=== PATIENT | female | born 1970 | race Hispanic/Latino ===

== ENCOUNTER 2020-11-11 02:00 | Inpatient (IN) | payer OTHER ==
--- OUTSIDE RECORDS SUMMARY | 2020-11-11 02:07 | XMS REPORT | Continuity of Care Document ---
:1970 Author Organization [facility] t Address [address] [place] [address] [address]. [address] [place] [address] Care Team Providers Name Role Phone Jaylen Lomeli Primary Care Physician Unavailable Sarita Wang RN Attending Clinician Unavailable Lu BLANCO, Ata Perla Attending Clinician Monty Lomeli MD Attending Clinician Amber Duff MD Attending Clinician Elena MCFADDEN Attending Clinician Unavailable Mayito MCFADDEN Attending Clinician Unavailable Leena BLANCO, JJerica Attending Clinician Shakeel GOMEZ Attending Clinician MD AMBER DUFF Attending Clinician Unavailable Josh DURAN Attending Clinician Unavailable Bart PITTMAN Attending Clinician Unavailable Britta De Jesus MA Attending Clinician Unavailable Jona PITTMAN Attending Clinician Unavailable Asked, Pcp Attending Clinician Unavailable Garett Gunderson RN Attending Clinician Addi PITTMAN Attending Clinician Unavailable Mimi Attending Clinician Unavailable Brandon Attending Clinician Unavailable Trey Attending Clinician Unavailable Wan OG Attending Clinician Unavailable Rod MCFADDEN Attending Clinician Unavailable DR Annie HEARN Attending Clinician Unavailable Dodie Carson MD Attending Clinician Kelli Myers Attending Clinician Unavailable Rick Wylie MD Attending Clinician WILDA Attending Clinician Unavailable Juan Pablo MCFADDEN Attending Clinician Unavailable Karo Schumacher Attending Clinician Karo Hassan MD Attending Clinician Chuy Wang MD Attending Clinician Monty Wilkes MA Attending Clinician Unavailable OMEGA Admitting Clinician Unavailable MD REGGIE DUFFCatalina Admitting Clinician Unavailable DR Annie HEARN Admitting Clinician Unavailable MD Maira PEDERSEN Admitting Clinician Unavailable Payers Payer Name Policy Type Policy Effective Date Expiration Date Sour ce Number MEDICAREMEDICARE PART [id number] 2019 [facility] AND 00:00:00 Synagogue DslccttrEN520/05[place] [id number] 2019 [facility] 00:00:00 Synagogue [id number]/ 05/2019-PresentIndemni ty Problems Condition Condition Condition Status Onset Resolution Last Treating Co mments Source Name Details Category Date Date Treatment Clinician Date Anemia of Anemia of Disease Active Margareth ston chronic chronic 4-15 Methodi disease disease 00:00: st 00 Bursitis Bursitis Disease Active [place] of hip of hip 4-15 Methodi 00:00: st 00 Bursitis Bursitis Disease Active [place] of knee of knee 4-15 Methodi 00:00: st 00 Coronary Coronary Disease Active [place] arterioscl arterioscl 4-15 Me thodi erosis erosis 00:00: st 00 Hyperlipid Hyperlipid Disease Active 2020- H oral emia emia 4-15 Methodi 00:00: st 00 Hyperparat Hyperparat Disease Active [facility] hyroidism hyroidism 4-15 Meth pam 00:00: st 00 Hypertensi Hypertensi Disease Active [place] on on 4-15 Methodi 00:00: st 00 Hypothyroi Hypothyroi Disease Active H oral dism dism 4-15 Methodi 00:00: st 00 Osteoarthr Osteoarthr Disease Active H orla itis of itis of 4-15 Methodi knee knee 00:00: st 00 Tear of Tear of Disease Active [place] medial medial 4-15 Methodi meniscus meniscus 00:00: st of knee of knee 00 End stage End stage Disease Active Margareth ston renal renal 4-15 Methodi failure on failure on 00:00: st dialysis dialysis 00 Type 2 Type 2 Disease Active [place] diabetes diabetes 4-15 Method i mellitus mellitus 00:00: st 00 Dialysis Dialysis Disease Active Overview: Andi trejo AV fistula AV fistula 4-07 Formattin Methodi malfunctio malfunctio 00:00: g of this n, initial n, initial 00 note encounter encounter might be different from the original. Added automatic ally from request for surgery [id number] COVID-19 COVID-19 Disease Active [facility] on virus virus 9-08 Methodi detected detected 00:00: st 00 ESRD (end ESRD (end Disease Active Overview: [place] stage stage 7-30 Formattin Methodi renal renal 00:00: g of this disease) disease) 00 note might be different from the original. Added automatic ally from request for surgery [id number] Type 2 Type 2 Disease Active [place] diabetes diabetes 5-27 Method i mellitus mellitus 00:00: st with with 00 kidney kidney complicati complicati on, with on, with long-term long-term current current use of use of insulin insulin Allergies, Adverse Reactions, Alerts Allergy Allergy Status Severity Reaction(s) Onset Inactive Treating Comm ents Source Name Type Date Date Clinician No Known DA Active U 2018-05 [facility] Allergie 06-15 Clear s 00:00: Ellis 00 [facility] Family History Family Member Diagnosis Comments Start Date Stop Date Source Natural father Cancer [place] [facility] Natural mother Diabetes [place] [facility] Natural mother Hypertension [place] [facility] Social History Social Habit Start Date Stop Date Quantity Comments [facility] Std Drinks History [facility] Meth odist Alcohol Binge Tobacco use and 2020-09-04 2020-09-04 Never used Ian Callejas ethodist exposure 00:00:00 00:00:00 Alcohol intake 2020-09-04 2020-09-04 Lifetime Ian [facility] thodist 00:00:00 00:00:00 non-drinker (finding) History SDOH 2020-01-30 2020-01-30 1 Ian Meth odist Alcohol Frequency 00:00:00 00:00:00 [birth year] Ian harmonodist 00:00:00 00:00:00 Smoking Status Start Date Stop Date Source Never smoker Ian Methodis t Medications Ordered Filled Start Stop Current Ordering Indication Dosage Frequency Signature Comments Components Source Medication Medication Date Date Medication? Clinician (SIG) Name Name carvediloL Yes 25mg Q.5D Take 25 mg [place] (COREG) 25 5-20 by mouth 2 Met hodi MG tablet 09:17: (two) st 12 times a day with meals. hydrALAZINE Yes 25mg Q.[id number] Take 25 mg Sosa (APRESOLINE 5-20 [id number] by mouth 3 Methodi ) 25 MG 09:17: 3D (three) st tablet 12 times a day. furosemide Yes 20mg QD Take 20 mg [place] (LASIX) 20 5-20 by mouth Metho di mg tablet 09:17: daily. st 12 atorvastati Yes 40mg QD Take 40 mg Sosa n (LIPITOR) 5-20 by mouth Meth pam 40 mg 09:17: nightly. st tablet 12 levothyroxi Yes 25ug QD Take 25 Margareth ston ne 5-20 mcg by Methodi (SYNTHROID) 09:17: mouth st 25 mcg 12 every tablet morning. folic Yes 1{tbl} QD Take 1 Sosa acid/vit B 5-20 tablet by Meth pam complex and 09:17: mouth st C 12 daily. (RENAL-LUBA ORAL) aspirin Yes 81mg QD Take 81 mg [place] (ECOTRIN) 5-20 by mouth Method i 81 MG 09:17: daily. st enteric 12 coated tablet cholecalcif Yes 1{tbl} QD Take 1 [place] diego, 5-20 tablet by Methodi vitamin D3, 09:17: mouth st (Vitamin 12 daily. D3) 125 mcg (5,000 unit) tablet insulin Yes 30U QD Inject 30 [place] GLARGINE 5-20 Units Methodi (Toujeo 09:17: under the st SoloStar 12 skin U-300 daily. Insulin) 300 unit/mL (1.5 mL) insulin pen clopidogreL Yes 75mg QD Take 75 mg Sosa (PLAVIX) 75 5-20 by mouth Meth pam mg tablet 09:17: daily. st 12 losartan Yes 100mg QD Take 100 [place] (COZAAR) 5-20 mg by Methodi 100 MG 09:17: mouth st tablet 12 daily. multivitami Yes 1{tbl} QD Take 1 [place] n tablet 5-20 tablet by Method i 09:17: mouth st 12 daily. TURMERIC Yes Take by [place] ORAL 5-20 mouth. Methodi 09:17: st 12 zinc 50 mg Yes Take by [place] tablet 5-20 mouth. Methodi 09:17: st 12 acetaminoph 2020- No acute pain 1{tbl} Q8H Take 1 Sosa en-codeine 4-15 -18 tablet by Met parker (TYLENOL 00:00: 23:[address] WITH 00 :00 every 8 CODEINE #3) (eight) 300-30 mg hours as per tablet needed for moderate pain for up to 3 days .acute pain. gabapentin 2020- No 100mg Q.5D Take 100 [place] (NEURONTIN) 4-13 04-13 mg by Method i 100 mg 15:22: 00:[address] capsule 59 :00 (two) times a day. amLODIPine 2020- No 10mg QD Take 10 mg Ian (NORVASC) 4-13 04-13 by mouth Metho di 10 mg 15:18: 00:[address] tablet 32 :00 lidocaine-p 2019-05- No Apply [place] rilocaine -09 04-19 topically Meth pam (EMLA) 00:00: 23:[address] 2.5-2.5 % 00 :00 for mild cream pain. Apply to fistula site 30 - 45 minutes prior to dialysis treatment. acetaminoph acute pain 1{tbl} Q4H Take 1 Sosa en-codeine 9-10 24 tablet by Met parker (TYLENOL 00:00: 23:[address] WITH 00 :00 every 4 CODEINE #3) (four) 300-30 mg hours as per tablet needed for mild pain or moderate pain for up to 14 days .acute pain. amoxicillin No 500mg QD Take 500 [place] (AMOXIL) 8-18 08-18 mg by Methodi 500 MG 09:53: 00:[address] capsule 52 :00 daily. benzonatate No 1{capsu Take 1 Sosa (TESSALON) 8-03 04-13 le} capsule by Me saba 100 MG 00:00: 00:[address] capsule 00 :00 needed. Ally-Luba No 1{capsu QD Take 1 [place] 0.8 mg 12-12 le} capsule by Method i tablet 00:00: 00:[address] 00 :00 daily. Vital Signs Vital Name Observation Time Observation Value Comments Source Body height 2020-11-09 11:00:00 152.4 cm Ian Salcedo Body weight 2020-11-09 11:00:00 55.792 kg Ian Salcedo BMI 2020-11-09 11:00:00 24.02 kg/m2 Ian Salcedo Systolic blood 2020-10-08 09:13:00 189 mm[Hg] Beto n [facility] pressure Diastolic blood 2020-10-08 09:13:00 76 mm[Hg] [place] on [facility] pressure Heart rate 2020-10-08 09:13:00 65 /min Ian Salcedo Body temperature 2020-10-08 09:13:00 36.44 [place] [facility] Oxygen saturation in 2020-10-08 09:13:00 94 /min Ian Salcedo Arterial blood by Pulse oximetry Respiratory rate 2020-09-03 14:52:00 15 /min Be Salcedo Procedures Procedure Date / Time Performing Clinician Source Performed HLA SERUM STORAGE 2020-10-23 07:52:00 Ata Pradhan SINGLE ANTIGEN BEADS 2020-09-23 14:11:00 Lu Katiafrank Salcedo OR FL < 1 HOUR 2020-09-03 21:37:15 Hernan Duff odsanjeev Duff-Hsi ANESTHESIA PERIPHERAL 2020-09-03 14:45:36 Severiano Pedersen POC GLUCOSE 2020-09-03 14:29:00 Hernan Duff Duff-Hsi POC GLUCOSE 2020-09-03 14:05:00 Hernan Duff odsanjeev Duff-Hsi FISTULOGRAPHY, DIALYSIS 2020-09-03 11:52:00 Hernan Duff SHUNT, AND DECLOTTING Duff-Hsi ESTIMATED GFR 2020-09-03 09:50:00 Hernan Duff Duff-Hsi POC PANEL 2020-09-03 09:50:00 Hernan Duff odsanjeev Duff-Hsi BASIC METABOLIC PANEL 2020-09-03 09:46:00 Hernan Duff-Hsi ESTIMATED GFR 2020-09-03 09:46:00 Hernan Duff odsanjeev Duff-Hsi COVID-19 QUALITATIVE PCR 2020-09-01 17:30:00 Hernan Duff-Hsi XR CHEST 2 VW 2020-09-01 16:22:30 Hernan Duff Duff-Hsi ECG PRE/POST OP 2020-09-01 15:51:58 Hernan Duff-Hsi PARTIAL THROMBOPLASTIN 2020-09-01 15:07:00 Hernan Duff on Synagogue TIME (PTT) Duff-Hsi PROTHROMBIN TIME WITH INR 2020-09-01 15:07:00 Hernan Duffton Matias Duff-Hsi HC COMPLETE BLD COUNT 2020-09-01 15:07:00 Hernan Duff W/AUTO DIFF Omega-Hsi TYPE AND SCREEN 2020-09-01 15:07:00 Hernan Duff-Hsi HEMOGLOBIN A1C 2020-09-01 15:07:00 LeenaIan mathew HLA SERUM STORAGE 2020-08-24 05:32:00 Lu, Ata Salcedo HLA SERUM STORAGE 2020-07-27 05:39:00 Lu, Ata Sosa [facility] SINGLE ANTIGEN BEADS 2020-06-24 05:31:00 Lu, Ata caballero [facility] SINGLE ANTIGEN BEADS 2020-05-25 05:41:00 Lu, Ata caballero Synagogue CT ANGIOGRAM ABDOMINAL 2020-04-02 10:31:00 Telugu, Michelle Salcedo AORTA AND BILATERAL ILIOFEMORAL RUNOFF W WO CONTRAST LIPID PANEL 2020-04-02 08:22:00 Telugu, Michelle Salcedo FASTING GLUCOSE LEVEL 2020-04-02 08:22:00 Telugu, Michelle Salcedo CREATININE LEVEL 2020-04-02 08:22:00 Telugu, Michelle Salcedo PHOSPHORUS LEVEL 2020-04-02 08:22:00 Telugu, Michelle Salcedo LDH 2020-04-02 08:22:00 Telugu, Michelle Salcedo HEMOGLOBIN A1C 2020-04-02 08:22:00 Telugu, Michelle Salcedo CYTOMEGALOVIRUS AB, IGG 2020-04-02 08:22:00 Telugu, Michelle Salcedo CYTOMEGALOVIRUS AB, IGM 2020-04-02 08:22:00 Telugu, Michelle Salcedo LISA-VILLANUEVA VIRUS 2020-04-02 08:22:00 Telugu, Michelle Salcedo ANTIBODY TEST HERPES SIMPLEX VIRUS BY 2020-04-02 08:22:00 Telugu, Michelle Salcedo PCR HSV 1 & 2 GLYCOPROTEIN G 2020-04-02 08:22:00 Telugu, Michelle Salcedo AB, IGG HSV TYPE 1/2 COMBINED AB, 2020-04-02 08:22:00 Telugu, Michelle Salcedo IGM PARATHYROID HORMONE 2020-04-02 08:22:00 Telugu, Michelle caballero [facility] ABORH - TRANSPLANT 2020-04-02 08:22:00 Telugu, Michelle Allison on Synagogue C-PEPTIDE 2020-04-02 08:22:00 Telugu, Michelle Salcedo SERUM ELECTROPHORESIS 2020-04-02 08:22:00 Telugu, Michelle Salcedo ESTIMATED GFR 2020-04-02 08:22:00 Telugu, Michelle Salcedo LOW RESOLUTION FULL TYPING 2020-04-02 08:22:00 Telugu, Michelle Salcedo BY SSO SINGLE ANTIGEN BEADS 2020-04-02 08:22:00 Telugu, Michelle Zuluaga ston [facility]agogue C1Q CLASS 1 & 2 ANTIBODY 2020-04-02 08:22:00 Telugu, Michelle Salcedo US RENAL 2020-03-19 11:43:00 Telugu, Michelle Salcedo TTE COMPLETE, WO CONTRAST, 2020-03-19 09:00:00 Telugu, Michelle Salcedo W DOPPLER ([id number]) ECG 12-LEAD 2020-03-19 08:45:36 Telugu, Michelle Salcedo OCCULT BLOOD, STOOL 2020-03-18 16:10:00 LuAtat on Synagogue OCCULT BLOOD, STOOL 2020-03-18 16:08:00 Lu, Ata Lrt on Synagogue OCCULT BLOOD, STOOL 2020-03-18 16:05:00 Lu, Ata Lrt on Synagogue URINE CULTURE 2020-02-20 12:39:00 Telugu, Mcihelle Salcedo COMPREHENSIVE METABOLIC 2020-02-20 10:43:00 Telugu, Michelle Salcedo PANEL URINALYSIS SCREEN AND 2020-02-20 10:43:00 Telugu, Michelle Salcedo MICROSCOPY, WITH REFLEX TO CULTURE HIV AG/AB COMBINATION 2020-02-20 10:43:00 Telugu, Michelle Salcedo HEPATITIS A ANTIBODY TOTAL 2020-02-20 10:43:00 Telugu, Michelle Salcedo HEPATITIS B CORE ANTIBODY 2020-02-20 10:43:00 Telugu, Michelle Salcedo TOTAL HEPATITIS B SURFACE 2020-02-20 10:43:00 Telugu, Michelle caballero [facility] ANTIBODY HEPATITIS B SURFACE 2020-02-20 10:43:00 Telugu, Michelle caballero [facility]agogue ANTIGEN HEPATITIS C ANTIBODY 2020-02-20 10:43:00 Telugu, Michelle Salcedo SYPHILIS TREPONEMA SCREEN 2020-02-20 10:43:00 Telugu, Michelle Salcedo WITH RPR CONFIRMATION (REVERSE ALGORITHM) HC COMPLETE BLD COUNT 2020-02-20 10:43:00 Telugu, Michelle Salcedo W/AUTO DIFF PROTHROMBIN TIME WITH INR 2020-02-20 10:43:00 Telugu, Michelle Salcedo PARTIAL THROMBOPLASTIN 2020-02-20 10:43:00 Telugu, Michelle Salcedo TIME (PTT) ABORH - TRANSPLANT 2020-02-20 10:43:00 Telugu, Michelle Allison on [facility]agogue DRUG KEENE 9, SER/CLARIBEL, SCRN 2020-02-20 10:43:00 Telugu, Michelle Salcedo W/RFLX TO CONF NICOTINE AND COTININE, 2020-02-20 10:43:00 Telugu, Michelle Salcedo SERUM TB T-SPOT 2020-02-20 10:43:00 Telugu, Michelle Salcedo ESTIMATED GFR 2020-02-20 10:43:00 Telugu, Michelle Salcedo HEPATITIS A ANTIBODY IGM 2020-02-20 10:43:00 Telugu, Michelle Salcedo ANESTHESIA PERIPHERAL 2020-01-30 10:12:28 Gentry Wang BLOCK POC GLUCOSE 2020-01-30 09:52:00 Hernan Duff CREATION, AV FISTULA 2020-01-30 07:55:00 Hernan Duff POC PANEL 2020-01-30 07:48:00 Hernan Duff BASIC METABOLIC PANEL 2020-01-30 07:38:00 Severiano Pedersen ESTIMATED GFR 2020-01-30 07:38:00 Ian Pedersen HC COMPLETE BLD COUNT 2020-01-29 15:19:00 Hernan Duff W/AUTO DIFF Duff-Hsi PARTIAL THROMBOPLASTIN 2020-01-29 15:19:00 Hernan Duff on Synagogue TIME (PTT) Duff-Hsi PROTHROMBIN TIME WITH INR 2020-01-29 15:19:00 Hernan Duff-Hsi HEMOGLOBIN A1C 2020-01-29 15:05:00 Ian Pedersen Meth odist Paradise Rao TYPE AND SCREEN 2020-01-29 15:05:00 Ian Pedersen Meth odist Paradise Maria. XR CHEST 2 VW 2020-01-09 12:17:37 Ian Pedersen Meth odist Paradise Rao ECG PRE/POST OP 2020-01-09 11:49:53 Ian Pedersen odsanjeev Rao HC COMPLETE BLD COUNT 2020-01-09 11:46:00 Severiano Pedersen W/AUTO DIFF Paradise Rao TYPE AND SCREEN 2020-01-09 11:46:00 Ian Pedersen Meth odist Paradise Maria. HEMOGLOBIN A1C 2020-01-09 11:46:00 Ian Pedersen odist Paradise Rao COVID-19 QUALITATIVE PCR 2020-01-09 10:52:00 Hernan Duff-Hsi US VEIN MAPPING UPPER 2019-12-19 09:35:00 Hernan Duff EXTREMITY BILATERAL Duff-Hscatalina Plan of Care Planned Activity Planned Date Details Comments Source Future Scheduled 2023-02-19 Screening for [facility] thodist Test 00:00:00 malignant neoplasm of cervix (procedure) [code = 495640907] Future Scheduled 2020-12-20 INFLUENZA VACCINE [facility] n [facility] Test 00:00:00 [code = INFLUENZA VACCINE] Future Scheduled 2019-12-26 BREAST CANCER [facility] thodist Test 00:00:00 SCREENING [code = BREAST CANCER SCREENING] Future Scheduled 2019-12-26 COLONOSCOPY SCREENING Andi trejo [facility] Test 00:00:00 [code = COLONOSCOPY SCREENING] Future Scheduled 2019-12-26 SHINGLES VACCINES [facility] Test 00:00:00 (#1) [code = SHINGLES VACCINES (#1)] Future Scheduled 1981 COVID-19 VACCINE (1) Margarethkelley gardner [facility] Test 00:00:00 [code = COVID-19 VACCINE (1)] Future Scheduled 1979-12-26 DIABETES: RETINAL EYE [place] [facility] Test 00:00:00 EXAM [code = DIABETES: RETINAL EYE EXAM] Future Scheduled 1979-12-26 DIABETIC FOOT EXAM [place] [facility] Test 00:00:00 [code = DIABETIC FOOT EXAM] Encounters Start End Encounter Admission Attending Care Care Encounter Source Date/Time Date/Time Type Type Clinicians Facility Department ID 2020-10-27 2020-10-27 Office Yani [facility] [id number] 10:58:31 [id number] Kimberly [id number] Professio [id number] nal 044 Office [address] One 2020-10-23 2020-10-23 [facility] [id number] [place] 00:00:00 00:00:00 AHMED 974 Method i 2020-10-08 2020-10-08 [facility] [id number] [place] 00:00:00 00:00:00 HERNAN 661 Method i 2020-09-23 2020-09-23 [facility] [id number] [place] 00:00:00 00:00:00 AHMED 274 Method i 2020-09-03 2020-09-03 [id number] [place] 00:00:00 00:00:00 HERNAN 419 Method i 2020-09-01 2020-09-01 [facility] [id number] [place] 00:00:00 00:00:00 HERNAN 562 Method i 2020-09-01 2020-09-01 [facility] [id number] [place] 00:00:00 00:00:00 HERNAN 618 Method i 2020-08-24 2020-08-24 [facility] [id number] [place] 00:00:00 00:00:00 AHMED 841 Method i 2020-08-13 2020-08-13 Outpatient DUFF, [facility] [id number] [place] 00:00:00 00:00:00 HERNAN [address] 2020-07-27 2020-07-27 Outpatient LU, [facility] [id number] [place] 00:00:00 00:00:00 AHMED [address] 2020-07-19 2020-07-19 Outpatient UL, [facility] [id number] [place] 00:00:00 00:00:00 AHMED [address] 2020-06-24 2020-06-24 Outpatient LU, [facility] [id number] [place] 00:00:00 00:00:00 AHMED [address] 2020-05-27 2020-05-27 Outpatient ASKED, NO [facility] [id number] [place] 00:00:00 00:00:[address] 2020-05-25 2020-05-25 Outpatient LU, [facility] [id number] [place] 00:00:00 00:00:00 AHMED [address] 2020-04-09 2020-04-09 Outpatient DUFF, [facility] [id number] [place] 00:00:00 00:00:00 HERNAN [address] 2020-04-07 2020-04-07 Outpatient NICA [facility] RAD [id number] [facility] 11:08:00 23:59:00 [facility] 2020-04-02 2020-04-02 Outpatient URDU, [facility] [id number] [place] 00:00:00 00:00:00 MICHELLE [address] 2020-04-02 2020-04-02 Outpatient URDU, [facility] [id number] [place] 00:00:00 00:00:00 MICHELLE [address] 2020-03-19 2020-03-19 Outpatient WYLIE, [facility] [id number] [place] 00:00:00 00:00:00 DELORES [address] 2020-03-19 2020-03-19 Outpatient WYLIE, [facility] [id number] [place] 00:00:00 00:00:00 DELORES [address] 2020-03-19 2020-03-19 Outpatient PODDER, [facility] [id number] [place] 00:00:00 00:00:00 HEMANGSHU [address] 2020-03-19 2020-03-19 Outpatient URDU, [facility] [id number] [place] 00:00:00 00:00:00 MICHELLE [address] 2020-03-19 2020-03-19 Outpatient URDU, [facility] [id number] [place] 00:00:00 00:00:00 MICHELLE [address] 2020-03-18 2020-03-18 Outpatient LU, [facility] [id number] [place] 00:00:00 00:00:00 AHMED [address] 2020-02-27 2020-02-27 Outpatient DUFF, [facility] [id number] [place] 00:00:00 00:00:00 HERNAN [address] 2020-02-20 2020-02-20 Outpatient WYLIE, [facility] [id number] [place] 00:00:00 00:00:00 DELORES [address] 2020-02-20 2020-02-20 Outpatient ASKED, NO [facility] [id number] [place] 00:00:00 00:00:[address] 2020-02-20 2020-02-20 Outpatient WYLIE, [facility] [id number] [place] 00:00:00 00:00:00 DELORES [address] 2020-02-20 2020-02-20 Outpatient LU, [facility] [id number] [place] 00:00:00 00:00:00 AHMED [address] 2020-01-30 2020-01-30 Outpatient DUFF, [facility] [id number] [place] 00:00:00 00:00:00 HERNAN [address] 2020-01-29 2020-01-29 Outpatient DUFF, [facility] [id number] [place] 00:00:00 00:00:00 HERNAN [address] 2020-01-09 2020-01-09 Outpatient DUFF, [facility] [id number] [place] 00:00:00 00:00:00 HERNAN [address] 2020-01-09 2020-01-09 Outpatient WOJCIECHOWS [facility] [id number] [place] 00:00:00 00:00:00 KI, [address] 2019-12-19 2019-12-19 Outpatient [facility] [id number] [place] 00:00:00 00:00:[address] Results Test Description Test Time Test Comments Results Result Comments Source HLA serum storage 2020-10-30 18:05:40 Test Item Value Reference Range Interpretation Comme nts HLA serum storage (test code = 1555) See link below for PDF [employer] ort Case number (test code = 5654470) [id number] [place] MethodistSingle antigen [id number] 20:17:51 Test Item Value Reference Range Interpretation Comments SAB interpretation (test Additional Antibody code = 5950) Information:B51=B*51 :48QF8=USU0*04:02/DQ A1*04:63NH8=JVY7*05: 02/DQA1*01:62VF7=GLF 1*06:04/DQA1*01:02DQ 8=DQB1*03:02/DQA1*03 :01 SAB serum ID (test code = [id number]) SAB serum collection D&T 09/23/2020 02:11 PM (test code = 5867) SAB class I antibody A1,B78,B51 assignment (test code = 5870) SAB cPRA class I (test 32 code = 5868) SAB class II antibody DR18,DR17,DR52,DR13, assignment (test code = DR7,DR14,DR11,DQ2,DQ 5871) 5,DQ4,DQ8,DQ6 SAB cPRA class II (test 98 code = 5869) Case number (test code = [id number]) Single antigen beads See link below for (test code = 4604) PDF Lab Report [facility] [place] < 1 [id number] 22:08:19Hm Interface, Radiology Results - 09/03/2020 10:11 PM CDTFormatting of this note might be di fferent from the original.OR [place] < 1 HOURCLINICAL HISTORY:IMPRESSION:Fluoroscopy was provided. No radiologist present. Please see procedure report for discussion of procedure, findings and fluoroscopic time.RM-WPHYMDLHouston MethodistPeripheral [id number] 14:45:36 Paradise Pedersen MD 09/03/2020 2:46 PMPeripheral Block Performed by: anesthesiologistAnesthesiologist: Paradise Pedersen MDAuthorized by: Paradise Pedersen MD Notes: Procedure was done with MAC and local anesthesia, sedation Regional anesthesia not performed.Ian Salcedo ECG Pre/Post [id number] 12:56:39 Test Item Value Reference Range Interpretation Comments Ventricular rate (test 65 code = 253) Atrial rate (test code 65 = 255) WA interval (test code 160 = 266) QRSD interval (test 86 code = 260) QT interval (test code 470 = 264) QTC interval (test code 488 = 265) P axis 1 (test code = 56 267) QRS axis 1 (test code = 35 268) T wave axis (test code 99 = 270) EKG impression (test Normal sinus code = 273) rhythm-Possible Left atrial enlargement-Nonspecifi c ST and T wave abnormality-Prolonged QT-Abnormal ECG-In automated comparison with ECG of 19-MAR-2020 08:45,-No significant change was found- Ian GrimaldoKmtbecmhhRKRW-ClK-3 (COVID-19) RNA [Presence] in Respiratory specimen by IVÁN with probe [id number] 22:07:02 Test Item Value Reference Range Interpretation Comments SARS-CoV-2 (COVID-19) RNA Not detected Not-Detected [Presence] in Respiratory specimen by IVÁN with probe detection (test code = 56582-9) XR Chest 2 [id number] 16:24:13Hm Interface, Radiology Results - 09/01/2020 4:27 PM CDT EXAMINATION: XR CHEST 2 VWCLINICAL HISTORY: End-stage renal disease, dialysis access malfunctionCOMPARISON: 01/09/2020FINDINGS: There has been median sternotomy. The heart appears possibly mildly enlarged but there is no evidence of acute failure. The lungs are clear. There is no infiltrate, effusion or edema. Lung volumes are normal. There is no bony finding.IMPRESSION: No acute findingR[facility]-[id number] MethodistCTA Abdominal Aorta And Bilateral Iliofemoral Runoff W Wo [id number] 12:04:27Hm Interface, Radiology Results 04/02/2020 12:07 PM CSTFormatting of this note might be di fferent from the original.EXAMINATION: CT ANGIOGRAM ABDOMINAL AORTA AND BILATERAL ILIOFEMORAL RUNOFF W WO CONTRASTCLINICAL HISTORY: N18.6 End stage renal disease, Renal Transplant EvaluationTECHNIQUE: Multiple CT angiographic images of the abdomen, pelvis, and bilateral lower extremities were obtained during intravenous administration of iodinated contrast. Multiple computerized reformatted images as well as 3-D volume rendered images were also obtained. 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 The remainder of the immediate aortic branch vessels to include the celiac, superior mesenteric, bilateral renal, and inferior mesentericarteries are well-opacified.The pelvic vasculature to include the bilateral common iliac, internal iliac, and external iliac arteries are also of normal diameter.The remainder of the visualized aspectsof the lung bases, liver, stomach, pancreas, adrenals, kidneys, spleen, gallbladder, GI tract, bony and soft tissue structures is unremarkable, apart from degenerative changes of the spine.Right lower extremity CTA:The right common femoral and profunda femoris arteries are of normal diameter opacify no rmally with contrast.A high-grade stenosis is noted the origin of the right superficial femoral artery. However, the distal aspect of this vessel is well- opacified.The right popliteal artery appears within normal limits.High-grade stenosis noted along the proximal to mid aspect of the right anterior tibialis artery though this vessel does opacify to the level of the ankle.Tandem high- grade stenoses are also present within the origin of the right peroneal artery though the distal aspect of this vessel opacifies to the level of the ankle.Peroneal collaterals minimally opacify the distal posterior tibialis artery as the more proximal aspect of this vessel appears chronically occluded.Left lower extremity CTA:The left common femoral, profunda femoris, superficial femoral, popliteal, and peroneal arteries are well-opacified throughout their course. A few scattered vascular calcifications are seen.High- grade stenosis is noted the origin of the left posterior tibialis artery though this vessel is opacified to the level of the ankle.Multilevel tandem occlusions are present throughout the course of theleft anterior tibialis artery though the distal aspect of this vessel is opacified via collaterals.IMPRESSION:Probable 11 mm right hepatic hemangioma. This can be better evaluated with liver MRI if desired. High-grade stenosis of the origin of the right superficial femoral artery with additional stenoses/occlusions of the bilateral lower extremity infrageniculate arterial vasculature as described above.[facility]-[id number] MethodistOccult blood, [id number] 17:47:14 Test Item Value Reference Range Interpretation Comments Occult blood, Negative for Specimen stool (test occult blood. [facility] code = Source: [facility]) Site: Nonpreser shefali [place] MethodistUS [id number] 12:35:10Hm Interface, Radiology Results 03/19/2020 12:38 PM CDT EXAMINATION: US RENALCLINICAL HISTORY: N18.6 End stage renal disease, Renal Transplant EvaluationTECHNIQUE: Sonographic evaluation of the kidneys and bladder was performed with grayscale, color-flow, and spectral analysis.COMPARISON: None.FINDINGS: The kidneys are normal in size although of increased echogenicity. There is no evidence of renal mass, calculi, or hydronephrosis.The right kidney measures 9.4 x 5.7 x 5.0 cm.The left kidney measures 9.6 x 5.5 x 5.0 cm.The urinary bladder is unremarkable.IMPRESSION:Findings consistent with medical renal disease.[id number] MethodistTransthoracic Echocardiogram Complete, (w Contrast, Strain and 3D if needed)2020-03-19 10:50:00Interface, Radiology Results In 03/19/2020 10:51 AM CDTFormatting of this note might be different f rom the original. Echocardiography Report [address] [place] [address] Pat.Name: LEODAN HAAS Pat.ID: [id number] .Date: 03/19/2020 Refer.MD: MICHELLE CARSON MD Exam Time: 8:13:00 AM Study Type:Routine Echo Height: 59in Weight: 119lb BSA: 1.48 m2 Age: 8 1970,49Y Sex: FEMALE BP: 130/60 HR: 65 bpm Sonogrphr: Nasra Saenz RDCS Pat. Stat.:Outpatient Room: [facility] Study Status:Final Echo Event ID:[id number] Order ID: [id number] Reason for Study:Renal Transplant EvaluationHistory / Clinical:Diabetes, ESRD Procedures: 2D Echo, Colorflow Doppler, Strain ---------SUMMARY: LV size is moderately enlarged when indexed to BSA. LV EF is normal.Estimated EF is 60-64%.RV size is normal. RV systolic function is normal.Diastolic dysfunction Grade II (Moderate): Impaired relaxation withelevated LV filling pressures. FINDINGS: LV: LV size is moderatelyenlarged when indexed to BSA There is moderate eccentric LV hypertrophy. Reduced average LVglobal longitudinal strain at -15.9%. LV EF is normal. Overall wall motion is normal. Estimated EF is 60-64%.RV: RV size is normal. RV systolic function is normal.LA: LA volume is moderately enlarged.RA: RA size is normal.AO: Aortic root diameter is normal.ELEAZAR: No pericardial effusion.SVn: Normal collapse of IVC during inspiration is consistent with normal RA pressure.AV: No structural AV abnormalities noted.MV: No structural MV abnormalities noted. Mild mitral regurgitation. PV: No structural PV abnormalities noted. A trace of pulmonic regurgitation. TV: No structural TV abnormalities noted.Canseco: Diastolic dysfunction Grade II (Moderate): Impaired relaxation with elevated LV filling pressures.Other: Insufficient TR jet to estimate PA systolic pressure. ---------MEASUREMENTS: 2DParasternal Long [place] Ao An 2 cm LVPWd 1.1 cm Ao Rtd 2.7 cm Index 1.8 cm/m2 LA Ds 4 cm IVSd 0.88 cm RWT 0.45 LVIDd 4.9 cm Index 3.3 cm/m2LV Mass 174 g (87-129)* LVIDs 3.3 cm LVM Index 118 g/m2 LV%fs 33 % LVOT 1.9 cm LA Sng Plane LA Area 20 cm2 (8.8-23.4) LA Vol 61 ml Index 41 ml/m2 LA LngAx 5.3 cm RA Sng Plane RA Vol 46 ml Index 31 ml/m2 RA LngAx 4.6 cm RA Area 16 cm2 (8.3-19.5)LVOT LVOT Area 2.8 cm2 DOPPLERLVOT Stroke Vol & Cardiac Out LVOT TVI 33 cm HR 63 bpm LVOT LVOT SV 94 ml LVOT CO 5.9 l/min SVi 64 ml/m2 LVOT CI 4 l/m/m2MV E/A Ratio MV pkE 121 cm/s (60-130) MV E/A 1.7 MV pkA 72 cm/s Left Ventricle LaLat Em 7.7 cm/s LaSep Em 3.7 cm/s Signed 03/19/2020 10:50 Sandoval Leach M.D.[facility] 2020-02-21 16:18:26 Test Item Value Reference Range Interpretation Comments Urine culture Mixed inder Specimen isolate (test 10-5 col/cc InformationSpe [facility] hospitalen code = 35947-2) Source: Urin eSpecimen Site: Clean cat Sosa MethodistUrinalysis screen and microscopy, with reflex to culture 2020-02-20 14:07:39 Test Item Value Reference Range Interpretation Comments Specimen site (test Clean catch code = 7279941) Color, UA (test code = Yellow 5778-6) Appearance, UA (test Hazy code = 5767-9) Specific gravity, UA 1.013 1.001-1.035 (test code = 5811-5) pH, UA (test code = 8.0 5.0-8.5 5803-2) Protein, UA (test code 3+ Negative A = 13273-0) Glucose, UA (test code 2+ Negative A = 23711-2) Ketones, UA (test code Negative Negative = 2514-8) Bilirubin, UA (test Negative Negative code = 5770-3) Blood, UA (test code = Small Negative A 5794-3) Nitrite, UA (test code Negative Negative = 5802-4) Urobilinogen, UA (test <2.0 <2.0 code = 57357-6) Leukocyte esterase, UA Small Negative A (test code = 5799-2) Epithelial cells, UA 18 See_Comment [Autom ated (test code = 5787-7) message ] The system which generated this result transmitted reference range : /HPF. The refer ence range was not u sed to interpret th is result as normal/abnormal . Round epithelial cells, 1 See_Comment [Au tomated UA (test code = message] The system 93954-5) which generated this result transmitted reference range : 0 - 1 /HPF. The reference range was not used to interpret this result as normal/abnormal . WBC, UA (test code = 16 See_Comment H [Autom ated 5821-4) message] The sy stem which generated this result transmitted reference range : 0 - 4 /HPF. The reference range was not used to interpret this result as normal/abnormal . RBC, UA (test code = 19 See_Comment H [Autom ated 59269-4) message] The sy stem which generated this result transmitted reference range : 0 - 5 /HPF. The reference range was not used to interpret this result as normal/abnormal . Bacteria, UA (test code Few None seen = 72276-5) Yeast, UA (test code = None seen 14964-4) Yeast with None seen pseudohyphae, UA (test code = 56310-6) Lab Interpretation Abnormal (test code = 61808-3) Ian MethodistPeripheral [id number] 10:12:28Gentry Wang MD 01/30/2020 10:12 AMPeripheral BlockPerformed by: Gentry Wang MDAuthorized by: Gentry Wang MD Staff: Anesthesiologist: Gentry Wang MDNotes: No block - entered in error.Ian Salcedo SARS-CoV-2 (COVID-19) RNA [Presence] in Respiratory specimen by IVÁN with probe [id number] 23:10:12 Test Item Value Reference Range Interpretation Comments SARS-CoV-2 (COVID-19) RNA [Presence] Detected Not-Detected in Respiratory specimen by IVÁN with probe detection (test code = 22741-2) GLUCOSE BEDSIDE [id number] 12:51:00 Test Item Value Reference Range Interpretation Comments GLUCOSE BEDSIDE TESTING (test code 143 mg/dL 70-110 H = GLUBED) GLUCOSE BEDSIDE [id number] 08:03:00 Test Item Value Reference Range Interpretation Comments GLUCOSE BEDSIDE TESTING (test code = 85 mg/dL 70-110 N GLUBED) GLUCOSE BEDSIDE [id number] 21:00:00 Test Item Value Reference Range Interpretation Comments GLUCOSE BEDSIDE TESTING (test code 322 mg/dL 70-110 H = GLUBED) GLUCOSE BEDSIDE [id number] 16:37:00 Test Item Value Reference Range Interpretation Comments GLUCOSE BEDSIDE TESTING (test code 132 mg/dL 70-110 H = GLUBED) - XR CHEST 1 [id number] 16:07:00 Name: LEODAN HAAS [facility] : 1970 Age/S: 48 / F [address] [address] [place] [place] Unit #: [id number] Loc: [place] [address] Phys: Reginaldo Fernandez MD Acct: [id number] Dis Date: Status: ADM IN PHONE #: [phone] Exam Date: 10/08/2019 1530 FAX #: Reason: RULE OUTTB EXAMS: CPT: [id number] XR CHEST 1 V 04433 Fluoro Time: DAP (Gy m2): Air Kerma (mGy): LOCATION: T18 EXAM: CHEST 1 VIEW INDICATION: RULE OUT TB COMPARISON: CT of the chest October 04, 2019 TECHNIQUE: AP chest radiograph. FINDINGS: Mild central vascular congestion.No consolidation or pleural effusion is seen. Right IJ dialysis catheter is in stable position. Heart is normal in size. Patient status post median sternotomy. Bones and peripheralsoft tissues are unremarkable. IMPRESSION: No evidence for active TB. Central vascular congestion. at 1607 Reported and signed by: Claudio Majano M.D. CC: Reginaldo Fernandez MD; Nica Hearn MD PAGE 1 Signed Report Name: LEODAN HAAS [facility] : 1970 Age/S: 48 / F [address] [address] [place] Unit #: [id number] Loc: [place] [address] Phys: Reginaldo Fernandez MD Acct: [id number] Dis Date: Status: ADM IN PHONE #: [phone] Exam Date: 10/08/2019 1530 FAX #: Reason: RULE OUT TB EXAMS: CPT: [id number] XR CHEST 1 V 76408 Fluoro Time: DAP (Gy m2): Air Kerma (mGy): <Continued> Technologist: Brady Chaudhary RT(R)(CT) Trnscb Date/Time: 10/08/2019 (1607) t.JESUS MANUELR.JP19 Orig Print D/T: S: 10/08/2019 (4007) PAGE 2 Signed ReportNovel Coronavirus 2019 [id number] 14:02:00 Test Item Value Reference Range Interpretation Comments Novel Coronavirus 2019 Inhouse (test Negative Negative code = COVNONPUI) Novel Coronavirus 2019 [id number] 14:02:00 Test Item Value Reference Range Interpretation Comments Novel Coronavirus 2019 Inhouse (test Negative Negative code = COVNONPUI) GLUCOSE BEDSIDE [id number] 11:39:00 Test Item Value Reference Range Interpretation Comments GLUCOSE BEDSIDE TESTING (test code 215 mg/dL 70-110 H = GLUBED) GLUCOSE BEDSIDE [id number] 07:57:00 Test Item Value Reference Range Interpretation Comments GLUCOSE BEDSIDE TESTING (test code 120 mg/dL 70-110 H = GLUBED) CBC W/AUTO [id number] 07:01:00 Test Item Value Reference Range Interpretation Comments WHITE BLOOD CELL (test 8.6 K/mm3 3.5-11.0 N code = WBC) RED BLOOD CELL (test 2.87 M/mm3 4.70-6.10 L code = RBC) HEMOGLOBIN (test code 8.1 G/DL 10.4-14.9 L = HGB) HEMATOCRIT (test code 27.6 % 31.5-44.1 L = HCT) MEAN CELL VOLUME (test 96.2 Fl 84.5-98.6 N code = MCV) MEAN CELL HGB (test 28.2 pg 27.0-34.2 N code = MCH) MEAN CELL HGB 29.3 G/DL 31.5-34.0 L CONCETRATION (test code = MCHC) RED CELL DISTRIBUTION 16.2 SD 11.5-14.5 H WIDTH (test code = RDW) PLATELET COUNT (test 213.0 K/mm3 150-450 N code = PLT) MEAN PLATELET VOLUME 11.50 fL 7.0-10.5 H (test code = MPV) NEUTROPHIL % (test 61.2 % 40-76 N code = NT%) LYMPHOCYTE % (test 22.1 % 20.5-51.1 N code = LY%) MONOCYTE % (test code 13.1 % 1.7-9.3 H = MO%) EOSINOPHIL % (test 3.4 % 0.0-6.0 N code = EO%) BASOPHIL % (test code 0.2 % 0.0-2.0 N = BA%) NEUTROPHIL # (test 5.25 K/mm3 1.8-7.6 N code = NT#) LYMPHOCYTE # (test 1.9 K/mm3 0.6-3.2 N code = LY#) MONOCYTE # (test code 1.1 K/mm3 0.3-1.1 N = MO#) EOSINOPHIL # (test 0.3 K/mm3 0.0-0.4 N code = EO#) BASOPHIL # (test code 0.0 K/mm3 0.0-0.1 N = BA#) MANUAL DIFF REQUIRED NO DIFF/SCN CRITERIA SLIDE R KRISTOPHERW (test code = MDIFF) CONSISTA NT WITH AUTO DIFFERENTIAL. CBC W/AUTO [id number] 06:35:00 Test Item Value Reference Range Interpretation Comments WHITE BLOOD CELL (test code = 8.6 K/mm3 3.5-11.0 N WBC) RED BLOOD CELL (test code = RBC) 2.87 M/mm3 4.70-6.10 L HEMOGLOBIN (test code = HGB) 8.1 G/DL 10.4-14.9 L HEMATOCRIT (test code = HCT) 27.6 % 31.5-44.1 L MEAN CELL VOLUME (test code = 96.2 Fl 84.5-98.6 N MCV) MEAN CELL HGB (test code = MCH) 28.2 pg 27.0-34.2 N MEAN CELL HGB CONCETRATION (test 29.3 G/DL 31.5-34.0 L code = MCHC) RED CELL DISTRIBUTION WIDTH (test 16.2 SD 11.5-14.5 H code = RDW) PLATELET COUNT (test code = PLT) 213.0 K/mm3 150-450 N MEAN PLATELET VOLUME (test code = 11.50 fL 7.0-10.5 H MPV) NEUTROPHIL % (test code = NT%) % 40-76 N LYMPHOCYTE % (test code = LY%) % 20.5-51.1 N MONOCYTE % (test code = MO%) % 1.7-9.3 H EOSINOPHIL % (test code = EO%) % 0.0-6.0 N BASOPHIL % (test code = BA%) % 0.0-2.0 N NEUTROPHIL # (test code = NT#) K/mm3 1.8-7.6 N LYMPHOCYTE # (test code = LY#) K/mm3 0.6-3.2 N MONOCYTE # (test code = MO#) K/mm3 0.3-1.1 N EOSINOPHIL # (test code = EO#) K/mm3 0.0-0.4 N BASOPHIL # (test code = BA#) K/mm3 0.0-0.1 N MANUAL DIFF REQUIRED (test code = DIFF/SCN CRITERIA MDIFF) BASIC METABOLIC [id number] 06:35:00 Test Item Value Reference Range Interpretation Comments SODIUM (test code = NA) 138 mmol/L 134-147 N POTASSIUM (test code = K) 4.0 mmol/L 3.4-5.0 N CHLORIDE (test code = CL) 105 mmol/L 100-108 N CARBON DIOXIDE (test code = CO2) 28 mmol/L 21-32 N ANION GAP (test code = GAP) 5.0 GAP calc 4.0-15.0 N GLUCOSE (test code = GLU) 116 MG/DL 70-110 H BLOOD UREA NITROGEN (test code = 14 MG/DL 7-18 N BUN) GLOMERULAR FILTRATION RATE (test 13 estGFR >60 L code = GFR) CREATININE (test code = CREAT) 4.0 MG/DL 0.6-1.0 H CALCIUM (test code = CA) 8.3 MG/DL 8.5-10.1 L GLUCOSE BEDSIDE [id number] 20:50:00 Test Item Value Reference Range Interpretation Comments GLUCOSE BEDSIDE TESTING (test code 272 mg/dL 70-110 H = GLUBED) GLUCOSE BEDSIDE [id number] 16:16:00 Test Item Value Reference Range Interpretation Comments GLUCOSE BEDSIDE TESTING (test code 100 mg/dL 70-110 N = GLUBED) GLUCOSE BEDSIDE [id number] 11:43:00 Test Item Value Reference Range Interpretation Comments GLUCOSE BEDSIDE TESTING (test code 138 mg/dL 70-110 H = GLUBED) GLUCOSE BEDSIDE [id number] 07:43:00 Test Item Value Reference Range Interpretation Comments GLUCOSE BEDSIDE TESTING (test code 100 mg/dL 70-110 N = GLUBED) GLUCOSE BEDSIDE [id number] 19:44:00 Test Item Value Reference Range Interpretation Comments GLUCOSE BEDSIDE TESTING (test code 163 mg/dL 70-110 H = GLUBED) GLUCOSE BEDSIDE [id number] 19:17:00 Test Item Value Reference Range Interpretation Comments GLUCOSE BEDSIDE TESTING (test code 173 mg/dL 70-110 H = GLUBED) GLUCOSE BEDSIDE [id number] 12:45:00 Test Item Value Reference Range Interpretation Comments GLUCOSE BEDSIDE TESTING (test code 128 mg/dL 70-110 H = GLUBED) GLUCOSE BEDSIDE [id number] 08:03:00 Test Item Value Reference Range Interpretation Comments GLUCOSE BEDSIDE TESTING (test code = 89 mg/dL 70-110 N GLUBED) GLUCOSE BEDSIDE [id number] 20:27:00 Test Item Value Reference Range Interpretation Comments GLUCOSE BEDSIDE TESTING (test code 144 mg/dL 70-110 H = GLUBED) GLUCOSE BEDSIDE [id number] 16:29:00 Test Item Value Reference Range Interpretation Comments GLUCOSE BEDSIDE TESTING (test code 142 mg/dL 70-110 H = GLUBED) GLUCOSE BEDSIDE [id number] 12:16:00 Test Item Value Reference Range Interpretation Comments GLUCOSE BEDSIDE TESTING (test code 117 mg/dL 70-110 H = GLUBED) GLUCOSE BEDSIDE [id number] 08:08:00 Test Item Value Reference Range Interpretation Comments GLUCOSE BEDSIDE TESTING (test code = 88 mg/dL 70-110 N GLUBED) BASIC METABOLIC [id number] 06:16:00 Test Item Value Reference Range Interpretation Comments SODIUM (test code = NA) 136 mmol/L 134-147 N POTASSIUM (test code = K) 4.4 mmol/L 3.4-5.0 N CHLORIDE (test code = CL) 104 mmol/L 100-108 N CARBON DIOXIDE (test code = CO2) 25 mmol/L 21-32 N ANION GAP (test code = GAP) 7.0 GAP calc 4.0-15.0 N GLUCOSE (test code = GLU) 90 MG/DL 70-110 N BLOOD UREA NITROGEN (test code = 21 MG/DL 7-18 H BUN) GLOMERULAR FILTRATION RATE (test 9 estGFR >60 L code = GFR) CREATININE (test code = CREAT) 5.5 MG/DL 0.6-1.0 H CALCIUM (test code = CA) 7.8 MG/DL 8.5-10.1 L CBC W/AUTO [id number] 06:14:00 Test Item Value Reference Range Interpretation Comments WHITE BLOOD CELL (test code = 9.6 K/mm3 3.5-11.0 N WBC) RED BLOOD CELL (test code = RBC) 2.94 M/mm3 4.70-6.10 L HEMOGLOBIN (test code = HGB) 8.2 G/DL 10.4-14.9 L HEMATOCRIT (test code = HCT) 27.6 % 31.5-44.1 L MEAN CELL VOLUME (test code = 93.9 Fl 84.5-98.6 N MCV) MEAN CELL HGB (test code = MCH) 27.9 pg 27.0-34.2 N MEAN CELL HGB CONCETRATION (test 29.7 G/DL 31.5-34.0 L code = MCHC) RED CELL DISTRIBUTION WIDTH (test 15.6 SD 11.5-14.5 H code = RDW) PLATELET COUNT (test code = PLT) 192.0 K/mm3 150-450 N MEAN PLATELET VOLUME (test code = 11.50 fL 7.0-10.5 H MPV) NEUTROPHIL % (test code = NT%) 64.3 % 40-76 LYMPHOCYTE % (test code = LY%) 23.0 % 20.5-51.1 N MONOCYTE % (test code = MO%) 9.2 % 1.7-9.3 N EOSINOPHIL % (test code = EO%) 3.2 % 0.0-6.0 N BASOPHIL % (test code = BA%) 0.3 % 0.0-2.0 N NEUTROPHIL # (test code = NT#) 6.16 K/mm3 1.8-7.6 N LYMPHOCYTE # (test code = LY#) 2.2 K/mm3 0.6-3.2 N MONOCYTE # (test code = MO#) 0.9 K/mm3 0.3-1.1 N EOSINOPHIL # (test code = EO#) 0.3 K/mm3 0.0-0.4 N BASOPHIL # (test code = BA#) 0.0 K/mm3 0.0-0.1 N MANUAL DIFF REQUIRED (test code = NO DIFF/SCN CRITERIA MDIFF) GLUCOSE BEDSIDE [id number] 20:07:00 Test Item Value Reference Range Interpretation Comments GLUCOSE BEDSIDE TESTING (test code 194 mg/dL 70-110 H = GLUBED) GLUCOSE BEDSIDE [id number] 17:08:00 Test Item Value Reference Range Interpretation Comments GLUCOSE BEDSIDE TESTING (test code 107 mg/dL 70-110 N = GLUBED) - SP FLUORO GUID CTRL ACC [id number] 16:47:00 Name: LEODAN HAAS [facility] : 1970 Age/S: 48 / F [address] [address] [place] Unit #: [id number] Loc: [place] [address] Phys: Reginaldo Fernandez MD Acct: [id number] Dis Date: Status: ADM IN PHONE #: [phone] Exam Date: 10/04/2019 1530 FAX #: Reason: [facility]OER HEMODIALYSIS EXAMS: CPT: [id number] SP FLUORO GUID CTRL ACC DEV [id number] Fluoro Time: 00:38 DAP (Gy m2): 1.11 Air Kerma (mGy): 5 EXAMINATION: TUNNELED CENTRAL VENOUS CATHETERPLACEMENT USING FLUOROSCOPIC GUIDANCE. LOCATION: S17. HISTORY: AKIon CKD, hyperkalemia, request is made for tunneled dialysis catheter by nephrology. COMPARISON: None. SEDATION: Moderate sedation was administered under the attending physician's direction and continuous monitoring by a trained nurse specialist who was independent from those actually performing the procedure. Total monitored intraservice sedation time was 20 minutes. RADIATION DOSE: 5 mGy. TECHNIQUE: The risks, benefitsand alternatives were discussed and informed consent was obtained. Prior to beginning the procedure, [place] Protocol was used to confirm the patient's identity and planned procedure. Maximum sterile barriers including cap, mask, hand hygiene, sterile gloves, sterile gown, large sterile drape and cutaneous antisepsis were used. The skin over the existing right internal jugular vein dialysis catheter was sterilely prepped, draped and infiltrated with 1% lidocaine. A guidewire was then passed centrally using fluoroscopicguidance through the existing catheter. After infiltrating the skin in the subclavicular region with 1% lidocaine, a short transverse incision was made and the 24 cm Duramax dialysis catheter was tunneled to the internal jugular access site and inserted through a peel-away sheath. The catheter was flushed with 100U/ml heparin. The incision in the lower neck was closed using 3-0 Vicryl and Dermabond. A sterile dressing was applied. ESTIMATED BLOOD LOSS: Less than 30 milliliters. DISCHARGED TO: Recovery and then to inpatient unit. CONDITION: Stable. PAGE 1 Signed Report (CONTINUED) Name: LEODAN HAAS [facility] : 1970 Age/S: 48 / F [address] [facility] Unit #: [id number] Loc: [place] [address] Phys: Reginaldo Fernandez MD Acct: [id number] Dis Date: Status: ADM IN PHONE #: [phone] Exam Date: 10/04/2019 1530 FAX #: Reason: SHOER HEMODIALYSIS EXAMS: CPT: [id number] SP FLUORO GUID CTRL ACC DEV [id number] Fluoro Time: 00:38 DAP (Gy m2): 1.11 Air Kerma (mGy): 5 <Continued> FINDINGS: The final fluoroscopic image demonstrates the catheter with its tip in theright atrium. No complications are seen. IMPRESSION: Successful tunneled catheter placement. PLAN: The catheter is ready for immediate use. When treatment iscompleted, removal can be scheduled by calling VIR. at 1647 Reported and signed by: Zaira Woodard M.D. CC: Reginaldo Fernandez MD; Nica Hearn MD PAGE 2 Signed Report [facility] 1970 Age/S: 48 / F [address] [address] [place] Unit #: [id number] Loc: [place] [address] Phys: Reginaldo Fernandez MD Acct: [id number] Dis Date: Status: ADM IN PHONE #: [phone] Exam Date: 10/04/2019 153 FAX #: Reason: [facility] HEMODIALYSIS EXAMS: CPT: [id number] SP FLUORO GUID CTRL ACC DEV [id number] Fluoro Time: 00:38 DAP (Gy m2): 1.11 Air Kerma (mGy): 5 <Continued> Technologist: Moise Lopez RT(R) Trnscb Date/Time: 10/04/2019 (1646) t.JESUS MANUELRJericaANS4 Orig Print D/T: S: 10/04/2019 (165) PAGE 3 Signed Report- CT CHEST W/O [id number] 13:02:00 Name: LEODAN HAAS [facility] : 1970 Age/S: 48 / F [address] [address] [place] Unit #: [id number] Loc: [place] [address] Phys: Reginaldo Fernandez MD Acct: [id number] Dis Date: Status: ADM IN PHONE #: [phone] Exam Date: 10/04/2019 1010 FAX #: Reason: f/u on pleural effusions after dialysis EXAMS: CPT: [id number] CT CHEST W/O CONTRAST 06557 Site ID: [id number] CT of the Chest HISTORY: Follow-up pleural effusions post dialysis TECHNIQUE: Axial images of the chest were obtained from the thoracic inlet to the upper abdomen without intravenous contrast. CT dose lowering technique utilized, with adjustmentof MA/kV according to patient size and automated exposure control. COMPARISON: CT chest 3 days ago FINDINGS: Trace residual bibasilar pleural effusions, considerably diminished in size. Effusions currently measure 1.5 cm in depth bilaterally, previously up to 4 cm in depth. Mild associated dependent basilar atelectasis remains present.No interstitial or alveolar edema or pneumonia. The thyroid gland and thoracic inlet are unremarkable. Heart and great vessels are unchanged. No axillary, mediastinal or hilar adenopathy. Visualized images of the upper abdomen demonstrate no abnormality. No rib fracture or destructive bone lesion appreciated.IMPRESSION: Trace residual bibasilar pleural effusions, considerably diminished in size. at 1302 Reported and signed by: Kam Gonzalez M.D. PAGE 1 Signed Report (CONTINUED) Name: LEODAN HAAS [facility] : 1970 Age/S: 48 / F [address] [address] [place] [place] Unit #: [id number] Loc: [place] [address] Phys: Reginaldo Fernandez MD Acct: [id number] Dis Date: Status: ADM IN PHONE #: [phone] Exam Date: 10/04/2019 1010 FAX #: Reason: f/u on pleural effusions after dialysis EXAMS: CPT: [id number] CT CHEST W/O CONTRAST 10222 <Continued> CC: Reginaldo Fernandez MD; Nica Hearn MD Technologist:Brady Chaudhary RT(R)(CT); Garcia CTDI: DLP: Trnscb Date/Time: 10/04/2019 (1302) AndreAJP6 Orig Print D/T: S: 10/04/2019 (5777) PAGE 2 Signed ReportGLUCOSE BEDSIDE [id number] 12:52:00 Test Item Value Reference Range Interpretation Comments GLUCOSE BEDSIDE TESTING (test code 112 mg/dL 70-110 H = GLUBED) GLUCOSE BEDSIDE [id number] 08:00:00 Test Item Value Reference Range Interpretation Comments GLUCOSE BEDSIDE TESTING (test code = 75 mg/dL 70-110 N GLUBED) GLUCOSE BEDSIDE [id number] 19:56:00 Test Item Value Reference Range Interpretation Comments GLUCOSE BEDSIDE TESTING (test code 134 mg/dL 70-110 H = GLUBED) GLUCOSE BEDSIDE [id number] 17:00:00 Test Item Value Reference Range Interpretation Comments GLUCOSE BEDSIDE TESTING (test code 143 mg/dL 70-110 H = GLUBED) GLUCOSE BEDSIDE [id number] 12:05:00 Test Item Value Reference Range Interpretation Comments GLUCOSE BEDSIDE TESTING (test code 164 mg/dL 70-110 H = GLUBED) AB HEPATITIS B [id number] 08:01:00 Test Item Value Reference Range Interpretation Comments AB HEPATITIS B SURFACE <3.1 mIU/mL Immunity>9.9 A Sta tus of Immunity (test code = HBSAB) Anti-HBs Level --- I ncons istent with Imm unity 0.0 - 9.9Consis tent with Immunity >9.9 AG HEPATITIS B [id number] 08:01:00 Test Item Value Reference Range Interpretation Comments AG HEPATITIS B SURFACE (test code = SCREEN NEGATIVE HBSAG) AB HEPATITIS B [id number] 08:01:00 Test Item Value Reference Range Interpretation Comments AB HEPATITIS B CORE (test code = HBCAB) AB HEPATITIS B [id number] 08:01:00 Test Item Value Reference Range Interpretation Comments AB HEPATITIS B SURFACE <3.1 mIU/mL Immunity>9.9 A Sta tus of Immunity (test code = HBSAB) Anti-HBs Level --- I ncons istent with Imm unity 0.0 - 9.9Consis tent with Immunity >9.9 AG HEPATITIS B [id number] 08:01:00 Test Item Value Reference Range Interpretation Comments AG HEPATITIS B SURFACE (test code = Negative Negative HBSAG) AB HEPATITIS B [id number] 08:01:00 Test Item Value Reference Range Interpretation Comments AB HEPATITIS B CORE (test code = HBCAB) AB HEPATITIS B [id number] 08:01:00 Test Item Value Reference Range Interpretation Comments AB HEPATITIS B SURFACE <3.1 mIU/mL Immunity>9.9 A Sta tus of Immunity (test code = HBSAB) Anti-HBs Level --- I ncons istent with Imm unity 0.0 - 9.9Consis tent with Immunity >9.9 AG HEPATITIS B [id number] 08:01:00 Test Item Value Reference Range Interpretation Comments AG HEPATITIS B SURFACE (test code = Negative Negative HBSAG) AB HEPATITIS B [id number] 08:01:00 Test Item Value Reference Range Interpretation Comments AB HEPATITIS B CORE Negative Negative Performe d At: HD (test code = HBCAB) [facility] [id number] [place], [place] [id number] consuelo Davalos MD Ph:[phone] BASIC METABOLIC [id number] 06:48:00 Test Item Value Reference Range Interpretation Comments SODIUM (test code = NA) 140 mmol/L 134-147 N POTASSIUM (test code = K) 4.2 mmol/L 3.4-5.0 N CHLORIDE (test code = CL) 109 mmol/L 100-108 H CARBON DIOXIDE (test code = CO2) 27 mmol/L 21-32 N ANION GAP (test code = GAP) 4.0 GAP calc 4.0-15.0 N GLUCOSE (test code = GLU) 105 MG/DL 70-110 N BLOOD UREA NITROGEN (test code = 24 MG/DL 7-18 H BUN) GLOMERULAR FILTRATION RATE (test 9 estGFR >60 L code = GFR) CREATININE (test code = CREAT) 5.2 MG/DL 0.6-1.0 H CALCIUM (test code = CA) 6.9 MG/DL 8.5-10.1 L CBC W/AUTO [id number] 06:35:00 Test Item Value Reference Range Interpretation Comments WHITE BLOOD CELL (test code = 7.1 K/mm3 3.5-11.0 N WBC) RED BLOOD CELL (test code = RBC) 2.55 M/mm3 4.70-6.10 L HEMOGLOBIN (test code = HGB) 7.1 G/DL 10.4-14.9 L HEMATOCRIT (test code = HCT) 23.4 % 31.5-44.1 L MEAN CELL VOLUME (test code = 91.8 Fl 84.5-98.6 N MCV) MEAN CELL HGB (test code = MCH) 27.8 pg 27.0-34.2 N MEAN CELL HGB CONCETRATION (test 30.3 G/DL 31.5-34.0 L code = MCHC) RED CELL DISTRIBUTION WIDTH (test 15.9 SD 11.5-14.5 H code = RDW) PLATELET COUNT (test code = PLT) 169.0 K/mm3 150-450 N MEAN PLATELET VOLUME (test code = 11.50 fL 7.0-10.5 H MPV) NEUTROPHIL % (test code = NT%) 54.9 % 40-76 LYMPHOCYTE % (test code = LY%) 27.9 % 20.5-51.1 N MONOCYTE % (test code = MO%) 14.1 % 1.7-9.3 H EOSINOPHIL % (test code = EO%) 2.7 % 0.0-6.0 N BASOPHIL % (test code = BA%) 0.4 % 0.0-2.0 N NEUTROPHIL # (test code = NT#) 3.92 K/mm3 1.8-7.6 N LYMPHOCYTE # (test code = LY#) 2.0 K/mm3 0.6-3.2 N MONOCYTE # (test code = MO#) 1.0 K/mm3 0.3-1.1 N EOSINOPHIL # (test code = EO#) 0.2 K/mm3 0.0-0.4 N BASOPHIL # (test code = BA#) 0.0 K/mm3 0.0-0.1 N MANUAL DIFF REQUIRED (test code = NO DIFF/SCN CRITERIA MDIFF) GLUCOSE BEDSIDE [id number] 21:20:00 Test Item Value Reference Range Interpretation Comments GLUCOSE BEDSIDE TESTING (test code 130 mg/dL 70-110 H = GLUBED) GLUCOSE BEDSIDE [id number] 17:25:00 Test Item Value Reference Range Interpretation Comments GLUCOSE BEDSIDE TESTING (test code 123 mg/dL 70-110 H = GLUBED) GLUCOSE BEDSIDE [id number] 12:06:00 Test Item Value Reference Range Interpretation Comments GLUCOSE BEDSIDE TESTING (test code = 74 mg/dL 70-110 N GLUBED) GLUCOSE BEDSIDE [id number] 07:53:00 Test Item Value Reference Range Interpretation Comments GLUCOSE BEDSIDE TESTING (test code 145 mg/dL 70-110 H = GLUBED) GLUCOSE BEDSIDE [id number] 06:59:00 Test Item Value Reference Range Interpretation Comments GLUCOSE BEDSIDE TESTING (test code 193 mg/dL 70-110 H = GLUBED) BASIC METABOLIC [id number] 06:25:00 Test Item Value Reference Range Interpretation Comments SODIUM (test code = NA) 143 mmol/L 134-147 N POTASSIUM (test code = K) 3.9 mmol/L 3.4-5.0 N CHLORIDE (test code = CL) 112 mmol/L 100-108 H CARBON DIOXIDE (test code = CO2) 24 mmol/L 21-32 N ANION GAP (test code = GAP) 7.0 GAP calc 4.0-15.0 N GLUCOSE (test code = GLU) 42 MG/DL 70-110 LL BLOOD UREA NITROGEN (test code = 44 MG/DL 7-18 H BUN) GLOMERULAR FILTRATION RATE (test 8 estGFR >60 L code = GFR) CREATININE (test code = CREAT) 5.7 MG/DL 0.6-1.0 H CALCIUM (test code = CA) 8.1 MG/DL 8.5-10.1 L CBC W/AUTO [id number] 06:19:00 Test Item Value Reference Range Interpretation Comments WHITE BLOOD CELL (test code = 5.6 K/mm3 3.5-11.0 N WBC) RED BLOOD CELL (test code = RBC) 2.78 M/mm3 4.70-6.10 L HEMOGLOBIN (test code = HGB) 7.5 G/DL 10.4-14.9 L HEMATOCRIT (test code = HCT) 24.4 % 31.5-44.1 L MEAN CELL VOLUME (test code = 87.8 Fl 84.5-98.6 N MCV) MEAN CELL HGB (test code = MCH) 27.0 pg 27.0-34.2 N MEAN CELL HGB CONCETRATION (test 30.7 G/DL 31.5-34.0 L code = MCHC) RED CELL DISTRIBUTION WIDTH (test 15.4 SD 11.5-14.5 H code = RDW) PLATELET COUNT (test code = PLT) 213.0 K/mm3 150-450 N MEAN PLATELET VOLUME (test code = 11.80 fL 7.0-10.5 H MPV) NEUTROPHIL % (test code = NT%) 69.8 % 40-76 N LYMPHOCYTE % (test code = LY%) 17.8 % 20.5-51.1 L MONOCYTE % (test code = MO%) 8.8 % 1.7-9.3 N EOSINOPHIL % (test code = EO%) 3.2 % 0.0-6.0 N BASOPHIL % (test code = BA%) 0.4 % 0.0-2.0 N NEUTROPHIL # (test code = NT#) 3.88 K/mm3 1.8-7.6 N LYMPHOCYTE # (test code = LY#) 1.0 K/mm3 0.6-3.2 N MONOCYTE # (test code = MO#) 0.5 K/mm3 0.3-1.1 N EOSINOPHIL # (test code = EO#) 0.2 K/mm3 0.0-0.4 N BASOPHIL # (test code = BA#) 0.0 K/mm3 0.0-0.1 N MANUAL DIFF REQUIRED (test code = NO DIFF/SCN CRITERIA MDIFF) - CT CHEST W/O [id number] 23:24:00 Name: LEODAN HAAS [facility] : 1970 Age/S: 48 / F [address] [address] [place] Unit #: [id number] Loc: [place] [address] Phys: Reginaldo Fernandez MD Acct: [id number] Dis Date: Status: ADM IN PHONE #: [phone] Exam Date: 10/01/2019 1794 FAX #: Reason: abnormal chest xray EXAMS: CPT: [id number] CT CHEST W/O CONTRAST 68928 Location code: H5 CT Chest Without Contrast Indication: abnormal chest xray Comparison: Chest x- ray 10/01/2019. Technique: Axial images were obtained through the chest without contrast. Coronal and sagittal reconstruction.. This exam was performed according to our departmental dose-optimization program, which includes automated exposure control, adjustment of the mA and/or kV according to patient size and/or use of iterative reconstruction technique. Findings: Right jugular central venous catheter tip projects over the right atrium. Cardiac silhouette is not enlarged. Mild calcification of the coronary arteries. Thoracic aorta is nondistended and tapers in normal fashion, with mild atherosclerotic involvement. No mediastinal or hilar adenopathy. Moderate bilateral pleural effusions. Small bilateral lower lobe atelectasis. Smoothly marginated 15 x 6 x 16 mm soft tissue density along left anterior chest wall has fluid density and mayrepresent small loculated effusion. Sternal retention wires. Bone unremarkable for patient age. Visualized intra-abdominal organs unremarkable. IMPRESSION: 1. Mild congestive changes are better identified on CT scan. Moderate bilateral pleural effusions are present, with small bilateral lower lobe atelectasis. 2. Prior thoracotomy. Right jugular central venous catheter tip projects over the right atrium. 3.Smoothly marginated 15 x 6 x 16 mm soft tissue density along left anterior chest wall has fluid density and may represent small loculated effusion. PAGE 1 Signed Report (CONTINUED) Name: LOEDAN HAAS [facility] : 1970 Age/S: 48 / F [address] [address] [place] Unit #: [id number] Loc: [place] [address] Phys: Reginaldo Fernandez MD Acct: [id number] DisDate: Status: ADM IN PHONE #: [phone] Exam Date: 10/01/2019 0953 FAX #: Reason: abnormal chest xray EXAMS: CPT: [id number] CT CHEST W/O CONTRAST 81041 <Continued> at 3214 Reported and signed by:Kevin West M.D. CC: Reginaldo Fernandez MD; Nica Fritz Techn ologist:Carmen Waldron RT(R)(CT); Teo CTDI: DLP: Trnscb Date/Time: 10/01/2019 (7078)[id number] Orig Print D/T: S: 10/01/2019 (9196) PAGE 2 Signed ReportGLUCOSE BEDSIDE [id number] 21:04:00 Test Item Value Reference Range Interpretation Comments GLUCOSE BEDSIDE TESTING (test code 106 mg/dL 70-110 N = GLUBED) - US GUIDANCE VAS [id number] 17:33:00 Name: LEODAN HAAS [facility] : 1970 Age/S: 48 / F [address] [address] [place] Unit #: [id number] Loc: [place] [address] Phys: Reginaldo Fernandez MD Acct: [id number] Dis Date: Status: ADM IN PHONE #: [phone] Exam Date: 10/01/2019 1724 FAX #: Reason: Dialysis catheter EXAMS: CPT: [id number] US GUIDANCE [facility] ACCESS 52012 EXAMINATION: NONTUNNELED CENTRAL VENOUS CATHETER PLACEMENT USING ULTRASOUND GUIDANCE. LOCATION: S17. HISTORY: MARYBEL on CKD, hyperkalemia, request is made for temporary dialysis catheter by nephrology. COMPARISON: None. SEDATION: The patient did notrequire conscious sedation for the procedure. TECHNIQUE: The risks, benefits andalternatives were discussed and informed consent was obtained. Prior to beginning the procedure, [place] Protocol was used to confirm the patient's identity and planned procedure. Maximum sterile barriers including cap, mask, hand hygiene, sterile gloves, sterile gown, large sterile drape and cutaneous antisepsis were used. SITE: The skin over the right internal jugular vein was sterilely prepped, draped and infiltrated with 1% lidocaine. Prior to the procedure, the target vessel was evaluated by ultrasound. An image of the patent vessel was recorded and saved in PACS. After sterile prep, this vessel was accessed using realtime ultrasound guidance. A guidewire and catheter were then passed centrally. After dilating the tract, a 15 cm Trialysis was inserted over the guidewire. The catheter was flushed with saline and secured in place. A sterile dressing was applied. ESTIMATED BLOOD LOSS: less than 30 milliliters. DISCHARGED TO: Performed at bedside on floor. CONDITION: Stable. FINDINGS: The post procedure chest x- ray image demonstrates the catheter with its tip in the right atrium. No complications are seen. PAGE 1 Signed Report (CONTINUED) Name: LEODAN HAAS [employer] : 1970 Age/S: 48 / F [address] [address] [place] Unit #: [id number] Loc: [place] [address] Phys: Reginaldo Fernandez MD Acct: [id number] Dis Date: Status: ADM IN PHONE #: [phone] Exam Date: 10/01/2019 1720 FAX #: Reason: Dialysis catheter EXAMS: CPT: [id number] US GUIDANCE [facility] ACCESS 82523 <Continued> IMPRESSION: Successful nontunneled Trialysis catheter placement via the right internal jugular vein. PLAN: The catheter is ready for immediateuse. When treatment is completed, this catheter can be removed at the bedside according to standard hospital protocol. at 1733 Reported and signed by: Zaira Woodard M.D. CC: Reginaldo Fernandez MD; Nica Hearn MD Technologist: Ros[facility] Gresham [facility] Date/Time: 10/01/2019 (1733) t.JESUS MANUELR.ANS4 PAGE 2 Signed Report Name: LEODAN HAAS [employer] :1970 Age/S: 48 / F [address] [address] [place] [place] Unit #: [id number] Loc: [place] [address] Phys: Reginaldo Fernandez MD Acct: [id number] Dis Date: Status: ADM IN PHONE #: [phone] Exam Date: 10/01/2019 1720 FAX #: Reason: Dialysis catheter EXAMS: CPT: [id number] US GUIDANCE VASC ACCESS 84025 <Continued> Orig Print D/T: S: 10/01/2019 (1736) Probe: PAGE 3 Signed Report- XR CHEST 1 [id number] 17:31:00 Name: LEODAN HAAS [employer] : 1970 Age/S: 48 / F [address] [address] [place] [place] Unit #: [id number] Loc: [place] [address] Phys: Gabriel Woodard MD Acct: [id number] Dis Date: Status: ADM IN PHONE #: [phone] Exam Date: 10/01/20191727 FAX #: Reason: LINE PLACEMENT EXAMS: CPT: [id number] XR CHEST 1 V 01226 Fluoro Time: DAP (Gy m2): Air Kerma (mGy): EXAMINATION: - XR CHEST 1 V. LOCATION: S17. HISTORY: MARYBEL on CKD, status post catheter placement. COMPARISON: Chest x-ray performed earlier today. FINDINGS: Examination is limited due to portable technique, patient body habitus and low lung volumes. Cardiac silhouette/Mediastinal contour: Enlargement of cardiac silhouette. Atherosclerotic calcification of aortic arch. Median sternotomy with mediastinal clips. Lungs: Pulmonary vascular congestion. Left lower lobe airspace opacity with effusion. Osseous Structures: Mild degenerative changes affect thoracic spine. Right-sided dialysis catheter tip overlies right atrium. IMPRESSION: Right-sided dialysis catheter tip overlies right atrium, okay to use. Left lower lobe airspace opacity with effusion. Pulmonary vascular congestion. at 1738 Reported and signed by: Zaira Woodard M.D. CC: Reginaldo Fernandez MD; Shaun Hearn MD; Gabriel Woodard MD PAGE 1 Signed Report Name: LEODAN HAAS [facility] : 1970 Age/S: 48 / F [address] [address] [place] [place] Unit #: [id number] Loc: [place] [address] Phys: Gabriel Woodard MD Acct: [id number] Dis Date: Status: ADM IN PHONE #: [phone] Exam Date: 10/01/20196 FAX #: Reason: LINE PLACEMENT EXAMS: CPT: [id number] XR CHEST 1 V 98397 Fluoro Time: DAP (Gy m2): Air Kerma (mGy): <Continued> Technologist: Carmen Waldron RT(R)(CT) Trnscb Date/Time: 10/01/2019 (173) AndreANS4 Orig Print D/T: S: 10/01/2019 (6892) PAGE 2 Signed [id number] 17:10:00 Test Item Value Reference Range Interpretation Comments TROPONIN-I (test 0.073 NG/ML 0.000-0.045 HH Negative: < /= 0.045 code = TROPI) Positive: >/= 0.046 Correlation wit h serial results, other cardiac markers, and cl inical findings is nec essary to determine the c linical significance of this result. Quantit ative results using d ifferent methodologies s hould not be compared to one another as nume rical results may karma yby method. Completed by Nursing: NOGLUCOSE BEDSIDE [id number] 16:58:00 Test Item Value Reference Range Interpretation Comments GLUCOSE BEDSIDE TESTING (test code 103 mg/dL 70-110 N = GLUBED) LACTIC [id number] 16:57:00 Test Item Value Reference Range Interpretation Comments LACTIC ACID (test code = LACT) 0.3 mmol/L 0.4-2.0 L HCG SERUM [id number] 16:56:00 Test Item Value Reference Range Interpretation Comments HCG SERUM QUAL (test SERUM NEGATIVE SCREEN NEGATIVE code = HCGQL) PROTHROMBIN [id number] 16:49:00 Test Item Value Reference Range Interpretation Comments PT PATIENT (test code = PTP) 10.7 SECONDS 9.3-12.9 N INTERNATIONAL NORMAL RATIO 0.95 INR Unit 0.8-1.2 N (test code = INR) THROMBOPLASTIN TIME [id number] 16:49:00 Test Item Value Reference Range Interpretation Comments THROMBOPLASTIN TIME PARTIAL 36.0 SECONDS 26-35 H (test code = PTT) FE W/TOTAL IRON BINDING CAP.[id number] 15:18:00 Test Item Value Reference Range Interpretation Comments SERUM IRON (test code = IRON) 46 mcG/DL 50-170 L TOTAL IRON BINDING CAPACITY (test 286 mcG/DL 250-450 N code = TIBC) IRON SATURATION (test code = 16 % calc 12-57 N FESAT) VITAMIN [id number] 15:18:00 Test Item Value Reference Range Interpretation Comments VITAMIN B12 (test code = VITB12) 459 PG/ML 183-986 N FOLIC [id number] 15:18:00 Test Item Value Reference Range Interpretation Comments FOLIC ACID (test code = FOL) 9.30 NG/ML 3.10-17.50 N [id number] 15:18:00 Test Item Value Reference Range Interpretation Comments FERRITIN (test code = PARUL) 86.7 NG/ML 3.0-105.0 N LACTIC [id number] 14:45:00 Test Item Value Reference Range Interpretation Comments LACTIC ACID (test code = LACT) 0.4 mmol/L 0.4-2.0 N BASIC METABOLIC [id number] 13:32:00 Test Item Value Reference Range Interpretation Comments SODIUM (test code = 138 mmol/L 134-147 N NA) POTASSIUM (test code 6.5 mmol/L 3.4-5.0 HH NO HEMO LYSIS PRESENT = K) CHLORIDE (test code = 114 mmol/L 100-108 H CL) CARBON DIOXIDE (test 15 mmol/L 21-32 L code = CO2) ANION GAP (test code 9.0 GAP calc 4.0-15.0 N = GAP) GLUCOSE (test code = 123 MG/DL 70-110 H GLU) BLOOD UREA NITROGEN 100 MG/DL 7-18 H (test code = BUN) GLOMERULAR FILTRATION 4 estGFR >60 L RATE (test code = GFR) CREATININE (test code 9.8 MG/DL 0.6-1.0 H = CREAT) CALCIUM (test code = 7.5 MG/DL 8.5-10.1 L CA) Completed by Nursing: NOHEPATIC FUNCTION [id number] 13:32:00 Test Item Value Reference Range Interpretation Comments TOTAL PROTEIN (test code = PROT) 6.4 G/DL 6.4-8.2 N ALBUMIN (test code = ALB) 2.7 G/DL 3.4-5.0 L BILIRUBIN TOTAL (test code = BILT) 0.30 MG/DL 0.2-1.2 N BILIRUBIN DIRECT (test code = 0.10 MG/DL 0.00-0.30 N BILD) BILIRUBIN INDIRECT (test code = 0.20 MG/DL 0.2-1.2 N BILIND) SGOT/AST (test code = AST) 17 Unit/L 15-37 N SGPT/ALT (test code = ALT) 22 Unit/L 12-78 N ALKALINE PHOSPHATASE TOTAL (test 173 Unit/L 45-117 H code = ALKP) Completed by Nursing: [id number] 13:32:00 Test Item Value Reference Range Interpretation Comments LIPASE (test code = LIP) 138 Unit/L 114-286 N Completed by Nursing: [id number] 13:32:00 Test Item Value Reference Range Interpretation Comments TROPONIN-I (test 0.083 NG/ML 0.000-0.045 HH Negative: < /= 0.045 code = TROPI) Positive: >/= 0.046 Correlation wit h serial results, other cardiac markers, and cl inical findings is nec essary to determine the c linical significance of this result. Quantit ative results using d ifferent methodologies s hould not be compared to one another as nume rical results may karma yby method. Completed by Nursing: NO- XR CHEST 1 [id number] 13:31:00 Name: LEODAN HAAS [facility] : 1970 Age/S: 48 / F [address] [address] [place] Unit #: [id number] Loc: [place] [address] Phys: Tahir Tejada MD Acct: [id number] Dis Date: Status: REG ER PHONE #: [phone] Exam Date: 10/01/2019 1305 FAX #: Reason: abdominal pain EXAMS: CPT: [id number] XR CHEST 1 V 70403 Fluoro Time: DAP (Gy m2): Air Kerma (mGy): EXAMINATION: - XR CHEST 1 V. LOCATION: S17. HISTORY: Abdominal pain, weakness, abnormal labs. COMPARISON: None. FINDINGS: Examination is limited due to portable technique, patient body habitus and low lung volumes. Cardiac silhouette/Mediastinal contour: Enlargement of cardiac silhouette. Atherosclerotic calcification of aortic arch. Median kristel rnotomy with mediastinal clips. Lungs: Pulmonary vascular congestion. Left lower lobe airspace opacity with effusion. Osseous Structures: Mild degenerative changes affect thoracic spine. IMPRESSION: Left lower lobe airspace opacitywith effusion. Pulmonary vascular congestion. at 1331 Reported and signed by: Zaira Woodard M.D. CC: Nica Hearn MD; Tahir Tejada MD PAGE 1 Signed Report Name: LEODAN HAAS [facility] : 1970 Age/S: 48/ F [address] [address] [place] Unit #: [id number] Loc: [place] [address] Phys: Tahir Tejada MD Acct: [id number] Dis Date: Status: REG ER PHONE #: [phone] Exam Date: 10/01/2019 1306 FAX #: Reason: abdominal pain EXAMS: CPT: [id number] XR CHEST 1 V 71360 Fluoro Time:DAP (Gy m2): Air Kerma (mGy): <Continued> Technologist: Brady Chaudhary RT(R)(CT) Trnscb Date/Time: 10/01/2019 (9507) t.JESUS MANUELR.ANS4 Orig Print D/T: S: 10/01/2019 (4376) PAGE 2 Signed ReportCBC W/AUTO [id number] 13:22:00 Test Item Value Reference Range Interpretation Comments WHITE BLOOD CELL (test code = 7.9 K/mm3 3.5-11.0 N WBC) RED BLOOD CELL (test code = RBC) 2.25 M/mm3 4.70-6.10 L HEMOGLOBIN (test code = HGB) 6.3 G/DL 10.4-14.9 LL HEMATOCRIT (test code = HCT) 20.6 % 31.5-44.1 L MEAN CELL VOLUME (test code = 91.6 Fl 84.5-98.6 N MCV) MEAN CELL HGB (test code = MCH) 28.0 pg 27.0-34.2 N MEAN CELL HGB CONCETRATION (test 30.6 G/DL 31.5-34.0 L code = MCHC) RED CELL DISTRIBUTION WIDTH (test 15.0 SD 11.5-14.5 H code = RDW) PLATELET COUNT (test code = PLT) 214.0 K/mm3 150-450 N MEAN PLATELET VOLUME (test code = 11.90 fL 7.0-10.5 H MPV) NEUTROPHIL % (test code = NT%) 73.7 % 40-76 N LYMPHOCYTE % (test code = LY%) 17.5 % 20.5-51.1 L MONOCYTE % (test code = MO%) 6.5 % 1.7-9.3 N EOSINOPHIL % (test code = EO%) 1.7 % 0.0-6.0 N BASOPHIL % (test code = BA%) 0.6 % 0.0-2.0 N NEUTROPHIL # (test code = NT#) 5.80 K/mm3 1.8-7.6 N LYMPHOCYTE # (test code = LY#) 1.4 K/mm3 0.6-3.2 N MONOCYTE # (test code = MO#) 0.5 K/mm3 0.3-1.1 N EOSINOPHIL # (test code = EO#) 0.1 K/mm3 0.0-0.4 N BASOPHIL # (test code = BA#) 0.1 K/mm3 0.0-0.1 N MANUAL DIFF REQUIRED (test code = DIFF/SCN CRITERIA MDIFF) CBC W/AUTO [id number] 13:22:00 Test Item Value Reference Range Interpretation Comments WHITE BLOOD CELL (test code = 7.9 K/mm3 3.5-11.0 N WBC) RED BLOOD CELL (test code = RBC) 2.25 M/mm3 4.70-6.10 L HEMOGLOBIN (test code = HGB) 6.3 G/DL 10.4-14.9 LL HEMATOCRIT (test code = HCT) 20.6 % 31.5-44.1 L MEAN CELL VOLUME (test code = 91.6 Fl 84.5-98.6 N MCV) MEAN CELL HGB (test code = MCH) 28.0 pg 27.0-34.2 N MEAN CELL HGB CONCETRATION (test 30.6 G/DL 31.5-34.0 L code = MCHC) RED CELL DISTRIBUTION WIDTH (test 15.0 SD 11.5-14.5 H code = RDW) PLATELET COUNT (test code = PLT) 214.0 K/mm3 150-450 N MEAN PLATELET VOLUME (test code = 11.90 fL 7.0-10.5 H MPV) NEUTROPHIL % (test code = NT%) 73.7 % 40-76 N LYMPHOCYTE % (test code = LY%) 17.5 % 20.5-51.1 L MONOCYTE % (test code = MO%) 6.5 % 1.7-9.3 N EOSINOPHIL % (test code = EO%) 1.7 % 0.0-6.0 N BASOPHIL % (test code = BA%) 0.6 % 0.0-2.0 N NEUTROPHIL # (test code = NT#) 5.80 K/mm3 1.8-7.6 N LYMPHOCYTE # (test code = LY#) 1.4 K/mm3 0.6-3.2 N MONOCYTE # (test code = MO#) 0.5 K/mm3 0.3-1.1 N EOSINOPHIL # (test code = EO#) 0.1 K/mm3 0.0-0.4 N BASOPHIL # (test code = BA#) 0.1 K/mm3 0.0-0.1 N MANUAL DIFF REQUIRED (test code = NO DIFF/SCN CRITERIA MDIFF) UA RFLX MICR CULT IF [id number] 13:20:00 Test Item Value Reference Range Interpretation Comments UA COLOR (test code = STRAW discript YEL/STRAW COLU) UA APPEARANCE (test code HAZY discript CLEAR A = APPU) UA GLUCOSE DIPSTICK (test 1+ mg/dL NEG code = DGLUU) UA BILIRUBIN DIPSTICK NEGATIVE mg/dL NEG (test code = BILU) UA KETONE DIPSTICK (test NEGATIVE mg/dL NEG code = KETU) UA SPECIFIC GRAVITY (test 1.020 SG 1.005-1.030 code = SGU) UA BLOOD DIPSTICK (test 2+ mg/DL NEG A code = BLADIMIR) UA PH DIPSTICK (test code 5.5 pH UNITS 5.0-7.0 = SHABANA) UA PROTEIN DIPSTICK (test 3+ mg/dL NEG A code = PROU) UA UROBILINIOGEN DIPSTICK 0.2 mg/dL <2.0 (test code = URO) UA NITRITE DIPSTICK (test NEGATIVE SCREEN NEG code = DARREN) UA LEUKOCYTE ESTERASE 1+ Leuk/mcL NEGATIVE A DIPSTICK (test code = LEUU) UA WBC (test code = WBCU) 20-30 #WBC/HPF 0-3 A UA RBC (test code = RBCU) 3-5 #RBC/HPF 0-3 A UA BACTERIA (test code = 2+ /HPF NONE-TRACE A BACU) UA SQUAMOUS CELLS (test TRACE /HPF NONE code = SQU) UA CULTURE NEEDED? (test YES,WBC>10 & EPI<25 Culture CHK code = UACULT) Criteria SOURCE OF URINE: CLEAN CATCHIndication for culture: Dysuria/FrequencyUA RFLX MICR CULT IF [id number] 13:12:00 Test Item Value Reference Range Interpretation Comments UA COLOR (test code = COLU) STRAW discript YEL/STRAW UA APPEARANCE (test code = HAZY discript CLEAR A APPU) UA GLUCOSE DIPSTICK (test 1+ mg/dL NEG code = DGLUU) UA BILIRUBIN DIPSTICK (test NEGATIVE mg/dL NEG code = BILU) UA KETONE DIPSTICK (test code NEGATIVE mg/dL NEG = KETU) UA SPECIFIC GRAVITY (test 1.020 SG 1.005-1.030 code = SGU) UA BLOOD DIPSTICK (test code 2+ mg/DL NEG A = BLADIMIR) UA PH DIPSTICK (test code = 5.5 pH UNITS 5.0-7.0 SHABANA) UA PROTEIN DIPSTICK (test 3+ mg/dL NEG A code = PROU) UA UROBILINIOGEN DIPSTICK 0.2 mg/dL <2.0 (test code = URO) UA NITRITE DIPSTICK (test NEGATIVE SCREEN NEG code = DARREN) UA LEUKOCYTE ESTERASE 1+ Leuk/mcL NEGATIVE A DIPSTICK (test code = LEUU) UA CULTURE NEEDED? (test code Criteria Culture CHK = UACULT) SOURCE OF URINE: CLEAN CATCHIndication for culture: Dysuria/FrequencyGLUCOSE BEDSIDE [id number] 07:27:00 Test Item Value Reference Range Interpretation Comments GLUCOSE BEDSIDE TESTING (test code 225 mg/dL 70-110 H = GLUBED) GLUCOSE BEDSIDE [id number] 11:27:00 Test Item Value Reference Range Interpretation Comments GLUCOSE BEDSIDE TESTING (test code 187 mg/dL 70-110 H = GLUBED) GLUCOSE BEDSIDE [id number] 07:46:00 Test Item Value Reference Range Interpretation Comments GLUCOSE BEDSIDE TESTING (test code = 87 mg/dL 70-110 N GLUBED) BASIC METABOLIC [id number] 06:23:00 Test Item Value Reference Range Interpretation Comments SODIUM (test code = NA) 139 mmol/L 134-147 N POTASSIUM (test code = K) 4.1 mmol/L 3.4-5.0 N CHLORIDE (test code = CL) 114 mmol/L 100-108 H CARBON DIOXIDE (test code = 15 mmol/L 21-32 L CO2) ANION GAP (test code = GAP) 10.0 GAP calc 4.0-15.0 N GLUCOSE (test code = GLU) 125 MG/DL 70-110 H BLOOD UREA NITROGEN (test code 74 MG/DL 7-18 H = BUN) GLOMERULAR FILTRATION RATE 9 estGFR >60 L (test code = GFR) CREATININE (test code = CREAT) 5.6 MG/DL 0.6-1.0 H CALCIUM (test code = CA) 7.3 MG/DL 8.5-10.1 L CBC W/AUTO [id number] 06:16:00 Test Item Value Reference Range Interpretation Comments WHITE BLOOD CELL (test code = 12.1 K/mm3 3.5-11.0 H WBC) RED BLOOD CELL (test code = RBC) 2.69 M/mm3 4.70-6.10 L HEMOGLOBIN (test code = HGB) 8.0 G/DL 10.4-14.9 L HEMATOCRIT (test code = HCT) 24.1 % 31.5-44.1 L MEAN CELL VOLUME (test code = 89.6 Fl 84.5-98.6 N MCV) MEAN CELL HGB (test code = MCH) 29.7 pg 27.0-34.2 N MEAN CELL HGB CONCETRATION (test 33.2 G/DL 31.5-34.0 N code = MCHC) RED CELL DISTRIBUTION WIDTH (test 13.8 SD 11.5-14.5 N code = RDW) PLATELET COUNT (test code = PLT) 174.0 K/mm3 150-450 N MEAN PLATELET VOLUME (test code = 11.70 fL 7.0-10.5 H MPV) NEUTROPHIL % (test code = NT%) 77.9 % 40-76 H LYMPHOCYTE % (test code = LY%) 14.6 % 20.5-51.1 L MONOCYTE % (test code = MO%) 7.1 % 1.7-9.3 N EOSINOPHIL % (test code = EO%) 0.3 % 0.0-6.0 N BASOPHIL % (test code = BA%) 0.1 % 0.0-2.0 N NEUTROPHIL # (test code = NT#) 9.45 K/mm3 1.8-7.6 H LYMPHOCYTE # (test code = LY#) 1.8 K/mm3 0.6-3.2 N MONOCYTE # (test code = MO#) 0.9 K/mm3 0.3-1.1 N EOSINOPHIL # (test code = EO#) 0.0 K/mm3 0.0-0.4 N BASOPHIL # (test code = BA#) 0.0 K/mm3 0.0-0.1 N MANUAL DIFF REQUIRED (test code = NO DIFF/SCN CRITERIA MDIFF) GLUCOSE BEDSIDE [id number] 21:18:00 Test Item Value Reference Range Interpretation Comments GLUCOSE BEDSIDE TESTING (test code 234 mg/dL 70-110 H = GLUBED) GLUCOSE BEDSIDE [id number] 17:50:00 Test Item Value Reference Range Interpretation Comments GLUCOSE BEDSIDE TESTING (test code 240 mg/dL 70-110 H = GLUBED) ANTINUCLEAR ANTIBODIES [id number] 13:09:00 Test Item Value Reference Range Interpretation Comments KIMMY TITER (test code Negative () = ANATITR) Nega tive <1:80 Borderline 1:8 0 Positive >1:80Performed At: HD [facility] [address] [id number] Kyle L MD Ph:[phone] AG HEPATITIS B [id number] 13:09:00 Test Item Value Reference Range Interpretation Comments AG HEPATITIS B SURFACE Negative Negative Perfo rmed At: HD (test code = HBSAG) [facility] [address] [id number] Davalos MD Ph:[phone] AB HEPATITIS [id number] 13:09:00 Test Item Value Reference Range Interpretation Comments AB HEPATITIS C (test <0.1 0.0-0.9 INFCE R esult Units: s/co code = HCVAB) ratio Neg ative: < 0.8 Indeterm inate: 0.8 - 0.9 Pos itive: > 0.9 The CDC r ecommends that a positive HCV antibody result be followed up wit h a HCV Nucleic Acid Am plification test ([id number]). AB DNA DOUBLE [id number] 13:09:00 Test Item Value Reference Range Interpretation Comments AB DNA DOUBLE STRAND <1 IU/mL 0-9 (test code = DNADSAB) Negative <5 Equ ivocal 5 - 9 Po sitive >9Performed A t: HD [facility] [address] [id number] Davalos MD Ph:[phone] COMPLEMENT [id number] 13:09:00 Test Item Value Reference Range Interpretation Comments COMPLEMENT C3 (test 107 mg/dL 82-167 Performe d At: HD code = COMC3) [facility] [address] [place], [place] [id number] Kyle L MD Ph:[phone] COMPLEMENT [id number] 13:09:00 Test Item Value Reference Range Interpretation Comments COMPLEMENT C4 (test code = COMC4) 40 mg/dL 14-44 GLUCOSE BEDSIDE [id number] 11:55:00 Test Item Value Reference Range Interpretation Comments GLUCOSE BEDSIDE TESTING (test code 131 mg/dL 70-110 H = GLUBED) ANTINUCLEAR ANTIBODIES [id number] 10:09:00 Test Item Value Reference Range Interpretation Comments KIMMY TITER (test code = ANATITR) AG HEPATITIS B [id number] 10:09:00 Test Item Value Reference Range Interpretation Comments AG HEPATITIS B SURFACE Negative Negative Perfo rmed At: HD (test code = HBSAG) [facility] [address] [id number] Davalos MD Ph:[phone] AB HEPATITIS [id number] 10:09:00 Test Item Value Reference Range Interpretation Comments AB HEPATITIS C (test <0.1 0.0-0.9 INFCE R esult Units: s/co code = HCVAB) ratio Neg ative: < 0.8 Indeterm inate: 0.8 - 0.9 Pos itive: > 0.9 The CDC r ecommends that a positive HCV antibody result be followed up wit h a HCV Nucleic Acid Am plification test ([id number]). AB DNA DOUBLE [id number] 10:09:00 Test Item Value Reference Range Interpretation Comments AB DNA DOUBLE STRAND <1 IU/mL 0-9 (test code = DNADSAB) Negative <5 Equ ivocal 5 - 9 Po sitive >9Performed A t: HD [facility] [address] [id number] consuelo Davalos MD Ph:[phone] COMPLEMENT [id number] 10:09:00 Test Item Value Reference Range Interpretation Comments COMPLEMENT C3 (test 107 mg/dL 82-167 Performe d At: HD code = COMC3) [facility] [address] [place], [place] [id number] Ronald Davalos MD Ph:[phone] COMPLEMENT [id number] 10:09:00 Test Item Value Reference Range Interpretation Comments COMPLEMENT C4 (test code = COMC4) 40 mg/dL 14-44 GLUCOSE BEDSIDE [id number] 08:47:00 Test Item Value Reference Range Interpretation Comments GLUCOSE BEDSIDE TESTING (test code 176 mg/dL 70-110 H = GLUBED) CBC W/AUTO [id number] 08:10:00 Test Item Value Reference Range Interpretation Comments WHITE BLOOD CELL (test 12.0 K/mm3 3.5-11.0 H code = WBC) RED BLOOD CELL (test 2.67 M/mm3 4.70-6.10 L code = RBC) HEMOGLOBIN (test code 7.8 G/DL 10.4-14.9 L = HGB) HEMATOCRIT (test code 24.2 % 31.5-44.1 L = HCT) MEAN CELL VOLUME (test 90.6 Fl 84.5-98.6 N code = MCV) MEAN CELL HGB (test 29.2 pg 27.0-34.2 N code = MCH) MEAN CELL HGB 32.2 G/DL 31.5-34.0 N CONCETRATION (test code = MCHC) RED CELL DISTRIBUTION 14.2 SD 11.5-14.5 N WIDTH (test code = RDW) PLATELET COUNT (test 126.0 K/mm3 150-450 L code = PLT) MEAN PLATELET VOLUME 12.70 fL 7.0-10.5 H (test code = MPV) NEUTROPHIL % (test 77.5 % 40-76 H code = NT%) LYMPHOCYTE % (test 14.0 % 20.5-51.1 L code = LY%) MONOCYTE % (test code 7.6 % 1.7-9.3 N = MO%) EOSINOPHIL % (test 0.8 % 0.0-6.0 N code = EO%) BASOPHIL % (test code 0.1 % 0.0-2.0 N = BA%) NEUTROPHIL # (test 9.30 K/mm3 1.8-7.6 H code = NT#) LYMPHOCYTE # (test 1.7 K/mm3 0.6-3.2 N code = LY#) MONOCYTE # (test code 0.9 K/mm3 0.3-1.1 N = MO#) EOSINOPHIL # (test 0.1 K/mm3 0.0-0.4 N code = EO#) BASOPHIL # (test code 0.0 K/mm3 0.0-0.1 N = BA#) MANUAL DIFF REQUIRED NO DIFF/SCN CRITERIA SLIDE R AARON (test code = MDIFF) CONSISTA NT WITH AUTO DIFFERENTIAL. CBC W/AUTO [id number] 07:03:00 Test Item Value Reference Range Interpretation Comments WHITE BLOOD CELL (test code = 12.0 K/mm3 3.5-11.0 H WBC) RED BLOOD CELL (test code = RBC) 2.67 M/mm3 4.70-6.10 L HEMOGLOBIN (test code = HGB) 7.8 G/DL 10.4-14.9 L HEMATOCRIT (test code = HCT) 24.2 % 31.5-44.1 L MEAN CELL VOLUME (test code = 90.6 Fl 84.5-98.6 N MCV) MEAN CELL HGB (test code = MCH) 29.2 pg 27.0-34.2 N MEAN CELL HGB CONCETRATION (test 32.2 G/DL 31.5-34.0 N code = MCHC) RED CELL DISTRIBUTION WIDTH (test 14.2 SD 11.5-14.5 N code = RDW) PLATELET COUNT (test code = PLT) 126.0 K/mm3 150-450 L MEAN PLATELET VOLUME (test code = 12.70 fL 7.0-10.5 H MPV) NEUTROPHIL % (test code = NT%) % 40-76 H LYMPHOCYTE % (test code = LY%) % 20.5-51.1 L MONOCYTE % (test code = MO%) % 1.7-9.3 N EOSINOPHIL % (test code = EO%) % 0.0-6.0 N BASOPHIL % (test code = BA%) % 0.0-2.0 N NEUTROPHIL # (test code = NT#) K/mm3 1.8-7.6 H LYMPHOCYTE # (test code = LY#) K/mm3 0.6-3.2 N MONOCYTE # (test code = MO#) K/mm3 0.3-1.1 N EOSINOPHIL # (test code = EO#) K/mm3 0.0-0.4 N BASOPHIL # (test code = BA#) K/mm3 0.0-0.1 N MANUAL DIFF REQUIRED (test code = DIFF/SCN CRITERIA MDIFF) BASIC METABOLIC [id number] 06:35:00 Test Item Value Reference Range Interpretation Comments SODIUM (test code = NA) 136 mmol/L 134-147 N POTASSIUM (test code = K) 4.2 mmol/L 3.4-5.0 N CHLORIDE (test code = CL) 111 mmol/L 100-108 H CARBON DIOXIDE (test code = CO2) 16 mmol/L 21-32 L ANION GAP (test code = GAP) 9.0 GAP calc 4.0-15.0 N GLUCOSE (test code = GLU) 257 MG/DL 70-110 H BLOOD UREA NITROGEN (test code = 72 MG/DL 7-18 H BUN) GLOMERULAR FILTRATION RATE (test 8 estGFR >60 L code = GFR) CREATININE (test code = CREAT) 6.0 MG/DL 0.6-1.0 H CALCIUM (test code = CA) 7.1 MG/DL 8.5-10.1 L GLUCOSE BEDSIDE [id number] 20:32:00 Test Item Value Reference Range Interpretation Comments GLUCOSE BEDSIDE TESTING (test code 365 mg/dL 70-110 H = GLUBED) GLUCOSE BEDSIDE [id number] 17:32:00 Test Item Value Reference Range Interpretation Comments GLUCOSE BEDSIDE TESTING (test code 373 mg/dL 70-110 H = GLUBED) GLUCOSE BEDSIDE [id number] 12:45:00 Test Item Value Reference Range Interpretation Comments GLUCOSE BEDSIDE TESTING (test code 225 mg/dL 70-110 H = GLUBED) UA RFLX MICR CULT IF [id number] 11:09:00 Test Item Value Reference Range Interpretation Comments UA COLOR (test code = STRAW discript YEL/STRAW COLU) UA APPEARANCE (test code CLOUDY discript CLEAR A = APPU) UA GLUCOSE DIPSTICK (test 1+ mg/dL NEG code = DGLUU) UA BILIRUBIN DIPSTICK NEGATIVE mg/dL NEG (test code = BILU) UA KETONE DIPSTICK (test NEGATIVE mg/dL NEG code = KETU) UA SPECIFIC GRAVITY (test 1.020 SG 1.005-1.030 code = SGU) UA BLOOD DIPSTICK (test 1+ mg/DL NEG A code = BLADIMIR) UA PH DIPSTICK (test code 5.5 pH UNITS 5.0-7.0 = SHABANA) UA PROTEIN DIPSTICK (test 3+ mg/dL NEG A code = PROU) UA UROBILINIOGEN DIPSTICK 0.2 mg/dL <2.0 (test code = URO) UA NITRITE DIPSTICK (test NEGATIVE SCREEN NEG code = DARREN) UA LEUKOCYTE ESTERASE 1+ Leuk/mcL NEGATIVE A DIPSTICK (test code = LEUU) UA WBC (test code = WBCU) 40-50 #WBC/HPF 0-3 A UA RBC (test code = RBCU) 0-1 #RBC/HPF 0-3 UA BACTERIA (test code = 4+ /HPF NONE-TRACE A BACU) UA SQUAMOUS CELLS (test NONE SEEN /HPF NONE code = SQU) UA CULTURE NEEDED? (test YES,WBC>10 & EPI<25 Culture CHK code = UACULT) Criteria Indication for culture: Suprapubic PainUR SODIUM [id number] 11:09:00 Test Item Value Reference Range Interpretation Comments UR SODIUM RANDOM 57 MEQ/L () The Referen ce Range and (test code = FÉLIX) Method Per formance specificationsh ave not been established for this fluid. The test result should be correlated into the clinical context forinte rpretation. Indication for culture: Suprapubic PainUR POTASSIUM [id number] 11:09:00 Test Item Value Reference Range Interpretation Comments UR POTASSIUM 23.2 MEQ/L () The Reference R santos and RANDOM (test code Method Per formance = KU) specificationsh ave not been establishe d for this fluid. The test resultshould be correlated into the clinic al context forinterpretati on. Indication for culture: Suprapubic PainUR CHLORIDE [id number] 11:09:00 Test Item Value Reference Range Interpretation Comments UR CHLORIDE RANDOM 43 mmol/L Not Estab. Performed At: (test code = CLU) [facility] [id number] [place], [place] [id number] consuelo Davalos MD Ph:[phone] Indication for culture: Suprapubic PainUR PROTEIN [id number] 11:09:00 Test Item Value Reference Range Interpretation Comments UR PROTEIN TOTAL (test code = 494.1 MG/DL 0.0-12.0 H PROTU) Indication for culture: Suprapubic PainUR CREATININE [id number] 11:09:00 Test Item Value Reference Range Interpretation Comments UR CREATININE RANDOM (test code = 68.7 MG/DL 30-125 N CREATU) Indication for culture: Suprapubic PainUR OSMOLALITY [id number] 11:09:00 Test Item Value Reference Range Interpretation Comments UR OSMOLALITY RANDOM (test code = 349 MOS/KG 390-1090 L OSMOU) Indication for culture: Suprapubic PainANTINUCLEAR ANTIBODIES TITER 2019-04-18 09:09:00 Test Item Value Reference Range Interpretation Comments KIMMY TITER (test code = ANATITR) AG HEPATITIS B [id number] 09:09:00 Test Item Value Reference Range Interpretation Comments AG HEPATITIS B SURFACE Negative Negative Perfo rmed At: HD (test code = HBSAG) [facility] [id number] [place], [place] [id number] consuelo Davalos MD Ph:[phone] AB HEPATITIS [id number] 09:09:00 Test Item Value Reference Range Interpretation Comments AB HEPATITIS C (test <0.1 0.0-0.9 INFCE R esult Units: s/co code = HCVAB) ratio Neg ative: < 0.8 Indeterm inate: 0.8 - 0.9 Pos itive: > 0.9 The CDC r ecommends that a positive HCV antibody result be followed up wit h a HCV Nucleic Acid Am plification test ([id number]). AB DNA DOUBLE [id number] 09:09:00 Test Item Value Reference Range Interpretation Comments AB DNA DOUBLE STRAND (test code = DNADSAB) COMPLEMENT [id number] 09:09:00 Test Item Value Reference Range Interpretation Comments COMPLEMENT C3 (test code = COMC3) COMPLEMENT [id number] 09:09:00 Test Item Value Reference Range Interpretation Comments COMPLEMENT C4 (test code = COMC4) 40 mg/dL 14-44 ANTINUCLEAR ANTIBODIES [id number] 09:09:00 Test Item Value Reference Range Interpretation Comments KIMMY TITER (test code = ANATITR) AG HEPATITIS B [id number] 09:09:00 Test Item Value Reference Range Interpretation Comments AG HEPATITIS B SURFACE Negative Negative Perfo rmed At: HD (test code = HBSAG) [facility] [id number] [place], [place] [id number] consuelo Davalos MD Ph:[phone] AB HEPATITIS [id number] 09:09:00 Test Item Value Reference Range Interpretation Comments AB HEPATITIS C (test <0.1 0.0-0.9 INFCE R esult Units: s/co code = HCVAB) ratio Neg ative: < 0.8 Indeterm inate: 0.8 - 0.9 Pos itive: > 0.9 The CDC r ecommends that a positive HCV antibody result be followed up wit h a HCV Nucleic Acid Am plification test ([id number]). AB DNA DOUBLE [id number] 09:09:00 Test Item Value Reference Range Interpretation Comments AB DNA DOUBLE STRAND (test code = DNADSAB) COMPLEMENT [id number] 09:09:00 Test Item Value Reference Range Interpretation Comments COMPLEMENT C3 (test 107 mg/dL 82-167 Performe d At: HD code = COMC3) [facility] [address] [place], [place] [id number] Kyle L MD Ph:[phone] COMPLEMENT [id number] 09:09:00 Test Item Value Reference Range Interpretation Comments COMPLEMENT C4 (test code = COMC4) 40 mg/dL 14-44 GLUCOSE BEDSIDE [id number] 08:18:00 Test Item Value Reference Range Interpretation Comments GLUCOSE BEDSIDE TESTING (test code = 85 mg/dL 70-110 N GLUBED) BASIC METABOLIC [id number] 07:29:00 Test Item Value Reference Range Interpretation Comments SODIUM (test code = NA) 138 mmol/L 134-147 N POTASSIUM (test code = K) 4.3 mmol/L 3.4-5.0 N CHLORIDE (test code = CL) 111 mmol/L 100-108 H CARBON DIOXIDE (test code = 16 mmol/L 21-32 L CO2) ANION GAP (test code = GAP) 11.0 GAP calc 4.0-15.0 N GLUCOSE (test code = GLU) 91 MG/DL 70-110 N BLOOD UREA NITROGEN (test code 67 MG/DL 7-18 H = BUN) GLOMERULAR FILTRATION RATE 9 estGFR >60 L (test code = GFR) CREATININE (test code = CREAT) 5.5 MG/DL 0.6-1.0 H CALCIUM (test code = CA) 7.6 MG/DL 8.5-10.1 L ANTINUCLEAR ANTIBODIES [id number] 07:12:00 Test Item Value Reference Range Interpretation Comments KIMMY TITER (test code = ANATITR) AG HEPATITIS B [id number] 07:12:00 Test Item Value Reference Range Interpretation Comments AG HEPATITIS B SURFACE (test code = SCREEN NEGATIVE HBSAG) AB HEPATITIS [id number] 07:12:00 Test Item Value Reference Range Interpretation Comments AB HEPATITIS C (test <0.1 0.0-0.9 INFCE R esult Units: s/co code = HCVAB) ratio Neg ative: < 0.8 Indeterm inate: 0.8 - 0.9 Pos itive: > 0.9 The [facility] r ecommends that a positive HCV antibody result be followed up wit h a HCV Nucleic Acid Am plification test ([id number]). AB DNA DOUBLE [id number] 07:12:00 Test Item Value Reference Range Interpretation Comments AB DNA DOUBLE STRAND (test code = DNADSAB) COMPLEMENT [id number] 07:12:00 Test Item Value Reference Range Interpretation Comments COMPLEMENT C3 (test code = COMC3) COMPLEMENT [id number] 07:12:00 Test Item Value Reference Range Interpretation Comments COMPLEMENT C4 (test code = COMC4) ANTINUCLEAR ANTIBODIES [id number] 07:12:00 Test Item Value Reference Range Interpretation Comments KIMMY TITER (test code = ANATITR) AG HEPATITIS B [id number] 07:12:00 Test Item Value Reference Range Interpretation Comments AG HEPATITIS B SURFACE Negative Negative Perfo rmed At: HD (test code = HBSAG) [facility] [address] [place], [place] [id number] consuelo Davalos MD Ph:[phone] AB HEPATITIS [id number] 07:12:00 Test Item Value Reference Range Interpretation Comments AB HEPATITIS C (test <0.1 0.0-0.9 INFCE R esult Units: s/co code = HCVAB) ratio Neg ative: < 0.8 Indeterm inate: 0.8 - 0.9 Pos itive: > 0.9 The [facility] r ecommends that a positive HCV antibody result be followed up wit h a HCV Nucleic Acid Am plification test ([id number]). AB DNA DOUBLE [id number] 07:12:00 Test Item Value Reference Range Interpretation Comments AB DNA DOUBLE STRAND (test code = DNADSAB) COMPLEMENT [id number] 07:12:00 Test Item Value Reference Range Interpretation Comments COMPLEMENT C3 (test code = COMC3) COMPLEMENT [id number] 07:12:00 Test Item Value Reference Range Interpretation Comments COMPLEMENT C4 (test code = COMC4) CBC W/AUTO [id number] 07:10:00 Test Item Value Reference Range Interpretation Comments WHITE BLOOD CELL (test code = 10.7 K/mm3 3.5-11.0 N WBC) RED BLOOD CELL (test code = RBC) 2.75 M/mm3 4.70-6.10 L HEMOGLOBIN (test code = HGB) 8.0 G/DL 10.4-14.9 L HEMATOCRIT (test code = HCT) 24.5 % 31.5-44.1 L MEAN CELL VOLUME (test code = 89.1 Fl 84.5-98.6 N MCV) MEAN CELL HGB (test code = MCH) 29.1 pg 27.0-34.2 N MEAN CELL HGB CONCETRATION (test 32.7 G/DL 31.5-34.0 N code = MCHC) RED CELL DISTRIBUTION WIDTH (test 13.9 SD 11.5-14.5 N code = RDW) PLATELET COUNT (test code = PLT) 203.0 K/mm3 150-450 N MEAN PLATELET VOLUME (test code = 11.40 fL 7.0-10.5 H MPV) NEUTROPHIL % (test code = NT%) 80.2 % 40-76 H LYMPHOCYTE % (test code = LY%) 13.6 % 20.5-51.1 L MONOCYTE % (test code = MO%) 6.0 % 1.7-9.3 N EOSINOPHIL % (test code = EO%) 0.2 % 0.0-6.0 N BASOPHIL % (test code = BA%) 0.0 % 0.0-2.0 N NEUTROPHIL # (test code = NT#) 8.60 K/mm3 1.8-7.6 H LYMPHOCYTE # (test code = LY#) 1.5 K/mm3 0.6-3.2 N MONOCYTE # (test code = MO#) 0.6 K/mm3 0.3-1.1 N EOSINOPHIL # (test code = EO#) 0.0 K/mm3 0.0-0.4 N BASOPHIL # (test code = BA#) 0.0 K/mm3 0.0-0.1 N MANUAL DIFF REQUIRED (test code = NO DIFF/SCN CRITERIA MDIFF) GLUCOSE BEDSIDE [id number] 19:52:00 Test Item Value Reference Range Interpretation Comments GLUCOSE BEDSIDE TESTING (test code 258 mg/dL 70-110 H = GLUBED) GLUCOSE BEDSIDE [id number] 17:02:00 Test Item Value Reference Range Interpretation Comments GLUCOSE BEDSIDE TESTING (test code 233 mg/dL 70-110 H = GLUBED) GLUCOSE BEDSIDE [id number] 08:27:00 Test Item Value Reference Range Interpretation Comments GLUCOSE BEDSIDE TESTING (test code 119 mg/dL 70-110 H = GLUBED) BASIC METABOLIC [id number] 07:28:00 Test Item Value Reference Range Interpretation Comments SODIUM (test code = NA) 143 mmol/L 134-147 N POTASSIUM (test code = K) 4.7 mmol/L 3.4-5.0 N CHLORIDE (test code = CL) 115 mmol/L 100-108 H CARBON DIOXIDE (test code = 16 mmol/L 21-32 L CO2) ANION GAP (test code = GAP) 12.0 GAP calc 4.0-15.0 N GLUCOSE (test code = GLU) 133 MG/DL 70-110 H BLOOD UREA NITROGEN (test code 61 MG/DL 7-18 H = BUN) GLOMERULAR FILTRATION RATE 9 estGFR >60 L (test code = GFR) CREATININE (test code = CREAT) 5.5 MG/DL 0.6-1.0 H CALCIUM (test code = CA) 8.1 MG/DL 8.5-10.1 L URINALYSIS [id number] 03:12:00 Test Item Value Reference Range Interpretation Comments UA GLUCOSE DIPSTICK (test 2+ mg/dL NEG code = DGLUU) UA BILIRUBIN DIPSTICK (test NEGATIVE mg/dL NEG code = BILU) UA KETONE DIPSTICK (test NEGATIVE mg/dL NEG code = KETU) UA SPECIFIC GRAVITY (test 1.025 SG 1.005-1.030 code = SGU) UA BLOOD DIPSTICK (test 1+ mg/DL NEG A code = BLADIMIR) UA PH DIPSTICK (test code = 5.5 pH UNITS 5.0-7.0 SHABANA) UA PROTEIN DIPSTICK (test 2+ mg/dL NEG A code = PROU) UA UROBILINIOGEN DIPSTICK 0.2 mg/dL <2.0 (test code = URO) UA NITRITE DIPSTICK (test NEGATIVE SCREEN NEG code = DARREN) UA LEUKOCYTE ESTERASE NEGATIVE Leuk/mcL NEGATIVE DIPSTICK (test code = LEUU) Urine Specimen Type: Clean CatchUR SODIUM [id number] 03:12:00 Test Item Value Reference Range Interpretation Comments UR SODIUM RANDOM 83 MEQ/L () The Referen ce Range and (test code = FÉLIX) Method Per formance specificationsh ave not been established for this fluid. The test result should be correlated into the clinical context forinte rpretation. Urine Specimen Type: Clean CatchUR PROTEIN [id number] 03:12:00 Test Item Value Reference Range Interpretation Comments UR PROTEIN TOTAL (test code = 384.6 MG/DL 0.0-12.0 H PROTU) Urine Specimen Type: Clean CatchUR CREATININE [id number] 03:12:00 Test Item Value Reference Range Interpretation Comments UR CREATININE RANDOM (test code = 54.0 MG/DL 30-125 N CREATU) Urine Specimen Type: Clean CatchUR OSMOLALITY [id number] 03:12:00 Test Item Value Reference Range Interpretation Comments UR OSMOLALITY RANDOM (test code = 362 MOS/KG 390-1090 L OSMOU) Urine Specimen Type: Clean CatchUR SODIUM [id number] 03:12:00 Test Item Value Reference Range Interpretation Comments UR SODIUM RANDOM 83 MEQ/L The Referen ce Range and (test code = FÉLIX) Method Per formance specificationsh ave not been established for this fluid. The test result should be correlated into the clinical context forinte rpretation. Urine Specimen Type: Clean CatchUR OSMOLALITY [id number] 03:12:00 Test Item Value Reference Range Interpretation Comments UR OSMOLALITY RANDOM (test code = 362 MOS/KG 390-1090 L OSMOU) Urine Specimen Type: Clean CatchUA RFLX MICR CULT IF [id number] 03:11:00 Test Item Value Reference Range Interpretation Comments UA COLOR (test code = STRAW discript YEL/STRAW COLU) UA APPEARANCE (test code CLOUDY discript CLEAR A = APPU) UA GLUCOSE DIPSTICK (test 1+ mg/dL NEG code = DGLUU) UA BILIRUBIN DIPSTICK NEGATIVE mg/dL NEG (test code = BILU) UA KETONE DIPSTICK (test NEGATIVE mg/dL NEG code = KETU) UA SPECIFIC GRAVITY (test 1.020 SG 1.005-1.030 code = SGU) UA BLOOD DIPSTICK (test 1+ mg/DL NEG A code = BLADIMIR) UA PH DIPSTICK (test code 5.5 pH UNITS 5.0-7.0 = SHABANA) UA PROTEIN DIPSTICK (test 3+ mg/dL NEG A code = PROU) UA UROBILINIOGEN DIPSTICK 0.2 mg/dL <2.0 (test code = URO) UA NITRITE DIPSTICK (test NEGATIVE SCREEN NEG code = DARREN) UA LEUKOCYTE ESTERASE 1+ Leuk/mcL NEGATIVE A DIPSTICK (test code = LEUU) UA WBC (test code = WBCU) 40-50 #WBC/HPF 0-3 A UA RBC (test code = RBCU) 0-1 #RBC/HPF 0-3 UA BACTERIA (test code = 4+ /HPF NONE-TRACE A BACU) UA SQUAMOUS CELLS (test NONE SEEN /HPF NONE code = SQU) UA CULTURE NEEDED? (test YES,WBC>10 & EPI<25 Culture CHK code = UACULT) Criteria Indication for culture: Suprapubic PainUR SODIUM [id number] 03:11:00 Test Item Value Reference Range Interpretation Comments UR SODIUM RANDOM 57 MEQ/L () The Referen ce Range and (test code = FÉLIX) Method Per formance specificationsh ave not been established for this fluid. The test result should be correlated into the clinical context forinte rpretation. Indication for culture: Suprapubic PainUR POTASSIUM [id number] 03:11:00 Test Item Value Reference Range Interpretation Comments UR POTASSIUM 23.2 MEQ/L () The Reference R santos and RANDOM (test code Method Per formance = KU) specificationsh ave not been establishe d for this fluid. The test resultshould be correlated into the clinic al context forinterpretati on. Indication for culture: Suprapubic PainUR CHLORIDE [id number] 03:11:00 Test Item Value Reference Range Interpretation Comments UR CHLORIDE RANDOM (test code = CLU) mmol/L >10 Indication for culture: Suprapubic PainUR PROTEIN [id number] 03:11:00 Test Item Value Reference Range Interpretation Comments UR PROTEIN TOTAL (test code = 494.1 MG/DL 0.0-12.0 H PROTU) Indication for culture: Suprapubic PainUR CREATININE [id number] 03:11:00 Test Item Value Reference Range Interpretation Comments UR CREATININE RANDOM (test code = 68.7 MG/DL 30-125 N CREATU) Indication for culture: Suprapubic PainUR OSMOLALITY [id number] 03:11:00 Test Item Value Reference Range Interpretation Comments UR OSMOLALITY RANDOM (test code = 349 MOS/KG 390-1090 L OSMOU) Indication for culture: Suprapubic PainUR SODIUM [id number] 03:11:00 Test Item Value Reference Range Interpretation Comments UR SODIUM RANDOM 57 MEQ/L The Referen ce Range and (test code = FÉLIX) Method Per formance specificationsh ave not been established for this fluid. The test result should be correlated into the clinical context forinte rpretation. Indication for culture: Suprapubic PainUR POTASSIUM [id number] 03:11:00 Test Item Value Reference Range Interpretation Comments UR POTASSIUM 23.2 MEQ/L The Reference R santos and RANDOM (test code Method Per formance = KU) specificationsh ave not been establishe d for this fluid. The test resultshould be correlated into the clinic al context forinterpretati on. Indication for culture: Suprapubic PainUR OSMOLALITY [id number] 03:11:00 Test Item Value Reference Range Interpretation Comments UR OSMOLALITY RANDOM (test code = 349 MOS/KG 390-1090 L OSMOU) Indication for culture: Suprapubic PainUA RFLX MICR CULT IF INDICATED 2019-04-17 02:57:00 Test Item Value Reference Range Interpretation Comments UA COLOR (test code = STRAW discript YEL/STRAW COLU) UA APPEARANCE (test code CLOUDY discript CLEAR A = APPU) UA GLUCOSE DIPSTICK (test 1+ mg/dL NEG code = DGLUU) UA BILIRUBIN DIPSTICK NEGATIVE mg/dL NEG (test code = BILU) UA KETONE DIPSTICK (test NEGATIVE mg/dL NEG code = KETU) UA SPECIFIC GRAVITY (test 1.020 SG 1.005-1.030 code = SGU) UA BLOOD DIPSTICK (test 1+ mg/DL NEG A code = BLADIMIR) UA PH DIPSTICK (test code 5.5 pH UNITS 5.0-7.0 = SHABANA) UA PROTEIN DIPSTICK (test 3+ mg/dL NEG A code = PROU) UA UROBILINIOGEN DIPSTICK 0.2 mg/dL <2.0 (test code = URO) UA NITRITE DIPSTICK (test NEGATIVE SCREEN NEG code = DARREN) UA LEUKOCYTE ESTERASE 1+ Leuk/mcL NEGATIVE A DIPSTICK (test code = LEUU) UA WBC (test code = WBCU) 40-50 #WBC/HPF 0-3 A UA RBC (test code = RBCU) 0-1 #RBC/HPF 0-3 UA BACTERIA (test code = 4+ /HPF NONE-TRACE A BACU) UA SQUAMOUS CELLS (test NONE SEEN /HPF NONE code = SQU) UA CULTURE NEEDED? (test YES,WBC>10 & EPI<25 Culture CHK code = UACULT) Criteria Indication for culture: Suprapubic PainUR SODIUM [id number] 02:57:00 Test Item Value Reference Range Interpretation Comments UR SODIUM RANDOM (test code = FÉLIX) MEQ/L Indication for culture: Suprapubic PainUR POTASSIUM [id number] 02:57:00 Test Item Value Reference Range Interpretation Comments UR POTASSIUM RANDOM (test code = KU) mmol/L >0 Indication for culture: Suprapubic PainUR CHLORIDE [id number] 02:57:00 Test Item Value Reference Range Interpretation Comments UR CHLORIDE RANDOM (test code = CLU) mmol/L >10 Indication for culture: Suprapubic PainUR PROTEIN [id number] 02:57:00 Test Item Value Reference Range Interpretation Comments UR PROTEIN TOTAL (test code = 494.1 MG/DL 0.0-12.0 H PROTU) Indication for culture: Suprapubic PainUR CREATININE [id number] 02:57:00 Test Item Value Reference Range Interpretation Comments UR CREATININE RANDOM (test code = 68.7 MG/DL 30-125 N CREATU) Indication for culture: Suprapubic PainUR OSMOLALITY [id number] 02:57:00 Test Item Value Reference Range Interpretation Comments UR OSMOLALITY RANDOM (test code = 349 MOS/KG 390-1090 L OSMOU) Indication for culture: Suprapubic PainUR SODIUM [id number] 02:57:00 Test Item Value Reference Range Interpretation Comments UR SODIUM RANDOM (test code = FÉLIX) MEQ/L Indication for culture: Suprapubic PainUR POTASSIUM [id number] 02:57:00 Test Item Value Reference Range Interpretation Comments UR POTASSIUM RANDOM (test code = KU) MEQ/L Indication for culture: Suprapubic PainUR OSMOLALITY [id number] 02:57:00 Test Item Value Reference Range Interpretation Comments UR OSMOLALITY RANDOM (test code = 349 MOS/KG 390-1090 L OSMOU) Indication for culture: Suprapubic PainURINALYSIS [id number] 02:56:00 Test Item Value Reference Range Interpretation Comments UA GLUCOSE DIPSTICK (test 2+ mg/dL NEG code = DGLUU) UA BILIRUBIN DIPSTICK (test NEGATIVE mg/dL NEG code = BILU) UA KETONE DIPSTICK (test NEGATIVE mg/dL NEG code = KETU) UA SPECIFIC GRAVITY (test 1.025 SG 1.005-1.030 code = SGU) UA BLOOD DIPSTICK (test 1+ mg/DL NEG A code = BLADIMIR) UA PH DIPSTICK (test code = 5.5 pH UNITS 5.0-7.0 SHABANA) UA PROTEIN DIPSTICK (test 2+ mg/dL NEG A code = PROU) UA UROBILINIOGEN DIPSTICK 0.2 mg/dL <2.0 (test code = URO) UA NITRITE DIPSTICK (test NEGATIVE SCREEN NEG code = DARREN) UA LEUKOCYTE ESTERASE NEGATIVE Leuk/mcL NEGATIVE DIPSTICK (test code = LEUU) Urine Specimen Type: Clean CatchUR SODIUM [id number] 02:56:00 Test Item Value Reference Range Interpretation Comments UR SODIUM RANDOM (test code = FÉLIX) MEQ/L Urine Specimen Type: Clean CatchUR PROTEIN [id number] 02:56:00 Test Item Value Reference Range Interpretation Comments UR PROTEIN TOTAL (test code = 384.6 MG/DL 0.0-12.0 H PROTU) Urine Specimen Type: Clean CatchUR CREATININE [id number] 02:56:00 Test Item Value Reference Range Interpretation Comments UR CREATININE RANDOM (test code = 54.0 MG/DL 30-125 N CREATU) Urine Specimen Type: Clean CatchUR OSMOLALITY [id number] 02:56:00 Test Item Value Reference Range Interpretation Comments UR OSMOLALITY RANDOM (test code = 362 MOS/KG 390-1090 L OSMOU) Urine Specimen Type: Clean CatchUR SODIUM [id number] 02:56:00 Test Item Value Reference Range Interpretation Comments UR SODIUM RANDOM (test code = FÉLIX) MEQ/L Urine Specimen Type: Clean CatchUR OSMOLALITY [id number] 02:56:00 Test Item Value Reference Range Interpretation Comments UR OSMOLALITY RANDOM (test code = 362 MOS/KG 390-1090 L OSMOU) Urine Specimen Type: Clean CatchGLUCOSE BEDSIDE [id number] 22:36:00 Test Item Value Reference Range Interpretation Comments GLUCOSE BEDSIDE TESTING (test code 204 mg/dL 70-110 H = GLUBED) UA RFLX MICR CULT IF [id number] 22:05:00 Test Item Value Reference Range Interpretation Comments UA COLOR (test code = STRAW discript YEL/STRAW COLU) UA APPEARANCE (test code CLOUDY discript CLEAR A = APPU) UA GLUCOSE DIPSTICK (test 1+ mg/dL NEG code = DGLUU) UA BILIRUBIN DIPSTICK NEGATIVE mg/dL NEG (test code = BILU) UA KETONE DIPSTICK (test NEGATIVE mg/dL NEG code = KETU) UA SPECIFIC GRAVITY (test 1.020 SG 1.005-1.030 code = SGU) UA BLOOD DIPSTICK (test 1+ mg/DL NEG A code = BLADIMIR) UA PH DIPSTICK (test code 5.5 pH UNITS 5.0-7.0 = SHABANA) UA PROTEIN DIPSTICK (test 3+ mg/dL NEG A code = PROU) UA UROBILINIOGEN DIPSTICK 0.2 mg/dL <2.0 (test code = URO) UA NITRITE DIPSTICK (test NEGATIVE SCREEN NEG code = DARREN) UA LEUKOCYTE ESTERASE 1+ Leuk/mcL NEGATIVE A DIPSTICK (test code = LEUU) UA WBC (test code = WBCU) 40-50 #WBC/HPF 0-3 A UA RBC (test code = RBCU) 0-1 #RBC/HPF 0-3 UA BACTERIA (test code = 4+ /HPF NONE-TRACE A BACU) UA SQUAMOUS CELLS (test NONE SEEN /HPF NONE code = SQU) UA CULTURE NEEDED? (test YES,WBC>10 & EPI<25 Culture CHK code = UACULT) Criteria Indication for culture: Suprapubic PainUR SODIUM [id number] 22:05:00 Test Item Value Reference Range Interpretation Comments UR SODIUM RANDOM (test code = FÉLIX) MEQ/L Indication for culture: Suprapubic PainUR POTASSIUM [id number] 22:05:00 Test Item Value Reference Range Interpretation Comments UR POTASSIUM RANDOM (test code = KU) mmol/L >0 Indication for culture: Suprapubic PainUR CHLORIDE [id number] 22:05:00 Test Item Value Reference Range Interpretation Comments UR CHLORIDE RANDOM (test code = CLU) mmol/L >10 Indication for culture: Suprapubic PainUR PROTEIN [id number] 22:05:00 Test Item Value Reference Range Interpretation Comments UR PROTEIN TOTAL (test code = 494.1 MG/DL 0.0-12.0 H PROTU) Indication for culture: Suprapubic PainUR CREATININE [id number] 22:05:00 Test Item Value Reference Range Interpretation Comments UR CREATININE RANDOM (test code = 68.7 MG/DL 30-125 N CREATU) Indication for culture: Suprapubic PainUR OSMOLALITY [id number] 22:05:00 Test Item Value Reference Range Interpretation Comments UR OSMOLALITY RANDOM (test code = MMO/KG 500-800 OSMOU) Indication for culture: Suprapubic PainUA RFLX MICR CULT IF INDICATED 2019-04-16 21:57:00 Test Item Value Reference Range Interpretation Comments UA COLOR (test code = STRAW discript YEL/STRAW COLU) UA APPEARANCE (test code CLOUDY discript CLEAR A = APPU) UA GLUCOSE DIPSTICK (test 1+ mg/dL NEG code = DGLUU) UA BILIRUBIN DIPSTICK NEGATIVE mg/dL NEG (test code = BILU) UA KETONE DIPSTICK (test NEGATIVE mg/dL NEG code = KETU) UA SPECIFIC GRAVITY (test 1.020 SG 1.005-1.030 code = SGU) UA BLOOD DIPSTICK (test 1+ mg/DL NEG A code = BLADIMIR) UA PH DIPSTICK (test code 5.5 pH UNITS 5.0-7.0 = SHABANA) UA PROTEIN DIPSTICK (test 3+ mg/dL NEG A code = PROU) UA UROBILINIOGEN DIPSTICK 0.2 mg/dL <2.0 (test code = URO) UA NITRITE DIPSTICK (test NEGATIVE SCREEN NEG code = DARREN) UA LEUKOCYTE ESTERASE 1+ Leuk/mcL NEGATIVE A DIPSTICK (test code = LEUU) UA WBC (test code = WBCU) 40-50 #WBC/HPF 0-3 A UA RBC (test code = RBCU) 0-1 #RBC/HPF 0-3 UA BACTERIA (test code = 4+ /HPF NONE-TRACE A BACU) UA SQUAMOUS CELLS (test NONE SEEN /HPF NONE code = SQU) UA CULTURE NEEDED? (test YES,WBC>10 & EPI<25 Culture CHK code = UACULT) Criteria Indication for culture: Suprapubic PainUR SODIUM [id number] 21:57:00 Test Item Value Reference Range Interpretation Comments UR SODIUM RANDOM (test code = FÉLIX) MEQ/L Indication for culture: Suprapubic PainUR POTASSIUM [id number] 21:57:00 Test Item Value Reference Range Interpretation Comments UR POTASSIUM RANDOM (test code = KU) mmol/L >0 Indication for culture: Suprapubic PainUR CHLORIDE [id number] 21:57:00 Test Item Value Reference Range Interpretation Comments UR CHLORIDE RANDOM (test code = CLU) mmol/L >10 Indication for culture: Suprapubic PainUR PROTEIN [id number] 21:57:00 Test Item Value Reference Range Interpretation Comments UR PROTEIN TOTAL (test code = PROTU) MG/DL 0.0-12.0 Indication for culture: Suprapubic PainUR CREATININE [id number] 21:57:00 Test Item Value Reference Range Interpretation Comments UR CREATININE RANDOM (test code = MG/DL 30-125 CREATU) Indication for culture: Suprapubic PainUR OSMOLALITY [id number] 21:57:00 Test Item Value Reference Range Interpretation Comments UR OSMOLALITY RANDOM (test code = MMO/KG 500-800 OSMOU) Indication for culture: Suprapubic PainUA RFLX MICR CULT IF INDICATED 2019-04-16 21:47:00 Test Item Value Reference Range Interpretation Comments UA COLOR (test code = COLU) STRAW discript YEL/STRAW UA APPEARANCE (test code = CLOUDY discript CLEAR A APPU) UA GLUCOSE DIPSTICK (test 1+ mg/dL NEG code = DGLUU) UA BILIRUBIN DIPSTICK (test NEGATIVE mg/dL NEG code = BILU) UA KETONE DIPSTICK (test code NEGATIVE mg/dL NEG = KETU) UA SPECIFIC GRAVITY (test 1.020 SG 1.005-1.030 code = SGU) UA BLOOD DIPSTICK (test code 1+ mg/DL NEG A = BLADIMIR) UA PH DIPSTICK (test code = 5.5 pH UNITS 5.0-7.0 SHABANA) UA PROTEIN DIPSTICK (test 3+ mg/dL NEG A code = PROU) UA UROBILINIOGEN DIPSTICK 0.2 mg/dL <2.0 (test code = URO) UA NITRITE DIPSTICK (test NEGATIVE SCREEN NEG code = DARREN) UA LEUKOCYTE ESTERASE 1+ Leuk/mcL NEGATIVE A DIPSTICK (test code = LEUU) UA CULTURE NEEDED? (test code Criteria Culture CHK = UACULT) Indication for culture: Suprapubic PainUR SODIUM [id number] 21:47:00 Test Item Value Reference Range Interpretation Comments UR SODIUM RANDOM (test code = FÉLIX) MEQ/L Indication for culture: Suprapubic PainUR POTASSIUM [id number] 21:47:00 Test Item Value Reference Range Interpretation Comments UR POTASSIUM RANDOM (test code = KU) mmol/L >0 Indication for culture: Suprapubic PainUR CHLORIDE [id number] 21:47:00 Test Item Value Reference Range Interpretation Comments UR CHLORIDE RANDOM (test code = CLU) mmol/L >10 Indication for culture: Suprapubic PainUR PROTEIN [id number] 21:47:00 Test Item Value Reference Range Interpretation Comments UR PROTEIN TOTAL (test code = PROTU) MG/DL 0.0-12.0 Indication for culture: Suprapubic PainUR CREATININE [id number] 21:47:00 Test Item Value Reference Range Interpretation Comments UR CREATININE RANDOM (test code = MG/DL 30-125 CREATU) Indication for culture: Suprapubic PainUR OSMOLALITY [id number] 21:47:00 Test Item Value Reference Range Interpretation Comments UR OSMOLALITY RANDOM (test code = MMO/KG 500-800 OSMOU) Indication for culture: Suprapubic PainCOMPREHENSIVE METABOLIC PANEL 2019-04-16 19:57:00 Test Item Value Reference Range Interpretation Comments SODIUM (test code = NA) 137 mmol/L 134-147 N POTASSIUM (test code = K) 4.9 mmol/L 3.4-5.0 N CHLORIDE (test code = CL) 113 mmol/L 100-108 H CARBON DIOXIDE (test code = 13 mmol/L 21-32 L CO2) ANION GAP (test code = GAP) 11.0 GAP calc 4.0-15.0 N GLUCOSE (test code = GLU) 186 MG/DL 70-110 H BLOOD UREA NITROGEN (test code 60 MG/DL 7-18 H = BUN) GLOMERULAR FILTRATION RATE 9 estGFR >60 L (test code = GFR) CREATININE (test code = CREAT) 5.3 MG/DL 0.6-1.0 H TOTAL PROTEIN (test code = 6.6 G/DL 6.4-8.2 N PROT) ALBUMIN (test code = ALB) 2.5 G/DL 3.4-5.0 L GLOBULIN (test code = GLOB) 4.1 GM/dL ALBUMIN/GLOBULIN RATIO (test 0.6 RATIO 1.2-2.2 L code = A/G) CALCIUM (test code = CA) 8.1 MG/DL 8.5-10.1 L BILIRUBIN TOTAL (test code = 0.30 MG/DL 0.2-1.2 N BILT) SGOT/AST (test code = AST) 23 Unit/L 15-37 N SGPT/ALT (test code = ALT) 13 Unit/L 12-78 N ALKALINE PHOSPHATASE TOTAL 127 Unit/L 45-117 H (test code = ALKP) Comment: monitor kidney functionCREATINE KINASE (CK)2019-04-16 19:57:00 Test Item Value Reference Range Interpretation Comments CREATINE KINASE (CK) (test code = 175 Unit/L 26-192 N CK) Comment: monitor kidney functionGLUCOSE BEDSIDE [id number] 17:01:00 Test Item Value Reference Range Interpretation Comments GLUCOSE BEDSIDE TESTING (test code 143 mg/dL 70-110 H = GLUBED) - US RETROPERITONEAL [id number] 15:28:00 [facility] 1970 Age/S: 48 / F [address] [facility] Unit #: [id number] Loc: [place] [address] Phys: Zaid Allen MD Acct: [id number] Dis Date: Status: ADM IN PHONE #: [phone] Exam Date: 04/16/2019 1500 FAX #: Reason: Acute ki dney injury EXAMS: CPT: [id number] US RETROPERITONEAL COM [id number] Site ID: [id number] EXAMINATION: - US RETROPERITONEAL COM. HISTORY: Acute kidney injury COMPARISON: None. TECHNIQUE: Routine renal ultrasound was performed. FINDINGS: The right kidney measures 10 cm, and the left kidney measures 10.1 cmin length. Cortical echogenicity is increased suggestive of parenchymal renal disease.. No hydronephrosis. Incidental note of gallbladder stones with borderline gallbladder wall thickness seen. This could relate to mild chronic cholecystitis. The urinary bladder appears unremarkable. IMPRESSION: 1. No hydronephrosis. 2.Gallbladder stones with suggestion of mild chronic cholecystitis. at 1528 Reported and signed by: Christopher Durham MD CC: Zaid Veronica MD; Nacho Brennan MD; Nica Hearn MD Technologist: Gracie Gaspar, RT(R),RDMS(AB) PAGE 1 Signed Report Name: LEODAN HAAS Force : 1970 Age/S:48 / F [address] [place] [address] Unit #: [id number] Loc: [place] [address] Phys: Zaid Allen MD Acct: [id number] Dis Date: Status: ADM IN PHONE #: [phone] Exam Date: 04/16/2019 1509 FAX #: Reason: Acute kidney injury EXAMS: CPT: [id number] US RETROPERITONEAL COM 10015 <Continued> Trnscb Date/Time: 04/16/2019 (0538) Natalio PAGE 2 Signed ReportGLUCOSE BEDSIDE [id number] 12:53:00 Test Item Value Reference Range Interpretation Comments GLUCOSE BEDSIDE TESTING (test code 140 mg/dL 70-110 H = GLUBED) UR PROTEIN [id number] 10:24:00 Test Item Value Reference Range Interpretation Comments UR PROTEIN TOTAL (test code = 384.6 MG/DL 0.0-12.0 H PROTU) Urine Specimen Type: Clean CatchUR CREATININE [id number] 10:24:00 Test Item Value Reference Range Interpretation Comments UR CREATININE RANDOM (test code = 54.0 MG/DL 30-125 N CREATU) Urine Specimen Type: Clean CatchUR OSMOLALITY [id number] 10:24:00 Test Item Value Reference Range Interpretation Comments UR OSMOLALITY RANDOM (test code = MMO/KG 500-800 OSMOU) Urine Specimen Type: Clean CatchURINALYSIS [id number] 10:24:00 Test Item Value Reference Range Interpretation Comments UA GLUCOSE DIPSTICK (test 2+ mg/dL NEG code = DGLUU) UA BILIRUBIN DIPSTICK (test NEGATIVE mg/dL NEG code = BILU) UA KETONE DIPSTICK (test NEGATIVE mg/dL NEG code = KETU) UA SPECIFIC GRAVITY (test 1.025 SG 1.005-1.030 code = SGU) UA BLOOD DIPSTICK (test 1+ mg/DL NEG A code = BLADIMIR) UA PH DIPSTICK (test code = 5.5 pH UNITS 5.0-7.0 SHABANA) UA PROTEIN DIPSTICK (test 2+ mg/dL NEG A code = PROU) UA UROBILINIOGEN DIPSTICK 0.2 mg/dL <2.0 (test code = URO) UA NITRITE DIPSTICK (test NEGATIVE SCREEN NEG code = DARREN) UA LEUKOCYTE ESTERASE NEGATIVE Leuk/mcL NEGATIVE DIPSTICK (test code = LEUU) Urine Specimen Type: Clean CatchUR SODIUM [id number] 10:24:00 Test Item Value Reference Range Interpretation Comments UR SODIUM RANDOM (test code = FÉLIX) MEQ/L Urine Specimen Type: Clean CatchURINALYSIS [id number] 10:05:00 Test Item Value Reference Range Interpretation Comments UA GLUCOSE DIPSTICK (test 2+ mg/dL NEG code = DGLUU) UA BILIRUBIN DIPSTICK (test NEGATIVE mg/dL NEG code = BILU) UA KETONE DIPSTICK (test NEGATIVE mg/dL NEG code = KETU) UA SPECIFIC GRAVITY (test 1.025 SG 1.005-1.030 code = SGU) UA BLOOD DIPSTICK (test 1+ mg/DL NEG A code = BLADIMIR) UA PH DIPSTICK (test code = 5.5 pH UNITS 5.0-7.0 SHABANA) UA PROTEIN DIPSTICK (test 2+ mg/dL NEG A code = PROU) UA UROBILINIOGEN DIPSTICK 0.2 mg/dL <2.0 (test code = URO) UA NITRITE DIPSTICK (test NEGATIVE SCREEN NEG code = DARREN) UA LEUKOCYTE ESTERASE NEGATIVE Leuk/mcL NEGATIVE DIPSTICK (test code = LEUU) Urine Specimen Type: Clean CatchUR SODIUM [id number] 10:05:00 Test Item Value Reference Range Interpretation Comments UR SODIUM RANDOM (test code = FÉLIX) MEQ/L Urine Specimen Type: Clean CatchUR PROTEIN [id number] 10:05:00 Test Item Value Reference Range Interpretation Comments UR PROTEIN TOTAL (test code = PROTU) MG/DL 0.0-12.0 Urine Specimen Type: Clean CatchUR CREATININE [id number] 10:05:00 Test Item Value Reference Range Interpretation Comments UR CREATININE RANDOM (test code = MG/DL 30-125 CREATU) Urine Specimen Type: Clean CatchUR OSMOLALITY [id number] 10:05:00 Test Item Value Reference Range Interpretation Comments UR OSMOLALITY RANDOM (test code = MMO/KG 500-800 OSMOU) Urine Specimen Type: Clean CatchGLUCOSE BEDSIDE [id number] 10:02:00 Test Item Value Reference Range Interpretation Comments GLUCOSE BEDSIDE TESTING (test code 138 mg/dL 70-110 H = GLUBED) [id number] 09:40:00 Test Item Value Reference Range Interpretation Comments TROPONIN-I (test < 0.015 NG/ML 0.000-0.045 N Negative: </= 0.045 code = TROPI) Positive: >/= 0.046 Correlation wit h serial results, other cardiac markers, and cl inical findings is nec essary to determine the c linical significance of this result. Quantit ative results using d ifferent methodologies s hould not be compared to one another as nume rical results may karma yby method. Completed by Nursing: NOBASIC METABOLIC [id number] 07:19:00 Test Item Value Reference Range Interpretation Comments SODIUM (test code = NA) 142 mmol/L 134-147 N POTASSIUM (test code = K) 5.5 mmol/L 3.4-5.0 H CHLORIDE (test code = CL) 118 mmol/L 100-108 H CARBON DIOXIDE (test code = CO2) 16 mmol/L 21-32 L ANION GAP (test code = GAP) 8.0 GAP calc 4.0-15.0 N GLUCOSE (test code = GLU) 139 MG/DL 70-110 H BLOOD UREA NITROGEN (test code = 57 MG/DL 7-18 H BUN) GLOMERULAR FILTRATION RATE (test 9 estGFR >60 L code = GFR) CREATININE (test code = CREAT) 5.3 MG/DL 0.6-1.0 H CALCIUM (test code = CA) 7.9 MG/DL 8.5-10.1 L Completed by Nursing: [id number] 07:19:00 Test Item Value Reference Range Interpretation Comments TROPONIN-I (test < 0.015 NG/ML 0.000-0.045 N Negative: </= 0.045 code = TROPI) Positive: >/= 0.046 Correlation wit h serial results, other cardiac markers, and cl inical findings is nec essary to determine the c linical significance of this result. Quantit ative results using d ifferent methodologies s hould not be compared to one another as nume rical results may karma yby method. Completed by Nursing: NOCBC W/AUTO [id number] 06:57:00 Test Item Value Reference Range Interpretation Comments WHITE BLOOD CELL (test code = 8.2 K/mm3 3.5-11.0 N WBC) RED BLOOD CELL (test code = RBC) 2.86 M/mm3 4.70-6.10 L HEMOGLOBIN (test code = HGB) 8.5 G/DL 10.4-14.9 L HEMATOCRIT (test code = HCT) 25.6 % 31.5-44.1 L MEAN CELL VOLUME (test code = 89.5 Fl 84.5-98.6 N MCV) MEAN CELL HGB (test code = MCH) 29.7 pg 27.0-34.2 N MEAN CELL HGB CONCETRATION (test 33.2 G/DL 31.5-34.0 N code = MCHC) RED CELL DISTRIBUTION WIDTH (test 14.4 SD 11.5-14.5 N code = RDW) PLATELET COUNT (test code = PLT) 202.0 K/mm3 150-450 N MEAN PLATELET VOLUME (test code = 11.90 fL 7.0-10.5 H MPV) NEUTROPHIL % (test code = NT%) 60.9 % 40-76 N LYMPHOCYTE % (test code = LY%) 26.3 % 20.5-51.1 N MONOCYTE % (test code = MO%) 9.3 % 1.7-9.3 N EOSINOPHIL % (test code = EO%) 2.9 % 0.0-6.0 N BASOPHIL % (test code = BA%) 0.6 % 0.0-2.0 N NEUTROPHIL # (test code = NT#) 4.96 K/mm3 1.8-7.6 N LYMPHOCYTE # (test code = LY#) 2.1 K/mm3 0.6-3.2 N MONOCYTE # (test code = MO#) 0.8 K/mm3 0.3-1.1 N EOSINOPHIL # (test code = EO#) 0.2 K/mm3 0.0-0.4 N BASOPHIL # (test code = BA#) 0.1 K/mm3 0.0-0.1 N MANUAL DIFF REQUIRED (test code = NO DIFF/SCN CRITERIA MDIFF) GLUCOSE BEDSIDE [id number] 00:50:00 Test Item Value Reference Range Interpretation Comments GLUCOSE BEDSIDE TESTING (test code 154 mg/dL 70-110 H = GLUBED)
[2020-11-11] MEDS ORDERED: ONDANSETRON 4 MG/2 ML VIAL IV PRN (04:14)
[2020-11-11] MEDS ORDERED: MORPHINE 2 MG/ML SYR IV PRN (04:14)
[2020-11-11 04:24] VITALS: BMI 23.4
--- NOTE | 2020-11-11 04:28 | P.HP ---
Certification for Inpatient Patient admitted to: Inpatient With expected LOS: >2 Midnights Patient will require the following post-hospital care: None Practitioner: I am a practitioner with admitting privileges, knowledge of patient current condition, hospital course, and medical plan of care. Services: Services provided to patient in accordance with Admission requirements found in Title 42 Section 412.3 of the Code of Federal Regulations Patient History Date of Service: 11/11/20 Primary Care Provider: Cardiology: , nephrologyDr. Harvey, PCP Dr. shah Reason for admission: Hypoxia, dyspnea, pneumonia History of Present Illness: 49-year-old female with history of ESRD on HD, diabetes mellitus type 2, hypertension, CAD, hyperlipidemia, hypothyroidism presented to stand-alone emergency department last night for chest pain and shortness of breath. Patient was found to be mildly hypoxic with saturations in the mid to high 80s on room air upon arrival. Patient was evaluated in the emergency department, labs were significant for white blood cell count 9.6, hemoglobin 9.0 hematocrit 25.2 D- dimer 2968 BNP 3130 creatinine 7 BUN 37 sodium 141 potassium 4.4 amylase [address] chest abdomen pelvis without contrast demonstrates moderate bilateral dependent pleural effusions with some adjacent parenchymal opacity consistent with combination of atelectasis or infiltrate, smooth reticular interstitial coarsening suggesting pulmonary edema, pleural base 15 mm nodule in the left upper lobe with consideration for PET CT or three-month followup CT chest, cholelithiasis. I was consulted for transfer for hypoxia, chest pain, pneumonia. When I saw the patient in the exam room she is awake, alert, oriented x3, in no distress. Does not appear septic. Will admit for further evaluation and management. Allergies No Known Allergies Allergy (Unverified 11/11/20 04:22) - Past Medical/Surgical History Has patient received pneumonia vaccine in the past: Yes Diabetic: Yes -: DM -: HTN -: CAD s/p CABG 2019 -: hiperlipidemia -: ESRD on HD -: Hypothyroidism -: AV fistula placement -: triple bypass 2019 Psychosocial/ Personal History: Unemployed, lives with family - Family History Family History: Reviewed- Non-Contributory - Social History Smoking Status: Never smoker Alcohol use: No CD- Drugs: No Caffeine use: Yes Place of Residence: Home Review of Systems 10-point ROS is otherwise unremarkable Respiratory: Shortness of Breath Cardiovascular: Chest Pain, As per HPI Gastrointestinal: Abdominal Pain Physical Examination - Physical Exam General: Alert, In no apparent distress HEENT: Atraumatic, PERRLA, Mucous membr. moist/pink Neck: Supple, 2+ carotid pulse no bruit, No LAD Respiratory: Diminished, Crackles/rales (Bibasilar) Cardiovascular: Regular rate/rhythm, Normal S1 S2 Capillary refill: <2 Seconds Gastrointestinal: Normal bowel sounds, Tenderness (Mild generalized abdominal tenderness, mildly worse in the right upper quadrant) Musculoskeletal: No tenderness Integumentary: No rashes Neurological: Normal gait, Normal speech, Normal strength at 5/5 x4 extr, Normal tone, Normal affect Assessment and Plan - Plan Assessment Acute hypoxic respiratory failure secondary to ESRD on HD with volume overload complicated with suspected pneumonia Chest pain with history of CAD status post CABG 2019 rule out ACS Hypertension Diabetes mellitus type 2 Hyperlipidemia Hypothyroidism Plan Acute hypoxic respiratory failure secondary to ESRD on HD with volume overload complicated with suspected pneumonia: CT demonstrates pulmonary edema with questionable infiltrate, will continue with IV antibiotics Rocephin/Zithromax at this time, D-dimer also noted to be elevated at stand-alone emergency d epartment, will order V/Q scan for further evaluation to rule out pulmonary embolism. Patient also with some epigastric pain and tenderness to right upper quadrant, CT demonstrated cholelithiasis, will order ultrasound for further evaluation. Nephrology consulted for assistance with hemodialysis. DVT prophylaxis heparin 5000 units subcutaneous twice daily. Daily room air saturations, incentive spirometry. Chest pain with history of CAD status post CABG 2019 rule out ACS: Trend troponins, monitor on telemetry, cardiology consulted. Patient status post CABG 2019, scheduled for stress test at her melting operator's office on the . Continue home medications Hypertension: Continue home medications, adjust as necessary Diabetes mellitus type 2: A.c. HS Accu-Cheks, sliding scale insulin therapy. A1c with morning labs Hyperlipidemia: Continue home medications, adjust as necessary, lipid panel with morning labs Hypothyroidism: Continue home medications, thyroid panel with morning labs Discharge Plan: Home Plan to discharge in: Greater than 2 days - Advance Directives Does patient have a Living Will: No Does patient have a Durable POA for Healthcare: No - Code Status/Comfort Care Code Status Assessed: Yes (Full code) Critical Care: No Time Spent Managing Pts Care (In Minutes): 55
[2020-11-11] MEDS ORDERED: HYDRALAZINE HCL 20 MG/ML VIAL IV PRN (05:05)
[2020-11-11 05:23] LABS: Absolute Lymphocytes (CBC) 2.2 K/uL (0.7-4.9); Lymphocytes % 24.1 % (15.3-44.8); MPV 9.1 fL (7.6-11.3); RBC Red Blood Cell Count 2.59 M/uL (3.86-4.86)
--- NOTE | 2020-11-11 05:49 | P.PN ---
Subjective Date of Service: 11/11/20 Primary Care Provider: Dr. Madera; Cardiology , Nephrology Dr. Harvey Chief Complaint: Hypoxia, dyspnea, pneumonia Subjective: Other (Patient was a transfer from [facility]. Patient reports improvement. Currently on 2 L per nasal cannula.) Physical Examination - Vital Signs Temperature: 97.6 F Blood Pressure: 192/79 Pulse: 68 Respirations: 18 Pulse Ox (%): 90 Assessment & Plan Discharge Plan: Home Plan to discharge in: 48 Hours Physician Review Additional Text: Physical exam: General: Alert, In no apparent distress. Currently on 2 L per nasal cannula. HEENT: Atraumatic, PERRLA, Mucous membr. moist/pink Neck: Supple, 2+ carotid pulse no bruit, No LAD Respiratory: Diminished, Crackles/rales (Bibasilar) Cardiovascular: Regular rate/rhythm, Normal S1 S2 Capillary refill: <2 Seconds Gastrointestinal: Normal bowel sounds. Mild tenderness to the epigastric region. No distention noted Musculoskeletal: No tenderness Integumentary: No rashes Neurological: Normal gait, Normal speech, Normal strength at 5/5 x4 extr, Normal tone, Normal affect. Mild edema to the lower extremity nonpitting Impression: Acute hypoxic respiratory failure secondary to pulmonary edema suspect acute on chronic diastolic CHF complicated with end-stage renal disease on hemodialysis with possible pneumonia End-stage renal disease on hemodialysis with noted pulmonary edema Chest pain with history of CAD status post CABG 2019 Hypertension Diabetes mellitus type 2 insulin-dependent Hyperlipidemia Hypothyroidism Anemia of chronic disease Plan Acute hypoxic respiratory failure secondary to pulmonary edema suspect acute on chronic diastolic CHF complicated with end-stage renal disease on hemodialysis with possible pneumonia: CT scan from [facility] showed pulmonary edema with questionable infiltrate. Patient remains on IV antibiotic therapyRocephin and Zithromax. D-dimer was also elevated. VQ scan pending to rule out pulmonary embolism. Pulmonology consulted to further evaluate. Patient with pulmonary edema likely related to her end-stage renal disease and likely underlying CHF. Will obtain echocardiogram. Recheck chest x-ray. Wean off oxygen. Cardiology consulted to further evaluate. Patient will receive dialysis today. Nephrology consulted to further evaluate. Await further recommendations. Patient also getting abdominal ultrasound to evaluate for cholelithiasis. Continue to wean off oxygen. DVT prophylaxis in placeheparin. Encourage incentive spirometer. Anticipate improvement over the next 48 hours. End-stage renal disease on hemodialysis with noted pulmonary edema: Continue with above plan of care. Case discussed with nephrology. Patient will receive dialysis today. Recheck chest x-ray. Chest pain with history of CAD status post CABG 2019: Continue to monitor troponin. Patient on telemetry. Patient with prior CABG in 2019. She was scheduled for cardiac stress test with her machine tender this month. Continue with current medicationsaspirin Plavix. Will monitor closely. Cardiology consulted. Await recommendation. Anticipate outpatient work-up. Hypertension: Continue with current medications for blood pressure. Currently on carvedilol 25 mg 1 pill twice daily, hydralazine 100 mg 1 pill twice daily, losartan 100 mg daily and Procardia 60 mg daily. Will monitor and adjust appropriately. Diabetes mellitus type 2 insulin-dependent: Accu-Cheks in place. Continue sliding scale. Hemoglobin A1c 6.5. We will make adjustments to her medications. Hold off on basal insulin at this time. Hyperlipidemia: Continue with statin medicationLipitor 40 mg daily. Hypothyroidism: Continue with thyroid medicationlevothyroxine 25 mcg daily. Anemia of chronic disease: Will monitor hemoglobin. Maintain hemoglobin above 7.5. Will check iron and B12 studies. DVT prophylaxis: Heparin CODE STATUS: Full code Advanced care [id number] minutes: Patient desires to go home at discharge. Patient may require oxygen if not able to be weaned off. Time Spent Managing Pts Care (In Minutes): 55
[2020-11-11 06:01] LABS: Albumin 3.3 g/dL (3.4-5.0); Bilirubin Total 0.6 mg/dL (0.2-1.0); Magnesium 2.3 mg/dL (1.8-2.4); Potassium 4.2 mmol/L (3.5-5.1); Protein, Total 6.6 g/dL (6.4-8.2); Troponin I 0.04 ng/mL (0.0-0.045)
[2020-11-11] MEDS: LEVOTHYROXINE SOD 0.025 MG TAB PO SCH (06:07)
[2020-11-11 06:08] LABS: Thyroid Stimulating Hormone 8.15 uIU/mL (0.360-3.740)
[2020-11-11] MEDS ORDERED: BENZONATATE 100 MG CAP PO PRN (06:43)
[2020-11-11] MEDS: INSULIN -REGULAR HUMAN 50 UNIT/0.5 ML ML SQ SCH ×4 (07:30→21:00)
[2020-11-11] MEDS: ASPIRIN EC 81 MG TAB PO SCH (08:22)
[2020-11-11] MEDS: carvediloL 25 MG TAB PO SCH ×2 (08:22→21:09)
[2020-11-11] MEDS: NIFEDIPINE XL 60 MG TABLET PO SCH (08:23)
[2020-11-11] MEDS: SEVELAMER CARBONATE 800 MG TABLET PO SCH ×3 (08:23→17:14)
[2020-11-11] MEDS: FUROSEMIDE 20 MG TABLET PO SCH (08:23)
[2020-11-11] MEDS: HYDRALAZINE HCL 25 MG TABLET PO SCH ×2 (08:23→21:09)
[2020-11-11] MEDS: HEPARIN 5000 UNIT/ML 1 ML VIAL SQ SCH ×2 (08:24→21:09)
[2020-11-11] MEDS: CLOPIDOGREL 75 MG TABLET PO SCH (08:24)
[2020-11-11] MEDS: MONTELUKAST 10 MG TAB PO SCH (08:24)
--- NOTE | 2020-11-11 08:32 | RAD REPORT ---
EXAM DESCRIPTION: US - Abdomen Exam Limited - 11/11/2020 7:47 am CLINICAL HISTORY: abd pain/tenderness COMPARISON: No comparisons FINDINGS: The gallbladder demonstrates multiple small shadowing gallstones. No pericholecystic fluid or gallbladder wall thickening. The common bile duct is normal measuring 3 mm. The liver demonstrates no findings of intrahepatic biliary dilatation. IMPRESSION: Cholelithiasis.
--- NOTE | 2020-11-11 08:47 | RAD REPORT ---
EXAM DESCRIPTION: NM - Vent Perfusion VQ Scan - 11/11/2020 7:37 am CLINICAL HISTORY: eval for PE, elev. DD, SOB, CP Chest pain, shortness of breath COMPARISON: No comparisons TECHNIQUE: 19.9mCi Xe-133 gas inhaled and 7.6mCi Tc-MAA IV. Planar ventilation scan was performed in posterior projection after Xe-133 gas inhalation (wash-in, e quilibrium, and wash-out phases) followed by perfusion scan with Tc-MAA IV in multiple projections. Examination is correlated with recent chest radiograph. FINDINGS: Normal ventilation with appropriate wash-out and no significant air-trapping. A single subsegmental mismatched peripheral defect is seen in the right lung perfusion image. No gloria tional evidence of mismatched perfusion defects. IMPRESSION: Low to intermediate probability of acute pulmonary embolism.
[2020-11-11] MEDS ORDERED: CEFTRIAXONE 1 GM/NS 50 ML 1 GM/50 ML BAG IV SCH (09:00)
[2020-11-11] MEDS ORDERED: AZITHROMYCIN IV 500 MG in NA CHLORIDE 0.9% 250 ML IVPB SCH (09:00)
[2020-11-11] MEDS ORDERED: CEFTRIAXONE/SWI 1gm 1 GM/10 ML SYR IV SCH (09:00)
[2020-11-11 09:02] LABS: Ferritin 3638.4 ng/mL (8-388)
--- NOTE | 2020-11-11 10:46 | RAD REPORT ---
EXAM DESCRIPTION: RAD - Chest Single View - 11/11/2020 10:02 am CLINICAL HISTORY: COPD Chest pain. COMPARISON: No comparisons FINDINGS: Portable technique limits examination quality. Moderate bilateral pulmonary opacities are present with small bilateral pleural effusions. The heart is mildly enlarged. Sternotomy wires present. IMPRESSION: Moderate CHF versus volume overload pattern.
--- NOTE | 2020-11-11 11:44 | P.CNS ---
Date of Consult: 11/11/20 Reason for Consult: Possible pneumonia Primary Care Provider: Dr. Madera; Cardiology , Nephrology Dr. Harvey Chief Complaint: Hypoxia, dyspnea, pneumonia History of Present Illness: Patient is 49 years of age and stage renal disease metabolic syndrome he is on dialysis was admitted from the emergency room chest pain shortness of breath mildly hypoxic he has some postnasal drainage this morning denied any pulmonary complaint no fever chills cough sputum hemoptysis Allergies No Known Allergies Allergy (Verified 11/11/20 04:23) Home Medications: Aspirin [Aspirin EC 81 MG] 81 mg PO DAILY 11/11/20 Atorvastatin Calcium [Lipitor] 40 mg PO BEDTIME 11/11/20 Carvedilol [Coreg] 25 mg PO BID 11/11/20 Clopidogrel Bisulfate [Plavix*] 75 mg PO DAILY 11/11/20 Folic Acid/Vit B Complex and C [Renal-Luba Tablet] 1 tab PO DAILY AT SUPPER 11/11/20 Furosemide [Lasix*] 20 mg PO DAILY 11/11/20 Hydralazine [Apresoline*] 100 mg PO BID 11/11/20 Insulin Glargine,Hum.rec.anlog [Toujeo Solostar] 24 units SQ 1200 11/11/20 Levothyroxine Sodium [Levothyroxine] 25 mcg PO DAILY 11/11/20 Losartan Potassium 100 mg PO BEDTIME 11/11/20 Montelukast [Singulair*] 10 mg PO DAILY 11/11/20 NIFEdipine [Nifedipine ER] 60 mg PO DAILY 11/11/20 Sevelamer Carbonate [Renvela*] 800 mg PO TIDWM 11/11/20 - Past Medical/Surgical History Diabetic: Yes -: DM -: HTN -: CAD s/p CABG 2019 -: hiperlipidemia -: ESRD on HD -: Hypothyroidism -: AV fistula placement -: triple bypass 2019 Psychosocial/ Personal History: Unemployed, lives with family - Family History Mother Medical History: Hypertension - Social History Alcohol use: No CD- Drugs: No Caffeine use: Yes Place of Residence: Home Review of Systems 10-point ROS is otherwise unremarkable Respiratory: Cough Physical Examination Temp Pulse Resp BP Pulse Ox 97.6 F 69 18 221/93 H 90 L 11/11/20 08:12 11/11/20 08:23 11/11/20 08:12 11/11/20 08:23 11/11/20 08:12 General: Alert, In no apparent distress, Oriented x3 HEENT: Atraumatic Neck: Supple Respiratory: Clear to auscultation bilaterally Cardiovascular: No edema, Regular rate/rhythm Gastrointestinal: Normal bowel sounds, Soft and benign - Problems (1) Shortness of breath Current Visit: Yes Status: Acute Plan: Patient is 49 years of age on dialysis and metabolic syndrome admitted with mild hypoxemia shortness of breath patient has done very well chest x-ray shows cardiomegaly interstitial changes patient has chronic renal failure denies any symptoms of sepsis or pneumonia ultrasound of the gallbladder cholelithiasis labs reviewed possibly volume overload blood pressure is significantly elevated anemia of chronic renal disease patient does not smoke Dc antibiotics plan for discharge V/Q scan low probability for PE also order an echocardiogram S she has cardiomegaly on the x-ray
[2020-11-11] MEDS: MULTIVITAMINS,THERAPEUT 1 TAB PO SCH (17:14)
[2020-11-11] MEDS: LOSARTAN POTASSIUM 50 MG TABLET PO SCH (21:09)
[2020-11-11] MEDS: ATORVASTATIN 40 MG TAB PO SCH (21:14)
[2020-11-12 04:32] LABS: Basophils % 1.3 % (0-1.3); Hematocrit 24.1 % (36.0-45.0); Lymphocytes % 24.4 % (15.3-44.8); MPV 9.4 fL (7.6-11.3); RBC Red Blood Cell Count 2.69 M/uL (3.86-4.86)
[2020-11-12 05:16] LABS: Albumin 3.1 g/dL (3.4-5.0); Bilirubin Total 0.5 mg/dL (0.2-1.0); Magnesium 2.3 mg/dL (1.8-2.4); Protein, Total 6.6 g/dL (6.4-8.2)
--- NOTE | 2020-11-12 05:52 | P.PN ---
Subjective Date of Service: 11/12/20 Primary Care Provider: Dr. Madera; Cardiology , Nephrology Dr. Harvey Chief Complaint: Hypoxia, dyspnea, pneumonia Subjective: Improving, Other (Currently on off oxygen.) Physical Examination - Vital Signs Temperature: 98.1 F Blood Pressure: 125/55 Pulse: 65 Respirations: 16 Pulse Ox (%): 94 Assessment & Plan Discharge Plan: Home Plan to discharge in: 24 Hours Physician Review Additional Text: Physical exam: General: Alert, In no apparent distress. Able to ambulate without oxygen. HEENT: Atraumatic, PERRLA, Mucous membr. moist/pink Neck: Supple, 2+ carotid pulse no bruit, No LAD Respiratory: Better air movement bilateral. Cardiovascular: Regular rate/rhythm, Normal S1 S2 Capillary refill: <2 Seconds Gastrointestinal: Normal bowel sounds. Mild tenderness to the epigastric region. No distention noted Musculoskeletal: No tenderness Integumentary: No rashes Neurological: Normal gait, Normal speech, Normal strength at 5/5 x4 extr, Normal tone, Normal affect. Mild edema to the lower extremity nonpitting Impression: Acute hypoxic respiratory failure secondary to pulmonary edema suspect acute on chronic diastolic CHF complicated with end-stage renal disease on hemodialysis End-stage renal disease on hemodialysis with noted pulmonary edema Chest pain with history of CAD status post CABG 2019 Hypertension Diabetes mellitus type 2 insulin-dependent Hyperlipidemia Hypothyroidism Anemia of chronic disease Plan Acute hypoxic respiratory failure secondary to pulmonary edema suspect acute on chronic diastolic CHF complicated with end-stage renal disease on hemodialysis: Patient has significantly improved. Case discussed with nephrology. Will plan to discharge. Will verify and make sure patient is not require any oxygen at discharge. Patient was able to ambulate without oxygen with respiratory. Nephrology recommends to continue 1500 cc per day fluid restriction. Will increase Lasix at discharge. End-stage renal disease on hemodialysis with noted pulmonary edema: Continue with above plan of care. Continue with dialysis as directed. Chest pain with history of CAD status post CABG 2019: Continue to monitor troponin. Patient on telemetry. Patient with prior CABG in 2019. She was scheduled for cardiac stress test with her account administrator this month. Continue with current medicationsaspirin Plavix. Will monitor closely. Cardiology consulted. Await recommendation. Anticipate outpatient work-up. Hypertension: Continue with current medications for blood pressure. Currently on carvedilol 25 mg 1 pill twice daily, hydralazine 100 mg 1 pill twice daily, losartan 100 mg daily and Procardia 60 mg daily. Will monitor and adjust appropriately. Diabetes mellitus type 2 insulin-dependent: Accu-Cheks in place. Continue sliding scale. Hemoglobin A1c 6.5. We will make adjustments to her medications. Hold off on basal insulin at this time. Hyperlipidemia: Continue with statin medicationLipitor 40 mg daily. Hypothyroidism: Continue with thyroid medicationlevothyroxine 25 mcg daily. Anemia of chronic disease: Will monitor hemoglobin. Maintain hemoglobin above 7.5. DVT prophylaxis: Heparin CODE STATUS: Full code Advanced care [id number] minutes: Patient desires to go home at discharge. Patient may require oxygen if not able to be weaned off. Time Spent Managing Pts Care (In Minutes): 55
--- NOTE | 2020-11-12 06:06 | CON ---
Date of Consultation: 11/11/2020 Additional Admitting Physician: Juan J Hawthorne DO. Reason For Consultation: Hypoxic, pneumonia, chest pain, and shortness of breath. History Of Present Illness: Ms. Hidalgo 49-year-old woman, who has history of end-stage renal diseas e, had some mid mid-epigastric chest pain that radiated to the back. She has some shortness of breat h consistent with pneumonia. She was hypoxic and had an elevated D-dimer. Dr. Virgen and Dr. Monika torres had been consulted with the chest pain. She denied any nausea, vomiting, diaphoresis, PND, orthop veronica, pedal edema, palpitations, or syncope. Past Medical History: Include hypertension, diabetes. She is status post CABG in 2019, dyslipidemia , hypothyroidism, en-stage renal disease. She had a CABG in 2019. She is a patient of Dr. Amanda palomino nd Dr. Harvey. She has a stress test actually scheduled on the of this month by Dr. Patel. Review of Systems: Negative. Social History: Negative. Family History: Noncontributory. Medication: At home include aspirin, Lipitor, 25 b.i.d., Plavix, Lasix 20 mg daily, hydra lazine 100 b.i.d., insulin, levothyroxine, losartan, nifedipine as well as Renvela. Physical Examination: Vital Signs: Her blood pressure initially was in sinus rhythm, afebrile. HEENT: Negative. Neck: Supple without any bruit, lymphadenopathy, JVD, or thyromegaly. CHEST: Clear to auscultation and percussion. Cardiac: Revealed a regular rhythm and rate with an S4 gallops. No murmurs or rubs. Abdomen: Benign. Extremities: Revealed no clubbing, cyanosis, or edema. Diagnostic Data: Her creatinine was . Her troponin was 0.04. Her ferritin level was 3638 . TSH was 8.150. Chest x-ray shows moderate congestive heart failure. Lung scan V/Q show a low pro bability of acute pulmonary embolism. Abdominal ultrasound showed cholelithiasis. Dr. Virgen has s een the patient. Echocardiogram is pending. Impression And Plan: 1.Possible acute on chronic congestive heart failure. 2.Atypical chest pain, history of coronary artery bypass graft. Has a stress test pending with Dr. Patel in the next week or 2 and I will leave that up to him. Echocardiogram is pending. 3.End-stage renal disease. 4.Hypertension, poorly controlled. 5.Diabetes. 6.Dyslipidemia. 7.Hypothyroidism. I am comfortable that her chest pain is noncardiac. It is probably related to cholelithiasis and I d o not think we need to do much in the way of cardiac workup. The volume overload combinat ion of renal failure and chronic diastolic congestive heart failure. I agree with her present regime n. We will see what the echo shows before making further decisions. LOGAN/AHSAN Voice ID: [id number] Report ID: [id number]
[2020-11-12] MEDS: LEVOTHYROXINE SOD 0.025 MG TAB PO SCH (07:24)
[2020-11-12] MEDS: INSULIN -REGULAR HUMAN 50 UNIT/0.5 ML ML SQ SCH ×4 (07:30→22:52)
--- NOTE | 2020-11-12 08:26 | ECHO ---
HEIGHT: 5 ft 0 in WEIGHT: 120 lb 0 oz DATE OF STUDY: 11/11/[address]: Arturo Darden MD 2-DIMENSIONAL: YES M.MODE: YES DOPPLER: YES COLOR FLOW: YES TDS: NO PORTABLE: NO DEFINITY: NO BUBBLE STUDY: NO DIAGNOSIS: SHORTNESS OF BREATH CARDIAC HISTORY: CATHERIZATION: YES SURGERY: YES PROSTHETIC VALVE: NO PACEMAKER: NO MEASUREMENTS (cm) DIASTOLIC (NORMALS) SYSTOLIC (NORMALS) IVSd 0.9 (0.6-1.2) LA Diam 3.7 (1.9-4.0) LVEF 46% LVIDd 5.3 (3.5-5.7) LVIDs 4.0 (2.0-3.5) %FS 23% LVPWd 1.1 (0.6-1.2) Ao Diam 2.5 (2.0-3.7) 2 DIMENSIONAL ASSESSMENT: RIGHT ATRIUM: NORMAL LEFT ATRIUM: NORMAL RIGHT VENTRICLE: NORMAL LEFT VENTRICLE: NORMAL TRICUSPID VALVE: NORMAL MITRAL VALVE: NORMAL PULMONIC VALVE: NORMAL AORTIC VALVE: NORMAL PERICARDIAL EFFUSION: NONE AORTIC ROOT: NORMAL LEFT VENTRICULAR WALL MOTION: MILD GLOBAL HYPOKINESIS. DOPPLER/COLOR FLOW: NORMAL. COMMENTS: MILD GLOBAL HYPOKINESIS. EJECTION FRACTION 40-45%. NO EFFUSION. TECHNOLOGIST: DARREN NAVARRO
[2020-11-12 08:33] LABS: Urine Appearance CLEAR (Clear); Urine Bilirubin NEGATIVE (Negative); Urine Blood NEGATIVE (Negative); Urine Color YELLOW (Yellow); Urine Glucose TRACE (Negative); Urine Protein 3+ (Negative); Urine Urobilinogen 0.2 mg/dL (0.2-1.0)
[2020-11-12 08:42] LABS: Urine Microscopic Reflex ORDER UMIC
--- NOTE | 2020-11-12 08:53 | RAD REPORT ---
EXAM DESCRIPTION: RAD - Chest Single View - 11/12/2020 6:03 am CLINICAL HISTORY: follow up pulmonary edema/pneumonia Chest pain. COMPARISON: Chest Single View dated 11/11/2020 FINDINGS: Portable technique limits examination quality. Small left and a moderate right pleural effusion have developed, progressive since comparative examin ation. The heart is mildly prominent in size. Sternotomy wires present.
[2020-11-12 09:15] LABS: Urine Bacteria <20 /HPF (<20)
[2020-11-12] MEDS: ASPIRIN EC 81 MG TAB PO SCH (09:29)
[2020-11-12] MEDS: FUROSEMIDE 20 MG TABLET PO SCH (09:29)
[2020-11-12] MEDS: carvediloL 25 MG TAB PO SCH ×2 (09:29→21:38)
[2020-11-12] MEDS: CLOPIDOGREL 75 MG TABLET PO SCH (09:30)
[2020-11-12] MEDS: HYDRALAZINE HCL 25 MG TABLET PO SCH ×2 (09:30→21:37)
[2020-11-12] MEDS: MONTELUKAST 10 MG TAB PO SCH (09:31)
[2020-11-12] MEDS: NIFEDIPINE XL 60 MG TABLET PO SCH (09:31)
[2020-11-12] MEDS: SEVELAMER CARBONATE 800 MG TABLET PO SCH ×3 (09:32→19:31)
[2020-11-12] MEDS: HEPARIN 5000 UNIT/ML 1 ML VIAL SQ SCH ×2 (09:33→21:38)
--- NOTE | 2020-11-12 09:41 | P.DS ---
Admission Date: 11/11/20 Discharge Date: 11/13/20 Primary Care Provider: Dr. Madera; Cardiology , Nephrology Dr. Harvey Disposition: ROUTINE DISCHARGE Discharge Condition: GOOD Reason for Admission: Hypoxia, dyspnea, pneumonia Consultations: Nephrology-Dr. Sy Cardiology-Dr. Parham Pulmonary-Dr. Darden Procedures: CXR: FINDINGS: Portable technique limits examination quality. Moderate bilateral pulmonary opacities are present with small bilateral pleural effusions. The heart is mildly enlarged. Sternotomy wires present. IMPRESSION: Moderate CHF versus volume overload pattern. V/Q Scan: COMPARISON: No comparisons TECHNIQUE: 19.9mCi Xe-133 gas inhaled and 7.6mCi Tc-MAA IV. Planar ventilation scan was performed in posterior projection after Xe-133 gas inhalation (wash-in, equilibrium, and wash-out phases) followed by perfusion scan with Tc-MAA IV in multiple projections. Examination is correlated with recent chest radiograph. FINDINGS: Normal ventilation with appropriate wash-out and no significant air- trapping. A single subsegmental mismatched peripheral defect is seen in the right lung perfusion image. No additional evidence of mismatched perfusion defects. IMPRESSION: Low to intermediate probability of acute pulmonary embolism. CT Scan: FINDINGS: The evaluation of mediastinum, sulma and vessels is limited secondary to lack of IV contrast administration. Minimal left and small right pleural effusions are present. Opacity seen within the lateral right lung base on the recent chest x-ray probably atelectasis, less likely pneumonia. The heart remains enlarged. Coronary arterial calcifications are present. Small pericardial effusion. Small mediastinal lymph nodes likely reactive in nature IMPRESSION: Opacity within the lateral right lung base probably atelectasis, less likely pneumonia Small right minimal left pleural effusions Small pericardial effusion ECHO: MEASUREMENTS (cm) DIASTOLIC (NORMALS) SYSTOLIC (NORMALS) IVSd 0.9 (0.6-1.2) LA Diam 3.7 (1.9-4.0) LVEF 46% LVIDd 5.3 (3.5-5.7) LVIDs 4.0 (2.0-3.5) %FS 23% LVPWd 1.1 (0.6-1.2) Ao Diam 2.5 (2.0-3.7) 2 DIMENSIONAL ASSESSMENT: RIGHT ATRIUM: NORMAL LEFT ATRIUM: NORMAL RIGHT VENTRICLE: NORMAL LEFT VENTRICLE: NORMAL TRICUSPID VALVE: NORMAL MITRAL VALVE: NORMAL PULMONIC VALVE: NORMAL AORTIC VALVE: NORMAL PERICARDIAL EFFUSION: NONE AORTIC ROOT: NORMAL LEFT VENTRICULAR WALL MOTION: MILD GLOBAL HYPOKINESIS. DOPPLER/COLOR FLOW: NORMAL. COMMENTS: MILD GLOBAL HYPOKINESIS. EJECTION FRACTION 40-45%. NO EFFUSION. ABUS: FINDINGS: The gallbladder demonstrates multiple small shadowing gallstones. No pericholecystic fluid or gallbladder wall thickening. The common bile duct is normal measuring 3 mm. The liver demonstrates no findings of intrahepatic biliary dilatation. IMPRESSION: Cholelithiasis. Follow up CXR: COMPARISON: Chest Single View dated 11/12/2020; Chest Single View dated 11/11/2020 FINDINGS: Portable technique limits examination quality. The lungs are grossly clear. The heart is normal in size. No displaced fractures.Sternotomy wires present. IMPRESSION: No acute intrathoracic process suspected. Medical Problem List: Acute hypoxic respiratory failure secondary to pulmonary edema suspect acute on chronic diastolic CHF complicated with end-stage renal disease on hemodialysis End-stage renal disease on hemodialysis with noted pulmonary edema Chest pain with history of CAD status post CABG 2018 Hypertension Diabetes mellitus type 2 insulin-dependent Hyperlipidemia Hypothyroidism Anemia of chronic disease Brief History of Present Illness: 49-year-old female with history of ESRD on HD, diabetes mellitus type 2, hypertension, CAD, hyperlipidemia, hypothyroidism presented to stand-alone emergency department last night for chest pain and shortness of breath. Patient was found to be mildly hypoxic with saturations in the mid to high 80s on room air upon arrival. Patient was evaluated in the emergency department, labs were significant for white blood cell count 9.6, hemoglobin 9.0 hematocrit 25.2 D- dimer 2968 BNP 3130 creatinine 7 BUN 37 sodium 141 potassium 4.4 amylase [address] chest abdomen pelvis without contrast demonstrates moderate bilateral dependent pleural effusions with some adjacent parenchymal opacity consistent with combination of atelectasis or infiltrate, smooth reticular interstitial coarsening suggesting pulmonary edema, pleural base 15 mm nodule in the left upper lobe with consideration for PET CT or three-month followup CT chest, cholelithiasis. Patient was direct admitted for further evaluation and treatment. Hospital Course: Patient presented with shortness of breath secondary to acute hypoxic respiratory failure secondary to pulmonary edema likely related to acute on chronic diastolic CHF complicated with end-stage renal disease on hemodialysis. The patient received multiple treatments for dialysis with improvement. VQ scan unremarkable for PE. CT scan showed mild pleural effusions. Repeat chest x-ray showed improvement. At discharge patient will continue with the 1500 cc/day fluid restriction and low-salt diet. At discharge will increase Lasix to 40 mg daily. Recommend to monitor her weight daily. If her weight increases by more than 5 pounds she is to contact nephrology for further recommendation. Patient will continue with dialysis as directed. CHF education provided. Prior to discharge room air saturations within normal range. Home oxygen arrange prior to discharge for CHF if the patient is hypoxic. Patient was seen and evaluated by pulmonology. No further recommendations recommended. Recommend follow-up with PCP in 1 week to follow-up hospitalization. Patient with hypertension, diabetes, hyperlipidemia, hypothyroidism and anemia of chronic disease. At discharge she will continue with her current medications including aspirin 81 mg daily, Plavix 85 mg daily, carvedilol 25 mg 1 pill twice daily, hydralazine 100 mg 1 pill twice daily, losartan 100 mg daily, nifedipine XL 60 mg daily, levothyroxine 25 mcg daily, and Lipitor 40 mg daily. Patient also takes insulin Toujeo 24 units daily. Patient will follow up with her PCP to further monitor and adjust her medications for hypertension, diabetes, and hypothyroidism. Follow-up with nephrology to further monitor and adjust her CHF medication. Vital Signs/Physical Exam: Temp Pulse Resp BP Pulse Ox 98.1 F 65 16 125/55 L 94 11/12/20 09:36 11/12/20 09:36 11/12/20 09:36 11/12/20 09:36 11/12/20 09:36 General: Alert, In no apparent distress, Oriented x3, Cooperative HEENT: Atraumatic Neck: Supple Respiratory: Clear to auscultation bilaterally, Normal air movement Cardiovascular: Normal pulses, Regular rate/rhythm Gastrointestinal: Normal bowel sounds, No tenderness, No masses, No rebound, No guarding Musculoskeletal: No erythema, No tenderness, No warmth Integumentary: No tenderness/swelling Neurological: Normal speech, Normal strength at 5/5 x4 extr, Normal tone, Normal affect Laboratory Data at Discharge: WBC 8.10 K/uL (4.3-10.9) 11/12/20 04:13 Hgb 7.6 g/dL (12.0-15.0) L 11/12/20 04:13 Hct 24.1 % (36.0-45.0) L 11/12/20 04:13 Plt Count 154 K/uL (152-406) 11/12/20 04:13 Sodium 141 mmol/L (136-145) 11/12/20 04:13 Potassium 4.0 mmol/L (3.5-5.1) 11/12/20 04:13 BUN 22 mg/dL (7-18) H D 11/12/20 04:13 Creatinine 4.69 mg/dL (0.55-1.3) H D 11/12/20 04:13 Glucose 85 mg/dL (74-106) 11/12/20 04:13 Magnesium 2.3 mg/dL (1.8-2.4) 11/12/20 04:13 Total Bilirubin 0.5 mg/dL (0.2-1.0) 11/12/20 04:13 AST 21 U/L (15-37) 11/12/20 04:13 ALT 22 U/L (12-78) 11/12/20 04:13 Alkaline Phosphatase 124 U/L (45-117) H 11/12/20 04:13 Troponin I 0.04 ng/mL (0.0-0.045) 11/11/20 18:05 Triglycerides 96 mg/dL (<150) 11/11/20 05:03 Cholesterol 101 mg/dL (<200) 11/11/20 05:03 HDL Cholesterol 40 mg/dL (40-60) 11/11/20 05:03 Cholesterol/HDL Ratio 2.53 11/11/20 05:03 Lipase 55 U/L (73-393) L 11/12/20 04:13 Home Medications: Aspirin [Aspirin EC 81 MG] 81 mg PO DAILY 11/11/20 Atorvastatin Calcium [Lipitor] 40 mg PO BEDTIME 11/11/20 Carvedilol [Coreg] 25 mg PO BID 11/11/20 Clopidogrel Bisulfate [Plavix*] 75 mg PO DAILY 11/11/20 Folic Acid/Vit B Complex and C [Renal-Luba Tablet] 1 tab PO DAILY AT SUPPER 11/11/20 Hydralazine [Apresoline*] 100 mg PO BID 11/11/20 Insulin Glargine,Hum.rec.anlog [Toughazalao Solostar] 24 units SQ 1200 11/11/20 Levothyroxine Sodium [Levothyroxine] 25 mcg PO DAILY 11/11/20 Losartan Potassium 100 mg PO BEDTIME 11/11/20 Montelukast [Singulair*] 10 mg PO DAILY 11/11/20 NIFEdipine [Nifedipine ER] 60 mg PO DAILY 11/11/20 Sevelamer Carbonate [Renvela*] 800 mg PO TIDWM 11/11/20 Furosemide [Lasix*] 40 mg PO DAILY #30 tab 11/13/20 New Medications: Furosemide [Lasix*] 40 mg PO DAILY #30 tab Physician Discharge Instructions: Patient presented with shortness of breath secondary to acute hypoxic respiratory failure secondary to pulmonary edema likely related to acute on chronic diastolic CHF complicated with end-stage renal disease on hemodialysis. The patient received multiple treatments for dialysis with improvement. VQ scan unremarkable for PE. CT scan showed mild pleural effusions. Repeat chest x-ray showed improvement. At discharge patient will continue with the 1500 cc/day fluid restriction and low-salt diet. At discharge will increase Lasix to 40 mg daily. Recommend to monitor her weight daily. If her weight increases by more than 5 pounds she is to contact nephrology for further recommendation. Patient will continue with dialysis as directed. CHF education provided. Prior to discharge room air saturations within normal range. Home oxygen arrange prior to discharge for CHF if the patient is hypoxic. Patient was seen and evaluated by pulmonology. No further recommendations recommended. Recommend follow-up with PCP in 1 week to follow-up hospitalization. Patient with hypertension, diabetes, hyperlipidemia, hypothyroidism and anemia of chronic disease. At discharge she will continue with her current medications including aspirin 81 mg daily, Plavix 85 mg daily, carvedilol 25 mg 1 pill twice daily, hydralazine 100 mg 1 pill twice daily, losartan 100 mg daily, nifedipine XL 60 mg daily, levothyroxine 25 mcg daily, and Lipitor 40 mg daily. Patient also takes insulin Toujeo 24 units daily. Patient will follow up with her PCP to further monitor and adjust her medications for hypertension, diabetes, and hypothyroidism. Follow-up with nephrology to further monitor and adjust her CHF medication. Diet: ADA Activity: Ad jose Followup: Tulio Abdi [Primary Care Provider] - Time spent managing pt's care (in minutes): 55
[2020-11-12] MEDS ORDERED: EPOETIN ALFA 10,000 UNIT/ML VIAL SQ ONE (09:44)
--- NOTE | 2020-11-12 10:00 | P.CNS ---
Date of Consult: 11/12/20 Reason for Consult: ESRD Requesting Physician: Juan J Hawthorne Primary Care Provider: Dr. Madera; Cardiology , Nephrology Dr. Harvey Chief Complaint: Hypoxia, dyspnea, pneumonia History of Present Illness: 49 yo HF presented to the ER with moderate, progressive dyspnea in the setting of CHF. Allergies No Known Allergies Allergy (Verified 11/11/20 04:23) Home medications list reviewed: Yes Home Medications: Aspirin [Aspirin EC 81 MG] 81 mg PO DAILY 11/11/20 Atorvastatin Calcium [Lipitor] 40 mg PO BEDTIME 11/11/20 Carvedilol [Coreg] 25 mg PO BID 11/11/20 Clopidogrel Bisulfate [Plavix*] 75 mg PO DAILY 11/11/20 Folic Acid/Vit B Complex and C [Renal-Luba Tablet] 1 tab PO DAILY AT SUPPER 11/11/20 Furosemide [Lasix*] 20 mg PO DAILY 11/11/20 Hydralazine [Apresoline*] 100 mg PO BID 11/11/20 Insulin Glargine,Hum.rec.anlog [Toujeo Solostar] 24 units SQ 1200 11/11/20 Levothyroxine Sodium [Levothyroxine] 25 mcg PO DAILY 11/11/20 Losartan Potassium 100 mg PO BEDTIME 11/11/20 Montelukast [Singulair*] 10 mg PO DAILY 11/11/20 NIFEdipine [Nifedipine ER] 60 mg PO DAILY 11/11/20 Sevelamer Carbonate [Renvela*] 800 mg PO TIDWM 11/11/20 - Past Medical/Surgical History Diabetic: Yes -: DM -: HTN -: CAD s/p CABG 2019 -: hiperlipidemia -: ESRD on HD -: Hypothyroidism -: AV fistula placement -: triple bypass 2018 Psychosocial/ Personal History: Unemployed, lives with family - Family History Mother Medical History: Hypertension - Social History Alcohol use: No CD- Drugs: No Caffeine use: Yes Place of Residence: Home Review of Systems 10-point ROS is otherwise unremarkable Respiratory: SOB with Excertion Physical Examination Temp Pulse Resp BP Pulse Ox 98.1 F 65 16 125/55 L 94 11/12/20 09:36 11/12/20 09:36 11/12/20 09:36 11/12/20 09:36 11/12/20 09:36 General: Alert, Cooperative HEENT: Atraumatic Neck: Supple Respiratory: Crackles/rales (Minimal basilar coarse rales) Cardiovascular: No edema, Regular rate/rhythm Gastrointestinal: Soft and benign, Non-distended Musculoskeletal: No clubbing, No contractures Integumentary: No rashes, No cyanosis Neurological: Normal speech Blood work reviewed in the chart. Imagings Data: EXAM DESCRIPTION: RAD - Chest Single View - 11/12/2020 6:03 am CLINICAL HISTORY: follow up pulmonary edema/pneumonia Chest pain. COMPARISON: Chest Single View dated 11/11/2020 FINDINGS: Portable technique limits examination quality. Small left and a moderate right pleural effusion have developed, progressive since comparative examination. The heart is mildly prominent in size. Sternotomy wires present. Conclusions/Impression: ESRD -Acute HD today HTN -Continue Nifedipine and Losartan Systolic CHF, A/C Acute hypoxic respiratory failure -Acute HD with UF -Low sodium diet -Continue Coreg and Losartan -Start CoQ10 DM II with CKD -RISS Anemia in CKD Iron deficiency -Give Retacrit ILYA/ Secondary HyperPTH with hypocalcemia -Continue Renvela -Start Vitamin D Hypothyroidism -Increase Levothyroxine Case reviewed with Dr. Hawthorne
[2020-11-12] MEDS: VITAMIN D 5,000 UNIT CAP PO SCH (11:03)
[2020-11-12] MEDS: CALCITROL 0.25 MCG CAP PO SCH (11:04)
[2020-11-12] MEDS: COENZYME Q10- 200 MG CAP PO SCH (11:04)
[2020-11-12] MEDS: MULTIVITAMINS,THERAPEUT 1 TAB PO SCH (19:31)
[2020-11-12] MEDS: LOSARTAN POTASSIUM 50 MG TABLET PO SCH (21:37)
[2020-11-12] MEDS: ATORVASTATIN 40 MG TAB PO SCH (21:38)
[2020-11-13] MEDS ORDERED: LEVOTHYROXINE SOD 0.025 MG TAB PO SCH (06:30)
[2020-11-13] MEDS: INSULIN -REGULAR HUMAN 50 UNIT/0.5 ML ML SQ SCH ×3 (07:30→16:30)
[2020-11-13 07:49] LABS: Absolute Lymphocytes (CBC) 2.1 K/uL (0.7-4.9); Basophils % 1.1 % (0-1.3); Hematocrit 23.3 % (36.0-45.0); Lymphocytes % 24.9 % (15.3-44.8); MPV 9.4 fL (7.6-11.3); RBC Red Blood Cell Count 2.62 M/uL (3.86-4.86)
[2020-11-13 08:18] LABS: ALT/SGPT 20 U/L (12-78); AST/SGOT 15 U/L (15-37); Albumin 3.4 g/dL (3.4-5.0); Alkaline Phosphatase 128 U/L (45-117); BUN Blood Urea Nitrogen 22 mg/dL (7-18); Bicarbonate 32 mmol/L (21-32); Bilirubin Total 0.5 mg/dL (0.2-1.0); C-Reactive Protein 7.24 mg/L (<3.00); Glucose Level 112 mg/dL (74-106); Magnesium 2.2 mg/dL (1.8-2.4); Phosphorus 3.5 mg/dL (2.5-4.9); Potassium 3.9 mmol/L (3.5-5.1); Sodium Level 139 mmol/L (136-145); Uric Acid 2.8 mg/dL (2.6-6.0)
[2020-11-13] MEDS: SEVELAMER CARBONATE 800 MG TABLET PO SCH ×3 (08:59→20:23)
[2020-11-13] MEDS: CALCITROL 0.25 MCG CAP PO SCH (08:59)
[2020-11-13] MEDS: ASPIRIN EC 81 MG TAB PO SCH (09:00)
[2020-11-13] MEDS: VITAMIN D 5,000 UNIT CAP PO SCH (09:00)
[2020-11-13] MEDS: CLOPIDOGREL 75 MG TABLET PO SCH (09:00)
[2020-11-13] MEDS: NIFEDIPINE XL 60 MG TABLET PO SCH (09:00)
[2020-11-13] MEDS ORDERED: FUROSEMIDE 40 MG TABLET PO SCH (09:00)
[2020-11-13] MEDS: MONTELUKAST 10 MG TAB PO SCH (09:01)
[2020-11-13] MEDS: carvediloL 25 MG TAB PO SCH ×2 (09:01→20:24)
[2020-11-13] MEDS: HYDRALAZINE HCL 25 MG TABLET PO SCH ×2 (09:02→20:24)
[2020-11-13] MEDS: HEPARIN 5000 UNIT/ML 1 ML VIAL SQ SCH ×2 (09:02→20:25)
[2020-11-13] MEDS: COENZYME Q10- 200 MG CAP PO SCH (09:03)
[2020-11-13 09:09] LABS: NT PRO-BNP < 125 pg/mL (<125)
--- NOTE | 2020-11-13 09:09 | RAD REPORT ---
EXAM DESCRIPTION: CT - Thorax Wo Con - 11/13/2020 7:43 am CLINICAL HISTORY: sob/hypoxia COMPARISON: November 12, 2020 TECHNIQUE: Computed axial tomography of the chest was obtained. Contrast was not requested. All CT scans are performed using dose optimization technique as appropriate and may include automated exposure control or mA/KV adjustment according to patient size. FINDINGS: The evaluation of mediastinum, sulma and vessels is limited secondary to lack of IV contras t administration. Minimal left and small right pleural effusions are present. Opacity seen within the lateral right lung base on the recent chest x-ray probably atelectasis, less likely pneumonia. The heart remains enlarged. Coronary arterial calcifications are present. Small pericardial effusion. Small mediastinal lymph nodes likely reactive in nature IMPRESSION: Opacity within the lateral right lung base probably atelectasis, less likely pneumonia Small right minimal left pleural effusions Small pericardial effusion
--- NOTE | 2020-11-13 11:51 | P.PN ---
Date of Service: 11/13/20 Vital Signs Temp Pulse Resp BP Pulse Ox 98.1 F 79 18 138/64 97 11/13/20 08:00 11/13/20 09:00 11/13/20 08:00 11/13/20 09:00 11/13/20 08:00 Medications Aspirin (Aspirin Ec 81 Mg Tab) 81 mg PO DAILY [facility] Last Admin: 11/13/20 09:00 Dose: 81 mg Documented by: Atorvastatin Calcium (Atorvastatin 40 Mg Tab) 40 mg PO BEDTIME [facility] Last Admin: 11/12/20 21:38 Dose: 40 mg Documented by: Benzonatate (Benzonatate 100 Mg Cap) 100 mg PO TID PRN PRN Reason: COUGH Last Admin: 11/11/20 08:22 Dose: 100 mg Documented by: Calcitriol (Calcitrol 0.25 Mcg Cap) 0.5 mcg PO DAILY [facility] Last Admin: 11/13/20 08:59 Dose: 0.5 mcg Documented by: Carvedilol (Carvedilol 25 Mg Tab) 25 mg PO BID [facility] Last Admin: 11/13/20 09:01 Dose: 25 mg Documented by: Cholecalciferol (Vitamin D 5,000 Unit Cap) 5,000 unit PO DAILY [facility] Last Admin: 11/13/20 09:00 Dose: 5,000 unit Documented by: Clopidogrel Bisulfate (Clopidogrel 75 Mg Tablet) 75 mg PO DAILY [facility] Last Admin: 11/13/20 09:00 Dose: 75 mg Documented by: Coenzyme Q10 (Coenzyme Q10- 200 Mg Cap) 200 mg PO DAILY [facility] Last Admin: 11/13/20 09:03 Dose: 200 mg Documented by: Furosemide (Furosemide 40 Mg Tablet) 40 mg PO DAILY [facility] Last Admin: 11/13/20 09:01 Dose: 40 mg Documented by: Heparin Sodium (Porcine) (Heparin 5000 Unit/Ml 1 Ml Vial) 5,000 unit SQ Q12HR [facility] Last Admin: 11/13/20 09:02 Dose: 5,000 unit Documented by: Heparin Sodium (Porcine) (Heparin 1,000 Unit/Ml Vial) 2,000 unit IV EVERY HD [facility] Hydralazine HCl (Hydralazine Hcl 20 Mg/Ml Vial) 10 mg IV Q6HP PRN PRN Reason: Titrate to SBP (MUST DEFINE) Hydralazine HCl (Hydralazine Hcl 25 Mg Tablet) 100 mg PO BID [facility] Last Admin: 11/13/20 09:02 Dose: 100 mg Documented by: Insulin Human Regular (Insulin -Regular Human 50 Unit/0.5 Ml Ml) 0 unit SQ [facility]; Protocol Last Admin: 11/13/20 07:30 Dose: Not Given Documented by: Levothyroxine Sodium (Levothyroxine Sod 0.025 Mg Tab) 0.05 mg PO DAILYAC [facility] Last Admin: 11/13/20 06:29 Dose: 0.05 mg Documented by: Losartan Potassium (Losartan Potassium 50 Mg Tablet) 100 mg PO BEDTIME [facility] Last Admin: 11/12/20 21:37 Dose: 100 mg Documented by: Montelukast Sodium (Montelukast 10 Mg Tab) 10 mg PO DAILY [facility] Last Admin: 11/13/20 09:01 Dose: 10 mg Documented by: Morphine Sulfate (Morphine 2 Mg/Ml Syr) 2 mg IV Q4H PRN PRN Reason: Pain scale 5-7 (Moderate) Nifedipine (Nifedipine Xl 60 Mg Tablet) 60 mg PO DAILY [facility] Last Admin: 11/13/20 09:00 Dose: 60 mg Documented by: Ondansetron HCl (Ondansetron 4 Mg/2 Ml Vial) 4 mg IV Q6HP PRN PRN Reason: NAUSEA / VOMITING Sevelamer Carbonate (Sevelamer Carbonate 800 Mg Tablet) 800 mg PO TIDWM [facility] Last Admin: 11/13/20 08:59 Dose: 800 mg Documented by: Sodium Chloride (Flush Normal Saline 10 Ml) 10 ml IV BID [facility] Last Admin: 11/13/20 09:04 Dose: 10 ml Documented by: Vitamin B Complex/Vit C/Folic Acid (Multivitamins,Therapeut 1 Tab) 1 tab PO DAILY AT SUPPER [facility] Last Admin: 11/12/20 19:31 Dose: 1 tab Documented by: Assessment/ Plan: Nephrology Feeling better today. CPS status improving. No acute events overnight. Vitals, medications, blood work and imaging reviewed. General: Alert, Cooperative HEENT: Atraumatic Neck: Supple Respiratory: Crackles/rales (Minimal basilar coarse rales) Cardiovascular: No edema, Regular rate/rhythm Gastrointestinal: Soft and benign, Non-distended Musculoskeletal: No clubbing, No contractures Integumentary: No rashes, No cyanosis Neurological: Normal speech Blood work reviewed in the chart. Imagings Data: EXAM DESCRIPTION: RAD - Chest Single View - 11/12/2020 6:03 am CLINICAL HISTORY: follow up pulmonary edema/pneumonia Chest pain. COMPARISON: Chest Single View dated 11/11/2020 FINDINGS: Portable technique limits examination quality. Small left and a moderate right pleural effusion have developed, progressive since comparative examination. The heart is mildly prominent in size. Sternotomy wires present. EXAM DESCRIPTION: CT - Thorax Wo Con - 11/13/2020 7:43 am CLINICAL HISTORY: sob/hypoxia COMPARISON: November 12, 2020 TECHNIQUE: Computed axial tomography of the chest was obtained. Contrast was not requested. All CT scans are performed using dose optimization technique as appropriate and may include automated exposure control or mA/KV adjustment according to patient size. FINDINGS: The evaluation of mediastinum, sulma and vessels is limited secondary to lack of IV contrast administration. Minimal left and small right pleural effusions are present. Opacity seen within the lateral right lung base on the recent chest x-ray probably atelectasis, less likely pneumonia. The heart remains enlarged. Coronary arterial calcifications are present. Small pericardial effusion. Small mediastinal lymph nodes likely reactive in nature IMPRESSION: Opacity within the lateral right lung base probably atelectasis, less likely pneumonia Small right minimal left pleural effusions Small pericardial effusion Conclusions/Impression: ESRD -Acute HD today HTN -Continue Nifedipine and Losartan Systolic CHF, A/C Acute hypoxic respiratory failure -Acute HD with UF -Low sodium diet -Continue Coreg and Losartan -Continue CoQ10 -CT chest results reviewed DM II with CKD -RISS Anemia in CKD Iron deficiency -Give Retacrit ILYA/ Secondary HyperPTH with hypocalcemia -Continue Renvela -Continue Vitamin D Hypothyroidism -Continue Levothyroxine Case reviewed with Dr. Hawthorne
[2020-11-13] MEDS ORDERED: EPOETIN ALFA-EPBX 10,000 UNIT/ML VIAL SQ ONE (12:00)
--- NOTE | 2020-11-13 12:39 | RAD REPORT ---
EXAM DESCRIPTION: RAD - Chest Single View - 11/13/2020 12:21 pm CLINICAL HISTORY: folllow up CHF, pleural effusion Chest pain. COMPARISON: Chest Single View dated 11/12/2020; Chest Single View dated 11/11/2020 FINDINGS: Portable technique limits examination quality. The lungs are grossly clear. The heart is normal in size. No displaced fractures.Sternotomy wires pre sent. IMPRESSION: No acute intrathoracic process suspected.
[2020-11-13] MEDS: MULTIVITAMINS,THERAPEUT 1 TAB PO SCH (20:23)
[2020-11-13] MEDS: LOSARTAN POTASSIUM 50 MG TABLET PO SCH (20:24)
[2020-11-13] MEDS: ATORVASTATIN 40 MG TAB PO SCH (20:24)
[2020-11-13 20:26] VITALS: BP 151/61
[2020-11-13 20:39] VITALS: TEMP 98.1
[2020-11-13 21:41] VITALS: O2SAT 92
--- NOTE | 2020-11-15 10:51 | PN ---
Date of Progress Note: 11/12/2020 Ms. Hidalgo is a hemodialysis patient who had come in with atypical chest pain. Has had a history of congestive heart failure, coronary artery disease and has an appointment with Dr. Patel coming up soon. She also has hypertension, diabetes, dyslipidemia, and hypothyroidism. I did not think her ch est pain was cardiac, probably related to cholelithiasis. She does have some volume overload seconda ry to renal dysfunction and chronic diastolic congestive heart failure. Echocardiogram showed an eje ction fraction of 40% to 45%. She is clinically improved and can go home from my standpoint and foll ow up with Dr. Patel in the near future. I agree with her present regimen. LOGAN/AHSAN Voice ID: [id number] Report ID: [id number]
== END 2020-11-13 21:42 | disposition home or self-care (01) | DRG 291 ==
LOC: ER 02:00 → 2ND 02:13
PROVIDERS: ADMIT Registered Nurse Emergency; ATTEND Family Medicine
PROC: 5A1D70Z Performance of Urinary Filtration, Intermittent, Less than 6 Hours Per Day (ICD-10-PCS; principal; 2020-11-11)
PROC: 5A1D70Z Performance of Urinary Filtration, Intermittent, Less than 6 Hours Per Day (ICD-10-PCS; 2020-11-11)
PROC: 5A1D70Z Performance of Urinary Filtration, Intermittent, Less than 6 Hours Per Day (ICD-10-PCS; 2020-11-11)
DX: I13.2 Hypertensive heart and chronic kidney disease with heart failure and with stage 5 chronic kidney disease, or end stage renal disease (principal); N18.6 End stage renal disease; J96.01 Acute respiratory failure with hypoxia; I50.43 Acute on chronic combined systolic (congestive) and diastolic (congestive) heart failure; E11.22 Type 2 diabetes mellitus with diabetic chronic kidney disease; I25.10 Atherosclerotic heart disease of native coronary artery without angina pectoris; E78.5 Hyperlipidemia, unspecified; E03.9 Hypothyroidism, unspecified; K80.20 Calculus of gallbladder without cholecystitis without obstruction; D63.1 Anemia in chronic kidney disease; E83.51 Hypocalcemia; Z95.1 Presence of aortocoronary bypass graft; Z99.2 Dependence on renal dialysis
CPT/HCPCS: 36415; 71045; 71250; 76705; 78582; 80053; 80061; 81003; 81015; 82607; 82728; 82947; 83036; 83540; 83690; 83735; 83880; 84100; 84145; 84439; 84443; 84466; 84484; 84550; 85025; 85652; 86140; 90935; 93306; 94010; A9540; A9558; J0456; J0696; J1644; J7050; Q5105; Q5106

== ENCOUNTER 2022-03-04 21:07 | Emergency (ER) | payer OTHER ==
--- OUTSIDE RECORDS SUMMARY | 2022-03-04 21:25 | XMS REPORT | Continuity of Care Document ---
:1970 Author Organization [facility] t Address [address] [place] [address] Care Team Providers Name Role Phone Mack Man Primary Care Physician SUNIL RASCON Attending Clinician Unavailable Sissy Gresham LVN Attending Clinician Unavailable Lu BLANCO, Ata Perla Attending Clinician Dania Wilson MD Attending Clinician Rick Machado MD Attending Clinician Elisabet Le Attending Clinician Unavailable Lucero Epstein MA Attending Clinician Unavailable Chyna Oconnell Attending Clinician Unavailable Wojciech MCFADDEN, Yolanda Attending Clinician Unavailable Clarissa Rodarte LMSW Attending Clinician Unavailable Delores Wylie MD Attending Clinician Iza Schumacher Attending Clinician AVNI DANGELO Attending Clinician Unavailable Antolin BARRONC, Avni Attending Clinician Lea MCFADDEN, Arti Attending Clinician Unavailable Garcia Taylor Attending Clinician Unavailable Haleigh MCFADDEN, Nieves Attending Clinician Unavailable Stacey Tenorio MA Attending Clinician Unavailable Albaro MCFADDEN, Norma Attending Clinician Unavailable Jeison Linder Attending Clinician Neptali PRYORCArti Attending Clinician [phone] HERNAN DUFF Attending Clinician Unavailable Carla Fontana MA Attending Clinician Unavailable Carmen Chavez Attending Clinician Unavailable YVONNE BAUTISTA Attending Clinician Unavailable Doctor Unassigned, [place] Attending Clinician Unavailable JEISON MONTOYA Attending Clinician Unavailable MACK MAN Attending Clinician Unavailable RAMBO FRANKEL Attending Clinician Unavailable NICANOR BAKER Attending Clinician Unavailable Mack Man MD Attending Clinician Yvonne Bautista MD Attending Clinician Fatou Asher Attending Clinician FATOU COPELAND Attending Clinician Unavailable Lab, Ang - Db Attending Clinician Unavailable Earnest Desouza RN Attending Clinician Unavailable SUNIL PÉREZ Attending Clinician Unavailable Sarita Wang RN Attending Clinician Unavailable DESIRAE Attending Clinician Unavailable Elena MCFADDEN, Carlito Attending Clinician Unavailable Amy Edmond RN Attending Clinician Unavailable ISABEL CRAIG JR Attending Clinician Unavailable Paradise Stern MD Attending Clinician [phone] Daksha Montero Attending Clinician MD HERNAN DUFF Attending Clinician Unavailable Jeremy Moreno LCSW Attending Clinician Unavailable Kika Arriaga MA Attending Clinician Unavailable KNOW, DOES_NOT Attending Clinician Unavailable Angy De Jesus MA Attending Clinician Unavailable ASKED, NO Attending Clinician Unavailable DR NICA HEARN Attending Clinician Unavailable MELISSA CARSON Attending Clinician Unavailable JACQUELYN ASTUDILLO Attending Clinician Unavailable Reginaldo Fernandez Attending Clinician Unavailable ATA LEIGH Admitting Clinician Unavailable Carmen Chavez Admitting Clinician Unavailable Carline Huang Admitting Clinician Unavailable DESIRAE Admitting Clinician Unavailable HERNAN DUFF Admitting Clinician Unavailable MD HERNAN DUFF Admitting Clinician Unavailable Nica Hearn Admitting Clinician Unavailable DR NICA HEARN Admitting Clinician Unavailable MD PARADISE STERN Admitting Clinician Unavailabl e Payers Payer Name Policy Type Policy Number Effective Date Expiration Date Kalia GUSMAN [id number] 2020 00:00:00 YAZDANISM 9720 HEALTHCARE MINISTRY BREAST CERVICAL 9720 CANCER SCREENING Problems Condition Condition Condition Status Onset Resolution Last Treating Co mments Source Name Details Category Date Date Treatment Clinician Date CKD CKD Disease Active Methodi (chronic (chronic 8-10 st kidney kidney 00:00: Hospita disease) disease) 00 l stage 5, stage 5, GFR less GFR less than 15 than 15 ml/min ml/min DM type 2 DM type 2 Disease Active Met hodi causing causing 8-10 st CKD stage CKD stage 00:00: Hosp dede 5 5 00 l Pre-transp Pre-transp Disease Active M ethodi lant lant 8-10 st evaluation evaluation 00:00: Ho spita for kidney for kidney 00 l transplant transplant Essential Essential Disease Active Met hodi hypertensi hypertensi 8-10 st on on 00:00: Hospita 00 l Mixed Mixed Disease Active Methodi hyperlipid hyperlipid 8-10 st emia emia 00:00: Hospita 00 l Dependence Dependence Disease Active M ethodi on on 8-10 st hemodialys hemodialys 00:00: Ho spita is is 00 l Coronary Coronary Disease Active Metho di artery artery 8-10 st disease disease 00:00: Hospita involving involving [place] coronary coronary artery of artery of [place] heart heart without without angina angina pectoris pectoris PAD PAD Disease Active Methodi (periphera (periphera 8-10 st l artery l artery 00:00: Hospit a disease) disease) 00 l Medicare Medicare Disease Active Unive rs annual annual 3-11 ity of wellness wellness 00:00: [place] visit, visit, 00 Medical initial initial Branch Elevated Elevated Disease Active Unive rs alkaline alkaline 9-10 ity of phosphatas phosphatas [place] e level 00 Medical Branch Low serum Low serum Disease Active Uni vers HDL HDL 9-10 ity of 00:00: [place] [facility] Chronic Chronic Disease Active Univers allergic allergic 5-04 ity of rhinitis rhinitis 00:00: [place] 00 Medical Branch Arthritis, Arthritis, Disease Active U nivers lumbar lumbar 4-28 ity of spine spine 00:00: [place] [address] Medical Branch PAD PAD Disease Active Univers (periphera (periphera 4-28 it y of l artery l artery 00:00: [place] disease) disease) 00 Medica l Branch Anemia of Anemia of Disease Active Met hodi chronic chronic 4-15 st disease disease 00:00: Hospita 00 l Bursitis Bursitis Disease Active Metho di of hip of hip 15 st 00:00: Hospita 00 l Bursitis Bursitis Disease Active Metho di of knee of knee 15 st 00:00: Hospita 00 l Coronary Coronary Disease Active Metho di arterioscl arterioscl 4-15 st erosis erosis 00:00: Hospita 00 l Hyperlipid Hyperlipid Disease Active M ethodi emia emia 15 st 00:00: Hospita 00 l Hyperparat Hyperparat Disease Active M ethodi hyroidism hyroidism 15 st 00:00: Hospita 00 l Hypertensi Hypertensi Disease Active M ethodi on on 15 st 00:00: Hospita 00 l Hypothyroi Hypothyroi Disease Active M ethodi dism dism 15 st 00:00: Hospita 00 l Osteoarthr Osteoarthr Disease Active M ethodi itis of itis of 4-15 st knee knee 00:00: Hospita 00 l Tear of Tear of Disease Active Methodi medial medial [address] st meniscus meniscus 00:00: Hospit a of knee of knee 00 l End stage End stage Disease Active Met hodi renal renal 4-15 st failure on failure on 00:00: Ho spita dialysis dialysis 00 l Type 2 Type 2 Disease Active Methodi diabetes diabetes 4-15 st mellitus mellitus 00:00: Hospit a 00 l Dialysis Dialysis Disease Active Overview: Me thodi AV fistula AV fistula 4-[address] malfunctio malfunctio 00:00: g of this Hospita n, initial n, initial 00 note l encounter encounter might be different from the original. Added automatic ally from request for surgery [id number] COVID-19 COVID-19 Disease Active Metho di virus virus 9-08 st detected detected 00:00: Hospit a 00 l ESRD (end ESRD (end Disease Active Overview: Methodi stage stage 7-[address] renal renal 00:00: g of this Hospita disease) disease) 00 note l might be different from the original. Added automatic ally from request for surgery [id number] Type 2 Type 2 Disease Active Methodi diabetes diabetes 5-27 st mellitus mellitus 00:00: Hospit a with with 00 l kidney kidney complicati complicati on, with on, with long-term long-term current current use of use of insulin insulin Allergies, Adverse Reactions, Alerts Allergy Allergy Status Severity Reaction(s) Onset Inactive Treating Comm ents Source Name Type Date Date Clinician Losartan Propensi Active Swelling 2020-05 Univ ers ty to 06-01 ity of adverse 00:00: [place] reaction [address] [place] [address] s Branch LOSARTAN DRUG Active Swelling 2020-05 Univer s INGREDI 06-01 ity of 00:00: [address] No Known DA Active U 2018-05 [facility] Allergie -25 Clear s 00:00: [place] 00 [facility] No Known DA Active U 2018-05 [facility] Allergie -25 Clear s 00:00: [place] [facility] NSAIDS DA Active SV SWELLING [facility] (Non-Epi 12-28 Clear roidal 00:00: [place] Anti-Inf 00 [facility] aspirin DA Active FL ITCHY HANDS [facility] AND 12-28 Clear FEET,SWELLIN 00:00: [place] G-IN HIGH 00 [facility] shellfis FA Active SV SWELLING [facility] h 809 Clear derived 00:00: [place] 00 [facility] penicill DA Active [place] SWELLING [facility] in G 4-01 Clear 00:00: [place] 00 [facility] Family History Family Member Diagnosis Comments Start Date Stop Date Source Natural brother [facility] Natural father Cancer [facility] Natural mother Diabetes [facility] Natural mother [facility] Natural sister [facility] Social History Social Habit Start Date Stop Date Quantity Comments Source History SDOH [facility] Drinks History SDOH [facility] History SDND [facility] Comment [facility] Exposure to 2021-12-27 2022-01-06 Not sure [facility]-CoV-2 00:00:00 15:07:00 [facility] (event) [place] Tobacco use and 2022-01-06 2022-01-06 Smokeless tobacco Un iversity of exposure 00:00:00 00:00:00 non-user [facility] Alcohol intake 2020-09-04 2020-09-04 Lifetime [facility] 00:00:00 00:00:00 non-drinker Hospital (finding) History SDOH 2020-01-30 2020-01-30 1 [facility] Alcohol Frequency 00:00:00 00:00:00 Hospita l Sex [birth year] At [birth year] [facility] 00:00:00 00:00:00 Hospital Smoking Status Start Date Stop Date Source Never smoked tobacco [facility] Medications Ordered Filled Start Stop Current Ordering Indication Dosage Frequency Signature Comments Components Source Medication Medication Date Date Medication? Clinician (SIG) Name Name LIDOCAINE-P 2021-05 Yes [id number] APPLY Univers RILOCAINE 0-03 CREAM ity of 2.5-2.5 % 00:00: TOPICALLY [place] as cream 00 TO Medical AFFECTED Branch AREA(S) FOR 1 DOSE. USE PRIOR TO DIALYSIS Zinc 50 mg Yes Take by Univ ers Tab 8-18 mouth ity of 15:38: daily. [place] [address] Medical Branch traMADoL 50 2021- Yes tramadol Un willis mg tablet 8-18 50 mg ity of 15:38: tablet [place] [address] Take 1 Medical tablet Branch every 6 hours by oral route. loratadine Yes 10mg Take 10 mg U nivers 10 mg 8-18 by mouth. ity of tablet 15:38: [place] [address] Medical Branch lidocaine Yes lidocaine Uni vers 1% 10 mg/mL 8-18 HCl 10 ity of (1 %) 15:38: mg/mL (1 [place] injection 49 %) Medical injection Branch solution diclofenac Yes diclofenac U nivers 75 mg EC 8-18 sodium 75 ity of tablet 15:38: mg 49 tablet,del Medical ayed Branch release Take 1 tablet twice a day by oral route. Bupivacaine Yes bupivacain Univers HCl 0.5 % 8-18 e HCl 0.5 ity o f (5 mg/mL) 15:38: % (5 [place] Soln 49 mg/mL) Medical injection Branch solution betamethaso Yes Celestone U nivers ne acet,sod 8-18 Soluspan 6 it y of phos 6 15:38: mg/mL [place] mg/mL 49 suspension Medical injection for Branch injection insulin Yes 24U inject 24 Unive rs glargine 8-18 Units ity of U-300 conc 15:38: [place] the [place] (TOUJEO 49 skin. Medical SOLOSTAR Branch U-300 INSULIN) 300 unit/mL (1.5 mL) InPn Zinc 50 mg Yes Take by Univ ers Tab 8-18 mouth ity of 15:38: daily. [place] [address] Medical Branch traMADoL 50 Yes tramadol Un willis mg tablet 8-18 50 mg ity of 15:38: tablet [place] 49 Take 1 Medical tablet Branch every 6 hours by oral route. loratadine Yes 10mg Take 10 mg U nivers 10 mg 8-18 by mouth. ity of tablet 15:38: [place] 49 Medical Branch lidocaine Yes lidocaine Uni vers 1% 10 mg/mL 8-18 HCl 10 ity of (1 %) 15:38: mg/mL (1 [place] injection 49 %) Medical injection Branch solution diclofenac Yes diclofenac U nivers 75 mg EC 8-18 sodium 75 ity of tablet 15:38: mg [place] 49 tablet,del Medical ayed Branch release Take 1 tablet twice a day by oral route. Bupivacaine Yes bupivacain Univers HCl 0.5 % 8-18 e HCl 0.5 ity o f (5 mg/mL) 15:38: % (5 [place] Soln 49 mg/mL) Medical injection Branch solution betamethaso Yes Celestone U nivers ne acet,sod 8-18 Soluspan 6 it y of phos 6 15:38: mg/mL [place] mg/mL 49 suspension Medical injection for Branch injection insulin Yes 24U inject 24 Unive rs glargine 8-18 Units ity of U-300 conc 15:38: [place] ([place]OUJEO 49 skin. Medical SOLOSTAR Branch U-300 INSULIN) 300 unit/mL (1.5 mL) InPn Zinc 50 mg Yes Take by Univ ers Tab 8- mouth ity of 15:38: daily. [place] [address] Medical Branch traMADoL 50 Yes tramadol Un willis mg tablet 01-06 50 mg ity of 15:38: tablet [place] [address] Take 1 Medical tablet Branch every 6 hours by oral route. loratadine Yes 10mg Take 10 mg U nivers 10 mg 18 by mouth. ity of tablet 15:38: [place] [address] Medical Branch lidocaine Yes lidocaine Uni vers 1% 10 mg/mL 01-06 HCl 10 ity of (1 %) 15:38: mg/mL (1 [place] injection 49 %) Medical injection Branch solution diclofenac Yes diclofenac U nivers 75 mg EC 01-06 sodium 75 ity of tablet 15:38: mg [place] [address] tablet,del Medical ayed Branch release Take 1 tablet twice a day by oral route. Bupivacaine Yes bupivacain Univers HCl 0.5 % 01-06 e HCl 0.5 ity o f (5 mg/mL) 15:38: % (5 [place] Soln 49 mg/mL) Medical injection Branch solution betamethaso Yes Celestone U nivers ne acet,sod 8-18 Soluspan 6 it y of phos 6 15:38: mg/mL [place] mg/mL 49 suspension Medical injection for Branch injection insulin Yes 24U inject 24 Unive rs glargine 8-18 Units ity of U-300 conc 15:38: [place] the [place] (TOUJEO 49 skin. Medical SOLOSTAR Branch U-300 INSULIN) 300 unit/mL (1.5 mL) InPn aspirin 2021- No 81mg QD Take 81 mg Met hodi (ECOTRIN) 11-[address] 81 MG 00:15: 00:00 daily. Hospita enteric 06 :00 l coated tablet atorvastati 2021- No 40mg QD Take 40 mg Methodi n (LIPITOR) 11-[address] 40 mg 00:14: 00:00 nightly. Hospita tablet 51 :00 l carvediloL Yes 25mg Q.5D Take 25 mg M ethodi (COREG) 25 6-[address] MG tablet 13:31: (two) Hospita 40 times a l day with meals. hydrALAZINE Yes 25mg Q.[id number] Take 25 mg Methodi (APRESOLINE 6-16 [id number] mouth 3 st ) 25 MG 13:31: 3D (three) Hospita tablet 40 times a l day. furosemide Yes 20mg QD Take 20 mg M ethodi (LASIX) 20 6-[address] mg tablet 13:31: daily. Hospit a 40 l levothyroxi Yes 25ug QD Take 25 Met hodi ne 6-[address] (SYNTHROID) 13:31: mouth Hospi ta 25 mcg 40 every l tablet morning. folic Yes 1{tbl} QD Take 1 Methodi acid/vit B 6-[address] complex and 13:31: mouth Hospi ta C 40 daily. l (RENAL-EMILIA ORAL) cholecalcif Yes 1{tbl} QD Take 1 Me thodi diego, 6-[address] vitamin D3, 13:31: mouth Hospi ta 125 mcg 40 daily. l (5,000 unit) tablet insulin Yes 30U QD Inject 30 Metho di GLARGINE 6-[address] (Toujeo 13:31: under the Hospi ta SoloStar 40 skin l U-300 daily. Insulin) 300 unit/mL (1.5 mL) insulin pen clopidogreL Yes 75mg QD Take 75 mg Methodi (PLAVIX) 75 6-[address] mg tablet 13:31: daily. Hospit a 40 l losartan Yes 100mg QD Take 100 Meth pam (COZAAR) 6-[address] 100 MG 13:31: mouth Hospita tablet 40 daily. l multivitami Yes 1{tbl} QD Take 1 Me thodi n tablet 6-[address] 13:31: mouth Hospita 40 daily. l zinc 50 mg Yes Take by Meth pam tablet 6-[address] 13:31: Hospita 40 l LIDOCAINE-P Yes [id number] APPLY Univers RILOCAINE 6-10 CREAM ity of 2.5-2.5 % 00:00: TOPICALLY [place] as cream 00 TO Medical AFFECTED Branch AREA(S) FOR 1 DOSE. USE PRIOR TO DIALYSIS LIDOCAINE-P Yes [id number] APPLY Univers RILOCAINE 6-10 CREAM ity of 2.5-2.5 % 00:00: TOPICALLY [place] as cream 00 TO Medical AFFECTED Branch AREA(S) FOR 1 DOSE. USE PRIOR TO DIALYSIS LIDOCAINE-P 2021- No [id number] APPLY Univers RILOCAINE 6-10 10-03 CREAM ity of 2.5-2.5 % 00:00: 00:00 TOPICALLY [place] cream 00 :00 TO Medical AFFECTED Branch AREA(S) FOR 1 DOSE. USE PRIOR TO DIALYSIS hydrALAZINE Yes TAKE 1 Univ ers 25 mg 5-09 TABLET BY ity of tablet 00:00: MOUTH [place] 00 TWICE Medical DAILY FOR Branch 45 DAYS, DO NOT TAKE IF SYSTOLIC BP IS LESS THAN 120 AND DO NOT TAKE THE MORNING OF DIALYSIS hydrALAZINE Yes TAKE 1 Univ ers 25 mg 5-09 TABLET BY ity of tablet 00:00: MOUTH [place] 00 TWICE Medical DAILY FOR Branch 45 DAYS, DO NOT TAKE IF SYSTOLIC BP IS LESS THAN 120 AND DO NOT TAKE THE MORNING OF DIALYSIS hydrALAZINE Yes TAKE 1 Univ ers 25 mg 5-09 TABLET BY ity of tablet 00:00: MOUTH [place] 00 TWICE Medical DAILY FOR Branch 45 DAYS, DO NOT TAKE IF SYSTOLIC BP IS LESS THAN 120 AND DO NOT TAKE THE MORNING OF DIALYSIS fluticasone Yes USE 1 Unive rs propionate 5-03 SPRAY(S) ity o f 50 00:00: IN EACH [place] [facility] NO[facility] Medic al on nasal ONCE Branch spray DAILY, SHAKE BEFORE USE cetirizine 2021-0 Yes 10mg Take 10 mg U nivers 10 mg 5-03 by mouth ity of tablet 00:00: daily. [place] Medical Branch amoxicillin 0 Yes 500mg Take 500 U nivers 500 mg 5-03 mg by ity of capsule 00:00: mouth 3 [place] (three) Medical times [place] daily. fluticasone 0 Yes USE 1 Unive rs propionate 5-03 SPRAY(S) ity o f 50 00:00: IN EACH [place] [facility]cg[facility] NOSTRIL Medic al on nasal ONCE Branch spray DAILY, SHAKE BEFORE USE cetirizine 0 Yes 10mg Take 10 mg U nivers 10 mg 5-03 by mouth ity of tablet 00:00: daily. [place] [facility] amoxicillin Yes 500mg Take 500 U nivers 500 mg 5-03 mg by ity of capsule 00:00: mouth 3 [place] ([facility]) Medical times [place] daily. fluticasone 0 Yes USE 1 Unive rs propionate 5-03 SPRAY(S) ity o f 50 00:00: IN EACH [facility] NOSTRIL Medic al on nasal ONCE Branch spray DAILY, SHAKE BEFORE USE cetirizine 0 Yes 10mg Take 10 mg U nivers 10 mg 5-03 by mouth ity of tablet 00:00: daily. [place] [facility] amoxicillin Yes 500mg Take 500 U nivers 500 mg 5-03 mg by ity of capsule 00:00: mouth 3 [place] (three) Medical times [place] daily. furosemide Yes TAKE 1 Unive rs 40 mg 4-27 TABLET BY ity of tablet 00:00: MOUTH TWICE Medical DAILY ON Branch MONDAY, MONDAY, MONDAY AND MONDAY, THEN TAKE 1 TABLET ONCE DAILY ON MONDAY, MONDAY AND MONDAY AFTER DIALYSIS furosemide 0 Yes TAKE 1 Unive rs 40 mg 4-27 TABLET BY ity of tablet 00:00: MOUTH [place] TWICE Medical DAILY ON Branch MONDAY, MONDAY, MONDAY AND MONDAY, THEN TAKE 1 TABLET ONCE DAILY ON MONDAY, MONDAY AND MONDAY AFTER DIALYSIS furosemide Yes TAKE 1 Unive rs 40 mg 4-27 TABLET BY ity of tablet 00:00: MOUTH 00 TWICE Medical DAILY ON Branch MONDAY, MONDAY, MONDAY AND MONDAY, THEN TAKE 1 TABLET ONCE DAILY ON MONDAY, MONDAY AND MONDAY AFTER DIALYSIS vit Yes TAKE 1 Univers Bcomp,C/fol 4-26 TABLET BY ity of ic 00:00: MOUTH ONCE [place] acid/zinc 00 DAILY WITH Medi jeny (B THE Branch COMPLEX-C-Z LARGEST N-FOLIC MEAL OF ACID ORAL) THE DAY vit Yes TAKE 1 Univers Bcomp,C/fol 4-26 TABLET BY ity of ic 00:00: MOUTH ONCE [place] acid/zinc 00 DAILY WITH Medi jeny (B THE Branch COMPLEX-C-Z LARGEST N-FOLIC MEAL OF ACID ORAL) THE DAY vit Yes TAKE 1 Univers Bcomp,C/fol 4-26 TABLET BY ity of ic 00:00: MOUTH ONCE [place] acid/zinc 00 DAILY WITH Medi jeny (B THE Branch COMPLEX-C-Z LARGEST N-FOLIC MEAL OF ACID ORAL) THE DAY sevelamer Yes TAKE 2 Univer s 800 mg 4-23 TABLETS BY ity of tablet 00:00: MOUTH [facility] Medical TIMES [place] DAILY WITH MEALS sevelamer Yes TAKE 2 Univer s 800 mg 4-23 TABLETS BY ity of tablet 00:00: M[facility]TH [facility] Medical TIMES [place] DAILY WITH MEALS sevelamer Yes TAKE 2 Univer s 800 mg 4-23 TABLETS BY ity of tablet 00:00: M[facility]TH [facility] Medical TIMES [place] DAILY WITH MEALS pantoprazol Yes 40mg Take 40 mg Univers e 40 mg EC 4-19 by mouth ity o f tablet 00:00: daily. [facility] pantoprazol Yes 40mg Take 40 mg Univers e 40 mg EC 4-19 by mouth ity o f tablet 00:00: daily. [facility] pantoprazol Yes 40mg Take 40 mg Univers e 40 mg EC 4-19 by mouth ity o f tablet 00:00: daily. [place] [facility] EUTHYROX 50 Yes 50ug Take 50 Uni vers mcg tablet 4-06 mcg by ity of 00:00: mouth. [facility] EUTHYROX 50 Yes 50ug Take 50 Uni vers mcg tablet 4-06 mcg by ity of 00:00: mouth. [place] [facility] EUTHYROX 50 Yes 50ug Take 50 Uni vers mcg tablet 4-06 mcg by ity of 00:00: mouth. [address] TURMERIC Yes Take by Method i ORAL 3-[address] 13:28: Hospita 44 l dapaglifloz Yes Xigduo XR U nivers in-metformi 3-11 5 mg-500 ity of n (XIGDUO 14:06: mg [place] XR) 5-500 40 tablet,ext Medi jeny mg TBph ended Branch release Take 1 tablet twice a day by oral route. dapaglifloz Yes Xigduo XR U nivers in-metformi 3-11 5 mg-500 ity of n (XIGDUO 14:06: mg [place] XR) 5-500 40 tablet,ext Medi jeny mg TBph ended Branch release Take 1 tablet twice a day by oral route. dapaglifloz Yes Xigduo XR U nivers in-metformi 3-11 5 mg-500 ity of n (XIGDUO 14:06: mg [place] XR) 5-500 40 tablet,ext Medi jeny mg TBph ended Branch release Take 1 tablet twice a day by oral route. amLODIPine Yes 10mg Take 10 mg U nivers 10 mg 3-11 by mouth. ity of tablet 14:04: [address] aspirin 81 Yes 81mg Take 81 mg U nivers mg EC 3-11 by mouth. ity of tablet 14:04: [address] levothyroxi Yes 25ug Take 25 Uni vers ne 25 mcg 3-11 mcg by ity of tablet 14:04: mouth. [address] Cholecalcif Yes 1{tbl} Take 1 Un willis [place], 3-11 tablet by ity of Vitamin D3, 14:04: [place]. [place] 125 mcg Medical (5,000 Branch unit) tablet multivitami Yes 1{tbl} Take 1 Un willis n tablet 3-11 tablet by ity of 14:04: mouth [place] [id number] daily. Medical Branch TURMERIC Yes Take by Univer s ORAL 3-11 mouth ity of 14:04: daily. [address] Branch amLODIPine Yes 10mg Take 10 mg U nivers 10 mg 3-11 by mouth. ity of tablet 14:04: [address] aspirin 81 Yes 81mg Take 81 mg U nivers mg EC 3-11 by mouth. ity of tablet 14:04: [address] Branch levothyroxi Yes 25ug Take 25 Uni vers ne 25 mcg 3-11 mcg by ity of tablet 14:04: mouth. [address] Cholecalcif Yes 1{tbl} Take 1 Un willis [place], 3-11 tablet by ity of Vitamin D3, 14:04: mouth. [place] 125 [place]cg 31 Medical (5,000 Branch unit) tablet multivitami Yes 1{tbl} Take 1 Un willis n tablet 3-11 tablet by ity of 14:04: mouth [place] 31 daily. [facility] Branch TURMERIC Yes Take by Univer s ORAL 3-11 mouth ity of 14:04: daily. [address] amLODIPine Yes 10mg Take 10 mg U nivers 10 mg 3-11 by mouth. ity of tablet 14:04: [address] aspirin 81 Yes 81mg Take 81 mg U nivers mg EC 3-11 by mouth. ity of tablet 14:04: [address] levothyroxi Yes 25ug Take 25 Uni vers ne 25 mcg 3-11 mcg by ity of tablet 14:04: mouth. [address] Cholecalcif Yes 1{tbl} Take 1 Un willis [place], 3-11 tablet by ity of Vitamin D3, 14:04: mouth. [place] 125 mcg 31 Medical (5,000 Branch unit) tablet multivitami 0 Yes 1{tbl} Take 1 Un willis n tablet 3-11 tablet by ity of 14:04: mouth [place] 31 daily. [facility] Branch TURMERIC Yes Take by Univer s ORAL 3-11 mouth ity of 14:04: daily. [place] 31 Medical Branch BD RADHA 2ND 0 Yes 10mg Take 10 mg Univers GEN PEN 3-08 by mouth. ity of NEEDLE 32 00:00: [place] gauge x 00 Medical 5/32" N[place] Branch docusate 0 Yes TAKE 1 Univers 100 mg 3-08 CAPSULE BY ity of capsule 00:00: MOUTH [place] 00 TWICE Medical DAILY IF Branch NEEDED FOR CONSTIPATI ON FOR UP TO 10 DAYS BD RADHA 2ND 0 Yes 10mg Take 10 mg Univers GEN PEN 3-08 by mouth. ity of NEEDLE 32 00:00: [place] gauge x 00 Medical 5/32" N[place] Branch docusate 0 Yes TAKE 1 Univers 100 mg 3-08 CAPSULE BY ity of capsule 00:00: MOUTH [place] 00 TWICE Medical DAILY IF Branch NEEDED FOR CONSTIPATI ON FOR UP TO 10 DAYS BD RADHA 2ND 0 Yes 10mg Take 10 mg Univers GEN PEN 3-08 by mouth. ity of NEEDLE 32 00:00: [place] gauge x 00 Medical 5/32" N[place] Branch docusate Yes TAKE 1 Univers 100 mg 3-08 CAPSULE BY ity of capsule 00:00: MOUTH [place] 00 TWICE Medical DAILY IF Branch NEEDED FOR CONSTIPATI ON FOR UP TO 10 DAYS NIFEdipine 0 Yes TAKE 1 [facility] di [facility] (ADALAT 2-[address] CC) 90 MG 00:00: MOUTH Hospita 24 hr 00 TWICE l tablet DAILY BEFORE DIALYSIS ON MONDAYS, WEDNESDAYS , AND FRIDAYS NIFEdipine 2021-0 Yes 90mg Take 90 mg U nivers ER 90 mg 2-04 by mouth 2 ity o f tablet 00:00: (two) [place] 00 times Medical daily. Branch NIFEdipine 2021-0 Yes 90mg Take 90 mg U nivers ER 90 mg 2-04 by mouth 2 ity o f tablet 00:00: (two) [place] 00 times Medical daily. Branch NIFEdipine 2021-0 Yes 90mg Take 90 mg U nivers ER 90 mg 2-04 by mouth 2 ity o f tablet 00:00: (two) [place] 00 times Medical daily. Branch ATORVASTATI 0 Yes [id number] 40mg TAKE 1 Univers N 40 mg 1-18 TABLET BY ity of tablet 00:00: MOUTH AT [place] 00 BEDTIME Medical Branch ATORVASTATI 2021-0 Yes [id number] 40mg TAKE 1 Univers N 40 mg 1-18 TABLET BY ity of tablet 00:00: MOUTH AT [address] ATORVASTATI 0 Yes [id number] 40mg TAKE 1 Univers N 40 mg 1-18 TABLET BY ity of tablet 00:00: MOUTH AT [address] carvediloL 2020-05 Yes 25mg Q.5D Take 25 mg M ethodi (COREG) 25 1-[address] MG tablet 08:51: (two) Hospita 55 times a l day with meals. hydrALAZINE 2020-05 Yes 25mg Q.[id number] Take 25 mg Methodi (APRESOLINE 1- [id number] by mouth 3 st ) 25 MG 08:51: 3D (three) Hospita tablet 55 times a l day. furosemide 2020-05 Yes 20mg QD Take 20 mg M ethodi (LASIX) 20 1-[address] mg tablet 08:51: daily. Hospit a 55 l atorvastati 2020-05 Yes 40mg QD Take 40 mg Methodi n (LIPITOR) 1-[address] 40 mg 08:51: nightly. Hospita tablet 55 l levothyroxi 2020-05 Yes 25ug QD Take 25 Met hodi ne 1-[address] (SYNTHROID) 08:51: mouth Hospi ta 25 mcg 55 every l tablet morning. folic 2020-05 Yes 1{tbl} QD Take 1 Methodi acid/vit B 1-[address] complex and 08:51: mouth Hospi ta C 55 daily. l (RENAL-EMILIA ORAL) aspirin 2020-05 Yes 81mg QD Take 81 mg Meth pam (ECOTRIN) 1-[address] 81 MG 08:51: daily. Hospita enteric 55 l coated tablet cholecalcif 2020-05 Yes 1{tbl} QD Take 1 Me thodi diego, 1-[address] vitamin D3, 08:51: mouth Hospi ta (Vitamin 55 daily. l D3) 125 mcg (5,000 unit) tablet insulin 2020-05 Yes 30U QD Inject 30 Metho di GLARGINE 1-[address] ([place] 08:51: under the Hospi ta [facility]Star 55 skin l U-300 daily. Insulin) 300 unit/mL (1.5 mL) insulin pen clopidogreL 2020-05 Yes 75mg QD Take 75 mg Methodi (PLAVIX) [address] mg tablet 08:51: daily. Hospit a 55 l losartan 2020-05 Yes 100mg QD Take 100 Meth pam (COZAAR) 1-[address] 100 MG 08:51: mouth Hospita tablet 55 daily. l multivitami 2020-05 Yes 1{tbl} QD Take 1 Me thodi n tablet 1-[address] 08:51: mouth Hospita 55 daily. l TURMERIC 2020-05 Yes Take by Method i ORAL 1-[address] 08:51: Hospita 55 l zinc 50 mg 2020-05 Yes Take by Meth pam tablet 1-[address] 08:51: Hospita 55 l carvediloL 2020-05 Yes 25mg Q.5D Take 25 mg M ethodi (COREG) [address] MG tablet 08:51: (two) Hospita 55 times a l day with meals. hydrALAZINE 2020-05 Yes 25mg Q.[id number] Take 25 mg [facility] (APRESOLINE - [id number] by mouth 3 st ) 25 MG 08:51: 3D (three) Hospita tablet 55 times a l day. furosemide 2020-05 Yes 20mg QD Take 20 mg M ethodi (LASIX) [address] mg tablet 08:51: daily. Hospit a 55 l atorvastati 2020-05 Yes 40mg QD Take 40 mg Methodi n (LIPITOR) [address] 40 mg 08:51: nightly. Hospita tablet 55 l levothyroxi 2020-05 Yes 25ug QD Take 25 Met hodi ne 1-[address] (SYNTHROID) 08:51: mouth Hospi ta 25 mcg 55 every l tablet morning. folic 2020-05 Yes 1{tbl} QD Take 1 Methodi acid/vit B 1-[address] complex and 08:51: mouth Hospi ta C 55 daily. l (RENAL-EMILIA ORAL) aspirin 2020-05 Yes 81mg QD Take 81 mg Meth pam (ECOTRIN) 1-[address] 81 MG 08:51: daily. Hospita enteric 55 l coated tablet cholecalcif 2020-05 Yes 1{tbl} QD Take 1 Me thodi [place], 1-[address] vitamin D3, 08:51: mouth Hospi ta (Vitamin 55 daily. l D3) 125 mcg (5,000 unit) tablet insulin 2020-05 Yes 30U QD Inject 30 Metho di GLARGINE 1-[address] ([place] 08:51: under the Hospi ta [facility] 55 skin l U-300 daily. Insulin) 300 unit/mL (1.5 mL) insulin pen clopidogreL 2020-05 Yes 75mg QD Take 75 mg Methodi (PLAVIX) 75 1-[address] mg tablet 08:51: daily. Hospit a 55 l losartan 2020-05 Yes 100mg QD Take 100 Meth pam (COZAAR) 1-[address] 100 MG 08:51: mouth Hospita tablet 55 daily. l multivitami 2020-05 Yes 1{tbl} QD Take 1 Me thodi n tablet 1-[address] 08:51: mouth Hospita 55 daily. l TURMERIC 2020-05 Yes Take by Method i ORAL 1-[address] 08:51: Hospita 55 l zinc 50 mg 2020-05 Yes Take by Meth pam tablet 1-[address] 08:51: Hospita 55 l azelastine 2020-05 Yes [id number] 1{spray Use 1 Univers 137 mcg 1-01 } [place] in ity of (0.1 %) 00:00: each [place] nasal spray 00 nostril 2 Med ical (two) Branch times daily. Use in each nostril as directed nystatin 2020-05 Yes [id number] 5mL swish Univers 100,000 1-01 and ity of unit/mL 00:00: swallow [place] suspension 00 QID; Use Medic al for an Branch additional 48 hours after your symptoms have resolved. azelastine 2020-05 Yes [id number] 1{spray Use 1 Univers 137 mcg 1-01 } [place] in ity of (0.1 %) 00:00: each [place] nasal spray 00 nostril 2 Med ical (two) Branch times daily. Use in each nostril as directed nystatin 2020-05 Yes [id number] 5mL swish Univers 100,000 1-01 and ity of unit/mL 00:00: swallow [place] suspension 00 QID; Use Medic al for an Branch additional 48 hours after your symptoms have resolved. azelastine 2020-05 Yes [id number] 1{spray Use 1 Univers 137 mcg 05-22 } [place] in ity of (0.1 %) 00:00: each [place] nasal spray 00 nostril 2 Med ical (two) Branch times daily. Use in each nostril as directed nystatin 2020-05 Yes [id number] 5mL swish Univers 100,000 05-22 and ity of unit/mL 00:00: swallow [place] suspension 00 QID; Use Medic al for an Branch additional 48 hours after your symptoms have resolved. losartan 50 Yes 50mg Take 50 mg Univers mg tablet 908 by mouth. ity o f 00:00: [facility] Branch losartan 50 0 Yes 50mg Take 50 mg Univers mg tablet 08 by mouth. ity o f 00:00: Medical Branch losartan 50 0 Yes 50mg Take 50 mg Univers mg tablet 08 by mouth. ity o f 00:00: Medical Branch isosorbide 2020-0 Yes 1{tbl} Take 1 Uni vers mononitrate 6-02 tablet by ity of 30 mg 24 hr 00:00: [place] [facility] isosorbide Yes 1{tbl} Take 1 Uni vers mononitrate 6-02 tablet by ity of 30 mg 24 hr 00:00: [place] tablet 00 [place] [facility] isosorbide Yes 1{tbl} Take 1 Uni vers mononitrate 6-02 tablet by ity of 30 mg 24 hr 00:00: [place] tablet 00 [facility] furosemide 2020-0 Yes [id number] 20mg Take 1 U nivers 20 mg 5-25 tablet by ity of tablet 00:00: mouth [place] 00 every Medical morning. Branch furosemide 2020-0 Yes [id number] 20mg Take 1 U nivers 20 mg 5-25 tablet by ity of tablet 00:00: mouth [place] 00 every Medical morning. Branch furosemide 2020-0 Yes [id number] 20mg Take 1 U nivers 20 mg 5-25 tablet by ity of tablet 00:00: mouth [place] every Medical morning. Branch montelukast 2021- No [id number] 10mg Take 1 Univers 10 mg 5-04 08-18 tablet by ity of tablet 00:00: 00:00 mouth [place] 00 :00 every Medical evening. Branch montelukast 2021- No [id number] 10mg Take 1 Univers 10 mg 5-04 08-18 tablet by ity of tablet 00:00: 00:00 mouth [place] 00 :00 every Medical evening. Branch hydrALAZINE Yes 100mg Take 100 U nivers 100 mg 4-23 mg by ity of tablet 00:00: mouth 2 [place] 00 (two) Medical times Branch daily. hydrALAZINE Yes 100mg Take 100 U nivers 100 mg 4-23 mg by ity of tablet 00:00: mouth 2 [place] (two) Medical times Branch daily. hydrALAZINE Yes 100mg Take 100 U nivers 100 mg 4-23 mg by ity of tablet 00:00: mouth 2 [place] (two) Medical times Branch daily. acetaminoph 2020- No [id number] 1{tbl} Q8H Take 1 Methodi en-codeine 4-15 04-[address] (TYLENOL 00:00: 04:59 mouth Hospita WITH 00 :00 every 8 l CODEINE #3) (eight) 300-30 mg hours as per tablet needed for moderate pain for up to 3 days .acute pain. acetaminoph 2020- No [id number] 1{tbl} Q8H Take 1 Methodi en-codeine 4-15 04-[address] (TYLENOL 00:00: 04:59 mouth Hospita WITH 00 :00 every 8 l CODEINE #3) (eight) 300-30 mg hours as per tablet needed for moderate pain for up to 3 days .acute pain. gabapentin 2020- No 100mg Q.5D Take 100 M ethodi (NEURONTIN) 4-13 04-[address] 100 mg 15:22: 00:00 mouth 2 Hospita capsule 59 :00 (two) l times a day. gabapentin 2020- No 100mg Q.5D Take 100 M ethodi (NEURONTIN) 4-13 04-[address] 100 mg 15:22: 00:00 mouth 2 Hospita capsule 59 :00 (two) l times a day. amLODIPine 2020- No 10mg QD Take 10 mg Methodi (NORVASC) 4-13 -[address] 10 mg 15:18: 00:00 daily. Hospita tablet 32 :00 l amLODIPine 0 2020- No 10mg QD Take 10 mg Methodi (NORVASC) -13 -[address] 10 mg 15:18: 00:00 daily. Hospita tablet 32 :00 l insulin 0 Yes [id number] INJECT 24 U nivers glargine 4-13 UNITS ity of U-300 conc 00:00: [place] ([place] 00 USLY ONCE Medical SOLOSTAR DAILY Branch U-300 INSULIN) 300 unit/mL (1.5 mL) InPn insulin Yes [id number] INJECT 24 U nivers glargine 4-13 UNITS ity of U-300 conc 00:00: [place] ([place] 00 USLY ONCE Medical SOLOSTAR DAILY Branch U-300 INSULIN) 300 unit/mL (1.5 mL) InPn insulin Yes [id number] INJECT 24 U nivers glargine 4-13 UNITS ity of U-300 conc 00:00: [place] ([place] 00 USLY ONCE Medical SOLOSTAR DAILY Branch U-300 INSULIN) 300 unit/mL (1.5 mL) InPn KATHERIN-EMILIA Yes TAKE 1 Univer s 0.8 mg 4-06 TABLET BY ity of tablet 00:00: MOUTH ONCE DAILY WITH Medical THE Branch LARGEST MEAL OF THE DAY KATHERIN-EMILIA Yes TAKE 1 Univer s 0.8 mg 4-06 TABLET BY ity of tablet 00:00: MOUTH ONCE DAILY WITH Medical THE Branch LARGEST MEAL OF THE DAY KATHERIN-EMILIA Yes TAKE 1 Univer s 0.8 mg 4-06 TABLET BY ity of tablet 00:00: MOUTH ONCE DAILY WITH Medical THE Branch LARGEST MEAL OF THE DAY clopidogreL Yes 75mg Take 75 mg Univers 75 mg 3-11 by mouth ity of tablet 00:00: daily. Medical Branch clopidogreL 2020-0 Yes 75mg Take 75 mg Univers 75 mg 3-11 by mouth ity of tablet 00:00: daily. [place] Medical Branch clopidogreL 2020-0 Yes 75mg Take 75 mg Univers 75 mg 3-11 by mouth ity of tablet 00:00: daily. [place] Medical Branch carvediloL 2020-0 Yes 25mg Take 25 mg U nivers 25 mg 2-10 by mouth 2 ity of tablet 00:00: (two) [place] 00 times Medical daily. Branch carvediloL 2020-0 Yes 25mg Take 25 mg U nivers 25 mg 2-10 by mouth 2 ity of tablet 00:00: (two) [place] 00 times Medical daily. Branch carvediloL 2020-0 Yes 25mg Take 25 mg U nivers 25 mg 2-10 by mouth 2 ity of tablet 00:00: (two) [place] times Medical daily. Branch lidocaine-p 2019-05- No Apply Meth pam rilocaine 06-09-[address] (EMLA) 00:00: 05:59 as needed Hospi ta 2.5-2.5 % 00 :00 for mild l cream pain. Apply to fistula site 30 - 45 minutes prior to dialysis treatment. lidocaine-p 2019-05- No Apply Meth pam rilocaine -09 04-[address] (EMLA) 00:00: 05:59 as needed Hospi ta 2.5-2.5 % 00 :00 for mild l cream pain. Apply to fistula site 30 - 45 minutes prior to dialysis treatment. lidocaine-p 2019-05- No Apply Meth pam rilocaine 06-09-[address] (EMLA) 00:00: 05:59 as needed Hospi ta 2.5-2.5 % 00 :00 for mild l cream pain. Apply to fistula site 30 - 45 minutes prior to dialysis treatment. benzonatate 2020- No 1{capsu Take 1 Methodi (TESSALON) 12-22 le} capsule by st 100 MG 00:00: 00:00 mouth as Hospit a capsule 00 :00 needed. l benzonatate 2020- No 1{capsu Take 1 Methodi (TESSALON) 8-03 04-13 le} capsule by st 100 MG 00:00: 00:00 mouth as Hospit a capsule 00 :00 needed. l Immunizations Ordered Filled Immunization Date Status Comments Sour e Immunization Name Name Influenza Virus 2021-03-31 Completed Universit y of Vaccine Quad IM 3+ 00:00:00 [facility] Influenza Virus 2021-03-31 Completed Universit y of Vaccine Quad IM 3+ 00:00:00 [facility] Influenza Virus 2021-03-31 Completed Universit y of Vaccine Quad IM 3+ 00:00:00 [facility] Pneumococcal 2018-10-27 Completed [place] o f Polysaccharide, 00:00:00 [facility] ical PPSV23 (PNEUMOVAX) Branch [facility] 2018-10-27 Completed [facility] 00:00:00 [facility] Pneumococcal 2018-10-27 Completed [place] o f Polysaccharide, 00:00:00 [facility] ical PPSV23 (PNEUMOVAX) Branch [facility] 2018-10-27 Completed University 00:00:00 [facility] Pneumococcal 2018-10-27 Completed [place] o f Polysaccharide, 00:00:00 [facility] ical PPSV23 (PNEUMOVAX) Branch AP 2018-10-27 Completed University 00:00:00 [facility] TDAP (ADACEL) 2017-05-22 Completed University of VACCINE 00:00:00 [facility] TDAP (ADACEL) 2017-05-22 Completed University of VACCINE 00:00:00 [facility] TDAP (ADACEL) 2017-05-22 Completed University of VACCINE 00:00:00 [facility] Vital Signs Vital Name Observation Time Observation Value Comments Source Systolic blood 2022-02-22 165 mm[Hg] per pt she took [facility] pressure 14:58:00 her bp med this Hospital morning. Diastolic blood 2022-02-22 70 mm[Hg] per pt she took [facility] pressure 14:58:00 her bp med this Hospital morning. Heart rate 2022-02-22 57 /min [facility] 14:58:00 Hospital Body temperature 2022-02-22 36.44 [place] [facility] 14:33:00 Hospital Respiratory rate 2022-02-22 16 /min [facility] 14:33:00 Hospital Body height 2022-02-22 152.4 cm [facility] 14:33:00 Hospital Body weight 2022-02-22 52.572 kg [facility] 14:33:00 Hospital BMI 2022-02-22 22.64 kg/m2 [facility] 14:33:00 Hospital Oxygen saturation 2022-02-22 94 /min [facility] in Arterial blood 14:33:00 Hospital by Pulse oximetry Systolic blood 2021-03-25 132 mm[Hg] [facility] pressure 13:51:00 [facility] Diastolic blood 2021-03-25 63 mm[Hg] [facility] pressure 13:51:00 Hospital Heart rate 2021-03-25 60 /min [facility] 13:51:00 Hospital Body temperature 2021-03-25 36.44 [place] [facility] 13:51:00 [facility] Body height 2021-03-25 152.4 cm [facility] 13:51:00 [facility] Body weight 2021-03-25 55.339 kg [facility] 13:51:00 [facility] BMI 2021-03-25 23.83 kg/m2 [facility] 13:51:00 [facility] Oxygen saturation 2021-03-25 98 /min [facility] in Arterial blood 13:51:00 Hospital by Pulse oximetry Respiratory rate 2020-09-03 15 /min [facility] 19:52:00 Hospital Procedures Procedure Date / Time Performing Clinician Source Performed HC COMPLETE BLD COUNT 2022-03-03 14:50:00 [facility] W/AUTO DIFF [place] COMPREHENSIVE METABOLIC 2022-03-03 14:50:00 [facility] PANEL [place] PROTHROMBIN TIME WITH INR 2022-03-03 14:50:00 [facility] PARTIAL THROMBOPLASTIN 2022-03-03 14:50:00 [facility] TIME (PTT) [place] ESTIMATED GFR 2022-03-03 14:50:00 [facility] ospital [facility] HLA SERUM STORAGE 2022-02-23 22:18:00 Ata Leigh [facility] US ABDOMINAL WITH LIVER 2022-02-22 14:34:53 [facility] ELASTOGRAPHY [facility] US ABDOMINAL DOPPLER 2022-02-22 14:34:20 [facility] HLA SERUM STORAGE 2022-01-26 21:16:00 Ata Leigh [facility] US BREAST COMPLETE 2022-01-18 18:35:37 Lu [facility] BILATERAL MAMMO BREAST DIAGNOSTIC 2022-01-18 18:23:31 Lu [facility] TOMOSYNTHESIS BILATERAL XR CHEST 2 VW 2022-01-11 15:38:12 [facility] ECG 12-LEAD 2022-01-11 14:08:27 Lu [facility] TTE COMPLETE, WO CONTRAST, 2022-01-11 13:00:00 Lu [facility] W DOPPLER ([id number]) COMPREHENSIVE METABOLIC 2022-01-11 11:24:00 Lu [facility] PANEL SERUM ELECTROPHORESIS 2022-01-11 11:24:00 Lu [facility] HIV 1/2 ANTIGEN/ANTIBODY, 2022-01-11 11:24:00 Lu [facility] FOURTH GENERATION, WITH REFLEXES HEPATITIS B CORE ANTIBODY 2022-01-11 11:24:00 Lu [facility] TOTAL HEPATITIS B SURFACE 2022-01-11 11:24:00 Lu [facility] ANTIBODY HEPATITIS B SURFACE 2022-01-11 11:24:00 Lu [facility] ANTIGEN HEPATITIS B SURFACE AB, 2022-01-11 11:24:00 Lu [facility] QUANTITATIVE HEPATITIS C ANTIBODY 2022-01-11 11:24:00 Lu [facility] HC COMPLETE BLD COUNT 2022-01-11 11:24:00 Lu [facility] W/AUTO DIFF PROTHROMBIN TIME WITH INR 2022-01-11 11:24:00 Lu [facility] PARTIAL THROMBOPLASTIN 2022-01-11 11:24:00 Lu [facility] TIME (PTT) LIPID PANEL 2022-01-11 11:24:00 Lu [facility] PHOSPHORUS LEVEL 2022-01-11 11:24:00 Lu [facility] HEMOGLOBIN A1C 2022-01-11 11:24:00 Lu [facility] DRUG KEENE 9, SER/CLARIBEL, SCRN 2022-01-11 11:24:00 Lu [facility] W/RFLX TO CONF ESTIMATED GFR 2022-01-11 11:24:00 Lu [facility] OCCULT BLOOD, STOOL 2022-01-10 23:00:00 Lu [facility] OCCULT BLOOD, STOOL 2022-01-10 17:00:00 Lu [facility] OCCULT BLOOD, STOOL 2022-01-10 11:00:00 Lu [facility] SINGLE ANTIGEN BEADS 2021-12-20 13:41:00 Lu [facility] ANKLE BRACHIAL INDEX 2021-11-04 19:38:47 [facility] [id number] 2021-10-11 00:00:00 [facility] SINGLE ANTIGEN BEADS 2021-09-22 19:18:00 Lu [facility] SINGLE ANTIGEN BEADS 2021-06-23 20:47:00 Lu [facility] HLA SERUM STORAGE 2021-05-29 00:51:00 Lu [facility] HLA SERUM STORAGE 2021-04-21 19:36:00 Lu [facility] CAROTID DUPLEX 2021-03-25 13:52:56 [facility]IL[facility] [place] SINGLE ANTIGEN BEADS 2021-03-24 19:08:00 Lu [facility] HLA SERUM STORAGE 2021-02-22 16:19:00 Lu [facility] HLA SERUM STORAGE 2021-01-27 10:24:00 Lu [facility] SINGLE ANTIGEN BEADS 2021-01-01 10:32:00 Lu [facility] HLA SERUM STORAGE 2020-11-26 02:47:00 Lu [facility] HLA SERUM STORAGE 2020-10-23 12:52:00 Lu [facility] SINGLE ANTIGEN BEADS 2020-09-23 19:11:00 Ata Leigh [facility] OR [place] < 1 HOUR 2020-09-04 02:37:15 Hernan Duff spital [facility] ANESTHESIA PERIPHERAL 2020-09-03 19:45:36 Leena [facility] BLOCK [place] POC GLUCOSE 2020-09-03 19:29:00 Hernan Duff spital [facility] POC GLUCOSE 2020-09-03 19:05:00 [facility] FISTULOGRAP[facility], DIALYSIS 2020-09-03 16:52:00 [facility] ESTIMATED GFR 2020-09-03 14:50:00 [facility] POC PANEL 2020-09-03 14:50:00 [facility] BASIC METABOLIC PANEL 2020-09-03 14:46:00 Hernan Duff [facility] ESTIMATED GFR 2020-09-03 14:46:00 Hernan Duff [facility]uff[facility]si COVID-19 QUALITATIVE 2020-09-01 22:30:00 Hernan Duff [facility] RT-PCR [facility] XR CHEST 2 VW 2020-09-01 21:22:30 Hernan Duff [facility] ECG PRE/POST OP 2020-09-01 20:51:58 [facility] PARTIAL THROMBOPLASTIN 2020-09-01 20:07:00 Hernan Duff [facility] TIME (PTT) [facility]uff[facility]si PROTHROMBIN TIME WITH INR 2020-09-01 20:07:00 Hernan Duff [facility] HC COMPLETE BLD COUNT 2020-09-01 20:07:00 Hernan Duff [facility] W/AUTO DIFF [facility] TYPE AND SCREEN 2020-09-01 20:07:00 [facility] HEMOGLOBIN A1C 2020-09-01 20:07:00 Matias Stern HLA SERUM STORAGE 2020-08-24 10:32:00 [facility] 2020-07-27 11:39:00 Ata Leigh [facility] SINGLE ANTIGEN BEADS 2020-06-24 11:31:00 Ata Leigh [facility] [id number] 2019-10-04 00:00:00 JEET.08 [facility] [id number] 2019-10-01 00:00:00 JEET.08 [facility] Plan of Care Planned Activity Planned Date Details Comments Source Future Scheduled 2022-03-04 HEPATITIS B VACCINES [facility] Test 20:13:56 (1 of 3 - 3-dose series) [code = HEPATITIS B VACCINES (1 of 3 - 3-dose series)] Future Scheduled 2022-03-04 COVID-19 VACCINE (#1) [facility] Test 20:13:56 [code = COVID-19 VACCINE (#1)] Future Scheduled 2022-03-04 Pneumococcal Vaccine: [facility] Test 20:13:56 Pediatrics (0 to 5 Years) and At-Risk Patients (6 to 64 Years) (1 - PCV) [code = Pneumococcal Vaccine: Pediatrics (0 to 5 Years) and At-Risk Patients (6 to 64 Years) (1 - PCV)] Future Scheduled 2022-03-04 DIABETES: RETINAL EYE [facility] Test 20:13:56 EXAM [code = DIABETES: RETINAL EYE EXAM] Future Scheduled 2022-03-04 DIABETIC FOOT EXAM [facility] Test 20:13:56 [code = DIABETIC FOOT EXAM] Future Scheduled 2022-03-04 SHINGLES VACCINES (1 [facility] Test 20:13:56 of 2) [code = SHINGLES VACCINES (1 of 2)] Future Scheduled 2022-03-04 Screening for [facility] Test 20:13:56 malignant neoplasm of cervix (procedure) [code = 214835837] Future Scheduled 2022-03-04 COLONOSCOPY SCREENING [facility] Test 20:13:56 [code = COLONOSCOPY SCREENING] Future Scheduled 2022-03-04 BREAST CANCER [facility] Test 20:13:56 SCREENING [code = BREAST CANCER SCREENING] Future Scheduled 2021-06-04 COVID-19 VACCINE (1) [facility] Test 10:51:27 [code = COVID-19 VACCINE (1)] Future Scheduled 2021-06-04 DIABETES: RETINAL EYE [facility] Test 10:51:27 EXAM [code = DIABETES: RETINAL EYE EXAM] Future Scheduled 2021-06-04 DIABETIC FOOT EXAM [facility] Test 10:51:27 [code = DIABETIC FOOT EXAM] Future Scheduled 2021-06-04 BREAST CANCER [facility] Test 10:51:27 SCREENING [code = BREAST CANCER SCREENING] Future Scheduled 2021-06-04 COLONOSCOPY SCREENING [facility] Test 10:51:27 [code = COLONOSCOPY SCREENING] Future Scheduled 2021-06-04 SHINGLES VACCINES (#1) [facility] Test 10:51:27 [code = SHINGLES VACCINES (#1)] Future Scheduled 2021-06-04 Screening for [facility] Test 10:51:27 malignant neoplasm of cervix (procedure) [code = 845637486] Future Scheduled 2021-06-04 COVID-19 VACCINE (1) [facility] Test 10:51:27 [code = COVID-19 VACCINE (1)] Future Scheduled 2021-06-04 DIABETES: RETINAL EYE [facility] Test 10:51:27 EXAM [code = DIABETES: RETINAL EYE EXAM] Future Scheduled 2021-06-04 DIABETIC FOOT EXAM [facility] Test 10:51:27 [code = DIABETIC FOOT EXAM] Future Scheduled 2021-06-04 BREAST CANCER [facility] Test 10:51:27 SCREENING [code = BREAST CANCER SCREENING] Future Scheduled 2021-06-04 COLONOSCOPY SCREENING [facility] Test 10:51:27 [code = COLONOSCOPY SCREENING] Future Scheduled 2021-06-04 SHINGLES VACCINES (#1) [facility] Test 10:51:27 [code = SHINGLES VACCINES (#1)] Future Scheduled 2021-06-04 Screening for [facility] Test 10:51:27 malignant neoplasm of cervix (procedure) [code = 326077983] Encounters Start End Encounter Admission Attending Care Care Encounter Source Date/Time Date/Time Type Type Clinicians Facility Department ID 2022-03-03 2022-03-03 Outpatient ISREAL RASCONH [facility] [id number] [place] 00:00:00 00:00:[address] [facility] [address] 2022-03-03 2022-03-03 Travel [id number] 1.2.209.054 8841 [id number] Methodi 00:00:00 00:00:[address] 3.430.2.7 0.2.7.3.698 Ho spita .3.124664 084.8 l .8 2022-02-24 2022-02-24 Mari Gresham, 1.2.840.1 [id number] 578389 1030 Methodi 00:00:00 00:00:00 Only Sissy 43896.1.[address] 3.430.2.7 Hospit a .3.126339 l .8 2022-02-24 2022-02-24 Black Gresham, 1.2.840.1 [id number] 2099 932053 Methodi 00:00:00 00:00:[address] 3.430.2.7 Hospit a .3.153036 l .8 2022-02-24 2022-02-24 Mari Gresham, 1.2.840.1 [id number] 359318 3934 Methodi 00:00:00 00:00:00 Only Sissy 96046.1.[address] 3.430.2.7 Hospit a .3.483046 l .8 2022-02-23 2022-02-23 Destiney Leigh, 1.2.840.1 [id number] 771858 2124 Methodi 00:15:00 00:20:[address].1.[address] 3.430.2.7 Hospit a .3.116477 l .8 2022-02-23 2022-02-23 Outpatient [facility] [id number] 090 [place] 00:00:00 00:00:00 ATA [address] 2022-02-22 2022-02-22 [facility].840[facility]1 [id number] 854 [id number] Methodi 08:20:45 23:59:00 Encounter Sunil 80552.1.[address] Sergo 3.430.2.7 Hospit a .3.765095 l .8 2022-02-22 2022-02-22 [facility] Do 1.2.840.1 [id number] 066 8668685 Methodi 08:20:33 23:59:00 Encounter Sunil 46582.1.[address] Sergo 3.430.2.7 Hospit a .3.396702 l .8 2022-02-22 2022-02-22 Office Luke Wilsonha 1.2.840.1 [id number] Methodi 10:45:00 11:00:00 Visit Sunil Rascon 25293.1.[address] 3.430.2.7 Hospit a .3.468587 l .8 2022-02-22 2022-02-22 Outpatient [facility] [id number] 330 [place] 00:00:00 00:00:00 493 Method i 2022-02-22 2022-02-22 [facility] 30302 48861 [place] 00:00:00 00:00:00 SUNIL 442 Method i 2022-02-22 2022-02-22 [facility] 31302 35375 [place] 00:00:00 00:00:00 SUNIL [address] 2022-02-22 2022-02-22 Outpatient MICHAEL [facility] [id number] 330 [place] 00:00:00 00:00:00 DANIA [address] 2022-02-22 2022-02-22 Travel 1.2.840.1 1.2.040.760 4892 846235 Methodi 00:00:00 00:00:[address] 3.430.2.7 0.2.7.3.698 spita .3.070340 084.8 l .8 2022-02-19 2022-02-19 Rachel Machado [facility] 1.2.840.114 06805 461 Univers 00:00:00 00:00:00 [facility] 350.1.13.10 y of Jerrod [place] 4.2.7.2.686 Kris as SALVATORE?BLEA [phone] [facility] [address] OFFICE BUILDING 2022-02-09 2022-02-09 Travel 1.2.840.1 1.2.065.022 5407 560765 Methodi 00:00:00 00:00:[address] 3.430.2.7 0.2.7.3.698 Ho spita .3.563455 084.8 l .8 2022-02-03 2022-02-03 Documentat Mimi, 1.2.840.1 [id number] 2 [id number] Methodi 00:00:00 00:00:[address]et 55256.1.[address] 3.430.2.7 Hospit a .3.731714 l .8 2022-02-03 2022-02-03 Documentat Mimi, 1.2.840.1 [id number] 2 [id number] Methodi 00:00:00 00:00:00 [address]isabet 04752.1.[address] 3.430.2.7 Hospit a .3.112797 l .8 2022-02-03 2022-02-03 Telephone Lucian, 1.2.840.1 [id number] 042 [id number] Methodi 00:00:00 00:00:[address] 3.430.2.7 Hospit a .3.142163 l .8 2022-01-26 2022-01-26 Lab Lu 1.2.840.1 [id number] 989361 5054 Methodi 00:25:00 00:30:[address] 3.430.2.7 Hospit a .3.338629 l .8 2022-01-26 2022-01-26 Nicole LEIGH [facility] [id number] 074 [place] 00:00:00 00:00:00 ATA [address] 2022-01-25 2022-01-25 Documentat Mimi, 1.2.840.1 [id number] 2 [id number] Methodi 00:00:00 00:00:00 ion [address]isabet 89880.1.[address] 3.430.2.7 Hospit a .3.750009 l .8 2022-01-25 2022-01-25 [facility] 1.2.840.1 [id number] 2 [id number] Methodi 00:00:00 00:00:[address]et 17392.1.[address] 3.430.2.7 Hospit a .3.684078 l .8 2022-01-18 2022-01-18 [facility] 1.2.840.1 [id number] 66068 26051 Methodi 13:23:00 23:59:00 Encounter Ata Perla 08249.1.[address] 3.430.2.7 Hospit a .3.877480 l .8 2022-01-18 2022-01-18 [facility] 1.2.840.1 [id number] 75254 30227 Methodi 12:35:53 13:22:00 Encounter Ata Perla 83527.1.[address] 3.430.2.7 Hospit a .3.308765 l .8 2022-01-18 2022-01-18 Outpatient [facility] [id number] 332 [place] 00:00:00 00:00:00 ATA [address] 2022-01-18 2022-01-18 Outpatient [facility] [id number] 369 [place] 00:00:00 00:00:00 ATA [address] 2022-01-18 2022-01-18 [facility] 1.2.840.1 [id number] 658 9659946 Methodi 00:00:00 00:00:[address] 3.430.2.7 Hospit a .3.182128 l .8 2022-01-18 2022-01-18 Travel 1.2.840.1 1.2.013.016 6535 414354 Methodi 00:00:00 00:00:[address] 3.430.2.7 0.2.7.3.698 Ho spita .3.345535 084.8 l .8 2022-01-17 2022-01-17 Orders Mp, 1.2.840.1 [id number] 266946 3763 Methodi 00:00:00 00:00:00 Only Sissy 82827.1.[address] 3.430.2.7 Hospit a .3.453212 l .8 2022-01-17 2022-01-17 Orders Mp, 1.2.840.1 080106291 594102 5098 Methodi 00:00:00 00:00:00 Only Sissy 92891.1.[address] 3.430.2.7 Hospit a .3.512762 l .8 2022-01-14 2022-01-14 Telephone Wojciech, 1.2.840.1 [id number] 261 [id number] Methodi 00:00:00 00:00:[address] 3.430.2.7 Hospit a .3.690041 l .8 2022-01-13 2022-01-13 Orders Mp, 1.2.840.1 [id number] 699408 1412 Methodi 00:00:00 00:00:00 Only Sissy 96131.1.[address] 3.430.2.7 Hospit a .3.585308 l .8 2022-01-13 2022-01-13 Telephone Mp, 1.2.840.1 [id number] 2099 648354 Methodi 00:00:00 00:00:[address] 3.430.2.7 Hospit a .3.869788 l .8 2022-01-12 2022-01-12 Documentat Aster, 1.2.840.1 941606136 [id number] Methodi 00:00:00 00:00:00 ion Clarissa 57531.1.[address] 3.430.2.7 Hospit a .3.264382 l .8 2022-01-11 2022-01-11 [facility] Lu, 1.2.840.1 [id number] 19804 21419 Methodi 10:18:23 23:59:00 Encounter Ata Perla 23290.1.[address] 3.430.2.7 Hospit a .3.030325 l .8 2022-01-11 2022-01-11 Social Delores Wylie 1.2.840.1 10 0393082 [id number] Methodi 12:00:00 13:00:00 Work Clarissa Rodarte 67728.1.[address] 3.430.2.7 Hospit a .3.825818 l .8 2022-01-11 2022-01-11 [facility] 1.2.840.1 [id number] 89893 11199 Methodi 06:42:54 10:17:00 Encounter Ata Perla 34828.1.[address] 3.430.2.7 Hospit a .3.502200 l .8 2022-01-11 2022-01-11 Office Delores Wylie 1.2.840.1 10 [id number] Methodi 08:15:00 08:30:00 Visit Iza Bolaños 60581.1.[address] 3.430.2.7 Hospit a .3.404529 l .8 2022-01-11 2022-01-11 Outpatient WYLIE, [facility] [id number] 339 [place] 00:00:00 00:00:00 DELORES 068 Method i 2022-01-11 2022-01-11 Outpatient LU, [facility] [id number] 332 [place] 00:00:00 00:00:00 ATA 399 Method i 2022-01-11 2022-01-11 Outpatient WYLIE, [facility] [id number] 338 [place] 00:00:00 00:00:00 DELORES 486 Method i 2022-01-11 2022-01-11 Outpatient WYLIE, [facility] [id number] 336 [place] 00:00:00 00:00:00 DELORES 772 Method i 2022-01-11 2022-01-11 Outpatient WYLIE, [facility] [id number] 338 [place] 00:00:00 00:00:00 DELORES 849 Method i 2022-01-11 2022-01-11 Outpatient WYLIE, [facility] [id number] 337 [place] 00:00:00 00:00:00 DELORES [address] 2022-01-11 2022-01-11 Outpatient LU, [facility] [id number] 337 [place] 00:00:00 00:00:00 AHMED [address] 2022-01-11 2022-01-11 Travel 1.2.840.1 1.2.791.676 2566 544386 Methodi 00:00:00 00:00:[address] 3.430.2.7 0.2.7.3.698 Ho spita .3.438726 084.8 l .8 2022-01-10 2022-01-10 Lab Lu, 1.2.840.1 [id number] 677971 8824 Methodi 00:00:00 00:05:00 Ahmed Osama 09624.1.[address] 3.430.2.7 Hospit a .3.276368 l .8 2022-01-10 2022-01-10 Outpatient LU, [facility] [id number] 823 [place] 00:00:00 00:00:00 AHMED [address] 2022-01-06 2022-01-06 [facility] 53596 33180 Univers 15:00:00 16:16:09 AVNI parra [facility] 2022-01-06 2022-01-06 Office [facility] 1.2.647.927 5801 7108 Univers 15:00:00 16:16:09 Visit Avni [place]AP[place]O 350.1.13.10 [facility] 4.[place].2.[place] [phone] [address] 2022-01-03 2022-01-03 Orders Lea, 1.2.840.1 [id number] 17733 29154 Methodi 00:00:00 00:00:00 Only Arti 03406.1.[address] 3.430.2.7 Hospit a .3.317592 l .8 2021-12-29 2021-12-29 Extended Miky, 1.2.840.1 213824899 06943 87065 Methodi 00:00:00 00:00:00 Delon Huddleston 59431.1.[address] Review 3.430.2.7 Hospit a .3.065692 l .8 2021-12-24 2021-12-24 Documentat Brandon, 1.2.840.1 [id number] 21 [id number] Methodi 00:00:00 00:00:00 sh[address] Zelaya 80552.1.[address] 3.430.2.7 Hospit a .3.070251 l .8 2021-12-20 2021-12-20 Lab Lu, 1.2.840.1 [id number] 656540 0730 Methodi 00:00:00 00:05:[address].1.[address] 3.430.2.7 Hospit a .3.839198 l .8 2021-12-20 2021-12-20 [facility] [id number] [address] [place] [address] 00:00:00 00:00:00 ATA [address] 2021-12-20 2021-12-20 Documentat Mimi, 1.2.840.1 [id number] 2 [id number] Methodi 00:00:00 00:00:00 ion Elisabet 40392.1.[address] 3.430.2.7 Hospit a .3.394466 l .8 2021-12-16 2021-12-16 Orders Haleigh, 1.2.840.1 [id number] 701650 1197 Methodi 00:00:00 00:00:00 Only Nieves 94204.1.[address] 3.430.2.7 Hospit a .3.667648 l .8 2021-12-16 2021-12-16 Telephone Jona, 1.2.840.1 [id number] 203 3426499 Methodi 00:00:00 00:00:[address] 3.430.2.7 Hospit a .3.177359 l .8 2021-11-25 2021-11-25 Telephone Albaro, 1.2.840.1 129764176 2100 582131 Methodi 00:00:00 00:00:[address] 3.430.2.7 Hospit a .3.131194 l .8 2021-11-19 2021-11-19 Lab Lu, 1.2.840.1 [id number] 292809 7392 Methodi 10:05:00 10:10:00 Ata [address]757.1.[address] 3.430.2.7 Hospit a .3.979765 l .8 2021-11-19 2021-11-19 Outpatient [facility] [id number] 695 [place] 00:00:00 00:00:00 ATA [address] 2021-11-18 2021-11-18 Documentat Brandon, 1.2.840.1 [id number] 21 [id number] Methodi 00:00:00 00:00:[address] Zel[address]6315.1.[address] 3.430.2.7 Hospit a .3.494033 l .8 2021-11-11 2021-11-11 Telephone [facility] 1.2.644.764 3939 7673 [facility] 00:00:00 00:00:00 [facility] 350.1.13.10 it y [facility] 4.2.7.2.686 Kris as SALVATORE?BLEA [phone] [address] MEDICAL OFFICE [facility] 2021-11-09 2021-11-09 Outpatient [facility] [id number] 15176 [facility] 13:00:00 13:00:00 AVNI parra [facility] 2021-11-04 2021-11-04 Office Neptali, 1.2.840.1 [id number] [id number] 6648 Methodi 13:30:00 14:41:27 Visit Arti 40179.1.[address] [place] 3.430.2.7 Hosp dede .3.089434 l .8 2021-11-04 2021-11-04 Outpatient [facility] [id number] 201 [place] 00:00:00 00:00:[address] 2021-11-04 2021-11-04 Outpatient OMEGA [facility] [id number] 285 [place] 00:00:00 00:00:00 HERNAN [address] 2021-11-04 2021-11-04 Travel 1.2.840.1 1.2.962.099 2513 325163 Methodi 00:00:00 00:00:[address] 3.430.2.7 0.2.7.3.698 Ho spita .3.127626 084.8 l .8 2021-11-01 2021-11-01 Telephone Addi, 1.2.840.1 [id number] 197 [id number] Methodi 00:00:00 00:00:00 Crysandria 15051.1.1 927 s t 3.430.2.7 Hospit a .3.712306 l .8 2021-11-01 2021-11-01 Orders Fontana, 1.2.840.1 [id number] 28258 63518 Methodi 00:00:00 00:00:00 Only Crysandria 91633.1.1 935 s t 3.430.2.7 Hospit a .3.174034 l .8 2021-11-01 2021-11-01 Telephone [facility] 1.2.840.114 942 76177 Univers 00:00:00 00:00:00 [facility] 350.1.13.10 it y of [place] 4.2.7.2.686 Kris as SALVATORE?BLEA [phone] [address] OFFICE [facility] 2021-10-29 2021-10-29 [facility] 1.2.840.114 63121 357 Univers 00:00:00 00:00:00 [facility] 350.1.13.10 it y of [place] 4.2.7.2.686 Kris as SALVATORE?BLEA [phone] [address] MEDICAL OFFICE BUILDING 2021-10-20 2021-10-20 Lab Lu, 1.2.840.1 [id number] [id number] 4907 Methodi 00:15:00 00:20:[address]00[address] 3.430.2.7 Hospit a .3.347169 l .8 2021-10-20 2021-10-20 Outpatient LU [facility] [id number] [address] [place] [address] 00:00:00 00:00:00 ATA [address] 2021-10-09 2021-10-11 Inpatient RADHA Chavez, [facility] ADMI [id number] [facility] 02:24:00 23:26:00 Carmen [id number] [facility] 2021-10-09 2021-10-11 Inpatient RADHA Chavez, [facility] ADMI [id number] [facility] 02:24:00 23:26:00 Carmen 10 [facility] 2021-10-11 2021-10-11 Outpatient Kathy, [facility] LABO [id number] [facility] 16:48:00 16:48:00 Carmen 45 [facility] 2021-10-06 2021-10-06 Outpatient R AD, [facility] [id number] 813 Univers 09:00:00 09:00:00 [facility] 2021-10-06 2021-10-06 Outpatient [facility], [facility] [id number] 813 Univers 09:00:00 09:00:00 [facility] 2021-10-06 2021-10-06 Outpatient R AD, [facility] [id number] 813 Univers 09:00:00 09:00:00 [facility] 2021-10-06 2021-10-06 Outpatient R AD, [facility] [id number] 813 Univers 09:00:00 09:00:00 [facility] 2021-10-01 2021-10-01 Telephone Jeannette WIFRANK 1.2.840.114 [id number] Univers 00:00:00 00:00:00 [facility] 350.1.13.10 it y of [place] 4.2.7.2.686 Kris as SALVATORE?BLEA [phone] [address] MEDICAL OFFICE BUILDING 2021-09-29 2021-09-29 Refill Jeannette [facility] 1.2.840.114 [id number] Univers 00:00:00 00:00:00 [facility] 350.1.13.10 it y of [place] 4.2.7.2.686 Kris as SALVATORE?BLEA [phone] [address] MEDICAL OFFICE [facility] 2021-09-23 2021-09-23 Orders Doctor ADRIANNE 1.2.840.114 [id number] Univers 00:00:00 00:00:00 Only Unassigned, MARISELA 350.1.13.10 ity of [facility] 4.2.7.2.686 Kris as [phone] [address] 2021-09-22 2021-09-22 Lab Lu 1.2.840.1 [id number] 8776 Methodi 00:00:00 00:05:[address].1.[address] 3.430.2.7 Hospit a .3.838020 l .8 2021-09-22 2021-09-22 Outpatient [facility] [id number] 950 [place] 00:00:00 00:00:[address] AHMED [address] 2021-08-23 2021-08-23 Lab Lu 1.2.840.1 [id number] 733245 4847 Methodi 00:15:00 00:20:00 Ahmed Osama 63982.1.[address] 3.430.2.7 Hospit a .3.079525 l .8 2021-08-23 2021-08-23 Outpatient [facility] [id number] 575 [place] 00:00:00 00:00:[address] AHMED [address] 2021-08-22 2021-08-22 [facility] 1.2.840.114 60096 105 Univers 00:00:00 00:00:00 [facility] 350.1.13.10 it y of [place] 4.2.7.2.686 Kris as SALVATORE?BLEA [phone] [address] MEDICAL OFFICE [facility] 2021-08-20 2021-08-20 Destiney Leigh 1.2.840.1 [id number] 4196 Methodi 00:00:00 00:05:[address] Osama [address]45.1.[address] 3.430.2.7 Hospit a .3.247022 l .8 2021-08-20 2021-08-20 Outpatient LU, [facility] [id number] 594 [place] 00:00:00 00:00:00 AHMED [address] 2021-08-04 2021-08-04 Office Gunderson, 1.2.840.1 [id number] 934101 8292 Methodi 13:30:00 15:14:38 Visit Arti 06710.1.[address] [place] 3.430.2.7 Hosp dede .3.290400 l .8 2021-08-04 2021-08-04 Outpatient [facility] [id number] [address] [place] [address] 00:00:00 00:00:[address] 2021-08-04 2021-08-04 Travel 1.2.840.1 1.2.064.844 1634 027351 Methodi 00:00:00 00:00:[address] 3.430.2.7 0.2.7.3.698 Ho spita .3.053963 084.8 l .8 2021-07-30 2021-07-30 Outpatient Huma MONTOYA, [facility] [id number] Univers 14:00:00 15:33:10 JEISON parra of [facility] 2021-07-29 2021-07-29 Outpatient Huma MAN [facility] [id number] Univers 08:30:00 08:30:00 WONGERARDO parra o f [facility] 2021-07-26 2021-07-26 Telephone Omega, 1.2.840.1 [id number] 2100 878769 Methodi 00:00:00 00:00:[address] [facility] 3.430.2.7 Hosp dede .3.980278 l .8 2021-07-21 2021-07-21 Lab Lu, 1.2.840.1 [id number] 222339 6983 Methodi 00:00:00 00:05:[address] Osama 75455.1.[address] 3.430.2.7 Hospit a .3.380008 l .8 2021-07-21 2021-07-21 Outpatient LU, [facility] [id number] [address] [place] [address] 00:00:00 00:00:00 ATA [address] 2021-06-25 2021-06-25 Lab Lu, 1.2.840.1 [id number] [id number] 2033 Methodi 13:53:47 13:58:47 [address] 38364.1.[address] 3.430.2.7 Hospit a .3.931075 l .8 2021-06-23 2021-06-23 Lab Lu, 1.2.840.1 [id number] 986743 9159 Methodi 00:45:00 00:50:[address] 3.430.2.7 Hospit a .3.448612 l .8 2021-06-17 2021-06-17 [facility] [id number] [id number] Univers 09:30:00 09:30:[address] [facility] 2021-06-17 2021-06-17 [facility] [id number] Univers 09:00:00 09:00:[address] [facility] 2021-06-08 2021-06-08 [facility] 1.2.840.114 [id number] Univers 00:00:00 00:00:00 [facility] 350.1.13.10 [facility] 4.2.7.2.686 Kris as PROFESSIO [phone] [address] OFFICE [facility] ONE 2021-06-02 2021-06-02 Lab Lu, 1.2.840.1 [id number] 1613 Methodi 14:48:33 14:53:[address] 21971.1.[address] 3.430.2.7 Hospit a .3.120930 l .8 2021-05-28 2021-05-28 Lab Lu, 1.2.840.1 [id number] 796816 2044 Methodi 00:00:00 00:05:[address] 3.430.2.7 Hospit a .3.146992 l .8 2021-05-19 2021-05-19 Telephone [facility] 1.2.840.114 [id number] Univers 00:00:00 00:00:00 Wondiful A HEALTH 350.1.13.10 ity of [place] 4.2.7.2.686 Kris as SALVATORE?BLEA [phone] [address] OFFICE [facility] 2021-05-18 2021-05-18 Telephone [facility] 1.2.840.114 [id number] Univers 00:00:00 00:00:00 Wondiful A HEALTH 350.1.13.10 ity of [place] 4.2.7.2.686 Kris as SALVATORE?BLEA [phone] [address] OFFICE [facility] 2021-05-11 2021-05-11 Outpatient R JOSTIN [facility] [id number] Univers 13:15:00 13:15:00 RAMBO parra [facility] 2021-04-29 2021-04-29 [facility] [id number] 0746 Univers 11:15:00 11:15:00 WONDIFUL ity o f [facility] 2021-04-26 2021-04-26 Lab Lu, 1.2.840.1 [id number] 2099 Methodi 16:31:45 16:36:[address] 3.430.2.7 Hospit a .3.700287 l .8 2021-04-21 2021-04-21 Lab Lu, 1.2.840.1 [id number] 105543 9874 Methodi 00:05:00 00:10:00 Ata Osama 33377.1.[address] 3.430.2.7 Hospit a .3.560724 l .8 2021-04-07 2021-04-07 [facility] 1.2.840.114 [id number] [id number] Univers 00:00:00 00:00:00 Wondiful A HEALTH 350.1.13.10 ity of [place] 4.2.7.2.686 Kris as SALVATORE?BLEA [phone] [address] OFFICE [facility] 2021-04-01 2021-04-01 Outpatient R MAGDA, [facility] [id number] Univers 11:00:00 11:52:02 WONDIFUL ity o f [facility] 2021-04-01 2021-04-01 Outpatient R MAGDA, [facility] [id number] Univers 11:00:00 11:52:02 WONDIFUL ity o f [facility] 2021-04-01 2021-04-01 Office [facility] 1.2.840.114 [id number] [facility] 10:44:25 11:52:02 Visit Wondiful A HEALTH 350.1.13.10 ity of [place] 4.2.7.2.686 Kris as SALVATORE?BLEA [phone] [address] OFFICE [facility] 2021-03-31 2021-03-31 Lab Lu, 1.2.840.1 [id number] Methodi 10:49:38 10:54:38 Ata Perla 04265.1.[address] 3.430.2.7 Hospit a .3.715799 l .8 2021-03-25 2021-03-25 Office Hernan Duff 1.2.840.1 [id number] Methodi 09:28:58 10:38:51 Visit Arti Gunderson 30613.1.[address] 3.430.2.7 Hospit a .3.201522 l .8 2021-03-25 2021-03-25 Office Hernan Duff 1.2.840.1 [id number] Methodi 09:00:00 10:38:51 Visit Arti Gunderson 07678.1.[address] 3.430.2.7 Hospit a .3.134197 l .8 2021-03-25 2021-03-25 Outpatient [facility] [id number] 00:00:00 00:00:[address] 2021-03-25 2021-03-25 Travel 1.2.840.1 1.2.009.219 [id number] [id number] Methodi 00:00:00 00:00:[address] 3.430.2.7 0.2.7.3.698 Ho spita .3.528547 084.8 l .8 2021-03-25 2021-03-25 Travel 1.2.840.1 1.2.830.739 [id number] [id number] Methodi 00:00:00 00:00:[address] 3.430.2.7 0.2.7.3.698 Ho spita .3.724606 084.8 l .8 2021-03-24 2021-03-24 Lab Lu, 1.2.840.1 [id number] 1280 Methodi 00:05:00 00:10:00 Ata Osama [address]15.1.[address] 3.430.2.7 Hospit a .3.989778 l .8 2021-03-22 2021-03-22 Outpatient Huma MAN [facility] [id number] [facility] 10:15:00 11:26:11 WONDIFUL ity o f [facility] 2021-03-22 2021-03-22 Office Magda [facility] 1.2.840.114 [id number] [facility] 10:09:24 11:26:11 Visit Wondiful A HEALTH 350.1.13.10 ity of [place] 4.2.7.2.686 Kris as SALVATORE?BLEA [phone] [address] MEDICAL OFFICE BUILDING 2021-03-22 2021-03-22 Outpatient Huma MAN [facility] [id number] Univers 10:15:00 10:15:00 WONDIFUL ity o f [facility] 2021-03-16 2021-03-16 Telephone Magda [facility] 1.2.840.114 [id number] Univers 00:00:00 00:00:00 Wondiful A Health 350.1.13.10 ity of [place] 4.2.7.2.686 Kris as Salvatore?Blea [phone] Hi lex [address] Medical Office Building 2021-03-10 2021-03-10 [facility] 1.2.572.981 [id number] Univers 11:53:33 23:59:00 Encounter Wondiful A [place] 350.1.13.10 ity of [place] 4.2.7.2.[place] [phone] [facility] [address] 2021-03-10 2021-03-10 [facility] 1.2.840.114 [id number] Univers 11:53:05 23:59:00 Encounter Yvonne L [place] 350.1.13.10 ity of [place] 4.2.7.2.686 [facility] [phone] [facility] [address] 2021-03-10 2021-03-10 Outpatient R [facility] [id number] Univers 00:00:00 00:00:00 YVONNE ity of [facility] 2021-03-04 2021-03-04 Outpatient R [facility] [id number] Univers 10:00:00 10:00:00 ity of [facility] 2021-02-25 2021-02-25 Lab Lu, 1.2.840.1 [id number] 2370 Methodi 15:17:22 15:22:22 Ata Perla 75174.1.[address] 3.430.2.7 Hospit a .3.412633 l .8 2021-02-25 2021-02-25 Outpatient R [facility] [id number] Univers 09:00:00 09:00:00 ity of [facility] 2021-02-19 2021-02-[facility] 1.2.840.114 [id number] Univers 00:00:00 00:00:00 Wondiful A Health 350.1.13.10 ity of [place] 4.2.7.2.686 Kris as Professio [phone] Hi lex [address] Office [facility] 2021-02-16 2021-02-16 Outpatient R [facility] [id number] Univers 08:30:00 08:30:00 ity of [facility] 2021-02-12 2021-02-12 Office Melina [facility] 1.2.840.114 [id number] Univers 11:32:41 12:00:11 Visit Fatou Health 350.1.13.10 it y of [place] 4.2.7.2.686 Kris as Salvatore?Blea [phone] [address] Office Building 2021-02-12 2021-02-12 [facility] [id number] Univers 11:30:00 11:30:00 FATOU ity [facility] 2021-02-04 2021-02-04 Lab Lu 1.2.840.1 [id number] Methodi 11:26:39 11:31:39 med Osama [address]216.1.[address] 3.430.2.7 Hospit a .3.236806 l .8 2021-01-29 2021-01-29 [facility] 1.2.840.114 [id number] Univers 00:00:00 00:00:00 Management Yeceniaful A Health 350.1.13.10 ity of [place] 4.2.7.2.686 Kris as Salvatore?Blea [phone] [address] Office [facility] 2021-01-28 2021-01-28 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 Lab, Charan - Francesco [facility] [facility] 1.2.840.1 14 [id number] Univers 12:48:32 13:03:32 Visit Mack [facility] 350.1.13.1 0 ity of [place] 4.2.7.2.686 Kris as Salvatore?Blea [phone] [facility] 353 [facility] Office Building 2021-01-28 2021-01-28 Office Magda [facility] 1.2.840.114 [id number] Univers 11:20:13 13:02:19 Visit [facility] 350.1.13.10 ity christopher [place] 4.2.7.2.686 Kris as Salvatore?Blea [phone] Hi lex [address] Medical Office Building 2021-01-28 2021-01-28 Outpatient Huma MAN [facility] [id number] Univers 11:45:00 11:45:00 WONDIFUL ity o f [facility] 2021-01-19 2021-01-19 Outpatient [facility] [id number] 0724 Univers 08:00:00 08:00:00 WONDIFUL ity o f [facility] 2021-01-07 2021-01-07 Office Omega, 1.2.840.1 [id number] 3360 Methodi 10:57:30 12:53:17 Visit Hernan 51537.1.[address] [facility] 3.430.2.7 Hosp dede .3.495114 l .8 2021-01-07 2021-01-07 Travel 1.2.840.1 1.2.089.250 6051 [id number] Methodi 00:00:00 00:00:[address] 3.430.2.7 0.2.7.3.698 Ho spita .3.869275 084.8 l .8 2021-01-05 2021-01-05 Lab Lu, 1.2.840.1 [id number] 8650 Methodi 14:11:26 14:16:[address] 3.430.2.7 Hospit a .3.502209 l .8 2020-12-18 2020-12-18 Telephone Lyly, 1.2.840.1 [id number] Methodi 00:00:00 00:00:[address] Ethelle 3.430.2.7 Hospit a .3.509888 l .8 2020-12-07 2020-12-07 [facility] 1.2.840.114 858 [id number] Univers 00:00:00 00:00:00 [facility] 350.1.13.10 it[place] of [place] 4.2.7.2.686 Kris as Professio [phone] [address] One 2020-12-01 2020-12-01 [place] [facility] 1.2.840.114 857 [id number] Univers 00:00:00 00:00:00 [facility] 350.1.13.10 ity of [place] 4.2.7.2.686 Kris as Professio [phone] [address] One 2020-11-30 2020-11-30 Destiney Leigh 1.2.840.1 [id number] 1758 Methodi 10:23:20 10:28:20 [address]ama 54022.1.[address] 3.430.2.7 Hospit a .3.600863 l .8 2020-11-10 2020-11-10 [facility] 1.2.840.114 [id number] 687 [facility] 00:00:00 00:00:00 [facility] 350.1.13.10 it[place] of [place] 4.2.7.2.686 Kris as Professio [phone] [address] One 2020-11-09 2020-11-09 Outpatient [facility] [id number] 0493 Univers 14:45:00 14:45:00 SUNIL parra [facility] 2020-11-09 2020-11-09 Documentat Kathleen 1.2.840.1 [id number] 078 [id number] Methodi 00:00:00 00:00:00 ion Sarita 92852.1.[address] 3.430.2.7 Hospit a .3.304922 l .8 2020-11-03 2020-11-03 Outpatient JASONTERRI GREENE [facility] [address] [place] 01:55:00 01:55:00 HN 0615 [facility] 2020-10-28 2020-10-28 Destiney Leigh 1.2.840.1 [id number] 0891 Methodi 13:38:48 13:43:[address] 3.430.2.7 Hospit a .3.650351 l .8 2020-10-27 2020-10-27 Office [facility] 1.2.840.114 [id number] 553 10:58:31 11:50:53 Visit [facility] 350.1.13.10 [place] 4.2.7.2.686 Professio [phone] [address] One 2020-10-27 2020-10-27 [facility] 1.2.840.114 [id number] 553 Univers 10:58:31 11:50:53 Visit [facility] 350.1.13.10 ity of [place] 4.2.7.2.686 Kris as Professio [phone] [address] One 2020-10-27 2020-10-27 Outpatient [facility] [id number] 0186 Univers 11:00:00 11:00:00 WONDIFUL ity o f [facility] 2020-10-26 2020-10-26 Orders Doctor ADRIANNE 1.2.840.114 [id number] Univers 00:00:00 00:00:00 Only Unassigned, MARISELA 350.1.13.10 ity of [place] [facility] 4.2.7.2.686 Kris as [phone] [address] 2020-10-15 2020-10-15 Outpatient JENELLE GREENE [facility] [address] [place] 10:50:00 10:50:00 HN 0527 [facility] 2020-10-13 2020-10-13 Refill [facility] 1.2.840.114 [id number] Univers 00:00:00 00:00:00 [facility] 350.1.13.10 [place] 4.2.7.2.686 Kris as Professio [phone] [address] Office [facility] One 2020-10-09 2020-10-09 Orders Doctor ADRIANNE 1.2.840.114 [id number] Univers 00:00:00 00:00:00 Only Unassigned, MARISELA 350.1.13.10 it[place] [facility] 4.2.7.2.686 Kris as [phone] [address] 2020-10-08 2020-10-08 Office Omega, 1.2.840.1 [id number] 6087 Methodi 09:00:36 10:16:27 Visit Hernan 47730.1.[address] [facility] 3.430.2.7 Hosp dede .3.872130 l .8 2020-10-08 2020-10-08 Travel 1.2.840.1 1.2.047.527 8883 [id number] Methodi 00:00:00 00:00:[address] 3.430.2.7 0.2.7.3.698 Ho spita .3.473844 084.8 l .8 2020-10-08 2020-10-08 Telephone [facility] 1.2.840.114 [id number] [id number] Univers 00:00:00 00:00:00 [facility] 350.1.13.10 it[place] of [place] 4.2.7.2.686 Kris as Professio [phone] Hi dical nal [address] [place] Office Building One 2020-10-07 2020-10-07 Telephone [facility] 1.2.843.399 6403 7046 Univers 00:00:00 00:00:00 Yvonne Susannah Chaparro 350.1.13.10 it[place] of [place].7.2.[place] Profess[place] [phone] Hi dical nal 134 [facility] 2020-10-06 2020-10-06 Office Ad, [facility] 1.2.840.114 [id number] Univers 15:32:53 16:55:29 Visit Yvonne Susannah Chaparro 350.1.13.10 [place].7.2.[place] Profess[place] [phone] Hi dical nal 134 [facility] 2020-10-06 2020-10-06 Outpatient R AD, [facility] [id number] Univers 15:30:00 15:30:00 YVONNE autumn [facility] 2020-09-30 2020-09-30 Outpatient R AD, [facility] [id number] Univers 09:00:00 09:00:00 YVONNE parra [facility] 2020-09-30 2020-09-30 Telephone Magda [facility] 1.2.840.114 [id number] [id number] Univers 00:00:00 00:00:00 [facility] 350.1.13.10 ity of [place] 4.2.7.2.686 Kris as Professio [phone] [facility] nal 044 [facility] One 2020-09-29 2020-09-29 Orders Doctor ADRIANNE 1.2.840.114 [id number] Univers 00:00:00 00:00:00 Only Unassigned, MARISELA 350.1.13.10 it[place] [facility] 4.2.7.2.686 Kris as [phone] [address] 2020-09-25 2020-09-25 Lab Lu, 1.2.840.1 [id number] 8585 Methodi 09:49:24 09:54:24 Ahmed Osama 59069.1.[address] 3.430.2.7 Hospit a .3.237668 l .8 2020-09-25 2020-09-25 Documentat Elena 1.2.840.1 [id number] 21 [id number] Methodi 00:00:00 00:00:00 ion Carlito 35095.1.[address] 3.430.2.7 Hospit a .3.161826 l .8 2020-09-22 2020-09-22 Telemedici [facility] 1.2.840.114 [id number] Univers 14:29:37 16:37:47 ne Visit [facility] 350.1.13.10 it[place] of [place] 4.2.7.2.686 Kris as Professio [phone] [facility] 044 [facility] One 2020-09-22 2020-09-22 Outpatient [facility] [id number] 6347 Univers 16:15:00 16:15:00 WONDIFUL ity o f [facility] 2020-09-17 2020-09-17 Telephone Mayito 1.2.840.1 [id number] Methodi 00:00:00 00:00:[address] 3.430.2.7 Hospit a .3.256897 l .8 2020-09-16 2020-09-16 Case [facility] 1.2.840.114 [id number] 892 Univers 00:00:00 00:00:00 Management [facility] 350.1.13.10 it[place] 4.2.7.2.686 Kris as Professio [phone] [address] Office Building One 2020-09-15 2020-09-15 Telephone [facility] 1.2.840.114 838 [id number] Univers 00:00:00 00:00:00 [facility] 350.1.13.10 ity [place] 4.2.7.2.686 Kris as Professio [phone] [address] Office [facility] One 2020-09-10 2020-09-10 Hospital [facility] 1.2.422.846 8411 9011 Univers 10:22:02 23:59:00 Encounter Wondiful A [place] 350.1.13.10 ity of [place] 4.2.7.2.686 [place] [facility] [phone] [facility] [address] [place] 2020-09-10 2020-09-10 Outpatient R [facility] 77412 84331 Univers 00:00:00 00:00:00 ISABEL parra of [facility] 2020-09-10 2020-09-10 Outpatient [facility] [id number] 9415 Univers 00:00:00 00:00:00 WONDIFUL ity o f [facility] 2020-09-10 2020-09-10 Orders Doctor SILVER 1.2.840.114 [id number] Univers 00:00:00 00:00:00 Only Unassigned, MARISELA 350.1.13.10 it[place] [facility] 4.2.7.2.686 Kris as [phone] [facility] [address] 2020-09-10 2020-09-10 Telephone Magda WIFRANK 1.2.840.114 837 [id number] Univers 00:00:00 00:00:00 [facility] 350.1.13.10 ity of [place] 4.2.7.2.686 Kris as Professio [phone] Hi dical nal [address] Office Building One 2020-09-09 2020-09-09 Travel 1.2.840.1 1.2.686.655 9749 260515 Methodi 00:00:00 00:00:[address] 3.430.2.7 0.2.7.3.698 Ho spita .3.761679 084.8 l .8 2020-09-03 2020-09-03 Hospital [facility] 1.2.840.1 [id number] 88077 Methodi 09:08:00 15:41:00 Encounter Hernan 29718.1.1 419 [facility] 3.430.2.7 Hosp dede .3.120124 l .8 2020-09-03 2020-09-03 Anesthesia [place] Stern. 1.2.840.1 [id number] Methodi 11:52:00 14:02:00 Event Daksha Beckford 22862.1.[address] 3.430.2.7 Hospit a .3.424462 l .8 2020-09-03 2020-09-03 Surgery [facility] 1.2.840.1 [id number] 099452 4204 Methodi 12:00:00 13:40:00 Hernan 61431.1.1 417 [facility] 3.430.2.7 Hosp dede .3.594410 l .8 2020-09-02 2020-09-02 Outpatient R MAGDA [facility] [id number] 4195 Univers 00:00:00 00:00:00 WONDIFUL ity o f [facility] 2020-09-01 2020-09-01 Hospital Omega, 1.2.840.1 [id number] 73074 Methodi 16:08:50 23:59:00 Encounter Hernan 71169.1.[address] [facility] 3.430.2.7 Hosp dede .3.603020 l .8 2020-09-01 2020-09-01 Pre-Admiss Omega, 1.2.840.1 [id number] 645 [id number] Methodi 14:58:52 15:58:52 ion Hernan 07603.1.[address] [facility] 3.430.2.7 Hosp dede .3.685901 l .8 2020-09-01 2020-09-01 Office Magda [facility] 1.2.840.114 [id number] 056 [facility] 08:58:26 10:28:05 Visit [facility] 350.1.13.10 ity of [place] 4.2.7.2.686 Kris as Professio [phone] [address] Office Building One 2020-09-01 2020-09-01 Outpatient R MAGDA [facility] [id number] 1411 Univers 09:00:00 09:00:00 WONDIFUL ity o f [facility] 2020-09-01 2020-09-01 Orders Doctor ADRIANNE 1.2.840.114 [id number] Univers 00:00:00 00:00:00 Only Unassigned, MARISELA 350.1.13.10 it[place] [facility] 4.2.7.2.686 Kris as [phone] [address] 2020-08-31 2020-08-31 Pre-Admiss Omega, 1.2.840.1 [id number] 315 [id number] Methodi 13:00:00 14:00:00 ion Hernan 01829.1.[address] [facility] Hosp dede .3.753606 l .8 2020-08-31 2020-08-31 Travel 1.2.840.1 1.2.684.628 1799 155313 Methodi 00:00:00 00:00:[address] 3.430.2.7 0.2.7.3.698 Ho spita .3.926307 084.8 l .8 2020-08-28 2020-08-28 Documentat Josh, 1.2.840.1 [id number] 066 [id number] Methodi 00:00:00 00:00:00 ion Jeremy 80697.1.[address] 3.430.2.7 Hospit a .3.544863 l .8 2020-08-27 2020-08-27 Lab Lu, 1.2.840.1 [id number] [id number] 5978 Methodi 11:16:00 11:21:00 Ata Perla 67191.1.[address] 3.430.2.7 Hospit a .3.869971 l .8 2020-08-26 2020-08-26 Prep for Mayito 1.2.840.1 [id number] 268 [id number] Methodi 00:00:00 00:00:00 Surgery Amy 83822.1.[address] 3.430.2.7 Hospit a .3.298496 l .8 2020-08-26 2020-08-26 Telephone Bart 1.2.840.1 [id number] 21 [id number] Methodi 00:00:00 00:00:[address] 3.430.2.7 Hospit a .3.732345 l .8 2020-08-19 2020-08-19 Outpatient JENELLE GREENE MAPANFILO [address] [place] 11:50:00 11:50:00 HN 0331 da [facility] Program 2020-08-13 2020-08-13 Office Omega, 1.2.840.1 [id number] 3170 Methodi 09:28:49 11:22:52 Visit Hernan 63857.1.[address] [facility] 3.430.2.7 Hosp dede .3.598433 l .8 2020-08-13 2020-08-13 Travel 1.2.840.1 1.2.062.905 8229 996283 Methodi 00:00:00 00:00:[address] 3.430.2.7 0.2.7.3.698 Ho spita .3.112862 084.8 l .8 2020-08-10 2020-08-10 Inpatient KNOW, HCAPM PEAR [id number] [facility] 14:28:00 14:29:04 DOES_NOT 77 [facility] 2020-07-30 2020-07-30 Lab Lu, 1.2.840.1 [id number] 1400 Methodi 16:47:04 16:52:[address] 3.430.2.7 Hospit a .3.789483 l .8 2020-07-29 2020-07-29 Telephone Neal, 1.2.840.1 [id number] 2099 406010 Methodi 00:00:00 00:00:00 Angy Callejas 87988.1.[address] 3.430.2.7 Hospit a .3.886410 l .8 2020-07-29 2020-07-29 Telephone Mayito, 1.2.840.1 [id number] Methodi 00:00:00 00:00:[address] 3.430.2.7 Hospit a .3.132144 l .8 2020-07-19 2020-07-19 Outpatient LU, [facility] [id number] [address] [place] [address] 00:00:00 00:00:[address] ATA [address] 2020-07-15 2020-07-15 Telephone Jona, 1.2.840.1 [id number] 072 [id number] Methodi 00:00:00 00:00:[address] 3.430.2.7 Hospit a .3.100048 l .8 2020-06-30 2020-06-30 Lab Lu, 1.2.840.1 [id number] 6365 Methodi 17:00:48 17:05:48 [address]3683.1.[address] 3.430.2.7 Hospit a .3.173159 l .8 2020-06-17 2020-06-17 [facility] [address] [place] 01:02:00 01:02:00 HN 0127 [facility] 2020-05-27 2020-05-27 Outpatient ASKED, NO [facility] [id number] [place] 00:00:00 00:00:[address] 2020-05-25 2020-05-25 Outpatient LU, [facility] [id number] 400 [place] 00:00:00 00:00:00 KATIAMED [address] 2020-04-09 2020-04-09 Outpatient DUFF, [facility] [id number] 640 [place] 00:00:00 00:00:[address] HERNAN [address] 2020-04-07 2020-04-07 Outpatient NICA SPRAGUE [facility] 988 [id number] [facility] 11:08:00 23:59:00 Medica l Center 2020-04-02 2020-04-02 Outpatient SLOVAK, [facility] [id number] 571 [place] 00:00:00 00:00:00 MELISSA [address] 2020-04-02 2020-04-02 Outpatient SLOVAK, [facility] [id number] 571 [place] 00:00:00 00:00:00 MELISSA [address] 2020-03-19 2020-03-19 Outpatient WYLIE, [facility] [id number] 898 [place] 00:00:00 00:00:00 DELORES [address] 2020-03-19 2020-03-19 Outpatient WYLIE, [facility] [id number] 898 [place] 00:00:00 00:00:00 DELORES [address] 2020-03-19 2020-03-19 Outpatient PODDER, [facility] [id number] 571 [place] 00:00:00 00:00:00 HEMANGSHU [address] 2020-03-19 2020-03-19 Outpatient SLOVAK, [facility] [id number] 898 [place] 00:00:00 00:00:00 MELISSA [address] 2020-03-19 2020-03-19 Outpatient SLOVAK, [facility] [id number] 898 [place] 00:00:00 00:00:00 MELISSA [address] 2020-03-18 2020-03-18 Outpatient LU, [facility] [id number] 674 [place] 00:00:00 00:00:00 AHMED [address] 2020-02-27 2020-02-27 Outpatient OMEGA, [facility] [id number] 087 [place] 00:00:00 00:00:00 HERNAN [address] 2020-02-20 2020-02-20 Outpatient JOHNY, [facility] [id number] 179 [place] 00:00:00 00:00:00 DELORES [address] 2020-02-20 2020-02-20 Outpatient ASKED, NO [facility] [id number] 67023 [place] 00:00:00 00:00:[address] 2020-02-20 2020-02-20 Outpatient JOHNY, [facility] [id number] 179 [place] 00:00:00 00:00:00 DELORES [address] 2020-02-20 2020-02-20 Outpatient LU, [facility] [id number] 897 [place] 00:00:00 00:00:00 KATIAMED [address] 2020-02-18 2020-02-18 Outpatient FERCHEYON_ROMA GREENE [facility] [address] [place] 11:12:00 11:12:00 HN 0929 [facility] Program 2020-01-30 2020-01-30 Outpatient OMEGA, [facility] 011 [id number] 107 [place] 00:00:00 00:00:00 HERNAN [address] 2020-01-29 2020-01-29 Outpatient OMEGA, [facility] [id number] 521 [place] 00:00:00 00:00:00 HERNAN [address] 2020-01-09 2020-01-09 Outpatient OMEGA, [facility] [id number] 480 [place] 00:00:00 00:00:00 HERNAN [address] 2020-01-09 2020-01-09 Outpatient WOJCIECHOWS [facility] [id number] [place] 00:00:00 00:00:00 KI, 736 Method i [place] 2019-10-01 2020-01-02 Inpatient HCAPM GUILHERME [id number] [facility] 12:33:00 10:55:51 50 Theodora navarro [facility] 2019-12-24 2019-12-24 [facility] [address] [place] 09:33:00 09:33:00 HN 0804 [facility] 2019-12-23 2019-12-23 Outpatient KNOW, HCAPM PEAR [id number] [facility] 20:45:00 20:45:00 DOES_NOT 44 Alison navarro [facility] 2019-12-19 2019-12-19 Outpatient [facility] [id number] 257 [place] 00:00:00 00:00:00 006 Method i 2019-10-01 2019-10-01 Outpatient MONICA Fernandez [id number] [facility] 23:56:00 23:56:00 Reginaldo 69 [facility] Results Test Description Test Time Test Comments Results Result Comments Source HLA serum storage 2022-02-28 14:53:20 Test Item Value Reference Range Interpretation Comme nts HLA serum storage (test code = 1555) See link below for PDF 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 InformationSpe cimen code = Source: StoolSp ecimen [id number]) Site: Nonpreser shefali [facility] antigen [id number] 00:18:38 Test Item Value Reference Range Interpretation Comments Interpretation (test code Additional Antibody = [id number]) Information:DR9=DRB1 *09:89YX0=PIU6*04:02 /DQA1*04:24BD3=PGJ3* 05:02/DQA1*01:02DQ6= DQB1*06:02/DQA1*01:0 2, DQB1*06:04/DQA1*01:0 7DJ4=GTG8*03:02/DQA1 *03:01 SAB serum ID (test code = [id number] 5866) [facility] serum collection D&T 12/20/2021 08:41 AM (test code = 5867) SAB class I antibody A1, A26, A36, A43, assignment (test code = A80, B51, B52, B76, 5870) B78 SAB cPRA class I (test code = 5868) SAB class II antibody DQ2, DQ4, DQ5, DQ6, assignment (test code = DQ8, DR7, DR9, DR11, 5871) DR13, DR14, DR17, DR18, DR52 SAB cPRA class II (test code = 5869) Case number (test code = [id number]) Single antigen beads See link below for (test code = 4604) PDF Lab Report [facility] HEPATITIS B [id number] 04:31:00 Test Item Value Reference Range Interpretation Comments AG HEPATITIS B SURFACE NON REACTIVE INDEX NonReactive (test code = HBSAG) AG HEPATITIS B [id number] 04:31:00 Test Item Value Reference Range Interpretation Comments AG HEPATITIS B NON REACTIVE NonReactive Testing done at SURFACE (test code INDEX [facility] = HBSAG) [facility] [address] [place] [address] 69[address] [id number] 22:06:00 Test Item Value Reference Range Interpretation Comments GLUBED (test code = GLUBED) 128 mg/dL 70-110 H [id number] 15:17:00 Test Item Value Reference Range Interpretation Comments GLUBED (test code = GLUBED) 91 mg/dL 70-110 N [id number] 15:17:00 Test Item Value Reference Range Interpretation Comments GLUBED (test code = GLUBED) 86 mg/dL 70-110 N [id number] 10:55:00 Test Item Value Reference Range Interpretation Comments GLUBED (test code = GLUBED) 73 mg/dL 70-110 N [id number] 21:53:00 Test Item Value Reference Range Interpretation Comments GLUBED (test code = GLUBED) 140 mg/dL 70-110 H [id number] 16:29:00 Test Item Value Reference Range Interpretation Comments GLUBED (test code = GLUBED) 92 mg/dL 70-110 N [id number] 12:21:00 Test Item Value Reference Range Interpretation Comments GLUBED (test code = GLUBED) 134 mg/dL 70-110 H [id number] 11:35:00 Test Item Value Reference Range Interpretation Comments GLUCOSE (test code = GLU) 148 mg/dl 70.0-110.0 H [id number] 09:43:00 Test Item Value Reference Range Interpretation Comments HGBA1C% (test code = HGBA1C%) 5.6 %A1C 4.8-6.0 N ESTIMATED AVERAGE GLUCOSE (test 114 MG/DL code = EAG) [id number] 08:54:00 Test Item Value Reference Range Interpretation Comments GLUBED (test code = GLUBED) 74 mg/dL 70-110 N [id number] 08:54:00 Test Item Value Reference Range Interpretation Comments GLUBED (test code = GLUBED) 42 mg/dL 70-110 LL CBC W/AUTO [id number] 08:47:00 Test Item Value Reference Range Interpretation Comments WHITE BLOOD CELL (test code = 5.5 K/mm3 4.5-11.0 N WBC) RED BLOOD CELL (test code = 3.28 M/mm3 3.80-5.20 L RBC) HEMOGLOBIN (test code = HGB) 10.2 gm/dL 12.0-16.0 L HEMATOCRIT (test code = HCT) 31.7 % 36.0-48.0 L MEAN CELL VOLUME (test code = 96.6 UM3 82.0-99.0 N MCV) MEAN CELL HGB (test code = MCH) 31.1 UUG 25.5-32.5 N MEAN CELL HGB CONCETRATION 32.2 gm/dL 29.0-35.5 N (test code = MCHC) RED CELL DISTRIBUTION WIDTH 16.7 % 11.5-15.0 H (test code = RDW) RED CELL DISTRIBUTION WIDTH SD 59.6 fL 34.8-50.2 H (test code = RDW-SD) PLATELET COUNT (test code = 103 K/mm3 150-400 L PLT) MEAN PLATELET VOLUME (test code 12.6 fl 7.4-10.4 H = MPV) NEUTROPHIL % (test code = NT%) 62.5 % 49.0-76.0 N IMMATURE GRANULOCYTE % (test 0.4 % 0.0-0.4 N code = IG%) LYMPHOCYTE % (test code = LY%) 18.0 % 23.0-38.0 L MONOCYTE % (test code = MO%) 16.4 % 1.0-10.0 H EOSINOPHIL % (test code = EO%) 1.6 % 1.0-5.0 N BASOPHIL % (test code = BA%) 1.1 % 0.0-1.0 H NUCLEATED RBC % (test code = 0.0 % 0.0-0.1 N NRBC%) NEUTROPHIL # (test code = NT#) 3.4 K/mm3 2.4-6.3 N IMMATURE GRANULOCYTE # (test 0.02 x10 3/uL 0.00-0.07 N code = IG#) LYMPHOCYTE # (test code = LY#) 1.0 K/mm3 1.2-4.0 L MONOCYTE # (test code = MO#) 0.9 K/mm3 0.0-0.6 H EOSINOPHIL # (test code = EO#) 0.1 K/MM3 0.0-0.7 N BASOPHIL # (test code = BA#) 0.1 K/mm3 0.0-0.2 N NUCLEATED RBC # (test code = 0.00 X10 3uL 0.00-0.01 N NRBC#) BASIC METABOLIC [id number] 08:45:00 Test Item Value Reference Range Interpretation Comments SODIUM (test code = NA) 132 mmol/l 134.0-147.0 L POTASSIUM (test code = K) 3.7 mmol/L 3.6-5.2 N CHLORIDE (test code = CL) 94 mmol/l 98.0-107.0 L CARBON DIOXIDE (test code = CO2) 26.3 mmol/l 21.0-33.0 N ANION GAP (test code = GAP) 15.4 0-20 N GLUCOSE (test code = GLU) 96 mg/dl 70.0-110.0 N BLOOD UREA NITROGEN (test code = 43 mg/dl 7.0-18.0 H BUN) CREATININE (test code = CREAT) 7.58 mg/dL 0.60-1.30 HH GFR NON BLACK (test code = 6 mL/min 90-95 L GFRNONBLACK) GFR BLACK (test code = GFRBLACK) 7 mL/min 109-115 L CALCIUM (test code = CA) 9.5 mg/dl 8.0-10.5 N COVID 19 INHOUSE [id number] 22:30:00 Test Item Value Reference Range Interpretation Comments COVID 19 INHOUSE NEGATIVE NEGATIVE Negative re sults should be AG (test code = treated as p resumptive and [id number]) ifinconsistent with clinical signs and sympt oms, or necessaryfor pa tient management, zina uld be tested with an alterna tivemolecular assay. Negative results do not preclude [id number] tion and should not be u sed as the sole basis forp atient management deci sions. Negative result s should beconsidered in the context of a patient's recent exposures,histo ry, presence of clinical sig ns and symptoms consis tentwith COVID-19. [id number] 20:54:00 Test Item Value Reference Range Interpretation Comments GLUBED (test code = GLUBED) 93 mg/dL 70-110 N [id number] 18:11:00 Test Item Value Reference Range Interpretation Comments TROPONIN-I (test 0.07 NG/ML 0.00-0.06 H REFERENCE R SANTOS TROPONIN code = TROPI) I HEALTHY MIO VIDUALS: <0.06 ng/mL R/O ISCHEMIA: 0.07 - 0.60 ng/mL CUT-OFF R SANTOS FOR AMI: 0.60 - 1.5 ng/mL [id number] 15:15:00 Test Item Value Reference Range Interpretation Comments GLUBED (test code = GLUBED) 80 mg/dL 70-110 N [id number] 12:13:00 Test Item Value Reference Range Interpretation Comments TROPONIN-I (test 0.04 NG/ML 0.00-0.06 N REFERENCE R SANTOS TROPONIN code = TROPI) I HEALTHY MIO VIDUALS: <0.06 ng/mL R/O ISCHEMIA: 0.07 - 0.60 ng/mL CUT-OFF R SANTOS FOR AMI: 0.60 - 1.5 ng/mL [id number] 11:36:00 Test Item Value Reference Range Interpretation Comments GLUBED (test code = GLUBED) 72 mg/dL 70-110 N CBC W/AUTO [id number] 11:36:00 Test Item Value Reference Range Interpretation Comments WHITE BLOOD CELL (test code = 5.7 K/mm3 4.5-11.0 N WBC) RED BLOOD CELL (test code = 3.21 M/mm3 3.80-5.20 L RBC) HEMOGLOBIN (test code = HGB) 10.0 gm/dL 12.0-16.0 L HEMATOCRIT (test code = HCT) 31.1 % 36.0-48.0 L MEAN CELL VOLUME (test code = 96.9 UM3 82.0-99.0 N MCV) MEAN CELL HGB (test code = MCH) 31.2 UUG 25.5-32.5 N MEAN CELL HGB CONCETRATION 32.2 gm/dL 29.0-35.5 N (test code = MCHC) RED CELL DISTRIBUTION WIDTH 16.6 % 11.5-15.0 H (test code = RDW) RED CELL DISTRIBUTION WIDTH SD 59.3 fL 34.8-50.2 H (test code = RDW-SD) PLATELET COUNT (test code = 109 K/mm3 150-400 L PLT) MEAN PLATELET VOLUME (test code 13.0 fl 7.4-10.4 H = MPV) NEUTROPHIL % (test code = NT%) 64.2 % 49.0-76.0 N IMMATURE GRANULOCYTE % (test 0.2 % 0.0-0.4 N code = IG%) LYMPHOCYTE % (test code = LY%) 17.3 % 23.0-38.0 L MONOCYTE % (test code = MO%) 14.0 % 1.0-10.0 H EOSINOPHIL % (test code = EO%) 3.3 % 1.0-5.0 N BASOPHIL % (test code = BA%) 1.0 % 0.0-1.0 N NUCLEATED RBC % (test code = 0.0 % 0.0-0.1 N NRBC%) NEUTROPHIL # (test code = NT#) 3.7 K/mm3 2.4-6.3 N IMMATURE GRANULOCYTE # (test 0.01 x10 3/uL 0.00-0.07 N code = IG#) LYMPHOCYTE # (test code = LY#) 1.0 K/mm3 1.2-4.0 L MONOCYTE # (test code = MO#) 0.8 K/mm3 0.0-0.6 H EOSINOPHIL # (test code = EO#) 0.2 K/MM3 0.0-0.7 N BASOPHIL # (test code = BA#) 0.1 K/mm3 0.0-0.2 N NUCLEATED RBC # (test code = 0.00 X10 3uL 0.00-0.01 N NRBC#) BASIC METABOLIC [id number] 11:28:00 Test Item Value Reference Range Interpretation Comments SODIUM (test code = NA) 135 mmol/l 134.0-147.0 N POTASSIUM (test code = K) 3.8 mmol/L 3.6-5.2 N CHLORIDE (test code = CL) 97 mmol/l 98.0-107.0 L CARBON DIOXIDE (test code = CO2) 29.1 mmol/l 21.0-33.0 N ANION GAP (test code = GAP) 12.7 0-20 N GLUCOSE (test code = GLU) 68 mg/dl 70.0-110.0 L BLOOD UREA NITROGEN (test code = 30 mg/dl 7.0-18.0 H BUN) CREATININE (test code = CREAT) 5.34 mg/dL 0.60-1.30 HH GFR NON BLACK (test code = 9 mL/min 90-95 L GFRNONBLACK) GFR BLACK (test code = GFRBLACK) 11 mL/min 109-115 L CALCIUM (test code = CA) 9.3 mg/dl 8.0-10.5 N [id number] 07:33:00 Test Item Value Reference Range Interpretation Comments GLUBED (test code = GLUBED) 82 mg/dL 70-110 N HLA serum [id number] 17:17:03 Test Item Value Reference Range Interpretation Comments HLA serum storage (test See link below for PDF code = 2563) Lab Report Case number (test code [id number] = [id number]) [facility] serum [id number] 17:17:03 Test Item Value Reference Range Interpretation Comments HLA serum storage (test See link below for PDF code = 2899) Lab Report Case number (test code [id number] = [id number]) [facility] antigen [id number] 16:24:42 Test Item Value Reference Range Interpretation Comments SAB serum ID (test code = [id number] 5866) SAB serum collection D&T 03/24/2021 01:08 PM (test code = 5867) SAB class I antibody B49,B57,A2,A1,B58,B5 assignment (test code = 1,B50,B52,B53,B63,B5 5870) 6,B78,B38,A69,A36,B5 9,B76,A24,A23,A32,B6 2,A80,B72,A43,A26,B3 5,B71,B77 SAB cPRA class I (test code = 5868) SAB class II antibody DR18,DR17,DR52,DR7,D assignment (test code = R13,DR14,DR11,DQ2,DQ 5871) 5,DQ4,DQ6,DQ8,DR9 SAB cPRA class II (test code = 5869) Case number (test code = [id number]) Single antigen beads See link below for (test code = 4604) PDF Lab Report [facility] antigen [id number] 16:24:42 Test Item Value Reference Range Interpretation Comments SAB serum ID (test code = [id number] 5866) [facility] serum collection D&T 03/24/2021 01:08 PM (test code = 5867) SAB class I antibody B49,B57,A2,A1,B58,B5 assignment (test code = 1,B50,B52,B53,B63,B5 5870) 6,B78,B38,A69,A36,B5 9,B76,A24,A23,A32,B6 2,A80,B72,A43,A26,B3 5,B71,B77 SAB cPRA class I (test code = 5868) SAB class II antibody DR18,DR17,DR52,DR7,D assignment (test code = R13,DR14,DR11,DQ2,DQ 5871) 5,DQ4,DQ6,DQ8,DR9 SAB cPRA class II (test code = 5869) Case number (test code = [id number]) Single antigen beads See link below for (test code = 4604) PDF [facility] Report [facility] [id number] 17:56:39 Test Item Value Reference Range Interpretation Comments Ventricular rate (test code = 253) Atrial rate (test code = 255) TX interval (test code = 266) QRSD interval (test code = 260) QT interval (test code = 264) QTC interval (test code = 265) P axis 1 (test code = 267) QRS axis 1 (test code = 268) T wave axis (test code = 270) EKG impression (test Normal sinus code = 273) rhythm-Possible Left atrial enlargement-Nonspecifi c ST and T wave abnormality-Prolonged QT-Abnormal ECG-In automated comparison with ECG of 19-MAR-2020 08:45,-No significant change was found- [facility] Pre/Post [id number] 17:56:39 Test Item Value Reference Range Interpretation Comments Ventricular rate (test code = 253) Atrial rate (test code = 255) TX interval (test code = 266) QRSD interval (test code = 260) QT interval (test code = 264) QTC interval (test code = 265) P axis 1 (test code = 267) QRS axis 1 (test code = 268) T wave axis (test code = 270) EKG impression (test Normal sinus code = 273) rhythm-Possible Left atrial enlargement-Nonspecifi c ST and T wave abnormality-Prolonged QT-Abnormal ECG-In automated comparison with ECG of 19-MAR-2020 08:45,-No significant change was found- [facility] [Presence] in Respiratory specimen by IVÁN with probe [id number] 22:07:02 Test Item Value Reference Range Interpretation Comments SARS-CoV-2 (COVID-19) RNA Not detected Not-Detected [Presence] in Respiratory specimen by IVÁN with probe detection (test code = 60352-4) SARS-CoV-2 (COVID-19) RNA [Presence] in Respiratory specimen by IVÁN with probe [id number] 23:10:12 Test Item Value Reference Range Interpretation Comments SARS-CoV-2 (COVID-19) RNA [Presence] Detected Not-Detected in Respiratory specimen by IVÁN with probe detection (test code = 04772-6) GLUCOSE BEDSIDE [id number] 12:51:00 Test Item Value Reference Range Interpretation Comments GLUCOSE BEDSIDE TESTING (test code 143 mg/dL 70-110 H = GLUBED) GLUCOSE BEDSIDE [id number] 08:03:00 Test Item Value Reference Range Interpretation Comments GLUCOSE BEDSIDE TESTING (test code = 85 mg/dL 70-110 N GLUBED) GLUCOSE BEDSIDE [id number] 21:00:00 Test Item Value Reference Range Interpretation Comments GLUCOSE BEDSIDE TESTING (test code 322 mg/dL 70-110 H = GLUBED) GLUCOSE BEDSIDE [id number] 16:37:00 Test Item Value Reference Range Interpretation Comments GLUCOSE BEDSIDE TESTING (test code 132 mg/dL 70-110 H = GLUBED) - XR CHEST 1 [id number] 16:07:00 Name: LEODAN HIDALGO [facility] : 1970 Age/S: 48 / F [address] Unit #: [id number] Loc: [place] [address] Phys: Reginaldo Fernandez MD Acct: [id number] Dis Date: Status: ADM IN [facility] #: [phone] Exam Date: 10/08/2019 1530 FAX #: Reason: RULE OUT TB EXAMS: CPT: [id number] XR CHEST 1 V 10163 Fluoro Time: DAP (Gy m2): Air Kerma (mGy): LOCATION: T18 EXAM: CHEST 1 VIEW INDICATION: RULE OUT TB COMPARISON: CT of the chest October 04, 2019 TECHNIQUE: AP chest radiograph. FINDINGS: Mild central vascular congestion. No consolidation or pleural effusion is seen. Right IJ dialysis catheter is in stable position. Heart is normal in size. Patient status post median sternotomy. Bones and peripheral soft tissues are unremarkable. IMPRESSION: No evidence for active TB. Central vascular congestion. at 1607 Reported and signed by: Claudio Majano M.D. CC: Reginaldo Fernandez MD; Nica Hearn MD PAGE 1 Signed Report Name: LEODAN HIDALGO [facility] : 1970 Age/S: 48 / F [address] Unit #: [id number] Loc: [place] [address] Phys: Reginaldo Fernandez MD Acct: [id number] Dis Date: Status: ADM IN PHONE #: Exam Date: 10/08/2019 1530 FAX #: Reason: RULE OUT TB EXAMS: CPT: [id number] XR CHEST 1 V 92903 Fluoro Time: DAP (Gy m2): Air Kerma (mGy): (Continued) Technologist: Brady Chaudhary RT(R)(CT) Trnscb Date/Time: 10/08/2019 (1607) t.SDR.JP19 Orig Print D/T: S: 10/08/2019 (2643) PAGE 2 Signed Report Novel Coronavirus 2018 [id number] 14:02:00 Test Item Value Reference Range Interpretation Comments Novel Coronavirus 2018 Inhouse (test Negative Negative code = COVNONPUI) Novel Coronavirus 2019 [id number] 14:02:00 Test Item Value Reference Range Interpretation Comments Novel Coronavirus 2018 Inhouse (test Negative Negative code = COVNONPUI) GLUCOSE BEDSIDE [id number] 11:39:00 Test Item Value Reference Range Interpretation Comments GLUCOSE BEDSIDE TESTING (test code 215 mg/dL 70-110 H = GLUBED) GLUCOSE BEDSIDE [id number] 07:57:00 Test Item Value Reference Range Interpretation Comments GLUCOSE BEDSIDE TESTING (test code 120 mg/dL 70-110 H = GLUBED) CBC W/AUTO [id number] 07:01:00 Test Item Value Reference Range Interpretation [...] DIFF REQUIRED NO DIFF/SCN CRITERIA SLIDE R EVIEW (test code = MDIFF) CONSISTA NT WITH AUTO DIFFERENTIAL. CBC W/AUTO [id number] 06:35:00 Test Item Value Reference Range Interpretation [...] code = DIFF/SCN CRITERIA MDIFF) BASIC METABOLIC [id number] 06:35:00 Test Item Value Reference Range Interpretation [...] CA) 8.3 MG/DL 8.5-10.1 L GLUCOSE BEDSIDE [id number] 20:50:00 Test Item Value Reference Range Interpretation Comments GLUCOSE BEDSIDE TESTING (test code 272 mg/dL 70-110 H = GLUBED) GLUCOSE BEDSIDE [id number] 16:16:00 Test Item Value Reference Range Interpretation Comments GLUCOSE BEDSIDE TESTING (test code 100 mg/dL 70-110 N = GLUBED) GLUCOSE BEDSIDE [id number] 11:43:00 Test Item Value Reference Range Interpretation Comments GLUCOSE BEDSIDE TESTING (test code 138 mg/dL 70-110 H = GLUBED) GLUCOSE BEDSIDE [id number] 07:43:00 Test Item Value Reference Range Interpretation Comments GLUCOSE BEDSIDE TESTING (test code 100 mg/dL 70-110 N = GLUBED) GLUCOSE BEDSIDE [id number] 19:44:00 Test Item Value Reference Range Interpretation Comments GLUCOSE BEDSIDE TESTING (test code 163 mg/dL 70-110 H = GLUBED) GLUCOSE BEDSIDE [id number] 19:17:00 Test Item Value Reference Range Interpretation Comments GLUCOSE BEDSIDE TESTING (test code 173 mg/dL 70-110 H = GLUBED) GLUCOSE BEDSIDE [id number] 12:45:00 Test Item Value Reference Range Interpretation Comments GLUCOSE BEDSIDE TESTING (test code 128 mg/dL 70-110 H = GLUBED) GLUCOSE BEDSIDE [id number] 08:03:00 Test Item Value Reference Range Interpretation Comments GLUCOSE BEDSIDE TESTING (test code = 89 mg/dL 70-110 N GLUBED) GLUCOSE BEDSIDE [id number] 20:27:00 Test Item Value Reference Range Interpretation Comments GLUCOSE BEDSIDE TESTING (test code 144 mg/dL 70-110 H = GLUBED) GLUCOSE BEDSIDE [id number] 16:29:00 Test Item Value Reference Range Interpretation Comments GLUCOSE BEDSIDE TESTING (test code 142 mg/dL 70-110 H = GLUBED) GLUCOSE BEDSIDE [id number] 12:16:00 Test Item Value Reference Range Interpretation Comments GLUCOSE BEDSIDE TESTING (test code 117 mg/dL 70-110 H = GLUBED) GLUCOSE BEDSIDE [id number] 08:08:00 Test Item Value Reference Range Interpretation Comments GLUCOSE BEDSIDE TESTING (test code = 88 mg/dL 70-110 N GLUBED) BASIC METABOLIC [id number] 06:16:00 Test Item Value Reference Range Interpretation [...] CA) 7.8 MG/DL 8.5-10.1 L CBC W/AUTO [id number] 06:14:00 Test Item Value Reference Range Interpretation [...] = NO DIFF/SCN CRITERIA MDIFF) GLUCOSE BEDSIDE [id number] 20:07:00 Test Item Value Reference Range Interpretation Comments GLUCOSE BEDSIDE TESTING (test code 194 mg/dL 70-110 H = GLUBED) GLUCOSE BEDSIDE [id number] 17:08:00 Test Item Value Reference Range Interpretation Comments GLUCOSE BEDSIDE TESTING (test code 107 mg/dL 70-110 N = GLUBED) - SP FLUORO GUID CTRL ACC [id number] 16:47:00 Name: LEODAN HIDALGO [facility] : 1970 Age/S: 48 / F [id number] Unit #: [id number] Loc: [place] [address] Phys: Reginaldo Fernandez MD Acct: [id number] Dis Date: Status: ADM IN PHONE #: [phone] Exam Date: 10/04/2019 4344 FAX #: 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 LOCATION: S17. HISTORY: MARYBEL on CKD, hyperkalemia, request is made for tunneled dialysis catheter by nephrology. COMPARISON: None. SEDATION: Moderate sedation was administered under the attending physician's direction andcontinuous monitoring by a trained nurse specialist who was independent from those actually performing the procedure. Total monitored intraservice sedation time was 20 minutes. RADIATION DOSE: 5 mGy. TECHNIQUE: The risks, benefits and alternatives were discussed and informed consent was obtained. Prior to beginning the procedure, [place] Protocol was used to confirm the patient's identity and planned procedure. Maximum sterile barriers including cap, mask, hand hygiene, sterile gloves, sterile gown, large sterile drape and cutaneous antisepsis were used. The skin over the existing right internaljugular vein dialysis catheter was sterilely prepped, draped and infiltrated with 1% lidocaine. A guidewire was then passed centrally using fluoroscopic guidance through the existing catheter. After infiltrating the [...] PAGE 1 Signed Report (CONTINUED) Name: LEODAN HIDALGO [facility] : 1970 Age/S: 48 / F [address] [facility] Unit #: [id number] Loc: [place] [address] Phys: Reginaldo Fernandez MD Acct: [id number] Dis Date: Status: ADM IN PHONE #: [phone] Exam Date: 10/04/2019 0613 FAX #: Reason: INTERMEDIATE HEMODIALYSIS EXAMS: CPT: [id number] SP FLUORO GUID CTRL ACC DEV 33033 Fluoro Time: 00:38 DAP (Gy m2): 1.11 Air Kerma (mGy): 5 (Continued) FINDINGS: The final fluoroscopic image demonstrates the catheter with its tip in the right atrium. No complications are seen. IMPRESSION: Successful tunneled catheter placement. PLAN: The catheter is ready for immediate use. When treatment is completed, removal can be scheduled by calling VIR. at 1647 Reported and signed by: Zaira Woodard M.D. CC: Reginaldo Fernandez MD; Nica Hearn MD PAGE 2 Signed Report Name: LEODAN HIDALGO [facility] : 1970 Age/S: 48 / F [address] [facility] Unit #: [id number] Loc: [place] [address] Phys: Reginaldo Fernadnez MD Acct: [id number] Dis Date: Status: ADM IN PHONE #: [phone] Exam Date: 10/04/2019 1530 FAX #: Reason: INTERMEDIATE HEMODIALYSIS EXAMS: CPT: [id number] SP FLUORO GUID CTRL ACC DEV 71962 Fluoro Time: 00:38 DAP (Gy m2):1.11 Air Kerma (mGy): 5 (Continued) Technologist: Moise Lopez RT(R) Trnscb Date/Time: 10/04/2019 (1646) t.JESUS MANUELR.ANS4 Orig Print D/T: S: 10/04/2019 (0941) PAGE 3 Signed Report- CT CHEST W/O [id number] 13:02:00 [facility] 1970 Age/S: 48 / F [address] Unit #: [id number] Loc: [place] [address] Phys: Reginaldo Fernandez MD Acct: [id number] Dis Date: Status: ADM IN PHONE #: [phone] Exam Date: 10/04/2019 1010 FAX #: Reason: f/u on pleural effusions after dialysis EXAMS: CPT: [id number] CT CHEST W/O CONTRAST 98042 Site ID: T18 CT of the Chest HISTORY: Follow-up pleural effusions post dialysis TECHNIQUE: Axial images of the chest were obtained from the thoracic inlet to the upper abdomen without intravenous contrast. CT dose lowering technique utilized, with adjustment of MA/kV according to patient size and automated exposure control. COMPARISON: CT chest 3 days ago FINDINGS: Trace residual bibasilar pleural effusions, considerably diminished in size. Effusions currently measure 1.5 cm in depth bilaterally, previously up to 4 cm in depth. Mild associated dependent basilar atelectasis remains present. No interstitial or alveolar edema or pneumonia. The thyroid gland and thoracic inlet are unremarkable. Heart and great vessels are unchanged. No axillary, mediastinal or hilar adenopathy. Visualized images of the upper abdomen demonstrate no abnormality. No rib fracture or destructive bone lesion appreciated. IMPRESSION: Trace residual bibasilar pleural effusions, considerably diminished in size. at 1302 Reported and signed by: Kam Gonzalez M.D. PAGE 1 Signed Report (CONTINUED) Name: LEODAN HIDALGO [place] : 1970 Age/S: 48 / F [address] Unit #: [id number] Loc: [place] [address] Phys: Reginaldo Fernandez MD Acct: [id number] Dis Date: Status: ADM IN PHONE #: [phone] Exam Date: 10/04/2019 1010 FAX #: Reason: f/u on pleural effusions after dialysis EXAMS: CPT: [id number] CT CHEST W/O CONTRAST 22046 (Continued) CC: Reginaldo Fernandez MD; Nica Hearn MD Technologist:Brady Chaudhary, RT(R)(CT); Radha CTDI: DLP: Trnscb Date/Time: 10/04/2019 (1302) [id number] Orig Print D/T: S: 10/04/2019 (1305) PAGE 2 Signed ReportGLUCOSE BEDSIDE [id number] 12:52:00 Test Item Value Reference Range Interpretation Comments GLUCOSE BEDSIDE TESTING (test code 112 mg/dL 70-110 H = GLUBED) GLUCOSE BEDSIDE [id number] 08:00:00 Test Item Value Reference Range Interpretation Comments GLUCOSE BEDSIDE TESTING (test code = 75 mg/dL 70-110 N GLUBED) GLUCOSE BEDSIDE [id number] 19:56:00 Test Item Value Reference Range Interpretation Comments GLUCOSE BEDSIDE TESTING (test code 134 mg/dL 70-110 H = GLUBED) GLUCOSE BEDSIDE [id number] 17:00:00 Test Item Value Reference Range Interpretation Comments GLUCOSE BEDSIDE TESTING (test code 143 mg/dL 70-110 H = GLUBED) GLUCOSE BEDSIDE [id number] 12:05:00 Test Item Value Reference Range Interpretation Comments GLUCOSE BEDSIDE TESTING (test code 164 mg/dL 70-110 H = GLUBED) AB HEPATITIS B [id number] 08:01:00 Test Item Value Reference Range Interpretation Comments AB HEPATITIS B SURFACE <3.1 mIU/mL Immunity>9.9 A Stat us of Immunity (test code = HBSAB) Anti-HBs Level --- I ncons istent with Imm unity 0.0 - 9.9Consis tent with Immunity > 9.9 AG HEPATITIS B [id number] 08:01:00 Test Item Value Reference Range Interpretation Comments AG HEPATITIS B SURFACE (test code = SCREEN NEGATIVE HBSAG) AB HEPATITIS B [id number] 08:01:00 Test Item Value Reference Range Interpretation Comments AB HEPATITIS B CORE (test code = HBCAB) AB HEPATITIS B [id number] 08:01:00 Test Item Value Reference Range Interpretation Comments AB HEPATITIS B SURFACE <3.1 mIU/mL Immunity>9.9 A Stat us of Immunity (test code = HBSAB) Anti-HBs Level --- I ncons istent with Imm unity 0.0 - 9.9Consis tent with Immunity > 9.9 AG HEPATITIS B [id number] 08:01:00 Test Item Value Reference Range Interpretation Comments AG HEPATITIS B SURFACE (test code = Negative Negative HBSAG) AB HEPATITIS B [id number] 08:01:00 Test Item Value Reference Range Interpretation Comments AB HEPATITIS B CORE (test code = HBCAB) AB HEPATITIS B [id number] 08:01:00 Test Item Value Reference Range Interpretation Comments AB HEPATITIS B SURFACE <3.1 mIU/mL Immunity>9.9 A Stat us of Immunity (test code = HBSAB) Anti-HBs Level --- I ncons istent with Imm unity 0.0 - 9.9Consis tent with Immunity > 9.9 AG HEPATITIS B [id number] 08:01:00 Test Item Value Reference Range Interpretation Comments AG HEPATITIS B SURFACE (test code = Negative Negative HBSAG) AB HEPATITIS B [id number] 08:01:00 Test Item Value Reference Range Interpretation Comments AB HEPATITIS B CORE Negative Negative Performe d At: HD (test code = HBCAB) [facility] Nrbrfew[address] [place], [place] [id number] consuelo Davalos MD Ph:[phone] BASIC METABOLIC [id number] 06:48:00 Test Item Value Reference Range Interpretation [...] CA) 6.9 MG/DL 8.5-10.1 L CBC W/AUTO [id number] 06:35:00 Test Item Value Reference Range Interpretation [...] = NO DIFF/SCN CRITERIA MDIFF) GLUCOSE BEDSIDE [id number] 21:20:00 Test Item Value Reference Range Interpretation Comments GLUCOSE BEDSIDE TESTING (test code 130 mg/dL 70-110 H = GLUBED) GLUCOSE BEDSIDE [id number] 17:25:00 Test Item Value Reference Range Interpretation Comments GLUCOSE BEDSIDE TESTING (test code 123 mg/dL 70-110 H = GLUBED) GLUCOSE BEDSIDE [id number] 12:06:00 Test Item Value Reference Range Interpretation Comments GLUCOSE BEDSIDE TESTING (test code = 74 mg/dL 70-110 N GLUBED) GLUCOSE BEDSIDE [id number] 07:53:00 Test Item Value Reference Range Interpretation Comments GLUCOSE BEDSIDE TESTING (test code 145 mg/dL 70-110 H = GLUBED) GLUCOSE BEDSIDE [id number] 06:59:00 Test Item Value Reference Range Interpretation Comments GLUCOSE BEDSIDE TESTING (test code 193 mg/dL 70-110 H = GLUBED) BASIC METABOLIC [id number] 06:25:00 Test Item Value Reference Range Interpretation [...] CA) 8.1 MG/DL 8.5-10.1 L CBC W/AUTO [id number] 06:19:00 Test Item Value Reference Range Interpretation [...] DIFF/SCN CRITERIA MDIFF) - CT CHEST W/O [id number] 23:24:00 Name: LEODAN HIDALGO [facility] : 1970 Age/S: 48 / F [address] Unit #: [id number] Loc: [place] [address] Phys: Reginaldo Fernandez MD Acct: [id number] Dis Date: Status: ADM IN PHONE #: [phone] Exam Date: 10/01/2019 6416 FAX #: Reason: abnormal chest xray EXAMS: CPT: [id number] CT CHEST W/O CONTRAST 49681 Location code: H5 CT Chest Without Contrast Indication: abnormal chest xray Comparison: Chest x-ray 10/01/2019. Technique: Axial images were obtained through [...] density and may represent small loculated effusion. Sternal retention wires. Bone unremarkable for patient age. Visualized intra-abdominal organs unremarkable. IMPRESSION: 1. Mild congestive changes are better identified on CT scan. Moderate bilateralpleural effusions are present, with small bilateral lower lobe atelectasis. 2. Prior thoracotomy. Right jugular central venous catheter tip projects over the right atrium. 3.Smoothly marginated 15 x 6 x 16 mm soft tissue density along left anterior chest wall has fluid density and may represent small loculated effusion. PAGE 1 Signed Report (CONTINUED) Name: LEODAN HIDALGO [facility] : 1970 Age/S: 48 / F [address] [address] Unit #: [id number] Loc: [place] [address] Phys: Reginaldo Fernandez Acct: [id number] Dis Date: Status: ADM IN PHONE #: [phone] Exam Date: 10/01/2019 2305 FAX #: Reason: abnormal chest xray EXAMS: CPT: [id number] CT CHEST W/O CONTRAST 79825 (Continued) at 2324 Reported and signed by: Kevin West M.D. CC: Reginaldo Fernandez MD; Nica Hearn MD Technologist:RT Delon(R)(CT); Teo CTDI: DLP: Trnscb Date/Time: 10/01/2019 (2323) t.JESUS MANUELR.DRB1 Orig Print D/T: S: 10/01/2019(1111) PAGE 2 Signed ReportGLUCOSE BEDSIDE [id number] 21:04:00 Test Item Value Reference Range Interpretation Comments GLUCOSE BEDSIDE TESTING (test code 106 mg/dL 70-110 N = GLUBED) - US GUIDANCE VASC [id number] 17:33:00 [facility] [place] [facility] 1970 Age/S: 48 / F [address] [facility] Unit #: [id number] Loc: [place] [address] Phys: Reginaldo Fernandez MD Acct: [id number] Dis Date: Status: ADM IN PHONE #: [phone] Exam Date: 10/01/2019 1720 FAX #: Reason: Dialysis catheter EXAMS: CPT: [id number] GUIDANCE VASC ACCESS 76898 EXAMINATION: NONTUNNELED CENTRAL VENOUS CATHETER PLACEMENT USING ULTRASOUND GUIDANCE. LOCATION: S17. HISTORY: MARYBEL on CKD, hyperkalemia, request is made for temporary dialysis catheter by nephrology. COMPARISON: None. SEDATION: The patient did not require conscious sedation for the procedure. TECHNIQUE: The risks, benefits and alternatives were discussed and informed consent was obtained. Prior to beginning the procedure, [place] Protocol was used to confirm the patient's [...] ultrasound. An image of the patent vessel wasrecorded and saved in PACS. After sterile prep, [...] CONDITION: Stable. FINDINGS: The post procedure chest x-ray image demonstratesthe catheter with its tip in the right atrium. No complications are seen. PAGE 1 Signed Report (TAHMINA NUZAYNAB) Name: FAYE HIDALGOA [facility] : 1970 Age/S: 48 / F [id number] [facility] Unit #: [id number] Loc: [place] [address] Phys: Reginaldo Fernandez MD Acct: [id number] Dis Date: Status: ADM IN PHONE #: [phone] Exam Date: 10/01/2019 1720 FAX #: Reason: Dialysis catheter EXAMS: CPT: [id number] US GUIDANCE VASC ACCESS [id number] (Continued) IMPRESSION: Successful nontunneled Trialysis catheter placement via the right internal jugular vein. PLAN: The catheter is ready for immediate use. Whentreatment is completed, this catheter can be removed at the bedside according to standard hospital protocol. at 1733 Reported and signed by: Zaira Woodard M.D. CC: Reginaldo Fernandez MD; Nica Hearn MD Technologist: Rosy Gresham Trnscb Date/Time: 10/01/2019 (0025) Nathan.ANS4 PAGE 2 Signed Report Name: FAYE HIDALGOA [facility] : 1970 Age/S: 48 / F [address] [address] Unit #: [id number] Loc: [place] [address] Phys: Reginaldo Fernandez MD Acct: [id number] Dis Date: Status: ADM IN PHONE #: [phone] Exam Date: 10/01/2019 1720 FAX #: Reason: Dialysis catheter EXAMS: CPT: [id number] US GUIDANCE VASCACCESS [id number] (Continued) Orig Print D/T: S: 10/01/2019 (1736) Probe: PAGE 3 Signed Report- XR CHEST 1 V 2019-10-01 17:31:00 Name: LEODAN HIDALGO [facility] : 1970 Age/S: 48 / F [id number] [address] Unit #: [id number] Loc: [place] [address] Phys: Gabriel Woodard MD Acct: [id number] Dis Date: Status: ADM IN PHONE #: [phone] Exam Date: 10/01/2019 1728 FAX #: Reason: LINE PLACEMENT EXAMS: CPT: [id number] XR CHEST 1 V 56251 Fluoro Time: DAP (Gy m2): Air Kerma [...] opacity with effusion. Pulmonary vascular congestion. at 1735 Reported and signed by: Zaira Woodard M.D. CC: Reginaldo Fernandez MD; Nica Hearn MD; Gabriel Woodard MD PAGE 1 Signed Report Name: LEODAN HIDALGO :1970 Age/S: 48 / F [id number] [address] Unit #: [id number] Loc: [place] [address] Phys: Gabriel Woodard MD Acct: [id number] Dis Date: Status: ADM IN PHONE #: [phone] Exam Date: 10/01/2019 1729 FAX #: Reason: LINE PLACEMENT EXAMS: CPT: [id number] XR CHEST 1 V 58447 Fluoro Time: DAP (Gy m2): Air Kerma (mGy): (Continued) Technologist: Carmen Waldron RT(R)(CT) Trnscb Date/Time: 10/01/2019 (173) t.JESUS MANUELR.ANS4 Orig Print D/T: S: 10/01/2019 (4171) PAGE 2 Signed [id number] 17:10:00 Test Item Value Reference Range Interpretation [...] yby method. Completed by Nursing: NOGLUCOSE BEDSIDE [id number] 16:58:00 Test Item Value Reference Range Interpretation Comments GLUCOSE BEDSIDE TESTING (test code 103 mg/dL 70-110 N = GLUBED) LACTIC [id number] 16:57:00 Test Item Value Reference Range Interpretation Comments LACTIC ACID (test code = LACT) 0.3 mmol/L 0.4-2.0 L HCG SERUM [id number] 16:56:00 Test Item Value Reference Range Interpretation Comments HCG SERUM QUAL (test SERUM NEGATIVE SCREEN NEGATIVE code = HCGQL) PROTHROMBIN [id number] 16:49:00 Test Item Value Reference Range Interpretation Comments PT PATIENT (test code = PTP) 10.7 SECONDS 9.3-12.9 N INTERNATIONAL NORMAL RATIO 0.95 INR Unit 0.8-1.2 N (test code = INR) THROMBOPLASTIN TIME [id number] 16:49:00 Test Item Value Reference Range Interpretation [...] 16 % calc 12-57 N FESAT) VITAMIN [id number] 15:18:00 Test Item Value Reference Range Interpretation Comments VITAMIN B12 (test code = VITB12) 459 PG/ML 183-986 N FOLIC [id number] 15:18:00 Test Item Value Reference Range Interpretation Comments FOLIC ACID (test code = FOL) 9.30 NG/ML 3.10-17.50 N [id number] 15:18:00 Test Item Value Reference Range Interpretation Comments FERRITIN (test code = PARUL) 86.7 NG/ML 3.0-105.0 N LACTIC [id number] 14:45:00 Test Item Value Reference Range Interpretation Comments LACTIC ACID (test code = LACT) 0.4 mmol/L 0.4-2.0 N BASIC METABOLIC [id number] 13:32:00 Test Item Value Reference Range Interpretation [...] L CA) Completed by Nursing: NOHEPATIC FUNCTION [id number] 13:32:00 Test Item Value Reference Range Interpretation [...] H code = ALKP) Completed by Nursing: [id number] 13:32:00 Test Item Value Reference Range Interpretation Comments LIPASE (test code = LIP) 138 Unit/L 114-286 N Completed by Nursing: [id number] 13:32:00 Test Item Value Reference Range Interpretation [...] Completed by Nursing: NO- XR CHEST 1 [id number] 13:31:00 Name: LEODAN HIDALGO [facility] : 1970 Age/S: 48 / F [id number] [address] Unit #: [id number] Loc: [place] [address] Phys: Tahir Tejada MD Acct: [id number] Dis Date: Status: REG ER PHONE #: [phone] Exam Date: 10/01/2019 9138 FAX #: Reason: abdominal pain EXAMS: CPT: [id number] CHEST 1 V 31382 Fluoro Time: DAP (Gy m2): Air Kerma (mGy): EXAMINATION: - XR CHEST 1 V. LOCATION:S17. HISTORY: Abdominal pain, weakness, abnormal labs. COMPARISON: [...] thoracic spine. IMPRESSION: Left lower lobe airspace opacity with effusion. Pulmonary vascular congestion. at 1331 Reported and signed by: AntkitkumarN. Vance M.D. CC: Nica Hearn MD; Tahir Tejada MD PAGE 1 Signed Report Name: LEODAN HIDALGO [facility] : 1970 Age/S: 48 / F [id number] [address] Unit #: [id number] Loc: [place] [address] Phys: Tahir Tejada MD Acct: [id number] Dis Date: Status: REG ER PHONE #: [phone] Exam Date: 10/01/2019 1305 FAX #: Reason: abdominal pain EXAMS: CPT: [id number] XR CHEST 1 V 75740 Fluoro Time: DAP (Gy m2): Air Kerma (mGy): (Continued) Technologist: Brady Chaudhary RT(R)(CT) Trnscb Date/Time: 10/01/2019 (2271) t.JESUS MANUELR.ANS4 Orig Print D/T: S: 10/01/2019 (5630) PAGE 2 Signed ReportCBC W/AUTO [id number] 13:22:00 Test Item Value Reference Range Interpretation [...] code = DIFF/SCN CRITERIA MDIFF) CBC W/AUTO [id number] 13:22:00 Test Item Value Reference Range Interpretation [...] CRITERIA MDIFF) UA RFLX MICR CULT IF [id number] 13:20:00 Test Item Value Reference Range Interpretation [...] for culture: Dysuria/FrequencyUA RFLX MICR CULT IF [id number] 13:12:00 Test Item Value Reference Range Interpretation [...] URINE: CLEAN CATCHIndication for culture: Dysuria/FrequencyGLUCOSE BEDSIDE [id number] 07:27:00 Test Item Value Reference Range Interpretation Comments GLUCOSE BEDSIDE TESTING (test code 225 mg/dL 70-110 H = GLUBED) GLUCOSE BEDSIDE [id number] 11:27:00 Test Item Value Reference Range Interpretation Comments GLUCOSE BEDSIDE TESTING (test code 187 mg/dL 70-110 H = GLUBED) GLUCOSE BEDSIDE [id number] 07:46:00 Test Item Value Reference Range Interpretation Comments GLUCOSE BEDSIDE TESTING (test code = 87 mg/dL 70-110 N GLUBED) BASIC METABOLIC [id number] 06:23:00 Test Item Value Reference Range Interpretation [...] CA) 7.3 MG/DL 8.5-10.1 L CBC W/AUTO [id number] 06:16:00 Test Item Value Reference Range Interpretation [...] = NO DIFF/SCN CRITERIA MDIFF) GLUCOSE BEDSIDE [id number] 21:18:00 Test Item Value Reference Range Interpretation Comments GLUCOSE BEDSIDE TESTING (test code 234 mg/dL 70-110 H = GLUBED) GLUCOSE BEDSIDE [id number] 17:50:00 Test Item Value Reference Range Interpretation Comments GLUCOSE BEDSIDE TESTING (test code 240 mg/dL 70-110 H = GLUBED) ANTINUCLEAR ANTIBODIES [id number] 13:09:00 Test Item Value Reference Range Interpretation Comments KIMMY TITER (test code Negative () Negati ve <1:80 = ANATITR) Borderline 1:80 Positive >1:80Performed At: [facility] [address] [id number] Davalos MD Ph:[phone] AG HEPATITIS B [id number] 13:09:00 Test Item Value Reference Range Interpretation Comments AG HEPATITIS B SURFACE Negative Negative Perfo rmed At: HD (test code = HBSAG) [facility] [address] [id number] consuelo Davalos MD Ph:[phone] AB HEPATITIS [id number] 13:09:00 Test Item Value Reference Range Interpretation Comments AB HEPATITIS C (test <0.1 0.0-0.9 INFCE R esult Units: s/co code = HCVAB) ratio Negative : < 0.8 Indeterminate: 0.8 - 0.9 Positive: > 0.9 The CDC recommends that a positive HCV antibody re sult be followed up wit h a HCV Nucleic Acid Am plification test (019691). AB DNA DOUBLE [id number] 13:09:00 Test Item Value Reference Range Interpretation Comments AB DNA DOUBLE STRAND <1 IU/mL 0-9 Negati ve <5 Equivocal 5 (test code = DNADSAB) - 9 Po sitive >9Performed At: [facility] [address] [id number] Davalos MD Ph:[phone] COMPLEMENT [id number] 13:09:00 Test Item Value Reference Range Interpretation Comments COMPLEMENT C3 (test 107 mg/dL 82-167 Performe d At: HD code = COMC3) [facility] [address] [place] [id number] Davalos MD Ph:[phone] COMPLEMENT [id number] 13:09:00 Test Item Value Reference Range Interpretation Comments COMPLEMENT C4 (test code = COMC4) 40 mg/dL 14-44 GLUCOSE BEDSIDE [id number] 11:55:00 Test Item Value Reference Range Interpretation Comments GLUCOSE BEDSIDE TESTING (test code 131 mg/dL 70-110 H = GLUBED) ANTINUCLEAR ANTIBODIES [id number] 10:09:00 Test Item Value Reference Range Interpretation Comments KIMMY TITER (test code = ANATITR) AG HEPATITIS B [id number] 10:09:00 Test Item Value Reference Range Interpretation Comments AG HEPATITIS B SURFACE Negative Negative Perfo rmed At: (test code = HBSAG) [facility] [address] [id number] consuelo Davalos MD Ph:[phone] AB HEPATITIS [id number] 10:09:00 Test Item Value Reference Range Interpretation Comments AB HEPATITIS C (test <0.1 0.0-0.9 INFCE R esult Units: s/co code = HCVAB) ratio Negative : < 0.8 Indeterminate: 0.8 - 0.9 Positive: > 0.9 The CDC recommends that a positive HCV antibody re sult be followed up wit h a HCV Nucleic Acid Am plification test (603348). AB DNA DOUBLE [id number] 10:09:00 Test Item Value Reference Range Interpretation Comments AB DNA DOUBLE STRAND <1 IU/mL 0-9 Negati ve <5 Equivocal 5 (test code = DNADSAB) - 9 Po sitive >9Performed At: [facility] [address] [id number] Davalos MD Ph:[phone] COMPLEMENT [id number] 10:09:00 Test Item Value Reference Range Interpretation Comments COMPLEMENT C3 (test 107 mg/dL 82-167 Performe d At: HD code = COMC3) [facility] [address] [place], [place] [id number] Davalos MD Ph:[phone] COMPLEMENT [id number] 10:09:00 Test Item Value Reference Range Interpretation Comments COMPLEMENT C4 (test code = COMC4) 40 mg/dL 14-44 GLUCOSE BEDSIDE [id number] 08:47:00 Test Item Value Reference Range Interpretation Comments GLUCOSE BEDSIDE TESTING (test code 176 mg/dL 70-110 H = GLUBED) CBC W/AUTO [id number] 08:10:00 Test Item Value Reference Range Interpretation [...] DIFF REQUIRED NO DIFF/SCN CRITERIA SLIDE R EVIEW (test code = MDIFF) CONSISTA NT WITH AUTO DIFFERENTIAL. CBC W/AUTO [id number] 07:03:00 Test Item Value Reference Range Interpretation [...] code = DIFF/SCN CRITERIA MDIFF) BASIC METABOLIC [id number] 06:35:00 Test Item Value Reference Range Interpretation [...] CA) 7.1 MG/DL 8.5-10.1 L GLUCOSE BEDSIDE [id number] 20:32:00 Test Item Value Reference Range Interpretation Comments GLUCOSE BEDSIDE TESTING (test code 365 mg/dL 70-110 H = GLUBED) GLUCOSE BEDSIDE [id number] 17:32:00 Test Item Value Reference Range Interpretation Comments GLUCOSE BEDSIDE TESTING (test code 373 mg/dL 70-110 H = GLUBED) GLUCOSE BEDSIDE [id number] 12:45:00 Test Item Value Reference Range Interpretation Comments GLUCOSE BEDSIDE TESTING (test code 225 mg/dL 70-110 H = GLUBED) UA RFLX MICR CULT IF [id number] 11:09:00 Test Item Value Reference Range Interpretation [...] Criteria Indication for culture: Suprapubic PainUR SODIUM [id number] 11:09:00 Test Item Value Reference Range Interpretation Comments UR SODIUM RANDOM 57 MEQ/L () The Referen ce Range and (test code = FÉLIX) Method Per formance specificationsh ave not been established for this fluid. The test result should be correlated into the clinical context forinte rpretation. Indication for culture: Suprapubic PainUR POTASSIUM [id number] 11:09:00 Test Item Value Reference Range Interpretation Comments UR POTASSIUM 23.2 MEQ/L () The Reference R santos and RANDOM (test code Method Per formance = KU) specificationsh ave not been establishe d for this fluid. The test resultshould be correlated into the clinic al context forinterpretati on. Indication for culture: Suprapubic PainUR CHLORIDE [id number] 11:09:00 Test Item Value Reference Range Interpretation Comments UR CHLORIDE RANDOM 43 mmol/L Not Estab. Performed At: HD (test code = CLU) [facility] [address] [place], [place] [id number] consuelo Davalos MD Ph:[phone] Indication for culture: Suprapubic PainUR PROTEIN [id number] 11:09:00 Test Item Value Reference Range Interpretation Comments UR PROTEIN TOTAL (test code = 494.1 MG/DL 0.0-12.0 H PROTU) Indication for culture: Suprapubic PainUR CREATININE [id number] 11:09:00 Test Item Value Reference Range Interpretation Comments UR CREATININE RANDOM (test code = 68.7 MG/DL 30-125 N CREATU) Indication for culture: Suprapubic PainUR OSMOLALITY [id number] 11:09:00 Test Item Value Reference Range Interpretation Comments UR OSMOLALITY RANDOM (test code = 349 MOS/KG 390-1090 L OSMOU) Indication for culture: Suprapubic PainANTINUCLEAR ANTIBODIES [id number] 09:09:00 Test Item Value Reference Range Interpretation Comments KIMMY TITER (test code = ANATITR) AG HEPATITIS B [id number] 09:09:00 Test Item Value Reference Range Interpretation Comments AG HEPATITIS B SURFACE Negative Negative Perfo rmed At: HD (test code = HBSAG) [facility] [address] [place], [place] [id number] consuelo Davalos MD Ph:[phone] AB HEPATITIS [id number] 09:09:00 Test Item Value Reference Range Interpretation Comments AB HEPATITIS C (test <0.1 0.0-0.9 INFCE R esult Units: s/co code = HCVAB) ratio Negative : < 0.8 Indeterminate: 0.8 - 0.9 Positive: > 0.9 The CDC recommends that a positive HCV antibody re sult be followed up wit h a HCV Nucleic Acid Am plification test (704426). AB DNA DOUBLE [id number] 09:09:00 Test Item Value Reference Range Interpretation Comments AB DNA DOUBLE STRAND (test code = DNADSAB) COMPLEMENT [id number] 09:09:00 Test Item Value Reference Range Interpretation Comments COMPLEMENT C3 (test code = COMC3) COMPLEMENT [id number] 09:09:00 Test Item Value Reference Range Interpretation Comments COMPLEMENT C4 (test code = COMC4) 40 mg/dL 14-44 ANTINUCLEAR ANTIBODIES [id number] 09:09:00 Test Item Value Reference Range Interpretation Comments KIMMY TITER (test code = ANATITR) AG HEPATITIS B [id number] 09:09:00 Test Item Value Reference Range Interpretation Comments AG HEPATITIS B SURFACE Negative Negative Perfo rmed At: HD (test code = HBSAG) [facility] [address] [id number] consuelo Davalos MD Ph:[phone] AB HEPATITIS [id number] 09:09:00 Test Item Value Reference Range Interpretation Comments AB HEPATITIS C (test <0.1 0.0-0.9 INFCE R esult Units: s/co code = HCVAB) ratio Negative : < 0.8 Indeterminate: 0.8 - 0.9 Positive: > 0.9 The CDC recommends that a positive HCV antibody re sult be followed up wit h a HCV Nucleic Acid Am plification test (031303). AB DNA DOUBLE [id number] 09:09:00 Test Item Value Reference Range Interpretation Comments AB DNA DOUBLE STRAND (test code = DNADSAB) COMPLEMENT [id number] 09:09:00 Test Item Value Reference Range Interpretation Comments COMPLEMENT C3 (test 107 mg/dL 82-167 Performe d At: HD code = COMC3) [facility] [address] [place], [place] [id number] Kyle L MD Ph:[phone] COMPLEMENT [id number] 09:09:00 Test Item Value Reference Range Interpretation Comments COMPLEMENT C4 (test code = COMC4) 40 mg/dL 14-44 GLUCOSE BEDSIDE [id number] 08:18:00 Test Item Value Reference Range Interpretation Comments GLUCOSE BEDSIDE TESTING (test code = 85 mg/dL 70-110 N GLUBED) BASIC METABOLIC [id number] 07:29:00 Test Item Value Reference Range Interpretation [...] CA) 7.6 MG/DL 8.5-10.1 L ANTINUCLEAR ANTIBODIES [id number] 07:12:00 Test Item Value Reference Range Interpretation Comments KIMMY TITER (test code = ANATITR) AG HEPATITIS B [id number] 07:12:00 Test Item Value Reference Range Interpretation Comments AG HEPATITIS B SURFACE (test code = SCREEN NEGATIVE HBSAG) AB HEPATITIS [id number] 07:12:00 Test Item Value Reference Range Interpretation Comments AB HEPATITIS C (test <0.1 0.0-0.9 INFCE R esult Units: s/co code = HCVAB) ratio Negative : < 0.8 Indeterminate: 0.8 - 0.9 Positive: > 0.9 The CDC recommends that a positive HCV antibody re sult be followed up wit h a HCV Nucleic Acid Am plification test (573425). AB DNA DOUBLE [id number] 07:12:00 Test Item Value Reference Range Interpretation Comments AB DNA DOUBLE STRAND (test code = DNADSAB) COMPLEMENT [id number] 07:12:00 Test Item Value Reference Range Interpretation Comments COMPLEMENT C3 (test code = COMC3) COMPLEMENT [id number] 07:12:00 Test Item Value Reference Range Interpretation Comments COMPLEMENT C4 (test code = COMC4) ANTINUCLEAR ANTIBODIES [id number] 07:12:00 Test Item Value Reference Range Interpretation Comments KIMMY TITER (test code = ANATITR) AG HEPATITIS B [id number] 07:12:00 Test Item Value Reference Range Interpretation Comments AG HEPATITIS B SURFACE Negative Negative Perfo rmed At: HD (test code = HBSAG) [facility] [address] [place], [place] [id number] consuelo Davalos MD Ph:[phone] AB HEPATITIS [id number] 07:12:00 Test Item Value Reference Range Interpretation Comments AB HEPATITIS C (test <0.1 0.0-0.9 INFCE R esult Units: s/co code = HCVAB) ratio Negative : < 0.8 Indeterminate: 0.8 - 0.9 Positive: > 0.9 The CDC recommends that a positive HCV antibody re sult be followed up wit h a HCV Nucleic Acid Am plification test (621422). AB DNA DOUBLE [id number] 07:12:00 Test Item Value Reference Range Interpretation Comments AB DNA DOUBLE STRAND (test code = DNADSAB) COMPLEMENT [id number] 07:12:00 Test Item Value Reference Range Interpretation Comments COMPLEMENT C3 (test code = COMC3) COMPLEMENT [id number] 07:12:00 Test Item Value Reference Range Interpretation Comments COMPLEMENT C4 (test code = COMC4) CBC W/AUTO [id number] 07:10:00 Test Item Value Reference Range Interpretation [...] = NO DIFF/SCN CRITERIA MDIFF) GLUCOSE BEDSIDE [id number] 19:52:00 Test Item Value Reference Range Interpretation Comments GLUCOSE BEDSIDE TESTING (test code 258 mg/dL 70-110 H = GLUBED) GLUCOSE BEDSIDE [id number] 17:02:00 Test Item Value Reference Range Interpretation Comments GLUCOSE BEDSIDE TESTING (test code 233 mg/dL 70-110 H = GLUBED) GLUCOSE BEDSIDE [id number] 08:27:00 Test Item Value Reference Range Interpretation Comments GLUCOSE BEDSIDE TESTING (test code 119 mg/dL 70-110 H = GLUBED) BASIC METABOLIC [id number] 07:28:00 Test Item Value Reference Range Interpretation [...] = CA) 8.1 MG/DL 8.5-10.1 L URINALYSIS [id number] 03:12:00 Test Item Value Reference Range Interpretation [...] LEUU) Urine Specimen Type: Clean CatchUR SODIUM [id number] 03:12:00 Test Item Value Reference Range Interpretation Comments UR SODIUM RANDOM 83 MEQ/L () The Referen ce Range and (test code = FÉLIX) Method Per formance specificationsh ave not been established for this fluid. The test result should be correlated into the clinical context forinte rpretation. Urine Specimen Type: Clean CatchUR PROTEIN [id number] 03:12:00 Test Item Value Reference Range Interpretation Comments UR PROTEIN TOTAL (test code = 384.6 MG/DL 0.0-12.0 H PROTU) Urine Specimen Type: Clean CatchUR CREATININE [id number] 03:12:00 Test Item Value Reference Range Interpretation Comments UR CREATININE RANDOM (test code = 54.0 MG/DL 30-125 N CREATU) Urine Specimen Type: Clean CatchUR OSMOLALITY [id number] 03:12:00 Test Item Value Reference Range Interpretation Comments UR OSMOLALITY RANDOM (test code = 362 MOS/KG 390-1090 L OSMOU) Urine Specimen Type: Clean CatchUR SODIUM [id number] 03:12:00 Test Item Value Reference Range Interpretation Comments UR SODIUM RANDOM 83 MEQ/L The Referen ce Range and (test code = FÉLIX) Method Per formance specificationsh ave not been established for this fluid. The test result should be correlated into the clinical context forinte rpretation. Urine Specimen Type: Clean CatchUR OSMOLALITY [id number] 03:12:00 Test Item Value Reference Range Interpretation Comments UR OSMOLALITY RANDOM (test code = 362 MOS/KG 390-1090 L OSMOU) Urine Specimen Type: Clean CatchUA RFLX MICR CULT IF [id number] 03:11:00 Test Item Value Reference Range Interpretation [...] Criteria Indication for culture: Suprapubic PainUR SODIUM [id number] 03:11:00 Test Item Value Reference Range Interpretation Comments UR SODIUM RANDOM 57 MEQ/L () The Referen ce Range and (test code = FÉLIX) Method Per formance specificationsh ave not been established for this fluid. The test result should be correlated into the clinical context forinte rpretation. Indication for culture: Suprapubic PainUR POTASSIUM [id number] 03:11:00 Test Item Value Reference Range Interpretation Comments UR POTASSIUM 23.2 MEQ/L () The Reference R santos and RANDOM (test code Method Per formance = KU) specificationsh ave not been establishe d for this fluid. The test resultshould be correlated into the clinic al context forinterpretati on. Indication for culture: Suprapubic PainUR CHLORIDE [id number] 03:11:00 Test Item Value Reference Range Interpretation Comments UR CHLORIDE RANDOM (test code = CLU) mmol/L >10 Indication for culture: Suprapubic PainUR PROTEIN [id number] 03:11:00 Test Item Value Reference Range Interpretation Comments UR PROTEIN TOTAL (test code = 494.1 MG/DL 0.0-12.0 H PROTU) Indication for culture: Suprapubic PainUR CREATININE [id number] 03:11:00 Test Item Value Reference Range Interpretation Comments UR CREATININE RANDOM (test code = 68.7 MG/DL 30-125 N CREATU) Indication for culture: Suprapubic PainUR OSMOLALITY [id number] 03:11:00 Test Item Value Reference Range Interpretation Comments UR OSMOLALITY RANDOM (test code = 349 MOS/KG 390-1090 L OSMOU) Indication for culture: Suprapubic PainUR SODIUM [id number] 03:11:00 Test Item Value Reference Range Interpretation Comments UR SODIUM RANDOM 57 MEQ/L The Referen ce Range and (test code = FÉLIX) Method Per formance specificationsh ave not been established for this fluid. The test result should be correlated into the clinical context forinte rpretation. Indication for culture: Suprapubic PainUR POTASSIUM [id number] 03:11:00 Test Item Value Reference Range Interpretation Comments UR POTASSIUM 23.2 MEQ/L The Reference R santos and RANDOM (test code Method Per formance = KU) specificationsh ave not been establishe d for this fluid. The test resultshould be correlated into the clinic al context forinterpretati on. Indication for culture: Suprapubic PainUR OSMOLALITY [id number] 03:11:00 Test Item Value Reference Range Interpretation Comments UR OSMOLALITY RANDOM (test code = 349 MOS/KG 390-1090 L OSMOU) Indication for culture: Suprapubic PainUA RFLX MICR CULT IF [id number] 02:57:00 Test Item Value Reference Range Interpretation [...] Criteria Indication for culture: Suprapubic PainUR SODIUM [id number] 02:57:00 Test Item Value Reference Range Interpretation Comments UR SODIUM RANDOM (test code = FÉLIX) MEQ/L Indication for culture: Suprapubic PainUR POTASSIUM [id number] 02:57:00 Test Item Value Reference Range Interpretation Comments UR POTASSIUM RANDOM (test code = KU) mmol/L >0 Indication for culture: Suprapubic PainUR CHLORIDE [id number] 02:57:00 Test Item Value Reference Range Interpretation Comments UR CHLORIDE RANDOM (test code = CLU) mmol/L >10 Indication for culture: Suprapubic PainUR PROTEIN [id number] 02:57:00 Test Item Value Reference Range Interpretation Comments UR PROTEIN TOTAL (test code = 494.1 MG/DL 0.0-12.0 H PROTU) Indication for culture: Suprapubic PainUR CREATININE [id number] 02:57:00 Test Item Value Reference Range Interpretation Comments UR CREATININE RANDOM (test code = 68.7 MG/DL 30-125 N CREATU) Indication for culture: Suprapubic PainUR OSMOLALITY [id number] 02:57:00 Test Item Value Reference Range Interpretation Comments UR OSMOLALITY RANDOM (test code = 349 MOS/KG 390-1090 L OSMOU) Indication for culture: Suprapubic PainUR SODIUM [id number] 02:57:00 Test Item Value Reference Range Interpretation Comments UR SODIUM RANDOM (test code = FÉLIX) MEQ/L Indication for culture: Suprapubic PainUR POTASSIUM [id number] 02:57:00 Test Item Value Reference Range Interpretation Comments UR POTASSIUM RANDOM (test code = KU) MEQ/L Indication for culture: Suprapubic PainUR OSMOLALITY [id number] 02:57:00 Test Item Value Reference Range Interpretation Comments UR OSMOLALITY RANDOM (test code = 349 MOS/KG 390-1090 L OSMOU) Indication for culture: Suprapubic PainURINALYSIS [id number] 02:56:00 Test Item Value Reference Range Interpretation [...] LEUU) Urine Specimen Type: Clean CatchUR SODIUM [id number] 02:56:00 Test Item Value Reference Range Interpretation Comments UR SODIUM RANDOM (test code = FÉLIX) MEQ/L Urine Specimen Type: Clean CatchUR PROTEIN [id number] 02:56:00 Test Item Value Reference Range Interpretation Comments UR PROTEIN TOTAL (test code = 384.6 MG/DL 0.0-12.0 H PROTU) Urine Specimen Type: Clean CatchUR CREATININE [id number] 02:56:00 Test Item Value Reference Range Interpretation Comments UR CREATININE RANDOM (test code = 54.0 MG/DL 30-125 N CREATU) Urine Specimen Type: Clean CatchUR OSMOLALITY [id number] 02:56:00 Test Item Value Reference Range Interpretation Comments UR OSMOLALITY RANDOM (test code = 362 MOS/KG 390-1090 L OSMOU) Urine Specimen Type: Clean CatchUR SODIUM [id number] 02:56:00 Test Item Value Reference Range Interpretation Comments UR SODIUM RANDOM (test code = FÉLIX) MEQ/L Urine Specimen Type: Clean CatchUR OSMOLALITY [id number] 02:56:00 Test Item Value Reference Range Interpretation Comments UR OSMOLALITY RANDOM (test code = 362 MOS/KG 390-1090 L OSMOU) Urine Specimen Type: Clean CatchGLUCOSE BEDSIDE [id number] 22:36:00 Test Item Value Reference Range Interpretation Comments GLUCOSE BEDSIDE TESTING (test code 204 mg/dL 70-110 H = GLUBED) UA RFLX MICR CULT IF [id number] 22:05:00 Test Item Value Reference Range Interpretation [...] Criteria Indication for culture: Suprapubic PainUR SODIUM [id number] 22:05:00 Test Item Value Reference Range Interpretation Comments UR SODIUM RANDOM (test code = FÉLIX) MEQ/L Indication for culture: Suprapubic PainUR POTASSIUM [id number] 22:05:00 Test Item Value Reference Range Interpretation Comments UR POTASSIUM RANDOM (test code = KU) mmol/L >0 Indication for culture: Suprapubic PainUR CHLORIDE [id number] 22:05:00 Test Item Value Reference Range Interpretation Comments UR CHLORIDE RANDOM (test code = CLU) mmol/L >10 Indication for culture: Suprapubic PainUR PROTEIN [id number] 22:05:00 Test Item Value Reference Range Interpretation Comments UR PROTEIN TOTAL (test code = 494.1 MG/DL 0.0-12.0 H PROTU) Indication for culture: Suprapubic PainUR CREATININE [id number] 22:05:00 Test Item Value Reference Range Interpretation Comments UR CREATININE RANDOM (test code = 68.7 MG/DL 30-125 N CREATU) Indication for culture: Suprapubic PainUR OSMOLALITY [id number] 22:05:00 Test Item Value Reference Range Interpretation Comments UR OSMOLALITY RANDOM (test code = MMO/KG 500-800 OSMOU) Indication for culture: Suprapubic PainUA RFLX MICR CULT IF [id number] 21:57:00 Test Item Value Reference Range Interpretation [...] Criteria Indication for culture: Suprapubic PainUR SODIUM [id number] 21:57:00 Test Item Value Reference Range Interpretation Comments UR SODIUM RANDOM (test code = FÉLIX) MEQ/L Indication for culture: Suprapubic PainUR POTASSIUM [id number] 21:57:00 Test Item Value Reference Range Interpretation Comments UR POTASSIUM RANDOM (test code = KU) mmol/L >0 Indication for culture: Suprapubic PainUR CHLORIDE [id number] 21:57:00 Test Item Value Reference Range Interpretation Comments UR CHLORIDE RANDOM (test code = CLU) mmol/L >10 Indication for culture: Suprapubic PainUR PROTEIN [id number] 21:57:00 Test Item Value Reference Range Interpretation Comments UR PROTEIN TOTAL (test code = PROTU) MG/DL 0.0-12.0 Indication for culture: Suprapubic PainUR CREATININE [id number] 21:57:00 Test Item Value Reference Range Interpretation Comments UR CREATININE RANDOM (test code = MG/DL 30-125 CREATU) Indication for culture: Suprapubic PainUR OSMOLALITY [id number] 21:57:00 Test Item Value Reference Range Interpretation Comments UR OSMOLALITY RANDOM (test code = MMO/KG 500-800 OSMOU) Indication for culture: Suprapubic PainUA RFLX MICR CULT IF [id number] 21:47:00 Test Item Value Reference Range Interpretation [...] UACULT) Indication for culture: Suprapubic PainUR SODIUM [id number] 21:47:00 Test Item Value Reference Range Interpretation Comments UR SODIUM RANDOM (test code = FÉLIX) MEQ/L Indication for culture: Suprapubic PainUR POTASSIUM [id number] 21:47:00 Test Item Value Reference Range Interpretation Comments UR POTASSIUM RANDOM (test code = KU) mmol/L >0 Indication for culture: Suprapubic PainUR CHLORIDE [id number] 21:47:00 Test Item Value Reference Range Interpretation Comments UR CHLORIDE RANDOM (test code = CLU) mmol/L >10 Indication for culture: Suprapubic PainUR PROTEIN [id number] 21:47:00 Test Item Value Reference Range Interpretation Comments UR PROTEIN TOTAL (test code = PROTU) MG/DL 0.0-12.0 Indication for culture: Suprapubic PainUR CREATININE [id number] 21:47:00 Test Item Value Reference Range Interpretation Comments UR CREATININE RANDOM (test code = MG/DL 30-125 CREATU) Indication for culture: Suprapubic PainUR OSMOLALITY [id number] 21:47:00 Test Item Value Reference Range Interpretation Comments UR OSMOLALITY RANDOM (test code = MMO/KG 500-800 OSMOU) Indication for culture: Suprapubic PainCOMPREHENSIVE METABOLIC [id number] 19:57:00 Test Item Value Reference Range Interpretation [...] N CK) Comment: monitor kidney functionGLUCOSE BEDSIDE [id number] 17:01:00 Test Item Value Reference Range Interpretation Comments GLUCOSE BEDSIDE TESTING (test code 143 mg/dL 70-110 H = GLUBED) - US RETROPERITONEAL [id number] 15:28:00 Name: LEODAN HIDALGO [facility] : 1970 Age/S: 48 / F [id number] Unit #: [id number] Loc: [place] [address] Phys: Zaid Allen MD Acct: [id number] Dis Date: Status: ADM IN PHONE #: [phone] Exam Date: 04/16/2019 1505 FAX #: Reason: Acute kidney injury EXAMS: CPT: [id number] US RETROPERITONEAL COM [id number] Site ID: [id number] EXAMINATION: - US RETROPERITONEAL COM. HISTORY: Acute kidney injury COMPARISON: None. TECHNIQUE: Routine renal ultrasound was performed. FINDINGS: Theright kidney measures 10 cm, and the left kidney measures 10.1 cm in length. Cortical echogenicity is increased suggestive of parenchymal renal disease.. No hydronephrosis. Incidental note of gallbladder stones with borderline gallbladder wall thickness seen. This could relate to mild chronic cholecyst itis. The urinary bladder appears unremarkable. IMPRESSION: 1. No hydronephrosis. 2. Gallbladder stones with suggestion of mild chronic cholecystitis. at 1528 Reported and signed by: Christopher Durham MD CC: Zaid Veronica MD; Nacho Brennan MD; Nica Hearn MD Technologist: Gracie Gaspar, RT(R),RDMS(AB) PAGE 1 Signed Report Name: LEODAN HIDALGO [facility] : 1970 Age/S: 48 / F [id number] Unit #: [id number] Loc: [place] [address] Phys: Zaid Allen MD Acct: [id number] Dis Date: Status: ADM IN PHONE #: [phone] Exam Date: 04/16/2019 1505 FAX #: Reason: Acute kidney injury EXAMS: CPT: [id number] [employer] [facility] [id number] (Continued) Trnscb Date/Time: 04/16/2019 (1528) Natalio PAGE 2 Signed ReportGLUCOSE BEDSIDE [id number] 12:53:00 Test Item Value Reference Range Interpretation Comments GLUCOSE BEDSIDE TESTING (test code 140 mg/dL 70-110 H = GLUBED) URINALYSIS [id number] 10:24:00 Test Item Value Reference Range Interpretation [...] LEUU) Urine Specimen Type: Clean CatchUR SODIUM [id number] 10:24:00 Test Item Value Reference Range Interpretation Comments UR SODIUM RANDOM (test code = FÉLIX) MEQ/L Urine Specimen Type: Clean CatchUR PROTEIN [id number] 10:24:00 Test Item Value Reference Range Interpretation Comments UR PROTEIN TOTAL (test code = 384.6 MG/DL 0.0-12.0 H PROTU) Urine Specimen Type: Clean CatchUR CREATININE [id number] 10:24:00 Test Item Value Reference Range Interpretation Comments UR CREATININE RANDOM (test code = 54.0 MG/DL 30-125 N CREATU) Urine Specimen Type: Clean CatchUR OSMOLALITY [id number] 10:24:00 Test Item Value Reference Range Interpretation Comments UR OSMOLALITY RANDOM (test code = MMO/KG 500-800 OSMOU) Urine Specimen Type: Clean CatchURINALYSIS [id number] 10:05:00 Test Item Value Reference Range Interpretation [...] LEUU) Urine Specimen Type: Clean CatchUR SODIUM [id number] 10:05:00 Test Item Value Reference Range Interpretation Comments UR SODIUM RANDOM (test code = FÉLIX) MEQ/L Urine Specimen Type: Clean CatchUR PROTEIN [id number] 10:05:00 Test Item Value Reference Range Interpretation Comments UR PROTEIN TOTAL (test code = PROTU) MG/DL 0.0-12.0 Urine Specimen Type: Clean CatchUR CREATININE [id number] 10:05:00 Test Item Value Reference Range Interpretation Comments UR CREATININE RANDOM (test code = MG/DL 30-125 CREATU) Urine Specimen Type: Clean CatchUR OSMOLALITY [id number] 10:05:00 Test Item Value Reference Range Interpretation Comments UR OSMOLALITY RANDOM (test code = MMO/KG 500-800 OSMOU) Urine Specimen Type: Clean CatchGLUCOSE BEDSIDE [id number] 10:02:00 Test Item Value Reference Range Interpretation Comments GLUCOSE BEDSIDE TESTING (test code 138 mg/dL 70-110 H = GLUBED) [id number] 09:40:00 Test Item Value Reference Range Interpretation [...] yby method. Completed by Nursing: NOBASIC METABOLIC [id number] 07:19:00 Test Item Value Reference Range Interpretation [...] 7.9 MG/DL 8.5-10.1 L Completed by Nursing: [id number] 07:19:00 Test Item Value Reference Range Interpretation [...] yby method. Completed by Nursing: NOCBC W/AUTO [id number] 06:57:00 Test Item Value Reference Range Interpretation [...] = NO DIFF/SCN CRITERIA MDIFF) GLUCOSE BEDSIDE [id number] 00:50:00 Test Item Value Reference Range Interpretation Comments GLUCOSE BEDSIDE TESTING (test code 154 mg/dL 70-110 H = GLUBED)
--- NOTE | 2022-03-04 22:10 | EDPHYS ---
Physician Documentation [facility] Name: Hallie Hidalgo Age: 51 yrs Sex: Female : 1970 Arrival Date: 03/04/2022 Time: 21:15 Bed 16 Private MD: ED Physician Roderick Shen HPI: 03/04 21:38 This 51 yrs old Female presents to ER via Ambulatory with complaints of ms3 Abdominal Pain, Rectal Bleeding. 21:38 51-year-old female with past medical history of liver cirrhosis, insulin-dependent ms3 diabetes mellitus, end-stage renal disease with dialysis on Monday and Monday, stomach ulcers, hypertension, myocardial infarction, status post CABG presents for upper abdominal pain and rectal bleeding that began this morning at 1:15 AM. Patient states she had abdominal pain yesterday and took Kaopectate. Patient states Kaopectate resolved the pain. Patient states her pain is currently a 4/10 located in the upper abdomen, and described as being tight. Patient states she has not had the symptoms prior. Patient states bleeding began at 1:15 AM. Patient then attended dialysis and the bleeding began again this evening. Patient denies fevers, chills, nausea, vomiting. Patient denies alleviating or inciting factors. 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 Last tetanus immunization: up to date. - Social history:: Smoking status: Patient denies any tobacco usage or history of. ROS: 21:38 Constitutional: Negative for fever, and chills. Neck: Negative for injury, pain, and ms3 swelling, Cardiovascular: Negative for chest pain, and palpitations. Respiratory: Negative for shortness of breath, cough, wheezing, and pleuritic chest pain. 21:38 Skin: Negative for injury, rash, and discoloration, Neuro: Negative for headache, weakness, numbness, tingling. Hematologic/Lymphatic: Negative for swollen nodes, abnormal bleeding, and unusual bruising. 21:38 Abdomen/GI: Positive for abdominal pain, rectal bleeding. 21:38 All other systems are negative. Exam: 21:38 Constitutional: This is a well developed, well nourished patient who is awake, alert, ms3 and in no acute distress. Eyes: Pupils equal round and reactive to light, extra-ocular motions intact. Lids and lashes normal. Conjunctiva and sclera are non-icteric and not injected. Periorbital areas with no swelling, redness, or edema. ENT: Nares patent. No nasal discharge, no septal abnormalities noted. Tympanic membranes are normal and external auditory canals are clear. Oropharynx with no redness, swelling, or masses, exudates, or evidence of obstruction, uvula midline. Mucous membranes moist. Neck: Trachea midline, no cervical lymphadenopathy. Supple, full range of motion without nuchal rigidity, or vertebral point tenderness. No Meningismus. Chest/axilla: Normal chest wall appearance and motion. Nontender with no deformity. Cardiovascular: Regular rate and rhythm with a normal S1 and S2. No gallops, murmurs, or rubs. Normal PMI, no JVD. No pulse deficits. Respiratory: Lungs have equal breath sounds bilaterally, clear to auscultation and percussion. No rales, rhonchi or wheezes noted. No increased work of breathing, no retractions or nasal flaring. Skin: Warm, dry with normal turgor. Normal color with no rashes, no lesions, and no evidence of cellulitis. MS/ Extremity: Pulses equal, no cyanosis. Neurovascular intact. Full, normal range of motion. Neuro: Awake and alert, GCS 15, oriented to person, place, time, and situation. Cranial nerves II-XII grossly intact. Motor strength 5/5 in all extremities. Sensory grossly intact. Cerebellar exam normal. Normal gait. Psych: Awake, alert, with orientation to person, place and time. Behavior, mood, and affect are within normal limits. 22:05 : Rectal exam: Rectal tone: normal, Guaiac testing: Tech- Rupinder. ms3 Vital Signs: 21:23 Pulse 66; Resp 18; Pulse Ox 100% ; Weight 50.35 kg; Height 5 ft. 0 in. (152.40 cm); tw5 21:31 BP 214 / 67; tw5 22:35 BP 205 / 65; Pulse 62; Resp 14 S; Pulse Ox 93% on R/A; bb 23:19 BP 206 / 67; Pulse 63; Resp 16 S; Pulse Ox 96% on R/A; bb 03/05 00:35 BP 210 / 69; Pulse 61; Resp 14 S; Pulse Ox 93% on R/A; bb 01:05 BP 194 / 59; Pulse 61; Resp 18 S; Pulse Ox 93% on R/A; bb 01:48 BP 195 / 72; Pulse 60; Resp 16 S; Pulse Ox 94% on R/A; bb 03/04 21:23 Body Mass Index 21.68 (50.35 kg, 152.40 cm) tw5 MDM: 03/04 21:36 Patient medically screened. ms3 21:38 Differential diagnosis: hemorrhoids, PUD vs Diverticulitis. ms3 22:41 ED course: Patient requests transfer to [facility] as she has been there previously.. ms3 03/05 00:31 ED course: Only [facility] facility available in [place]. Patient requesting [facility]. ms3 Discussed case with Dr Gonzalez at [facility] in [place]. He accepts patient. Discussed acceptance with patient.. 00:32 Data reviewed: vital signs, nurses notes, lab test result(s), radiologic studies, CT ms3 scan. Data interpreted: pvc monitor: rate is 61 beats/min, rhythm is normal sinus rhythm, regular, with no ectopy, Interpretation: normal rate, normal rhythm, Pulse oximetry: on room air is 98 %. Interpretation: normal. Counseling: I had a detailed discussion with the patient and/or guardian regarding: the historical points, exam findings, and any diagnostic results supporting the discharge/admit diagnosis, lab results, radiology results, the need to transfer to another facility, [facility] does not immediately have the required specialist. 03/04 21:37 Order name: CBC with Diff; Complete Time: 22:26 ms3 03/04 21:37 Order name: CMP; Complete Time: 00:16 ms3 03/04 21:37 Order name: Lipase; Complete Time: 00:16 ms3 03/04 22:56 Order name: SARS-COV-2 Antigen Rapid wm 03/04 23:34 Order name: PT-INR ms3 03/04 21:37 Order name: CT Abd/Pelvis - Without Contrast; Complete Time: 22:41 ms3 03/04 21:37 Order name: IV Saline Lock; Complete Time: 22:05 ms3 03/04 21:37 Order name: Labs collected and sent; Complete Time: 22:06 ms3 Administered Medications: 03/04 22:31 Drug: Zofran (Ondansetron) 4 mg Route: IVP; Site: left forearm; marlena 23:30 Follow up: Response: No adverse reaction marlena 03/05 00:06 Not Given (Physician Discretion): cloNIDine 0.1 mg PO once ms3 Disposition Summary: 03/04/22 22:09 Transfer Ordered Reason: Higher level of care ms3 Condition: Fair ms3 Problem: new ms3 Symptoms: are unchanged ms3 [facility] 00[facility]49) ms3 Accepting Physician: Dr Gonzalez(03/05/22 01:49) marlena Diagnosis - GI Bleed/ Gastrointestinal hemorrhage, unspecified ms3 - Upper abdominal pain, unspecified ms3 - End stage renal disease ms3 Forms: - Medication Reconciliation Form ms3 - SBAR form ms3 Signatures: Dispatcher [employer] EDKrys Churchill, RN RN Roderick Tompkins DO DO ms3 Mynor Vaishnavi tw5 Corrections: (The following items were deleted from the chart) 03/04 21:29 21:27 Allergies: No Known Allergies; tw5 tw5 21:29 21:27 Allergies: ESRD-dialysis MWF; tw5 tw5 21:29 21:27 Allergies: IDDM; tw5 tw5 23:51 22:05 TYPE AND SCREEN+BB.LAB.BRZ ordered. VIRI MEREDITH 03/05 00:49 03/04 22:09 Dr dozier3 ms3 03/05 00:49 03/04 22:09 Other Acute Care Facility ms3 ms3 03/05 01:49 00:49 Dr Gonzalez ms3 bb
--- NOTE | 2022-03-04 22:10 | ER ---
Nurse's Notes [facility] Name: Hallie Hidalgo Age: 51 yrs Sex: Female : 1970 Arrival Date: 03/04/2022 Time: 21:15 Bed 16 Private MD: Diagnosis: GI Bleed/ Gastrointestinal hemorrhage, unspecified;Upper abdominal pain, unspecified;End stage renal disease Presentation: 03/04 21:23 Chief complaint: Patient states: PT reports diarrhea constantly due to several tw5 medications that she takes. Reports at 0115 this morning she got up to use the restroom and wiped bright red blood from her rectum. States she was fine throughout the day but had another bowel movement just prior to arrival and wiped bright red blood from her rectum again. Pt reports Pt also complains of tightness in her upper/middle abdomen. Coronavirus screen: Vaccine status: Patient reports being unvaccinated. Client denies travel out of the [place] in the last 14 days. Ebola Screen: Patient negative for fever greater than or equal to 101.5 degrees Fahrenheit, and additional compatible Ebola Virus Disease symptoms Patient denies exposure to infectious person. Patient denies travel to an Ebola-affected area in the 21 days before illness onset. No symptoms or risks identified at this time. Initial Sepsis Screen: Does the patient meet any 2 criteria? No. Patient's initial sepsis screen is negative. Does the patient have a suspected source of infection? No. Patient's initial sepsis screen is negative. Risk Assessment: Do you want to hurt yourself or someone else? Patient reports no desire to harm self or others. Onset of symptoms was March 03, 2022. 21:23 Method Of Arrival: Ambulatory tw5 21:23 Acuity: SULEIMAN 3 tw5 Triage Assessment: 21:27 General: Appears in no apparent distress. Behavior is calm, cooperative. Pain: tw5 Complains of pain in epigastric area, right upper quadrant and left upper quadrant Pain does not radiate. Pain currently is 4 out of 10 on a pain scale. Quality of pain is described as aching. GI: Reports upper abdominal pain, constipation, diarrhea, rectal bleeding. 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 Last tetanus immunization: up to date. - Social history:: Smoking status: Patient denies any tobacco usage or history of. Screenin:46 Abuse screen: Denies threats or abuse. Nutritional screening: No deficits noted. bb Tuberculosis screening: No symptoms or risk factors identified. Fall Risk None identified. Assessment: 21:46 General: Appears in no apparent distress. uncomfortable, slender, Behavior is calm, bb cooperative. Pain: Denies pain. Neuro: Level of Consciousness is awake, alert, obeys commands, Oriented to person, place, time, situation. Cardiovascular: Capillary refill < 3 seconds Patient's skin is warm and dry. Rhythm is sinus rhythm Dialysis shunt: in the right arm. Respiratory: Respiratory effort is even, unlabored, Respiratory pattern is regular. GI: Abdomen is round Bowel sounds present X 4 quads. Abd is soft and non tender X 4 quads. Derm: Skin is pink, warm \T\ dry. Musculoskeletal: Circulation, motion, and sensation intact. 22:36 Reassessment: Patient is alert, oriented x 3, equal unlabored respirations, skin bb warm/dry/pink. phlebotomy notified of need for recollect on labs. 03/05 00:08 Reassessment: Patient is alert, oriented x 3, equal unlabored respirations, skin bb warm/dry/pink. pt states she has not taken her home medications for her blood pressure Dr Shen notified okay for pt to take her home meds; losartan, carvedilol, hydralazine. 01:34 Reassessment: report called to Arlene MCFADDEN for [facility]. Pt ambulated with steady bb gait to bathroom given pad for bleeding. Slight amount of blood on sheet. 01:48 Reassessment: Patient is alert, oriented x 3, equal unlabored respirations, skin bb warm/dry/pink. EMS at bedside for transfer of pt to [facility]. IV site intact with no erythema or edema noted. Vital Signs: 03/04 21:23 Pulse 66; Resp 18; Pulse Ox 100% ; Weight 50.35 kg; Height 5 ft. 0 in. (152.40 cm); tw5 21:31 BP 214 / 67; tw5 22:35 BP 205 / 65; Pulse 62; Resp 14 S; Pulse Ox 93% on R/A; bb 23:19 BP 206 / 67; Pulse 63; Resp 16 S; Pulse Ox 96% on R/A; bb 03/05 00:35 BP 210 / 69; Pulse 61; Resp 14 S; Pulse Ox 93% on R/A; bb 01:05 BP 194 / 59; Pulse 61; Resp 18 S; Pulse Ox 93% on R/A; bb 01:48 BP 195 / 72; Pulse 60; Resp 16 S; Pulse Ox 94% on R/A; bb 03/04 21:23 Body Mass Index 21.68 (50.35 kg, 152.40 cm) tw5 ED Course: 03/04 21:15 Patient arrived in ED. ag3 21:27 Triage completed. tw5 21:27 Roderick Shen DO is Attending Physician. ms3 21:27 Arm band placed on left wrist. tw5 21:46 Krys Damon, RN is Primary Nurse. bb 21:46 Patient has correct armband on for positive identification. Placed in gown. Bed in low bb position. Call light in reach. Side rails up X 1. Adult w/ patient. satellite project site monitor on. Pulse ox on. NIBP on. Warm blanket given. 22:06 CBC with Diff Sent. mm9 22:06 CMP Sent. mm9 22:06 Lipase Sent. mm9 22:06 Initial lab(s) drawn, by ak, sent to lab. T\T\S collected, blood band applied to patient. mm9 Inserted saline lock: 22 gauge in left forearm, using aseptic technique. Missed attempt(s): 20 gauge in left antecubital area. 22:20 CT Abd/Pelvis - Without Contrast In Process Unspecified. EDMS 03/05 00:04 Initiated transfer to [facility] per Pt request. wm 00:35 Pt accepted for transfer by Dr. Gonzalez. wm 01:49 No provider procedures requiring assistance completed. Patient transferred, IV remains bb in place. Administered Medications: 03/04 22:31 Drug: Zofran (Ondansetron) 4 mg Route: IVP; Site: left forearm; bb 23:30 Follow up: Response: No adverse reaction bb 03/05 00:06 Not Given (Physician Discretion): cloNIDine 0.1 mg PO once ms3 Medication: 03/04 21:46 VIS not applicable for this client. bb Outcome: 22:09 ER care complete, transfer ordered by . ms3 03/05 01:49 Transferred by ground EMS to [facility], Transfer form bb completed. X-rays sent w/ patient. Condition: stable Instructed on the need for transfer. 01:49 Patient left the ED. bb Signatures: Dispatcher [employer] EDKrys Churchill RN RN bb Domitila Avilez ag3 Roderick Shen, DO ms3 April Beasley, Vaishnavi tw5 Zulema Arreola mm9 Corrections: (The following items were deleted from the chart) 03/04 21:29 21:27 Allergies: No Known Allergies; 21:29 21:27 Allergies: ESRD-dialysis MWF; 21:29 21:27 Allergies: IDDM; tw 23:51 22:05 TYPE AND SCREEN+BB.LAB.BRZ drawn and sent. mm9 EDMS
[2022-03-04 22:17] LABS: Absolute Lymphocytes (CBC) 1.2 K/uL (0.7-4.9); Hematocrit 33.3 % (36.0-45.0); Lymphocytes % 15.2 % (15.3-44.8); MCV 91.8 fL (80-100); MPV 10.6 fL (7.6-11.3); RBC Red Blood Cell Count 3.62 M/uL (3.86-4.86)
[2022-03-04] MEDS ORDERED: ONDANSETRON 4 MG/2 ML VIAL ONE (22:17)
--- NOTE | 2022-03-04 22:26 | RAD REPORT ---
EXAM DESCRIPTION: CT - Abdomen Pelvis Wo Contrast - 03/04/2022 10:18 pm CLINICAL HISTORY: Abdominal pain. Upper abdominal pain COMPARISON: No comparisonsAbdomen Exam Complete dated 10/21/2021 TECHNIQUE: CT imaging of the abdomen and pelvis was performed without contrast. Solid organ, bowel a nd vascular assessment is limited due to lack of IV and oral contrast. All CT scans are performed using dose optimization technique as appropriate and may include automated exposure control or mA/KV adjustment according to patient size. FINDINGS: The lower lung zhou are clear. The liver is mildly prominent in size. Cholelithiasis noted. Mild ascites in the upper abdomen.The sp thomas, pancreas and adrenal glands are within normal limits for noncontrast imaging. Small calculi are likely present in both kidneys without hydronephrosis. No bowel obstruction, free air or abscess. Moderate stool is present throughout the colon. Nonvisuali zed appendix. The osseous structures are within normal limits. IMPRESSION: Mild ascites in the upper abdomen. Cholelithiasis. Mildly prominent liver size. Bilateral nephrolithiasis without hydronephrosis. A limited non-contrast examination was performed as detailed.
[2022-03-04 23:48] LABS: Potassium 4.7 mmol/L (3.5-5.1)
[2022-03-04 23:51] LABS: Albumin 3.5 g/dL (3.4-5.0)
[2022-03-05 00:03] LABS: Bilirubin Total 0.7 mg/dL (0.2-1.0); Protein, Total 8.4 g/dL (6.4-8.2)
[2022-03-05 00:29] LABS: SARS-CoV-2 Antigen Rapid Res Negative (Negative)
[2022-03-05 01:44] LABS: Protime INR 1.05
[2022-03-05 02:18] VITALS: BP 195/72; O2SAT 94
== END 2022-03-05 01:49 | disposition short-term general hospital (02) ==
LOC: ER 21:07
DX: K92.2 Gastrointestinal hemorrhage, unspecified (principal); E11.22 Type 2 diabetes mellitus with diabetic chronic kidney disease; I12.0 Hypertensive chronic kidney disease with stage 5 chronic kidney disease or end stage renal disease; N18.6 End stage renal disease; Z79.4 Long term (current) use of insulin; K74.60 Unspecified cirrhosis of liver; Z20.822 Contact with and (suspected) exposure to COVID-19
CPT/HCPCS: 85025; 36415; 85610; 83690; 80053; 74176; 96374; 99285; 87811; J2405